=== PATIENT | female | born 1945 | race Caucasian/White ===

== ENCOUNTER → 2016-06-03 | Outpatient (CLI) | payer MEDICARE, BC ==
--- NOTE | 2016-06-06 11:01 | MM ---
Reason for exam: screening (asymptomatic). Last mammogram was performed 1 year ago. History: Patient is postmenopausal. Family history of breast cancer in paternal aunt at age 70 and breast cancer in maternal grandmother at age 56. Took hormonal contraceptives for 1 year beginning at age 29. Took estrogen for 1 year beginning at age 46. Took progesterone for 1 year beginning at age 46. Taking other hormone for 6 months beginning at age 62. Physical Findings: A clinical breast exam by your physician is recommended on an annual basis and results should be correlated with mammographic findings. MG 3D Screening Mammo W/Cad Bilateral CC and MLO view(s) were taken. Prior study comparison: May 28, 2015, bilateral MG screening mammo w CAD. May 26, 2014, bilateral MG screening mammo w CAD. There are scattered fibroglandular densities. Finding: There are typically benign vascular, dystrophic, round calcifications in both breasts. There is no discrete abnormality. ASSESSMENT: Benign, BI-RAD 2 RECOMMENDATION: Routine screening mammogram of both breasts in 1 year.
== END | disposition home or self-care (01) ==
LOC: RADMAMWWP 12:53
PROVIDERS: ATTEND Family Medicine
DX: Z12.31 Encounter for screening mammogram for malignant neoplasm of breast (principal)
CPT/HCPCS: 77063; G0202

== ENCOUNTER → 2017-07-14 | Outpatient (CLI) | payer MEDICARE, BC ==
--- NOTE | 2017-07-17 10:47 | MM ---
Reason for exam: screening (asymptomatic). Last mammogram was performed 1 year and 1 month ago. History: Patient is postmenopausal. Family history of breast cancer in paternal aunt at age 70 and breast cancer in maternal grandmother at age 56. Took hormonal contraceptives for 1 year beginning at age 29. Took estrogen for 1 year beginning at age 46. Took progesterone for 1 year beginning at age 46. Taking other hormone for 6 months beginning at age 62. Physical Findings: A clinical breast exam by your physician is recommended on an annual basis and results should be correlated with mammographic findings. MG 3D Screening Mammo W/Cad Bilateral CC and MLO view(s) were taken. Prior study comparison: June 03, 2016, bilateral MG 3d screening mammo w/cad. May 28, 2015, bilateral MG screening mammo w CAD. There are scattered fibroglandular densities. Benign calcifications bilaterally. No suspicious abnormality. No significant changes when compared with prior studies. ASSESSMENT: Benign, BI-RAD 2 RECOMMENDATION: Routine screening mammogram of both breasts in 1 year.
== END | disposition home or self-care (01) ==
LOC: RADMAMWWP 11:48
PROVIDERS: ATTEND Family Medicine
DX: Z12.31 Encounter for screening mammogram for malignant neoplasm of breast (principal); Z80.3 Family history of malignant neoplasm of breast
CPT/HCPCS: 77063; 77067

== ENCOUNTER → 2017-10-09 | Outpatient (CLI) | payer MEDICARE, BC ==
--- NOTE | 2017-10-10 14:51 | CT ---
EXAMINATION TYPE: CT soft tissue neck wo con DATE OF EXAM: 10/10/2017 COMPARISON: None HISTORY: Left side neck pain and swelling. BB placed on point of interest. CT DLP: 423.[address] of the neck was performed from the skull base through the lung apices. The lack of cont rast limits evaluation. AIRWAY: The supraglottic, glottic, and subglottic portions of the airway appear patent and free of mass. SALIVARY GLANDS: The submandibular and parotid glands are free of mass or inflammatory process. THYROID GLAND: No nodules or masses seen. LYMPH NODES: No adenopathy seen greater than 1cm. LUNG APICES: No nodule or mass is seen. OTHER: Vascular structures are patent. Moderate degenerative change of the cervical spine. No absce ss seen. IMPRESSION: No distinct abnormality at the site of clinical concern. If symptoms persist consider ultrasound coral elation.
== END | disposition home or self-care (01) ==
LOC: RADCTMAIN 16:05
PROVIDERS: ATTEND Family Medicine
DX: R22.1 Localized swelling, mass and lump, neck (principal); Z91.048 Other nonmedicinal substance allergy status
CPT/HCPCS: 70490

== ENCOUNTER 2017-10-18 17:52 | Inpatient (IN) | payer MEDICARE, BC ==
[2017-10-18] MEDS ORDERED: SODIUM CHLORIDE 0.9% 1,000 ML IV STA ×2 (17:55)
--- NOTE | 2017-10-18 18:14 | ED ---
General Adult HPI - General Chief complaint: Arrhythmia/Palpitations Stated complaint: tachycardia Time Seen by Provider: 10/18/17 17:54 Source: patient, RN notes reviewed, old records reviewed Mode of arrival: EMS Limitations: no limitations - History of Present Illness Initial comments: This is a 72-year-old female the ER for evaluation of weakness difficulty breathing shortness of breath and chest pain palpitations. Patient's strong cardiac history of heart disease. Lung disease. No recent change in medications. No recent fevers no cough or congestion taking all medications as prescribed. Patient denies any syncope, but just didn't feel significantly lightheaded and weak. Patient continues to feel lightheaded - Related Data Home Medications Medication Instructions Recorded Confirmed ALPRAZolam [Xanax] 0.125 mg PO DAILY 07/17/14 10/18/17 Atorvastatin [Lipitor] 40 mg PO HS 07/17/14 10/18/17 Biotin 5 mg PO BID 07/17/14 10/18/17 Citalopram Hydrobromide [CeleXA] 20 mg PO BID 07/17/14 10/18/17 Gabapentin [Neurontin] 600 mg PO TID 07/17/14 10/18/17 Hyoscyamine Sulfate [Levsin] 0.125 mg PO BID 07/17/14 10/18/17 Levothyroxine Sodium [Synthroid] 100 mcg PO DAILY 07/17/14 10/18/17 Lisinopril-Hctz 20-12.5 mg 1 tab PO DAILY 07/17/14 10/18/17 [Zestoretic 20-12.5] Loratadine [Claritin] 10 mg PO DAILY 07/17/14 10/18/17 Multivitamins, Thera [Theragran] 1 tab PO DAILY 07/17/14 10/18/17 glyBURIDE [Diabeta] 5 mg PO AC-BRKFST 07/17/14 10/18/17 hydrOXYzine HCL 10 mg PO HS PRN 07/17/14 10/18/17 metFORMIN HCL [Glucophage] 1,000 mg PO BID 07/17/14 10/18/17 Budesonide/Formoterol Fumarate 2 puff INHALATION RT-BID 10/18/17 10/18/17 [Symbicort 160-4.5 Mcg Inhaler] Calcium Citrate 500 mg PO DAILY 10/18/17 10/18/17 DULoxetine HCL [Cymbalta] 60 mg PO DAILY 10/18/17 10/18/17 Ferrous Sulfate [Feosol] 325 mg PO DAILY 10/18/17 10/18/17 Ipratropium-Albuterol Nebulize 3 ml INHALATION RT-QID PRN 10/18/17 10/18/17 [Duoneb 0.5 mg-3 mg/3 ml Soln] Mometasone Furoate [Nasonex Nasal 1 spray EA NOSTRIL BID 10/18/17 10/18/17 Holden] Naproxen 500 mg PO BID 10/18/17 10/18/17 Ranitidine HCl 150 mg PO BID 10/18/17 10/18/17 Vitamin B Complex 1 cap PO DAILY 10/18/17 10/18/17 Allergies Allergy/AdvReac Type Severity Reaction Status Date / Time banana [Banana] Allergy Severe Anaphylaxis Verified 10/18/17 18:02 iodine Allergy Severe DYSPNEA, Verified 10/18/17 18:02 SKIN INFLAMED kiwi Allergy Severe Anaphylaxis Verified 10/18/17 18:02 latex Allergy Dyspnea, Verified 10/18/17 18:02 Itching morphine Allergy Rapid Verified 10/18/17 18:02 Heart Rate cow products Allergy ALLERGY Uncoded 10/18/17 18:02 TEST POSITIVE ivp dye Allergy Dyspnea Uncoded 10/18/17 18:02 smoke Allergy Dyspnea Uncoded 10/18/17 18:02 Review of Systems ROS Statement: Those systems with pertinent positive or pertinent negative responses have been documented in the HPI. ROS Other: All systems not noted in ROS Statement are negative. Past Medical History Past Medical History: Asthma, Chest Pain / Angina, COPD, CVA/TIA, Diabetes Mellitus, GERD/Reflux, Hearing Disorder / Deafness, Hyperlipidemia, Hypertension , Musculoskeletal Disorder, Sleep Apnea/CPAP/BIPAP, Thyroid Disorder Additional Past Medical History / Comment(s): NEUROPATHY, HEART MURMUR, NOT USING C-PAP, HIATAL HERNIA, DIVERTICULOSIS, CYST LEFT KIDNEY, DDD WITH SCIATICA AND BACK PAIN. STATES HAVING LEFT ABD & RIGHT GROIN PAIN. NEURO DERMATITIS W/ RASH. History of Any Multi-Drug Resistant Organisms: None Reported Past Surgical History: Adenoidectomy, Cholecystectomy, Hysterectomy, Joint Replacement, Orthopedic Surgery, Tonsillectomy Additional Past Surgical History / Comment(s): D & C, ARTHROSCOPY MIGUEL KNEES, MIGUEL ROTATOR CUFF , MIGUEL KNEE REPLACEMENT. Past Anesthesia/Blood Transfusion Reactions: Postoperative Nausea & Vomiting ( PONV) Past Psychological History: Anxiety, Depression Smoking Status: Former smoker Past Alcohol Use History: None Reported Past Drug Use History: None Reported - Past Family History Mother Family Medical History: Cancer Additional Family Medical History / Comment(s): PANCREAS CA General Exam Limitations: no limitations General appearance: alert, in no apparent distress Head exam: Present: atraumatic, normocephalic, normal inspection Eye exam: Present: normal appearance, PERRL, EOMI. Absent: scleral icterus, conjunctival injection, periorbital swelling ENT exam: Present: normal exam, mucous membranes moist Neck exam: Present: normal inspection. Absent: tenderness, meningismus, lymphadenopathy Respiratory exam: Present: normal lung sounds bilaterally. Absent: respiratory distress, wheezes, rales, rhonchi, stridor Cardiovascular Exam: Present: regular rate, normal rhythm, normal heart sounds. Absent: systolic murmur, diastolic murmur, rubs, gallop, clicks GI/Abdominal exam: Present: soft, normal bowel sounds. Absent: distended, tenderness, guarding, rebound, rigid Extremities exam: Present: normal inspection, full ROM, normal capillary refill. Absent: tenderness, pedal edema, joint swelling, calf tenderness Back exam: Present: normal inspection Neurological exam: Present: alert, oriented X3, CN II-XII intact Psychiatric exam: Present: normal affect, normal mood Skin exam: Present: warm, dry, intact, normal color. Absent: rash Course Vital Signs 10/18/17 17:56 Temperature 98.1 F Pulse Rate 91 Respiratory 16 Rate Blood Pressure 118/63 O2 Sat by Pulse 95 Oximetry - Reevaluation(s) Reevaluation #1: 10/18/17 18:56 Per EMS patient was found to be in SVT positive rate over 200, was given adenosine and heart rate improved to normal sinus rhythm Medical Decision Making - Medical Decision Making 72 female the ER with SVT. Patient's SVT history appropriately, patient will be admitted for cardiology treatment and evaluation - Lab Data Result diagrams: 10/18/17 18:10 10/18/17 18:10 Lab Results 10/18/17 10/18/17 10/18/17 Range/Units 18:10 18:10 18:10 WBC 9.8 (3.8-10.6) k/uL RBC 4.11 (3.80-5.40) m/uL Hgb 11.7 (11.4-16.0) gm/dL Hct 37.1 (34.0-46.0) % MCV 90.2 (80.0-100.0) fL MCH 28.5 (25.0-35.0) pg MCHC 31.6 (31.0-37.0) g/dL RDW 13.3 (11.5-15.5) % Plt Count 329 (150-450) k/uL Neutrophils % 65 % Lymphocytes % 29 % Monocytes % 2 % Eosinophils % 1 % Basophils % 0 % Neutrophils # 6.4 (1.3-7.7) k/uL Lymphocytes # 2.8 (1.0-4.8) k/uL Monocytes # 0.2 (0-1.0) k/uL Eosinophils # 0.1 (0-0.7) k/uL Basophils # 0.0 (0-0.2) k/uL PT (9.0-12.0) sec INR (<1.2) APTT (22.0-30.0) sec Sodium 140 (137-145) mmol/L Potassium 4.5 (3.5-5.1) mmol/L Chloride 110 H (98-107) mmol/L Carbon Dioxide 23 (22-30) mmol/L Anion Gap 7 mmol/L BUN 27 H (7-17) mg/dL Creatinine 1.04 (0.52-1.04) mg/dL Est GFR (CKD-EPI)AfAm 62 (>60 ml/min/1.73 sqM) Est GFR (CKD-EPI)NonAf 54 (>60 ml/min/1.73 sqM) Glucose 286 H (74-99) mg/dL Plasma Lactic Acid Juan (0.7-2.0) mmol/L Calcium 9.3 (8.4-10.2) mg/dL Phosphorus 2.7 (2.5-4.5) mg/dL Magnesium 1.3 L (1.6-2.3) mg/dL Total Bilirubin 0.4 (0.2-1.3) mg/dL AST 207 H (14-36) U/L ALT 169 H (9-52) U/L Alkaline Phosphatase 103 (38-126) U/L Total Creatine Kinase 33 (30-135) U/L Total Protein 6.3 (6.3-8.2) g/dL Albumin 3.8 (3.5-5.0) g/dL 10/18/17 10/18/17 Range/Units 18:10 18:10 WBC (3.8-10.6) k/uL RBC (3.80-5.40) m/uL Hgb (11.4-16.0) gm/dL Hct (34.0-46.0) % MCV (80.0-100.0) fL MCH (25.0-35.0) pg MCHC (31.0-37.0) g/dL RDW (11.5-15.5) % Plt Count (150-450) k/uL Neutrophils % % Lymphocytes % % Monocytes % % Eosinophils % % Basophils % % Neutrophils # (1.3-7.7) k/uL Lymphocytes # (1.0-4.8) k/uL Monocytes # (0-1.0) k/uL Eosinophils # (0-0.7) k/uL Basophils # (0-0.2) k/uL PT 11.4 (9.0-12.0) sec INR 1.2 H (<1.2) APTT 19.9 L (22.0-30.0) sec Sodium (137-145) mmol/L Potassium (3.5-5.1) mmol/L Chloride (98-107) mmol/L Carbon Dioxide (22-30) mmol/L Anion Gap mmol/L BUN (7-17) mg/dL Creatinine (0.52-1.04) mg/dL Est GFR (CKD-EPI)AfAm (>60 ml/min/1.73 sqM) Est GFR (CKD-EPI)NonAf (>60 ml/min/1.73 sqM) Glucose (74-99) mg/dL Plasma Lactic Acid Juan 3.7 H* (0.7-2.0) mmol/L Calcium (8.4-10.2) mg/dL Phosphorus (2.5-4.5) mg/dL Magnesium (1.6-2.3) mg/dL Total Bilirubin (0.2-1.3) mg/dL AST (14-36) U/L ALT (9-52) U/L Alkaline Phosphatase (38-126) U/L Total Creatine Kinase (30-135) U/L Total Protein (6.3-8.2) g/dL Albumin (3.5-5.0) g/dL Disposition Clinical Impression: Supraventricular tachycardia Disposition: ADMITTED IP TO THIS HOSP Condition: Fair Is patient prescribed a controlled substance at d/c from ED?: No Referrals: Mallorie Hudson DO [Primary Care Provider] - 1-2 days
[2017-10-18 18:24] LABS: Basophils % (A) 0 %; Eosinophils # (A) 0.1 k/uL (0-0.7); Eosinophils % (A) 1 %; HCT 37.1 % (34.0-46.0); HGB 11.7 gm/dL (11.4-16.0); Lymphocytes # (A) 2.8 k/uL (1.0-4.8); Lymphocytes % (A) 29 %; MCH 28.5 pg (25.0-35.0); MCHC 31.6 g/dL (31.0-37.0); MCV 90.2 fL (80.0-100.0); Mean Platelet Volume 7.5; Monocytes # (A) 0.2 k/uL (0-1.0); Monocytes % (A) 2 %; Neutrophils # (A) 6.4 k/uL (1.3-7.7); Neutrophils % (A) 65 %; Platelet Count 329 k/uL (150-450); RBC 4.11 m/uL (3.80-5.40); RDW 13.3 % (11.5-15.5); WBC 9.8 k/uL (3.8-10.6)
[2017-10-18 18:32] LABS: Albumin 3.8 g/dL (3.5-5.0); Calcium 9.3 mg/dL (8.4-10.2); Magnesium 1.3 mg/dL (1.6-2.3); Phosphorus 2.7 mg/dL (2.5-4.5); Potassium 4.5 mmol/L (3.5-5.1); Total Bilirubin 0.4 mg/dL (0.2-1.3); Total Protein 6.3 g/dL (6.3-8.2)
[2017-10-18 18:44] LABS: INR 1.2 (<1.2); Prothrombin Time 11.4 sec (9.0-12.0)
[2017-10-18 18:54] LABS: Partial Thromboplastin Time 19.9 sec (22.0-30.0)
[2017-10-18] MEDS ORDERED: NITROGLYCERIN SL TABS 0.4 MG TAB SUBLINGUAL PRN (18:54)
[2017-10-18 18:57] LABS: Troponin I 0.012 ng/mL (0.000-0.034)
--- NOTE | 2017-10-18 19:02 | XR ---
EXAMINATION: XR chest 2V DATE AND TIME: 10/18/2017 6:22 PM ORDERING PROVIDER: David French DO CLINICAL INDICATION: Weakness TECHNIQUE: PA and lateral COMPARISON: None. DESCRIPTION: The overlying soft tissues are prominent. The lungs are clear. The pleural spaces are negative. The cardiac silhouette is mild enlarged. The mediastinal and pleural silhouettes are unremarkable. The skeletal structures are intact without focal findings. IMPRESSION: 1. NO ACUTE PROCESS. 2. MILDLY ENLARGED CARDIAC [place]TE.
[2017-10-18 21:58] LABS: Glucose,Whole Blood 187 mg/dL (75-99)
[2017-10-18] MEDS ORDERED: hydrOXYzine HCL 10 MG TAB PO PRN (22:10)
[2017-10-18] MEDS ORDERED: ATORVASTATIN 40 MG TAB PO SCH (22:15)
[2017-10-18] MEDS ORDERED: NON-FORMULARY DRUG (Biotin [Biotin] 5 MG) PO SCH (22:15)
[2017-10-18 22:44] VITALS: BMI 36.1
[2017-10-18] MEDS: METOPROLOL TARTRATE 50 MG TAB PO SCH (22:46)
[2017-10-18] MEDS: GABAPENTIN 300 MG CAP PO SCH (22:47)
[2017-10-18] MEDS: CITALOPRAM HYDROBROMIDE 20 MG TAB PO SCH (22:47)
[2017-10-18] MEDS: FAMOTIDINE 20 MG TAB PO SCH (22:47)
[2017-10-18] MEDS: HYOSCYAMINE SULFATE 0.125 MG TAB PO SCH ×2 (22:48→22:53)
[2017-10-18] MEDS: metFORMIN 500 MG TAB PO SCH (22:50)
[2017-10-18] MEDS: LORATADINE 10 MG TAB PO SCH (22:51)
[2017-10-18] MEDS: ALPRAZolam 0.25 MG TAB PO SCH (22:55)
[2017-10-18] MEDS: IPRATROPIUM-ALBUTEROL 3 ML NEB INHALATION PRN (23:56)
[2017-10-19 01:39] LABS: Creatine Kinase MB 1.2 ng/mL (0.0-2.4)
[2017-10-19 01:42] LABS: Troponin I 0.047 ng/mL (0.000-0.034)
[2017-10-19] MEDS ORDERED: ENOXAPARIN 80 MG/0.8 ML SYRINGE SQ STA (02:05)
[2017-10-19 05:31] LABS: Appearance,Urine Cloudy (Clear); Bilirubin,Urine Negative (Negative); Blood,Urine Negative (Negative); Color,Urine Yellow; Glucose,Urine (UA) 1+ (Negative); Hyaline Casts,Urine 15 /lpf (0-2); Ketones,Urine Trace (Negative); Leukocyte Esterase,Urine Large (Negative); Mucus,Urine Many /hpf; Nitrite,Urine Negative (Negative); PH, Urine 5.5 (5.0-8.0); Protein,Urine 1+ (Negative); RBC,Urine 4 /hpf (0-5); Specific Gravity,Urine 1.025 (1.001-1.035); Squamous Epithelial Cell,Urine 5 /hpf (0-4); WBC,Urine 81 /hpf (0-5)
[2017-10-19 06:06] LABS: Glucose,Whole Blood 188 mg/dL (75-99)
[2017-10-19 06:21] LABS: Basophils % (A) 0 %; Eosinophils # (A) 0.1 k/uL (0-0.7); Eosinophils % (A) 1 %; HCT 33.6 % (34.0-46.0); HGB 10.4 gm/dL (11.4-16.0); Lymphocytes # (A) 2.8 k/uL (1.0-4.8); Lymphocytes % (A) 30 %; MCH 27.8 pg (25.0-35.0); MCHC 30.8 g/dL (31.0-37.0); MCV 90.3 fL (80.0-100.0); Mean Platelet Volume 7.4; Monocytes # (A) 0.3 k/uL (0-1.0); Monocytes % (A) 3 %; Neutrophils # (A) 5.8 k/uL (1.3-7.7); Neutrophils % (A) 62 %; Platelet Count 292 k/uL (150-450); RBC 3.72 m/uL (3.80-5.40); RDW 13.2 % (11.5-15.5); WBC 9.3 k/uL (3.8-10.6)
[2017-10-19] MEDS: INSULIN ASPART 100 UNIT/ML 1 ML 10 ML VIAL SQ SCH ×4 (06:27→21:24)
[2017-10-19] MEDS: LEVOTHYROXINE 100 MCG TAB PO SCH (06:29)
[2017-10-19 06:30] LABS: Calcium 8.6 mg/dL (8.4-10.2); Potassium 4.1 mmol/L (3.5-5.1)
[2017-10-19 06:52] LABS: Creatine Kinase MB 1.5 ng/mL (0.0-2.4)
[2017-10-19 06:55] LABS: Troponin I 0.042 ng/mL (0.000-0.034)
[2017-10-19] MEDS: ALPRAZolam 0.25 MG TAB PO SCH (08:34)
[2017-10-19] MEDS: FLUTICASONE 50MCG/SPRAY NASAL 16GM EA NOSTRIL SCH (08:36)
[2017-10-19] MEDS: CALCIUM CARBONATE 500 MG CHEWABLE PO SCH (08:37)
[2017-10-19] MEDS: CITALOPRAM HYDROBROMIDE 20 MG TAB PO SCH ×2 (08:37→19:45)
[2017-10-19] MEDS: DULoxetine HCL 60 MG CAPSULE.DR PO SCH (08:37)
[2017-10-19] MEDS: metFORMIN 500 MG TAB PO SCH (08:38)
[2017-10-19] MEDS: HYOSCYAMINE SULFATE 0.125 MG TAB PO SCH ×2 (08:38→19:44)
[2017-10-19] MEDS: GABAPENTIN 300 MG CAP PO SCH ×3 (08:38→19:45)
[2017-10-19] MEDS: FAMOTIDINE 20 MG TAB PO SCH ×2 (08:38→19:44)
[2017-10-19] MEDS: LORATADINE 10 MG TAB PO SCH (08:38)
[2017-10-19] MEDS: FERROUS SULFATE 325 MG TAB PO SCH (08:38)
[2017-10-19] MEDS: METOPROLOL TARTRATE 50 MG TAB PO SCH ×2 (08:39→19:45)
[2017-10-19] MEDS: IPRATROPIUM-ALBUTEROL 3 ML NEB INHALATION PRN ×2 (08:42→12:17)
[2017-10-19] MEDS: SYMBICORT 160-4.5 MCG INHALER INHALATION SCH ×2 (08:42→21:10)
[2017-10-19] MEDS ORDERED: NON-FORMULARY DRUG (Vitamin B Complex [Vitamin B Complex] 1 CAP) PO SCH (09:00)
[2017-10-19] MEDS ORDERED: NAPROXEN 250 MG TAB PO SCH (09:00)
[2017-10-19] MEDS ORDERED: LISINOPRIL-HCTZ 20-12.5 MG 1 EACH TAB PO SCH (09:00)
[2017-10-19] MEDS ORDERED: ASPIRIN 325 MG TAB PO SCH (09:00)
[2017-10-19 09:19] LABS: Albumin 3.3 g/dL (3.5-5.0); Calcium 8.6 mg/dL (8.4-10.2); Total Bilirubin 0.3 mg/dL (0.2-1.3); Total Protein 5.7 g/dL (6.3-8.2)
--- NOTE | 2017-10-19 09:35 | P.CRDCN ---
History of Present Illness Consult date: 10/19/17 Requesting physician: Wenceslao Brock Reason for Consult (text): SVT Chief complaint: Palpitations History of present illness: This is a pleasant 72-year-old female with history of hypertension, diabetes, hyperlipidemia, very hard of hearing, nonsmoker, no EtOH, who drinks 3 -4 cups of coffee per day. Patient has also been told that she has 2 leaky valves, she has not seen a carton folder, follows with Dr. Hudson as her primary care doctor. She states that since Monday evening she has not been feeling well overall. She states that she has been under a lot of stress at home recently and attributed most of her symptoms to that. She has been feeling extremely fatigued and tired, and at times feels her heart racing extremely fast. Ultimately the patient couldn't handle it anymore and EMS was called. She also states that on occasion she gets a midsternal chest pressure and heaviness which comes and goes. On arrival an EKG was performed which revealed supraventricular tachycardia, she was given adenosine and converted to normal sinus rhythm. Chest x-ray on arrival here did not reveal any acute process. Laboratory data was reviewed, white blood cell count 9.3, hemoglobin 10.4, platelet count 292. Sodium 141, potassium 4.0, BUN 26, creatinine 1.0. Magnesium 1.3. AST 207 ALT 169 yesterday was 193 and 205 today. Troponins 0.012, 0.047, 0.042. Positive UTI. TSH 1.3. Blood sugars on arrival 286. I pressure 125/77, heart rate in the 70s, 97% on room air. At the time of my examination this morning, patient feels a little shaky in her words, otherwise she's feeling considerably better than prior to coming here. Denies any chest discomfort or palpitations this morning. Her breathing is stable. Past Medical History Past Medical History: Asthma, Chest Pain / Angina, COPD, CVA/TIA, Diabetes Mellitus, GERD/Reflux, Hearing Disorder / Deafness, Hyperlipidemia, Hypertension , Musculoskeletal Disorder, Sleep Apnea/CPAP/BIPAP, Thyroid Disorder Additional Past Medical History / Comment(s): NEUROPATHY, HEART MURMUR, NOT USING C-PAP, HIATAL HERNIA, DIVERTICULOSIS, CYST LEFT KIDNEY, DDD WITH SCIATICA AND BACK PAIN. STATES HAVING LEFT ABD & RIGHT GROIN PAIN. NEURO DERMATITIS W/ RASH. History of Any Multi-Drug Resistant Organisms: None Reported Past Surgical History: Adenoidectomy, Cholecystectomy, Hysterectomy, Joint Replacement, Orthopedic Surgery, Tonsillectomy Additional Past Surgical History / Comment(s): D & C, ARTHROSCOPY MIGUEL KNEES, MIGUEL ROTATOR CUFF , MIGUEL KNEE REPLACEMENT. Past Anesthesia/Blood Transfusion Reactions: Postoperative Nausea & Vomiting ( PONV) Past Psychological History: Anxiety, Depression Smoking Status: Former smoker Past Alcohol Use History: None Reported Past Drug Use History: None Reported - Past Family History Father Family Medical History: Pneumonia Mother Family Medical History: Cancer Additional Family Medical History / Comment(s): PANCREAS CA Medications and Allergies Home Medications Medication Instructions Recorded Confirmed Type ALPRAZolam [Xanax] 0.125 mg PO DAILY 07/17/14 10/18/17 History Atorvastatin [Lipitor] 40 mg PO HS 07/17/14 10/18/17 History Biotin 5 mg PO BID 07/17/14 10/18/17 History Citalopram Hydrobromide [CeleXA] 20 mg PO BID 07/17/14 10/18/17 History Gabapentin [Neurontin] 600 mg PO TID 07/17/14 10/18/17 History Hyoscyamine Sulfate [Levsin] 0.125 mg PO BID 07/17/14 10/18/17 History Levothyroxine Sodium [Synthroid] 100 mcg PO DAILY 07/17/14 10/18/17 History Lisinopril-Hctz 20-12.5 mg 1 tab PO DAILY 07/17/14 10/18/17 History [Zestoretic 20-12.5] Loratadine [Claritin] 10 mg PO DAILY 07/17/14 10/18/17 History Multivitamins, Thera [Theragran] 1 tab PO DAILY 07/17/14 10/18/17 History glyBURIDE [Diabeta] 5 mg PO AC-BRKFST 07/17/14 10/18/17 History hydrOXYzine HCL 10 mg PO HS PRN 07/17/14 10/18/17 History metFORMIN HCL [Glucophage] 1,000 mg PO BID 07/17/14 10/18/17 History Budesonide/Formoterol Fumarate 2 puff INHALATION RT-BID 10/18/17 10/18/17 History [Symbicort 160-4.5 Mcg Inhaler] Calcium Citrate 500 mg PO DAILY 10/18/17 10/18/17 History DULoxetine HCL [Cymbalta] 60 mg PO DAILY 10/18/17 10/18/17 History Ferrous Sulfate [Feosol] 325 mg PO DAILY 10/18/17 10/18/17 History Ipratropium-Albuterol Nebulize 3 ml INHALATION RT-QID PRN 10/18/17 10/18/17 History [Duoneb 0.5 mg-3 mg/3 ml Soln] Mometasone Furoate [Nasonex Nasal 1 spray EA NOSTRIL BID 10/18/17 10/18/17 History [place]] Naproxen 500 mg PO BID 10/18/17 10/18/17 History Ranitidine HCl 150 mg PO BID 10/18/17 10/18/17 History Vitamin B Complex 1 cap PO DAILY 10/18/17 10/18/17 History Allergies Allergy/AdvReac Type Severity Reaction Status Date / Time banana [Banana] Allergy Severe Anaphylaxis Verified 10/18/17 18:02 iodine Allergy Severe DYSPNEA, Verified 10/18/17 18:02 SKIN INFLAMED kiwi Allergy Severe Anaphylaxis Verified 10/18/17 18:02 latex Allergy Dyspnea, Verified 10/18/17 18:02 Itching morphine Allergy Rapid Verified 10/18/17 18:02 Heart Rate cow products Allergy ALLERGY Uncoded 10/18/17 18:02 TEST POSITIVE ivp dye Allergy Dyspnea Uncoded 10/18/17 18:02 smoke Allergy Dyspnea Uncoded 10/18/17 18:02 Physical Exam Vitals: Vital Signs Temp Pulse Pulse Resp BP BP Pulse Ox 10/19/17 08:56 74 10/19/17 08:44 78 96 10/19/17 08:00 98.8 F 78 16 125/77 97 10/19/17 04:00 98.5 F 76 17 141/62 92 L 10/19/17 00:07 76 17 10/19/17 00:06 68 10/19/17 00:04 98.3 F 76 17 107/55 92 L 10/18/17 23:57 76 10/18/17 21:09 98.5 F 84 17 129/58 98 10/18/17 19:12 84 16 145/68 98 10/18/17 17:56 98.1 F 91 16 118/63 95 Intake and Output 10/18/17 10/19/17 10/19/17 22:59 06:59 14:59 Intake Total 1000 240 Balance 1000 240 Intake: Intake, IV Titration 800 Amount Sodium Chloride 0.9% 1, 800 000 ml @ 100 mls/hr IV . Q10H STA Rx#:[id number] Oral 200 240 Other: Voiding Method Toilet # Voids 2 Weight 81.193 kg 81.2 kg PHYSICAL EXAMINATION: GENERAL: 72-year-old female in no acute distress at time of my examination HEENT: Head is atraumatic, normocephalic. Pupils equal, round. Sclera anicteric. Conjunctivae bilateral eye redness noted. Mucous membranes of the mouth are moist. Neck is supple. There is no elevated jugular venous pressure. No carotid bruit is heard. HEART EXAMINATION: S1 and S2 systolic murmur is heard. CHEST EXAMINATION: Lungs are clear to auscultation and precussion. No chest wall tenderness is noted on palpation or with deep breathing. ABDOMEN: Soft, nontender. Bowel sounds are heard. No organomegaly noted. EXTREMITIES: 2+ peripheral pulses with no evidence of peripheral edema and no calf tenderness noted. NEUROLOGIC patient is awake, alert and oriented X3. . Results 10/19/17 06:00 10/19/17 06:00 Cardiac Enzymes 10/18/17 10/18/17 10/19/17 Range/Units 18:10 18:10 00:36 AST 207 H (14-36) U/L CK-MB (CK-2) 1.0 1.2 (0.0-2.4) ng/mL Troponin I 0.012 0.047 H* (0.000-0.034) ng/mL 10/19/17 Range/Units 06:00 AST (14-36) U/L CK-MB (CK-2) 1.5 (0.0-2.4) ng/mL Troponin I 0.042 H* (0.000-0.034) ng/mL Coagulation 10/18/17 Range/Units 18:10 PT 11.4 (9.0-12.0) sec APTT 19.9 L (22.0-30.0) sec Lipids 10/19/17 Range/Units 06:00 Triglycerides 194 H (<150) mg/dL Cholesterol 120 (<200) mg/dL HDL Cholesterol 41 (40-60) mg/dL CBC 10/18/17 10/19/17 Range/Units 18:10 06:00 WBC 9.8 9.3 (3.8-10.6) k/uL RBC 4.11 3.72 L (3.80-5.40) m/uL Hgb 11.7 10.4 L (11.4-16.0) gm/dL Hct 37.1 33.6 L (34.0-46.0) % Plt Count 329 292 (150-450) k/uL Comprehensive Metabolic Panel 10/18/17 10/19/17 Range/Units 18:10 06:00 Sodium 140 141 (137-145) mmol/L Potassium 4.5 4.1 (3.5-5.1) mmol/L Chloride 110 H 112 H (98-107) mmol/L Carbon Dioxide 23 22 (22-30) mmol/L BUN 27 H 26 H (7-17) mg/dL Creatinine 1.04 1.10 H (0.52-1.04) mg/dL Glucose 286 H 171 H (74-99) mg/dL Calcium 9.3 8.6 (8.4-10.2) mg/dL AST 207 H (14-36) U/L ALT 169 H (9-52) U/L Alkaline Phosphatase 103 (38-126) U/L Total Protein 6.3 (6.3-8.2) g/dL Albumin 3.8 (3.5-5.0) g/dL Current Medications Generic Name Dose Route Start Last Admin Trade Name Freq PRN Reason Stop Dose Admin Albuterol/Ipratropium 3 ml 10/18/17 22:10 10/19/17 08:42 Duoneb 0.5 Mg-3 Mg/3 Ml Soln INHALATION 3 ml RT-QID PRN Administration Shortness Of Breath Alprazolam 0.125 mg 10/18/17 22:15 10/19/17 08:34 Xanax PO 0.125 mg DAILY SUHAS Administration Aspirin 325 mg 10/19/17 09:00 10/19/17 08:41 Aspirin PO 325 mg DAILY SUHAS Administration Budesonide/Formoterol Fumarate 2 puff 10/19/17 08:00 10/19/17 08:42 Symbicort 160-4.5 Mcg Inhaler INHALATION 2 puff RT-BID SUHAS Administration Calcium Carbonate/Glycine 500 mg 10/19/17 09:00 10/19/17 08:37 Tums PO 500 mg DAILY SUHAS Administration Citalopram Hydrobromide 20 mg 10/18/17 22:15 10/19/17 08:37 Celexa PO 20 mg BID SUHAS Administration Duloxetine HCl 60 mg 10/19/17 09:00 10/19/17 08:37 Cymbalta PO 60 mg DAILY SUHAS Administration Enoxaparin Sodium 40 mg 10/19/17 21:00 Lovenox SQ HS SUHAS Famotidine 20 mg 10/18/17 22:15 10/19/17 08:38 Pepcid PO 20 mg BID SUHAS Administration Ferrous Sulfate 325 mg 10/19/17 09:00 10/19/17 08:38 Feosol PO 325 mg DAILY SUHAS Administration Fluticasone Propionate 1 spray 10/19/17 09:00 10/19/17 08:36 Flonase Nasal [place] EA NOSTRIL 1 spray DAILY SUHAS Administration Gabapentin 600 mg 10/18/17 22:15 10/19/17 08:38 Neurontin PO 600 mg TID SUHAS Administration Lisinopril/HCTZ 1 each 10/19/17 09:00 10/19/17 08:38 Zestoretic 20-12.5 PO 1 each DAILY SUHAS Administration Hydroxyzine HCl 10 mg 10/18/17 22:10 Atarax PO HS PRN Itching Hyoscyamine 0.125 mg 10/18/17 22:15 10/19/17 08:38 Levsin PO 0.125 mg BID SUHAS Administration Magnesium Sulfate/Dextrose 1 100 mls @ 100 mls/hr 10/19/17 08:45 gm/ IV Solution IVPB 10/19/17 10:44 Q1H [facility] Insulin Aspart 0 unit 10/19/17 07:30 10/19/17 06:27 Novolog SQ 2 unit ACHS SUHAS Administration Protocol Levothyroxine Sodium 100 mcg 10/19/17 06:30 10/19/17 06:29 Synthroid PO 100 mcg DAILY@0630 SUHAS Administration Loratadine 10 mg 10/18/17 22:15 10/19/17 08:38 Claritin PO 10 mg DAILY SUHAS Administration Metformin HCl 1,000 mg 10/18/17 22:00 10/19/17 08:38 Glucophage PO 1,000 mg BID SUHAS Administration Metoprolol Tartrate 50 mg 10/18/17 21:00 10/19/17 08:39 Lopressor PO 50 mg BID SUHAS Administration Multivitamins 1 each 10/19/17 12:00 Theragran PO DAILY@1200 SUHAS Naproxen 500 mg 10/19/17 09:00 10/19/17 08:31 Naprosyn PO Not Given BID SUHAS Nitroglycerin 0.4 mg 10/18/17 18:54 Nitrostat SUBLINGUAL Q5M PRN Chest Pain Intake and Output 10/18/17 10/19/17 10/19/17 22:59 06:59 14:59 Intake Total 1000 240 Balance 1000 240 Intake: Intake, IV Titration 800 Amount Sodium Chloride 0.9% 1, 800 000 ml @ 100 mls/hr IV . Q10H STA Rx#:[id number] Oral 200 240 Other: Voiding Method Toilet # Voids 2 Weight 81.193 kg 81.2 kg 10/19/17 06:00 10/19/17 06:00 EKG Interpretations (text) Initial EKG by EMS showed supraventricular tachycardia with a heart rate in the 200 range. Subsequent EKG shows normal sinus rhythm ST-T wave changes are noted in the anterior lateral leads changes also noted in the inferior leads. Repeat EKG performed this morning shows normal sinus rhythm with resolution of changes. Assessment and Plan Plan: Assessment and plan #1 supraventricular tachycardia, converted to normal sinus rhythm with adenosine. #2 symptoms of intermittent chest pressure and heaviness with abnormality noted in troponin. Conversion EKG does show some ST-T wave changes in the anterior leads as well as inferior leads. Cannot rule out acute coronary syndrome. #3 hypertension #4 hyperlipidemia #5 diabetes #6 abnormal liver function Plan We will obtain an echocardiogram with Doppler study. Because of the abnormality in troponin and subsequent EKG changes patient has been advised to undergo cardiac catheterization, the risks and benefits were explained in detail and she is going to proceed. Abnormality in troponin could also be secondary to SVT. Further recommendations will be based on these findings and patient's clinical course. DNP note has been reviewed, I agree with a documented findings and plan of care. Patient was seen and examined.
[2017-10-19] MEDS ORDERED: SODIUM CHLORIDE 0.9% 1,000 ML in EMPTY BAG 1 BAG IV ONE (09:36)
[2017-10-19] MEDS ORDERED: ALPRAZolam 0.5 MG TAB PO PRN (09:36)
[2017-10-19] MEDS ORDERED: ASPIRIN 325 MG TAB PO STA (09:36)
[2017-10-19] MEDS ORDERED: NITROGLYCERIN SL TABS 0.4 MG TAB SUBLINGUAL PRN (09:36)
[2017-10-19] MEDS ORDERED: ALPRAZolam 0.25 MG TAB PO PRN (09:36)
[2017-10-19] MEDS ORDERED: ATORVASTATIN 80 MG TAB PO STA (09:39)
--- NOTE | 2017-10-19 09:44 | P.PN ---
Progress Note - Text This is an addendum to the dictated cardiology consultation. The patient presents with tachycardia, SVT and chest discomfort as well as dyspnea. She has a history of hypertension, hyperlipidemia and diabetes mellitus. She has no documented history of CAD. She has been complaining of palpitations on and off with episode of chest tightness. On presentation she was in SVT that reverted to sinus mechanism with adenosine. She has mild T-wave inversion anteriorly of unclear etiology. On her examination her lungs are clear and she has no evidence of congestion with trace edema. I have recommended to obtain an echocardiogram to evaluate her systolic function and because of her history and presentation I have recommended to proceed with cardiac catheterization to further evaluate her status and guide her treatment. The risks as well as as the complications were discussed with the patient who is in full understanding and agreement. Thank you for this consult we will follow with you.
[2017-10-19] MEDS: MAGNESIUM SULFATE-D5W PMX 1 GM in DEXTROSE/WATER 1 100ML.BAG IVPB SCH ×2 (10:07→11:15)
--- NOTE | 2017-10-19 11:04 | ECHOF ---
Referral Reason:abn trop MEASUREMENTS -------- HEIGHT: 127.0 cm WEIGHT: 81.2 kg BP: RVIDd: 2.7 cm (< 3.3) IVSd: 1.0 cm (0.6 - 1.1) LVIDd: 4.2 cm (3.9 - 5.3) LVPWd: 1.3 cm (0.6 - 1.1) IVSs: 1.4 cm LVIDs: 3.4 cm LVPWs: 1.3 cm LA Diam: 3.6 cm (2.7 - 3.8) Ao Diam: 2.7 cm (2.0 - 3.7) AV Cusp: 1.8 cm (1.5 - 2.6) LA Diam: 4.1 cm (2.7 - 3.8) MV EXCURSION: 13.189 mm (> 18.000) MV EF SLOPE: 82 mm/s (70 - 150) EPSS: 0.2 cm MV E Joseph: 1.05 m/s MV DecT: 154 ms MV A Joseph: 1.04 m/s MV E/A Ratio: 1.01 AR PHT: 386 ms RAP: 15.00 mmHg RVSP: 65.90 mmHg FINDINGS -------- Sinus rhythm. This was a technically adequate study. LV size, wall thickness and systolic function are normal, with an EF greater than 55%. The left fely tricular size is normal. The right ventricle is normal in size. The left atrium is mildly dilated. LA is severely dilated >40 ml/m2 The right atrial size is normal. There is mild aortic valve sclerosis. Trace to mild aortic regurgitation. Mild mitral annular calcification present. Mild mitral regurgitation is present. [id number] tricuspid regurgitation present. There is moderate to severe pulmonary hypertensio n. The right ventricular systolic pressure, as measured by Doppler, is 65.90mmHg. Trace/mild (physiologic) pulmonic regurgitation. The aortic root size is normal. Echo free space represents a pericardial fat pad. CONCLUSIONS -------- 1. LV size, wall thickness and systolic function are normal, with an EF greater than 55%. 2. The left ventricular size is normal. 3. The right ventricle is normal in size. 4. The left atrium is mildly dilated. 5. LA is severely dilated >40 ml/m2 6. The right atrial size is normal. 7. There is mild aortic valve sclerosis. 8. Trace to mild aortic regurgitation. 9. Mild mitral annular calcification present. 10. Mild mitral regurgitation is present. 11. [id number] tricuspid regurgitation present. 12. There is moderate to severe pulmonary hypertension. 13. The right ventricular systolic pressure, as measured by Doppler, is 65.90mmHg. 14. Trace/mild (physiologic) pulmonic regurgitation. 15. The aortic root size is normal. 16. Echo free space represents a pericardial fat pad. [employer] HOLE DRILLER: Delicia Watts RDCS
[2017-10-19] MEDS: MULTIVITAMINS, THERA 1 EACH TAB PO SCH (11:15)
[2017-10-19 11:19] LABS: Glucose,Whole Blood 145 mg/dL (75-99)
--- NOTE | 2017-10-19 11:43 | P.HPIM ---
<Esem Donovan - Last Filed: 10/19/17 11:25> History of Present Illness H&P Date: 10/19/17 Chief Complaint: Shortness of breath and chest tightness This is a 72-year-old female, patient of [facility]. She has a known past medical history of TIA, COPD, diabetes mellitus, hypertension, obstructive sleep apnea, hypothyroidism, stomach ulcer and hyperlipidemia. Patient reports over the last week she's had increasing shortness of breath, chest tightness, palpitations and overall weakness. She also has been feeling lightheaded. She had called EMS. Per EMS patient was found to be in SVT with a heart rate of 200. She was given adenosine and heart rate improved and she converted to normal sinus rhythm. Patient was admitted to the telemetry floor remains in sinus rhythm. Cardiology consulted. She did have mild elevation of troponins and EKG had shown normal sinus rhythm with T-wave abnormality. Cardiology ordered an echocardiogram and they are planning to proceed with a heart catheterization. Echo showed an EF of 55% with moderate to severe pulmonary hypertension and mild to moderate tricuspid regurgitation. Patient also has been complaining of some nausea and right upper quadrant abdominal discomfort. She did have elevated liver enzymes with AST of 207 and ALT of 109. Abdominal ultrasound and hepatitis panel ordered. Patient does report having a cholecystectomy around 1992. Patient also reports having irritable bowel syndrome and has been having diarrhea. She reports mostly in her stools or in the evening. She usually takes a medication over the counter to stop the loose stools. However, she has been out of this medication. Patient reports last EGD and colonoscopy was about 2 years ago and at that time was diagnosed with a stomach ulcer. Patient denies any blood or black stools. Denies any fever chills or sweats. Denies any burning with urination. Also note magnesium 1.3 this is being replaced. Patient is also complaining of itching and redness in both eyes. She has been having signs of conjunctivitis a lot of drainage from the eyes. Eye drops have been ordered Review of Systems Please refer to HPI otherwise unremarkable Past Medical History Past Medical History: Asthma, Chest Pain / Angina, COPD, CVA/TIA, Diabetes Mellitus, GERD/Reflux, Hearing Disorder / Deafness, Hyperlipidemia, Hypertension , Musculoskeletal Disorder, Sleep Apnea/CPAP/BIPAP, Thyroid Disorder Additional Past Medical History / Comment(s): NEUROPATHY, HEART MURMUR, NOT USING C-PAP, HIATAL HERNIA, DIVERTICULOSIS, CYST LEFT KIDNEY, DDD WITH SCIATICA AND BACK PAIN. STATES HAVING LEFT ABD & RIGHT GROIN PAIN. NEURO DERMATITIS W/ RASH. History of Any Multi-Drug Resistant Organisms: None Reported Past Surgical History: Adenoidectomy, Cholecystectomy, Hysterectomy, Joint Replacement, Orthopedic Surgery, Tonsillectomy Additional Past Surgical History / Comment(s): D & C, ARTHROSCOPY MIGUEL KNEES, MIGUEL ROTATOR CUFF , MIGUEL KNEE REPLACEMENT. Past Anesthesia/Blood Transfusion Reactions: Postoperative Nausea & Vomiting ( PONV) Past Psychological History: Anxiety, Depression Smoking Status: Former smoker Past Alcohol Use History: None Reported Past Drug Use History: None Reported - Past Family History Father Family Medical History: Pneumonia Mother Family Medical History: Cancer Additional Family Medical History / Comment(s): PANCREAS CA Medications and Allergies Home Medications Medication Instructions Recorded Confirmed Type ALPRAZolam [Xanax] 0.125 mg PO DAILY 07/17/14 10/18/17 History Atorvastatin [Lipitor] 40 mg PO HS 07/17/14 10/18/17 History Biotin 5 mg PO BID 07/17/14 10/18/17 History Citalopram Hydrobromide [CeleXA] 20 mg PO BID 07/17/14 10/18/17 History Gabapentin [Neurontin] 600 mg PO TID 07/17/14 10/18/17 History Hyoscyamine Sulfate [Levsin] 0.125 mg PO BID 07/17/14 10/18/17 History Levothyroxine Sodium [Synthroid] 100 mcg PO DAILY 07/17/14 10/18/17 History Lisinopril-Hctz 20-12.5 mg 1 tab PO DAILY 07/17/14 10/18/17 History [Zestoretic 20-12.5] Loratadine [Claritin] 10 mg PO DAILY 07/17/14 10/18/17 History Multivitamins, Thera [Theragran] 1 tab PO DAILY 07/17/14 10/18/17 History glyBURIDE [Diabeta] 5 mg PO AC-BRKFST 07/17/14 10/18/17 History hydrOXYzine HCL 10 mg PO HS PRN 07/17/14 10/18/17 History metFORMIN HCL [Glucophage] 1,000 mg PO BID 07/17/14 10/18/17 History Budesonide/Formoterol Fumarate 2 puff INHALATION RT-BID 10/18/17 10/18/17 History [Symbicort 160-4.5 Mcg Inhaler] Calcium Citrate 500 mg PO DAILY 10/18/17 10/18/17 History DULoxetine HCL [Cymbalta] 60 mg PO DAILY 10/18/17 10/18/17 History Ferrous Sulfate [Feosol] 325 mg PO DAILY 10/18/17 10/18/17 History Ipratropium-Albuterol Nebulize 3 ml INHALATION RT-QID PRN 10/18/17 10/18/17 History [Duoneb 0.5 mg-3 mg/3 ml Soln] Mometasone Furoate [Nasonex Nasal 1 spray EA NOSTRIL BID 10/18/17 10/18/17 History [place]] Naproxen 500 mg PO BID 10/18/17 10/18/17 History Ranitidine HCl 150 mg PO BID 10/18/17 10/18/17 History Vitamin B Complex 1 cap PO DAILY 10/18/17 10/18/17 History Allergies Allergy/AdvReac Type Severity Reaction Status Date / Time banana [Banana] Allergy Severe Anaphylaxis Verified 10/18/17 18:02 iodine Allergy Severe DYSPNEA, Verified 10/18/17 18:02 SKIN INFLAMED kiwi Allergy Severe Anaphylaxis Verified 10/18/17 18:02 latex Allergy Dyspnea, Verified 10/18/17 18:02 Itching morphine Allergy Rapid Verified 10/18/17 18:02 Heart Rate ivp dye Allergy Dyspnea Uncoded 10/18/17 18:02 smoke Allergy Dyspnea Uncoded 10/18/17 18:02 Physical Exam Vitals: Vital Signs Temp Pulse Pulse Resp BP BP Pulse Ox 10/19/17 11:24 69 18 10/19/17 11:12 98.1 F 69 18 104/55 97 10/19/17 08:56 74 10/19/17 08:44 78 96 10/19/17 08:00 98.8 F 78 16 125/77 97 10/19/17 04:00 98.5 F 76 17 141/62 92 L 10/19/17 00:07 76 17 10/19/17 00:06 68 10/19/17 00:04 98.3 F 76 17 107/55 92 L 10/18/17 23:57 76 10/18/17 21:09 98.5 F 84 17 129/58 98 10/18/17 19:12 84 16 145/68 98 10/18/17 17:56 98.1 F 91 16 118/63 95 Intake and Output 10/18/17 10/19/17 10/19/17 22:59 06:59 14:59 Intake Total 1000 240 Balance 1000 240 Intake: Intake, IV Titration 800 Amount Sodium Chloride 0.9% 1, 800 000 ml @ 100 mls/hr IV . Q10H STA Rx#:[id number] Oral 200 240 Other: Voiding Method Toilet # Voids 2 Weight 81.193 kg 81.2 kg HEENT sclera both eyes are red and irritated left side is worse. There is also some crusting and drainage around the eyes Head normocephalic Neck supple Lungs clear to auscultation bilaterally no wheezing or crackles Heart regular rate and rhythm S1-S2, no rub or gallop Abdomen is soft tender epigastric area and right upper quadrant nondistended positive bowel sounds no hepatosplenomegaly Extremities no edema Neuro alert and orientated to 3 Results CBC & Chem 7: 10/19/17 06:00 10/19/17 06:00 Labs: Abnormal Lab Results - Last 24 Hours (Table) 10/18/17 10/18/17 10/18/17 Range/Units 18:10 18:10 18:10 RBC (3.80-5.40) m/uL Hgb (11.4-16.0) gm/dL Hct (34.0-46.0) % MCHC (31.0-37.0) g/dL INR 1.2 H (<1.2) APTT 19.9 L (22.0-30.0) sec Chloride 110 H (98-107) mmol/L Carbon Dioxide (22-30) mmol/L BUN 27 H (7-17) mg/dL Creatinine (0.52-1.04) mg/dL Glucose 286 H (74-99) mg/dL POC Glucose (mg/dL) (75-99) mg/dL Plasma Lactic Acid Juan 3.7 H* (0.7-2.0) mmol/L Magnesium 1.3 L (1.6-2.3) mg/dL AST 207 H (14-36) U/L ALT 169 H (9-52) U/L Troponin I (0.000-0.034) ng/mL Total Protein (6.3-8.2) g/dL Albumin (3.5-5.0) g/dL Triglycerides (<150) mg/dL Urine Appearance (Clear) Urine Protein (Negative) Urine Glucose (UA) (Negative) Urine Ketones (Negative) Ur Leukocyte Esterase (Negative) Urine WBC (0-5) /hpf Ur Squamous Epith Cells (0-4) /hpf Hyaline Casts (0-2) /lpf Urine Mucus (None) /hpf 10/18/17 10/19/17 10/19/17 Range/Units 21:38 00:36 05:10 RBC (3.80-5.40) m/uL Hgb (11.4-16.0) gm/dL Hct (34.0-46.0) % MCHC (31.0-37.0) g/dL INR (<1.2) APTT (22.0-30.0) sec Chloride (98-107) mmol/L Carbon Dioxide (22-30) mmol/L BUN (7-17) mg/dL Creatinine (0.52-1.04) mg/dL Glucose (74-99) mg/dL POC Glucose (mg/dL) 187 H (75-99) mg/dL Plasma Lactic Acid Juan (0.7-2.0) mmol/L Magnesium (1.6-2.3) mg/dL AST (14-36) U/L ALT (9-52) U/L Troponin I 0.047 H* (0.000-0.034) ng/mL Total Protein (6.3-8.2) g/dL Albumin (3.5-5.0) g/dL Triglycerides (<150) mg/dL Urine Appearance Cloudy H (Clear) Urine Protein 1+ H (Negative) Urine Glucose (UA) 1+ H (Negative) Urine Ketones Trace H (Negative) Ur Leukocyte Esterase Large H (Negative) Urine WBC 81 H (0-5) /hpf Ur Squamous Epith Cells 5 H (0-4) /hpf Hyaline Casts 15 H (0-2) /lpf Urine Mucus Many H (None) /hpf 10/19/17 10/19/17 10/19/17 Range/Units 05:59 06:00 06:00 RBC (3.80-5.40) m/uL Hgb (11.4-16.0) gm/dL Hct (34.0-46.0) % MCHC (31.0-37.0) g/dL INR (<1.2) APTT (22.0-30.0) sec Chloride 112 H (98-107) mmol/L Carbon Dioxide (22-30) mmol/L BUN 26 H (7-17) mg/dL Creatinine 1.10 H (0.52-1.04) mg/dL Glucose 171 H (74-99) mg/dL POC Glucose (mg/dL) 188 H (75-99) mg/dL Plasma Lactic Acid Jaun (0.7-2.0) mmol/L Magnesium (1.6-2.3) mg/dL AST (14-36) U/L ALT (9-52) U/L Troponin I 0.042 H* (0.000-0.034) ng/mL Total Protein (6.3-8.2) g/dL Albumin (3.5-5.0) g/dL Triglycerides 194 H (<150) mg/dL Urine Appearance (Clear) Urine Protein (Negative) Urine Glucose (UA) (Negative) Urine Ketones (Negative) Ur Leukocyte Esterase (Negative) Urine WBC (0-5) /hpf Ur Squamous Epith Cells (0-4) /hpf Hyaline Casts (0-2) /lpf Urine Mucus (None) /hpf 10/19/17 10/19/17 10/19/17 Range/Units 06:00 06:00 06:00 RBC 3.72 L (3.80-5.40) m/uL Hgb 10.4 L (11.4-16.0) gm/dL Hct 33.6 L (34.0-46.0) % MCHC 30.8 L (31.0-37.0) g/dL INR (<1.2) APTT (22.0-30.0) sec Chloride 112 H (98-107) mmol/L Carbon Dioxide 21 L (22-30) mmol/L BUN 26 H (7-17) mg/dL Creatinine 1.09 H (0.52-1.04) mg/dL Glucose 173 H (74-99) mg/dL POC Glucose (mg/dL) (75-99) mg/dL Plasma Lactic Acid Juan (0.7-2.0) mmol/L Magnesium 1.3 L (1.6-2.3) mg/dL AST 193 H (14-36) U/L ALT 205 H (9-52) U/L Troponin I (0.000-0.034) ng/mL Total Protein 5.7 L (6.3-8.2) g/dL Albumin 3.3 L (3.5-5.0) g/dL Triglycerides (<150) mg/dL Urine Appearance (Clear) Urine Protein (Negative) Urine Glucose (UA) (Negative) Urine Ketones (Negative) Ur Leukocyte Esterase (Negative) Urine WBC (0-5) /hpf Ur Squamous Epith Cells (0-4) /hpf Hyaline Casts (0-2) /lpf Urine Mucus (None) /hpf 10/19/17 Range/Units 11:17 RBC (3.80-5.40) m/uL Hgb (11.4-16.0) gm/dL Hct (34.0-46.0) % MCHC (31.0-37.0) g/dL INR (<1.2) APTT (22.0-30.0) sec Chloride (98-107) mmol/L Carbon Dioxide (22-30) mmol/L BUN (7-17) mg/dL Creatinine (0.52-1.04) mg/dL Glucose (74-99) mg/dL POC Glucose (mg/dL) 145 H (75-99) mg/dL Plasma Lactic Acid Juan (0.7-2.0) mmol/L Magnesium (1.6-2.3) mg/dL AST (14-36) U/L ALT (9-52) U/L Troponin I (0.000-0.034) ng/mL Total Protein (6.3-8.2) g/dL Albumin (3.5-5.0) g/dL Triglycerides (<150) mg/dL Urine Appearance (Clear) Urine Protein (Negative) Urine Glucose (UA) (Negative) Urine Ketones (Negative) Ur Leukocyte Esterase (Negative) Urine WBC (0-5) /hpf Ur Squamous Epith Cells (0-4) /hpf Hyaline Casts (0-2) /lpf Urine Mucus (None) /hpf Microbiology - Last 24 Hours (Table) 10/19/17 05:10 Urine Culture - Preliminary Urine,Voided Thrombosis Risk Factor Assmnt - Choose All That Apply Each Factor Represents 1 point: Abnormal pulmonary function (COPD) Each Risk Factor Represents 2 Points: Age 61-74 years Other congenital or acquired thrombophilia - If yes, enter type in comment: No Thrombosis Risk Factor Assessment Total Risk Factor Score: 3 Thrombosis Risk Factor Assessment Level: Moderate Risk Assessment and Plan Assessment: 1. Supraventricular tachycardia: Given adenosine per EMS. Patient has converted to normal sinus rhythm. Followed closely by cardiology. Continue with telemetry monitoring 2. Chest pains with mildly abnormal troponins. Seen by cardiology the planning to proceed with heart catheterization. Abnormality in troponins could also be secondary to SVT 3. Elevated LFTs with epigastric right upper quadrant tenderness. We'll monitor LFTs. Check amylase and lipase. Check abdominal ultrasound and acute hepatitis panel. Patient has a history of a cholecystectomy. 4. Conjunctivitis bilaterally start Polytrim eyedrops 5. Anemia with known iron deficiency anemia: Continue iron sulfate. Check iron studies. Patient reports no black stools or blood in stools 6. Hypomagnesemia: Magnesium 1.3. Patient receiving supplement. 7. Diarrhea with a known history of IBS. Check stool for C. diff. If negative will start Lomotil 8. Acute kidney injury: Possibly related to patient's diarrhea and dehydration. Creatinine 1.10. We'll continue with normal saline IV fluids at 50 cc/hr 9. Diabetes mellitus type 2: Add sliding scale during this admission. Discontinue metformin during hospitalization 10. Essential hypertension 11. Obstructive sleep apnea does not use CPAP at home 12. Hypothyroidism: Continue Synthroid. TSH normal 13. History of TIA 14. History of COPD stable continue inhalers GI prophylaxis Pepcid and DVT prophylaxis Lovenox I performed an examination of the patient and discussed their management with the physician Motorcycle Tester. I have reviewed the Physician Motorcycle Tester's notes and agree with the documented findings and plan of care Time with Patient: Greater than 30 (Greater than 60% of the total time spent in counseling and coordination of care.I performed an examination of the patient and discussed their management with the physician Motorcycle Tester. I have reviewed the Physician Motorcycle Tester's notes and agree with the documented findings and plan of care) <Laura Caicedo - Last Filed: 10/19/17 15:07> Physical Exam Osteopathic Statement: *. No significant issues noted on an osteopathic structural exam other than those noted in the History and Physical/Consult. Vitals: Vital Signs Temp Pulse Pulse Resp BP BP Pulse Ox 10/19/17 14:30 65 16 86/54 99 10/19/17 14:15 69 16 97/45 90 L 10/19/17 12:29 72 10/19/17 12:19 68 10/19/17 11:24 69 18 10/19/17 11:12 98.1 F 69 18 104/55 97 10/19/17 08:56 74 10/19/17 08:44 78 96 10/19/17 08:00 98.8 F 78 16 125/77 97 10/19/17 04:00 98.5 F 76 17 141/62 92 L 10/19/17 00:07 76 17 10/19/17 00:06 68 10/19/17 00:04 98.3 F 76 17 107/55 92 L 10/18/17 23:57 76 10/18/17 21:09 98.5 F 84 17 129/58 98 10/18/17 19:12 84 16 145/68 98 10/18/17 17:56 98.1 F 91 16 118/63 95 Intake and Output 10/19/17 10/19/17 10/19/17 06:59 14:59 22:59 Intake Total 1000 340 Balance 1000 340 Intake: IV 100 Intake, IV Titration 800 Amount Sodium Chloride 0.9% 1, 800 000 ml @ 100 mls/hr IV . Q10H STA Rx#:[id number] Oral 200 240 Other: Voiding Method Toilet # Voids 2 Weight 81.2 kg Results CBC & Chem 7: 10/19/17 06:00 10/19/17 06:00 Labs: Abnormal Lab Results - Last 24 Hours (Table) 10/18/17 10/18/17 10/18/17 Range/Units 18:10 18:10 18:10 RBC (3.80-5.40) m/uL Hgb (11.4-16.0) gm/dL Hct (34.0-46.0) % MCHC (31.0-37.0) g/dL INR 1.2 H (<1.2) APTT 19.9 L (22.0-30.0) sec Chloride 110 H (98-107) mmol/L Carbon Dioxide (22-30) mmol/L BUN 27 H (7-17) mg/dL Creatinine (0.52-1.04) mg/dL Glucose 286 H (74-99) mg/dL POC Glucose (mg/dL) (75-99) mg/dL Plasma Lactic Acid Juan 3.7 H* (0.7-2.0) mmol/L Magnesium 1.3 L (1.6-2.3) mg/dL AST 207 H (14-36) U/L ALT 169 H (9-52) U/L Troponin I (0.000-0.034) ng/mL Total Protein (6.3-8.2) g/dL Albumin (3.5-5.0) g/dL Triglycerides (<150) mg/dL Amylase (30-110) U/L Urine Appearance (Clear) Urine Protein (Negative) Urine Glucose (UA) (Negative) Urine Ketones (Negative) Ur Leukocyte Esterase (Negative) Urine WBC (0-5) /hpf Ur Squamous Epith Cells (0-4) /hpf Hyaline Casts (0-2) /lpf Urine Mucus (None) /hpf 10/18/17 10/19/17 10/19/17 Range/Units 21:38 00:36 05:10 RBC (3.80-5.40) m/uL Hgb (11.4-16.0) gm/dL Hct (34.0-46.0) % MCHC (31.0-37.0) g/dL INR (<1.2) APTT (22.0-30.0) sec Chloride (98-107) mmol/L Carbon Dioxide (22-30) mmol/L BUN (7-17) mg/dL Creatinine (0.52-1.04) mg/dL Glucose (74-99) mg/dL POC Glucose (mg/dL) 187 H (75-99) mg/dL Plasma Lactic Acid Juan (0.7-2.0) mmol/L Magnesium (1.6-2.3) mg/dL AST (14-36) U/L ALT (9-52) U/L Troponin I 0.047 H* (0.000-0.034) ng/mL Total Protein (6.3-8.2) g/dL Albumin (3.5-5.0) g/dL Triglycerides (<150) mg/dL Amylase (30-110) U/L Urine Appearance Cloudy H (Clear) Urine Protein 1+ H (Negative) Urine Glucose (UA) 1+ H (Negative) Urine Ketones Trace H (Negative) Ur Leukocyte Esterase Large H (Negative) Urine WBC 81 H (0-5) /hpf Ur Squamous Epith Cells 5 H (0-4) /hpf Hyaline Casts 15 H (0-2) /lpf Urine Mucus Many H (None) /hpf 10/19/17 10/19/17 10/19/17 Range/Units 05:59 06:00 06:00 RBC (3.80-5.40) m/uL Hgb (11.4-16.0) gm/dL Hct (34.0-46.0) % MCHC (31.0-37.0) g/dL INR (<1.2) APTT (22.0-30.0) sec Chloride 112 H (98-107) mmol/L Carbon Dioxide (22-30) mmol/L BUN 26 H (7-17) mg/dL Creatinine 1.10 H (0.52-1.04) mg/dL Glucose 171 H (74-99) mg/dL POC Glucose (mg/dL) 188 H (75-99) mg/dL Plasma Lactic Acid Juan (0.7-2.0) mmol/L Magnesium (1.6-2.3) mg/dL AST (14-36) U/L ALT (9-52) U/L Troponin I 0.042 H* (0.000-0.034) ng/mL Total Protein (6.3-8.2) g/dL Albumin (3.5-5.0) g/dL Triglycerides 194 H (<150) mg/dL Amylase (30-110) U/L Urine Appearance (Clear) Urine Protein (Negative) Urine Glucose (UA) (Negative) Urine Ketones (Negative) Ur Leukocyte Esterase (Negative) Urine WBC (0-5) /hpf Ur Squamous Epith Cells (0-4) /hpf Hyaline Casts (0-2) /lpf Urine Mucus (None) /hpf 10/19/17 10/19/17 10/19/17 Range/Units 06:00 06:00 06:00 RBC 3.72 L (3.80-5.40) m/uL Hgb 10.4 L (11.4-16.0) gm/dL Hct 33.6 L (34.0-46.0) % MCHC 30.8 L (31.0-37.0) g/dL INR (<1.2) APTT (22.0-30.0) sec Chloride 112 H (98-107) mmol/L Carbon Dioxide 21 L (22-30) mmol/L BUN 26 H (7-17) mg/dL Creatinine 1.09 H (0.52-1.04) mg/dL Glucose 173 H (74-99) mg/dL POC Glucose (mg/dL) (75-99) mg/dL Plasma Lactic Acid Juan (0.7-2.0) mmol/L Magnesium 1.3 L (1.6-2.3) mg/dL AST 193 H (14-36) U/L ALT 205 H (9-52) U/L Troponin I (0.000-0.034) ng/mL Total Protein 5.7 L (6.3-8.2) g/dL Albumin 3.3 L (3.5-5.0) g/dL Triglycerides (<150) mg/dL Amylase (30-110) U/L Urine Appearance (Clear) Urine Protein (Negative) Urine Glucose (UA) (Negative) Urine Ketones (Negative) Ur Leukocyte Esterase (Negative) Urine WBC (0-5) /hpf Ur Squamous Epith Cells (0-4) /hpf Hyaline Casts (0-2) /lpf Urine Mucus (None) /hpf 10/19/17 10/19/17 Range/Units 11:17 11:39 RBC (3.80-5.40) m/uL Hgb (11.4-16.0) gm/dL Hct (34.0-46.0) % MCHC (31.0-37.0) g/dL INR (<1.2) APTT (22.0-30.0) sec Chloride (98-107) mmol/L Carbon Dioxide (22-30) mmol/L BUN (7-17) mg/dL Creatinine (0.52-1.04) mg/dL Glucose (74-99) mg/dL POC Glucose (mg/dL) 145 H (75-99) mg/dL Plasma Lactic Acid Juan (0.7-2.0) mmol/L Magnesium (1.6-2.3) mg/dL AST (14-36) U/L ALT (9-52) U/L Troponin I (0.000-0.034) ng/mL Total Protein (6.3-8.2) g/dL Albumin (3.5-5.0) g/dL Triglycerides (<150) mg/dL Amylase <30 L (30-110) U/L Urine Appearance (Clear) Urine Protein (Negative) Urine Glucose (UA) (Negative) Urine Ketones (Negative) Ur Leukocyte Esterase (Negative) Urine WBC (0-5) /hpf Ur Squamous Epith Cells (0-4) /hpf Hyaline Casts (0-2) /lpf Urine Mucus (None) /hpf Microbiology - Last 24 Hours (Table) 10/19/17 05:10 Urine Culture - Preliminary Urine,Voided Assessment and Plan Assessment: Patient seen and examined. Patient with SVT being followed by cardiology. Continue telemetry. Plan for left heart catheterization. Trend troponins. Monitor LFTs. Check abdominal ultrasound. Check an amylase and lipase. Hold statin. Check hepatitis panel. Check stool for C. diff. Iron studies pending. Monitor urine output and renal function. Continue IV fluid hydration. Polytrim eyedrops for conjunctivitis. Replace magnesium. Sliding scale insulin for diabetes. Hold metformin. ~Laura Caicedo DO
[2017-10-19] MEDS: SODIUM CHLORIDE 0.9% 1,000 ML IV SCH (12:13)
[2017-10-19 12:14] LABS: Hemoglobin A1C 7.4 % (4.0-6.0)
[2017-10-19] MEDS: POLYMYXIN B-TRIMETHOPRIM SULF (10,000-1) OPHTH DROPS 10 ML BTL BOTH EYES SCH ×3 (12:26→22:55)
[2017-10-19 12:35] LABS: Amylase <30 U/L (30-110); Lipase 77 U/L (23-300)
[2017-10-19] MEDS ORDERED: LIDOCAINE 1% INJ 10MG/ML (20 ML MDV) ONE (13:01)
[2017-10-19] MEDS ORDERED: VERAPAMIL 2.5 MG/ML 2 ML AMP ONE (13:11)
[2017-10-19] MEDS ORDERED: diphenhydrAMINE 50 MG/ML 1 ML VIAL ONE (13:15)
[2017-10-19] MEDS ORDERED: fentaNYL (PF) 50 MCG/ML 2 ML AMP ONE (13:15)
[2017-10-19] MEDS ORDERED: fentaNYL (PF) 50 MCG/ML 2 ML AMP IV ONE (13:26)
[2017-10-19] MEDS ORDERED: methylPREDNISolone SOD SUCCI 125 MG/2 ML VIAL IV ONE (13:26)
[2017-10-19] MEDS ORDERED: LIDOCAINE 1% INJ 10MG/ML (20 ML MDV) SQ ONE (13:27)
[2017-10-19] MEDS ORDERED: methylPREDNISolone SOD SUCCI 125 MG/2 ML VIAL ONE (13:27)
[2017-10-19] MEDS ORDERED: IV FLUID CONTINUATION 1,000 ML IV ONE (13:36)
[2017-10-19] MEDS ORDERED: VERAPAMIL SYRINGE (5 MG/10 ML) INTRAARTER ONE (13:37)
[2017-10-19] MEDS ORDERED: HEPARIN SODIUM 1,000 UN/ML (10ML VL) IV ONE (13:48)
[2017-10-19] MEDS ORDERED: IOPAMIDOL-370 125ML BTL INJ ONE (13:55)
[2017-10-19] MEDS ORDERED: RX INFO: IV CONTRAST WAS GIVEN 1 EACH MISC MISCELLANE PRN (13:58)
[2017-10-19] MEDS ORDERED: SODIUM CHLORIDE 0.9% 1,000 ML IV SCH (14:00)
--- NOTE | 2017-10-19 14:52 | CC ---
CARDIAC CATHETERIZATION REPORT Mrs. Hagen is a 72-year-old female with known history of diabetes, hypertension, hyperlipidemia, who presented with symptoms of palpitation, was noted to have an AV sid reentry tachycardia. She had mild T-wave inversion anteriorly after conversion of sinus mechanism with minimal troponin elevation. Because of her multiple risk factors and her presentation, recommendation was made regarding cardiac catheterization. The procedures, risks and complication were discussed with the patient who is in full understanding and agreement. PROCEDURE: Patient was brought to custodial laborer in a fasting semi-sedated state after receiving fentanyl and Benadryl and achieving moderate conscious sedated state. Using Xylocaine anesthesia and Seldinger technique, a 6-Georgian sheath was introduced in the left radial artery. Selective right and left angiography performed using 5-Georgian, 4 bend right and left Brayan catheter, multiple views of the coronary artery including hemiaxial views were obtained. Following that, a 5-Georgian tight pigtail catheter was introduced into the left ventricle and a 30 degree DUVAL view of the left ventricle was obtained. Following that, catheter and sheaths were removed, hemostasis was obtained with deployment of a TR band. There was no immediate complication. Patient is returned to her room in stable condition. Of note, the patient received 4500 units of intravenous heparin as well as intra-arterial verapamil. FINDINGS: LEFT MAIN: This is a large-sized vessel, bifurcating into left circumflex, left anterior descending artery, left main coronary artery is without any significant obstructive disease. LEFT ANTERIOR DESCENDING ARTERY: This is a large-sized vessel, tapers down distal third, giving rise to a moderately-sized diagonal branch. The left anterior descending artery as well as it branches have no evidence of obstructive coronary artery disease. LEFT CIRCUMFLEX: This is a nondominant vessel, giving rise to two obtuse marginal branches. The left circumflex and its branches have no evidence of obstructive coronary artery disease. RIGHT CAROTID ARTERY: This is a large dominant vessel, bifurcating into PDA and posterolateral single branches. The PDA reaches toward the inferoapical wall. The right coronary artery and its branches have no evidence of obstructive coronary artery disease. LEFT VENTRICULOGRAM: Left ventriculogram is performed in 30-degree DUVAL view and revealed a normal left ventricular size and systolic function. There was no significant mitral regurgitation. HEMODYNAMICS: There was no gradient across the aortic valve. The left ventricular end- diastolic pressure was 18-22 mmHg. CONCLUSION: 1. Normal coronary arteries. 2. Normal left ventricular size and systolic function. RECOMMENDATION: In view of finding anatomy, I have recommended to continue medical therapy with aggressive risk modifications being initiated. If she has recurrent episode of SVT, then ablation will be considered. Those findings and recommendation were discussed with the patient and she is in full understanding and agreement. MMODL / IJN: [id number] /
[2017-10-19 16:29] LABS: Glucose,Whole Blood 165 mg/dL (75-99)
--- NOTE | 2017-10-19 16:47 | US ---
EXAMINATION TYPE: US abdomen complete DATE OF EXAM: 10/19/2017 COMPARISON: CT CLINICAL HISTORY: elevated LFTs. Elevated LFT's EXAM MEASUREMENTS: Liver Length: 16.0 cm CBD: 0.4 cm Spleen: 10.0 cm Right Kidney: 8.7 x 5.0 x 5.0 cm Left Kidney: 8.5 x 4.9 x 4.0 cm Pancreas: wnl, tail obscured by overlying bowel gas Liver: Enlarged, heterogeneous Gallbladder: Surgically absent Evidence for sonographic Miner's sign: No CBD: wnl Spleen: wnl Right Kidney: Small in size Left Kidney: Small in size, lobulated cystic lesion upper pole= 4.5 x 2.5 x 3.5 cm Upper IVC: wnl Abd Aorta: wnl, distal portion obscured by overlying bowel gas Incidental finding right pleural effusion The liver is homogenous. The intrahepatic portion of the IVC and proximal abdominal aorta are within normal limits. There is no evidence of cholelithiasis. Common bile duct is unremarkable. The visu alized portions of the pancreas are homogenous. The spleen is unremarkable. Kidneys are symmetric a nd free of hydronephrosis. No renal lesions are seen. IMPRESSION: Cholecystectomy. No dilated ducts. Right pleural effusion noted. Mild renal cortical atro phy.
[2017-10-19 19:23] LABS: Iron Saturation 15.36 (12.00-45.00)
[2017-10-19 20:57] LABS: Hepatitis A Antibody IgM Non-Reactive (Non-Reactive); Hepatitis B Core IgM Non-Reactive (Non-Reactive)
[2017-10-19 20:59] LABS: Glucose,Whole Blood 229 mg/dL (75-99)
[2017-10-19] MEDS ORDERED: ENOXAPARIN 40 MG/0.4 ML SYRINGE SQ SCH (21:00)
[2017-10-19] MEDS ORDERED: guaiFENesin SYRUP 100MG/5ML 200 MG/10 ML CUP PO PRN (21:22)
[2017-10-20 06:23] LABS: Basophils % (A) 0 %; Eosinophils % (A) 0 %; HCT 33.1 % (34.0-46.0); HGB 10.3 gm/dL (11.4-16.0); Hypochromasia Slight; Lymphocytes # (A) 2.3 k/uL (1.0-4.8); Lymphocytes % (A) 24 %; MCH 28.8 pg (25.0-35.0); Mean Platelet Volume 7.5; Monocytes # (A) 0.3 k/uL (0-1.0); Monocytes % (A) 3 %; Neutrophils # (A) 6.6 k/uL (1.3-7.7); Neutrophils % (A) 70 %; Platelet Count 261 k/uL (150-450); RBC 3.56 m/uL (3.80-5.40); RDW 13.3 % (11.5-15.5); WBC 9.5 k/uL (3.8-10.6)
[2017-10-20 06:36] LABS: Glucose,Whole Blood 178 mg/dL (75-99)
[2017-10-20 06:36] LABS: Albumin 3.4 g/dL (3.5-5.0); Calcium 8.7 mg/dL (8.4-10.2); Magnesium 1.9 mg/dL (1.6-2.3); Potassium 4.8 mmol/L (3.5-5.1); Total Bilirubin 0.2 mg/dL (0.2-1.3); Total Protein 5.9 g/dL (6.3-8.2)
[2017-10-20] MEDS: POLYMYXIN B-TRIMETHOPRIM SULF (10,000-1) OPHTH DROPS 10 ML BTL BOTH EYES SCH ×3 (06:42→15:31)
[2017-10-20] MEDS: LEVOTHYROXINE 100 MCG TAB PO SCH (06:42)
[2017-10-20] MEDS: INSULIN ASPART 100 UNIT/ML 1 ML 10 ML VIAL SQ SCH ×2 (06:42→11:58)
[2017-10-20] MEDS: SYMBICORT 160-4.5 MCG INHALER INHALATION SCH (08:42)
[2017-10-20 08:52] VITALS: TEMP 97.2
[2017-10-20] MEDS: SODIUM CHLORIDE 0.9% 1,000 ML IV SCH (08:54)
[2017-10-20] MEDS: FLUTICASONE 50MCG/SPRAY NASAL 16GM EA NOSTRIL SCH (08:55)
[2017-10-20] MEDS: GABAPENTIN 300 MG CAP PO SCH ×2 (08:57→15:31)
[2017-10-20] MEDS: CALCIUM CARBONATE 500 MG CHEWABLE PO SCH (08:57)
[2017-10-20] MEDS: DULoxetine HCL 60 MG CAPSULE.DR PO SCH (08:57)
[2017-10-20] MEDS: FAMOTIDINE 20 MG TAB PO SCH (08:57)
[2017-10-20] MEDS: FERROUS SULFATE 325 MG TAB PO SCH (08:57)
[2017-10-20] MEDS: CITALOPRAM HYDROBROMIDE 20 MG TAB PO SCH (08:57)
[2017-10-20] MEDS: HYOSCYAMINE SULFATE 0.125 MG TAB PO SCH (08:57)
[2017-10-20] MEDS: LORATADINE 10 MG TAB PO SCH (08:58)
[2017-10-20] MEDS: METOPROLOL TARTRATE 50 MG TAB PO SCH (08:58)
[2017-10-20] MEDS ORDERED: ATORVASTATIN 40 MG TAB PO SCH (09:00)
[2017-10-20] MEDS ORDERED: LISINOPRIL 20 MG TAB PO SCH (09:00)
[2017-10-20] MEDS ORDERED: ASPIRIN 81 MG PO SCH (09:00)
[2017-10-20] MEDS: ALPRAZolam 0.25 MG TAB PO SCH (09:11)
[2017-10-20 11:36] VITALS: BP 121/98; PULSE 62; RESP 16
[2017-10-20] MEDS: MULTIVITAMINS, THERA 1 EACH TAB PO SCH (11:37)
[2017-10-20 11:50] LABS: Glucose,Whole Blood 111 mg/dL (75-99)
--- NOTE | 2017-10-20 14:44 | P.DS ---
Providers Date of admission: 10/18/17 18:54 Expected date of discharge: 10/20/17 Attending physician: Wenceslao Brock Consults: 10/18/17 18:54 Consult Physician Urgent Consulting Provider: Ivet Borrero Consult Reason/Comments: svt Do you want consulting provider notified?: Yes Primary care physician: Mallorie Hudson [facility] Course: Discharge diagnosis 1. Supraventricular tachycardia: Given adenosine per EMS. Patient has converted to normal sinus rhythm. Seen evaluated by cardiology. Metoprolol 50 mg twice a day added in the ER 2. Chest pains with mildly abnormal troponins. Abnormality in troponins could also be secondary to SVT. Patient underwent heart catheterization which showed normal coronary arteries. 3. Elevated LFTs with epigastric right upper quadrant tenderness. Symptoms have improved. Patient has a history of a cholecystectomy. Statin will be discontinued for now. LFTs are trending down AST 67 and ALT 163. Patient had hepatitis panel which was negative amylase and lipase normal ultrasound of the abdomen shows status post cholecystectomy and no dilation of the ducts. 4. Conjunctivitis bilaterally start Polytrim eyedrops 5. Anemia with known iron deficiency anemia: Patient reports no black stools or blood in stools. Iron level low is at 43. Increase ferrous sulfate to 325 mg twice a day 6. Hypomagnesemia: Magnesium improved after supplement 7. Diarrhea with a known history of IBS. Diarrhea improved. Stool was not collected for C. diff 8. Acute kidney injury: Possibly related to patient's diarrhea and dehydration. Creatinine 1.10 at discharge. Hydrochlorothiazide and naproxen have been discontinued. 9. Diabetes mellitus type 2: Continue home medications 10. Essential hypertension 11. Obstructive sleep apnea does not use CPAP at home 12. Hypothyroidism: Continue Synthroid. TSH normal 13. History of TIA 14. History of COPD stable continue inhalers 15. UTI ruled out: Urine culture shows contamination. Urinalysis had large amount of squamous epithelial cells. Patient is asymptomatic for UTI Hospital course This is a 72-year-old female, patient of [facility]. She has a known past medical history of TIA, COPD, diabetes mellitus, hypertension, obstructive sleep apnea, hypothyroidism, stomach ulcer and hyperlipidemia. Patient reports over the last week she's had increasing shortness of breath, chest tightness, palpitations and overall weakness. She also has been feeling lightheaded. She had called EMS. Per EMS patient was found to be in SVT with a heart rate of 200. She was given adenosine and heart rate improved and she converted to normal sinus rhythm. Patient was admitted to the telemetry floor remains in sinus rhythm. Cardiology consulted. She did have mild elevation of troponins and EKG had shown normal sinus rhythm with T-wave abnormality. Cardiology ordered an echocardiogram and they are planning to proceed with a heart catheterization. Echo showed an EF of 55% with moderate to severe pulmonary hypertension and mild to moderate tricuspid regurgitation. Patient also has been complaining of some nausea and right upper quadrant abdominal discomfort. She did have elevated liver enzymes with AST of 207 and ALT of 109. Abdominal ultrasound and hepatitis panel ordered. Patient does report having a cholecystectomy around 1992. Patient also reports having irritable bowel syndrome and has been having diarrhea. She reports mostly in her stools or in the evening. She usually takes a medication over the counter to stop the loose stools. However, she has been out of this medication. Patient reports last EGD and colonoscopy was about 2 years ago and at that time was diagnosed with a stomach ulcer. Patient denies any blood or black stools. Denies any fever chills or sweats. Denies any burning with urination. Also note magnesium 1.3 this is being replaced. Patient is also complaining of itching and redness in both eyes. She has been having signs of conjunctivitis a lot of drainage from the eyes. Eye drops have been ordered Patient has had no further episodes of SVT. Cardiology has cleared her for discharge. As stated above patient underwent Heart catheterization revealing normal coronary arteries. Patient also had elevated LFTs. Abdominal discomfort resolved. No significant findings on ultrasound. Likely elevated LFTs related to the statin which will be discontinued. We'll have her follow- up with her PCP for blood work and recheck LFTs in 1 week. At that time recommend discussion about possibly restarting the statin. Also note patient did have some mild acute kidney injury with a creatinine of 1.10. Medications adjusted to protect kidneys. Hydrochlorothiazide and naproxen discontinued. Monitor kidney function closely creatinine is only 1.1 able to continue metformin at this point. We'll follow up with her PCP. If creatinine continues to worsen metformin will need to be discontinued. Patient is medically stable for discharge. Please refer to chart for any further details. I performed an examination of the patient and discussed their management with the physician Early Learning Teacher. I have reviewed the Physician Early Learning Teacher's notes and agree with the documented findings and plan of care Patient Condition at Discharge: Stable Plan - Discharge Summary New Discharge Prescriptions: New Aspirin 81 mg PO DAILY #30 tab Ferrous Sulfate [Iron (65 MG Elemental)] 325 mg PO BID #60 tab Lisinopril [Zestril] 20 mg PO DAILY #30 tab Metoprolol Tartrate [Lopressor] 50 mg PO BID #60 tab Polymyxin B-Trimeth Sulf Ophth [Polytrim Opthalmic] 1 drops BOTH EYES Q6HR 7 Days #1 bottle Continue Multivitamins, Thera [Multivitamin (formulary)] 1 tab PO DAILY hydrOXYzine HCL 10 mg PO HS PRN PRN Reason: Itching Gabapentin [Neurontin] 600 mg PO TID metFORMIN HCL [Glucophage] 1,000 mg PO BID Citalopram Hydrobromide [CeleXA] 20 mg PO BID ALPRAZolam [Xanax] 0.125 mg PO DAILY Loratadine [Claritin] 10 mg PO DAILY glyBURIDE [Diabeta] 5 mg PO AC-BRKFST Levothyroxine Sodium [Synthroid] 100 mcg PO DAILY Hyoscyamine Sulfate [Levsin] 0.125 mg PO BID Biotin 5 mg PO BID Mometasone Furoate [Nasonex Nasal [place]] 1 spray EA NOSTRIL BID Budesonide/Formoterol Fumarate [Symbicort 160-4.5 Mcg Inhaler] 2 puff INHALATION RT-BID Ranitidine HCl 150 mg PO BID Vitamin B Complex 1 cap PO DAILY DULoxetine HCL [Cymbalta] 60 mg PO DAILY Calcium Citrate 500 mg PO DAILY Ipratropium-Albuterol Nebulize [Duoneb 0.5 mg-3 mg/3 ml Soln] 3 ml INHALATION RT-QID PRN PRN Reason: Shortness Of Breath Discontinued Atorvastatin [Lipitor] 40 mg PO HS Lisinopril-Hctz 20-12.5 mg [Zestoretic 20-12.5] 1 tab PO DAILY Naproxen 500 mg PO BID Ferrous Sulfate [Feosol] 325 mg PO DAILY Discharge Medication List ALPRAZolam [Xanax] 0.125 mg PO DAILY 07/17/14 [History] Biotin 5 mg PO BID 07/17/14 [History] Citalopram Hydrobromide [CeleXA] 20 mg PO BID 07/17/14 [History] Gabapentin [Neurontin] 600 mg PO TID 07/17/14 [History] Hyoscyamine Sulfate [Levsin] 0.125 mg PO BID 07/17/14 [History] Levothyroxine Sodium [Synthroid] 100 mcg PO DAILY 07/17/14 [History] Loratadine [Claritin] 10 mg PO DAILY 07/17/14 [History] Multivitamins, Thera [Multivitamin (formulary)] 1 tab PO DAILY 07/17/14 [History ] glyBURIDE [Diabeta] 5 mg PO AC-BRKFST 07/17/14 [History] hydrOXYzine HCL 10 mg PO HS PRN 07/17/14 [History] metFORMIN HCL [Glucophage] 1,000 mg PO BID 07/17/14 [History] Budesonide/Formoterol Fumarate [Symbicort 160-4.5 Mcg Inhaler] 2 puff INHALATION RT-BID 10/18/17 [History] Calcium Citrate 500 mg PO DAILY 10/18/17 [History] DULoxetine HCL [Cymbalta] 60 mg PO DAILY 10/18/17 [History] Ipratropium-Albuterol Nebulize [Duoneb 0.5 mg-3 mg/3 ml Soln] 3 ml INHALATION RT -QID PRN 10/18/17 [History] Mometasone Furoate [Nasonex Nasal [place]] 1 spray EA NOSTRIL BID 10/18/17 [ History] Ranitidine HCl 150 mg PO BID 10/18/17 [History] Vitamin B Complex 1 cap PO DAILY 10/18/17 [History] Aspirin 81 mg PO DAILY #30 tab 10/20/17 [Rx] Ferrous Sulfate [Iron (65 MG Elemental)] 325 mg PO BID #60 tab 10/20/17 [Rx] Lisinopril [Zestril] 20 mg PO DAILY #30 tab 10/20/17 [Rx] Metoprolol Tartrate [Lopressor] 50 mg PO BID #60 tab 10/20/17 [Rx] Polymyxin B-Trimeth Sulf Ophth [Polytrim Opthalmic] 1 drops BOTH EYES Q6HR 7 Days #1 bottle 10/20/17 [Rx] Follow up Appointment(s)/Referral(s): Ivet Borrero MD [STAFF PHYSICIAN] - 10/27/17 11:30 am (Monday) Mallorie Hudson DO [Primary Care Provider] - 10/24/17 1:00 pm (Monday at [place] office) Ambulatory/Diagnostic Orders: Complete Blood Count w/diff [LAB.AMB] Time Frame: 1 Week, Location: None Selected Comprehensive Metabolic Panel [LAB.AMB] Time Frame: 1 Week, Location: None Selected Magnesium [LAB.AMB] Time Frame: 1 Week, Location: None Selected Patient Instructions/Handouts: *Surgery [facility] - After Heart Catheterization - Materials Handling Coordinator Instructions, Left Heart Catheterization (DC) Activity/Diet/Wound Care/Special Instructions: Diet: cardiac, diabetic Activity: as tolerated Discharge Disposition: HOME SELF-CARE
--- NOTE | 2017-10-20 14:56 | P.PN ---
Subjective Progress Note Date: 10/20/17 History of present illness: This is a pleasant 72-year-old female with history of hypertension, diabetes, hyperlipidemia, very hard of hearing, nonsmoker, no EtOH, who drinks 3 -4 cups of coffee per day. Patient has also been told that she has 2 leaky valves, she has not seen a form setter helper, follows with Dr. Hudson as her primary care doctor. She states that since Monday evening she has not been feeling well overall. She states that she has been under a lot of stress at home recently and attributed most of her symptoms to that. She has been feeling extremely fatigued and tired, and at times feels her heart racing extremely fast. Ultimately the patient couldn't handle it anymore and EMS was called. She also states that on occasion she gets a midsternal chest pressure and heaviness which comes and goes. On arrival an EKG was performed which revealed supraventricular tachycardia, she was given adenosine and converted to normal sinus rhythm. Chest x-ray on arrival here did not reveal any acute process. Laboratory data was reviewed, white blood cell count 9.3, hemoglobin 10.4, platelet count 292. Sodium 141, potassium 4.0, BUN 26, creatinine 1.0. Magnesium 1.3. AST 207 ALT 169 yesterday was 193 and 205 today. Troponins 0.012, 0.047, 0.042. Positive UTI. TSH 1.3. Blood sugars on arrival 286. I pressure 125/77, heart rate in the 70s, 97% on room air. At the time of my examination this morning, patient feels a little shaky in her words, otherwise she's feeling considerably better than prior to coming here. Denies any chest discomfort or palpitations this morning. Her breathing is stable. 10/20/2017 Patient underwent a cardiac catheterization yesterday which revealed normal coronary arteries. She was seen and examined this morning, denies any chest pain or difficulty in breathing. Hemodynamically stable. No further episodes of supraventricular tachycardia have been noted. Objective - Vital Signs Vital signs: Vital Signs Temp 97.2 F L 10/20/17 08:00 Pulse 62 10/20/17 11:51 Resp 16 10/20/17 11:51 BP 121/98 10/20/17 11:34 Pulse Ox 97 10/20/17 11:34 Intake & Output 10/19/17 10/20/17 10/20/17 18:59 06:59 18:59 Intake Total 820 1650 Balance 820 1650 Weight 84.1 kg Intake: IV 100 Intake, IV Titration 1200 Amount Sodium Chloride 0.9% 1, 1200 000 ml @ 100 mls/hr IV . Q10H SUHAS Rx#:[id number] Oral 720 450 Other: Voiding Method Toilet # Voids 1 2 # Bowel Movements 0 - Exam PHYSICAL EXAMINATION: GENERAL: 72-year-old female in no acute distress at time of my examination HEENT: Head is atraumatic, normocephalic. Pupils equal, round. Sclera anicteric. Conjunctivae bilateral eye redness noted. Mucous membranes of the mouth are moist. Neck is supple. There is no elevated jugular venous pressure. No carotid bruit is heard. HEART EXAMINATION: S1 and S2 systolic murmur is heard. CHEST EXAMINATION: Lungs are clear to auscultation and precussion. No chest wall tenderness is noted on palpation or with deep breathing. ABDOMEN: Soft, nontender. Bowel sounds are heard. No organomegaly noted. EXTREMITIES: 2+ peripheral pulses with no evidence of peripheral edema and no calf tenderness noted. Left wrist, good radial pulse, mild ecchymosis, no hematoma. NEUROLOGIC patient is awake, alert and oriented X3. . - Labs CBC & Chem 7: 10/20/17 05:48 10/20/17 05:48 Labs: Abnormal Lab Results - Last 24 Hours (Table) 10/18/17 10/19/17 10/19/17 Range/Units 18:10 11:39 16:28 RBC (3.80-5.40) m/uL Hgb (11.4-16.0) gm/dL Hct (34.0-46.0) % Sodium (137-145) mmol/L Chloride (98-107) mmol/L Carbon Dioxide (22-30) mmol/L BUN (7-17) mg/dL Creatinine (0.52-1.04) mg/dL Glucose (74-99) mg/dL POC Glucose (mg/dL) 165 H (75-99) mg/dL Hemoglobin A1c 7.4 H (4.0-6.0) % Iron 43 L (50-170) ug/dL AST (14-36) U/L ALT (9-52) U/L Total Protein (6.3-8.2) g/dL Albumin (3.5-5.0) g/dL 10/19/17 10/20/17 10/20/17 Range/Units 20:57 05:48 05:48 RBC 3.56 L (3.80-5.40) m/uL Hgb 10.3 L (11.4-16.0) gm/dL Hct 33.1 L (34.0-46.0) % Sodium 136 L (137-145) mmol/L Chloride 108 H (98-107) mmol/L Carbon Dioxide 21 L (22-30) mmol/L BUN 28 H (7-17) mg/dL Creatinine 1.10 H (0.52-1.04) mg/dL Glucose 153 H (74-99) mg/dL POC Glucose (mg/dL) 229 H (75-99) mg/dL Hemoglobin A1c (4.0-6.0) % Iron (50-170) ug/dL AST 67 H (14-36) U/L ALT 163 H (9-52) U/L Total Protein 5.9 L (6.3-8.2) g/dL Albumin 3.4 L (3.5-5.0) g/dL 10/20/17 10/20/17 Range/Units 06:34 11:44 RBC (3.80-5.40) m/uL Hgb (11.4-16.0) gm/dL Hct (34.0-46.0) % Sodium (137-145) mmol/L Chloride (98-107) mmol/L Carbon Dioxide (22-30) mmol/L BUN (7-17) mg/dL Creatinine (0.52-1.04) mg/dL Glucose (74-99) mg/dL POC Glucose (mg/dL) 178 H 111 H (75-99) mg/dL Hemoglobin A1c (4.0-6.0) % Iron (50-170) ug/dL AST (14-36) U/L ALT (9-52) U/L Total Protein (6.3-8.2) g/dL Albumin (3.5-5.0) g/dL Microbiology - Last 24 Hours (Table) 10/19/17 05:10 Urine Culture - Final Urine,Voided Assessment and Plan Plan: Assessment and plan #1 supraventricular tachycardia, converted to normal sinus rhythm with adenosine. #2 symptoms of intermittent chest pressure and heaviness with abnormality noted in troponin. Conversion EKG does show some ST-T wave changes in the anterior leads as well as inferior leads. Cannot rule out acute coronary syndrome. #3 hypertension #4 hyperlipidemia #5 diabetes #6 abnormal liver function Plan Patient did undergo cardiac catheterization which revealed normal coronary arteries. From cardiology's perspective, she may be able to be discharged home. A follow-up appointment will be made with Dr. Borrero in the office 2 weeks post discharge. DNP note has been reviewed, I agree with a documented findings and plan of care. Patient was seen and examined.
[2017-10-20] MEDS ORDERED: FERROUS SULFATE 325 MG TAB PO SCH (21:00)
[2017-10-21] MEDS ORDERED: FAMOTIDINE 20 MG TAB PO SCH (09:00)
== END 2017-10-20 15:39 | disposition home or self-care (01) | DRG 287 ==
LOC: EC 17:52 → 6SEL 18:54
PROVIDERS: ADMIT Internal Medicine; ATTEND Internal Medicine
PROC: B2111ZZ Fluoroscopy of Multiple Coronary Arteries using Low Osmolar Contrast (ICD-10-PCS; principal; 2017-10-19 10:50)
PROC: B2151ZZ Fluoroscopy of Left Heart using Low Osmolar Contrast (ICD-10-PCS; principal; 2017-10-19 10:50)
PROC: 4A023N7 Measurement of Cardiac Sampling and Pressure, Left Heart, Percutaneous Approach (ICD-10-PCS; principal; 2017-10-19 10:50)
DX: I47.1 Supraventricular tachycardia (principal); N17.9 Acute kidney failure, unspecified; D50.9 Iron deficiency anemia, unspecified; E03.9 Hypothyroidism, unspecified; E78.5 Hyperlipidemia, unspecified; E83.42 Hypomagnesemia; E86.0 Dehydration; F32.9 Major depressive disorder, single episode, unspecified; F41.9 Anxiety disorder, unspecified; Z79.890 Hormone replacement therapy; Z79.899 Other long term (current) drug therapy; G47.33 Obstructive sleep apnea (adult) (pediatric); H10.9 Unspecified conjunctivitis; H91.90 Unspecified hearing loss, unspecified ear; I07.1 Rheumatic tricuspid insufficiency; I10 Essential (primary) hypertension; I27.20 Pulmonary hypertension, unspecified; J44.9 Chronic obstructive pulmonary disease, unspecified; K21.9 Gastro-esophageal reflux disease without esophagitis; R79.89 Other specified abnormal findings of blood chemistry; E11.40 Type 2 diabetes mellitus with diabetic neuropathy, unspecified; K25.9 Gastric ulcer, unspecified as acute or chronic, without hemorrhage or perforation; Z96.653 Presence of artificial knee joint, bilateral; K58.0 Irritable bowel syndrome with diarrhea; Z79.51 Long term (current) use of inhaled steroids; Z80.0 Family history of malignant neoplasm of digestive organs; Z86.73 Personal history of transient ischemic attack (TIA), and cerebral infarction without residual deficits; Z87.891 Personal history of nicotine dependence; Z90.49 Acquired absence of other specified parts of digestive tract; Z90.710 Acquired absence of both cervix and uterus; Z79.84 Long term (current) use of oral hypoglycemic drugs; Z91.041 Radiographic dye allergy status; Z91.040 Latex allergy status; Z91.018 Allergy to other foods; Z91.048 Other nonmedicinal substance allergy status
CPT/HCPCS: 36415; 71046; 76700; 80048; 80053; 80061; 80074; 81001; 82150; 82550; 82553; 82728; 83036; 83540; 83550; 83605; 83690; 83735; 84100; 84443; 84484; 85025; 85610; 85730; 87086; 93005; 93306; 93458; 94640; 94760; 96360; 96361; 99285

== ENCOUNTER → 2017-10-27 | Outpatient (CLI) | payer MEDICARE, BC ==
[2017-10-27 10:31] LABS: Basophils # (A) 0.1 k/uL (0-0.2); Basophils % (A) 1 %; Eosinophils # (A) 0.4 k/uL (0-0.7); Eosinophils % (A) 4 %; HCT 41.6 % (34.0-46.0); HGB 12.8 gm/dL (11.4-16.0); Hypochromasia Slight; Lymphocytes # (A) 3.6 k/uL (1.0-4.8); Lymphocytes % (A) 37 %; MCH 28.5 pg (25.0-35.0); MCHC 30.9 g/dL (31.0-37.0); MCV 92.2 fL (80.0-100.0); Mean Platelet Volume 6.9; Monocytes # (A) 0.5 k/uL (0-1.0); Monocytes % (A) 5 %; Neutrophils # (A) 4.9 k/uL (1.3-7.7); Neutrophils % (A) 51 %; Platelet Count 329 k/uL (150-450); RDW 13.8 % (11.5-15.5); WBC 9.7 k/uL (3.8-10.6)
[2017-10-27 11:35] LABS: Albumin 3.8 g/dL (3.5-5.0); Magnesium 1.4 mg/dL (1.6-2.3); Potassium 4.6 mmol/L (3.5-5.1); Total Bilirubin 0.5 mg/dL (0.2-1.3); Total Protein 6.4 g/dL (6.3-8.2)
== END | disposition home or self-care (01) ==
LOC: LABWHC1 09:50
PROVIDERS: ATTEND Physician Assistant
DX: N17.9 Acute kidney failure, unspecified (principal); R79.89 Other specified abnormal findings of blood chemistry
CPT/HCPCS: 36415; 80053; 83735; 85025

== ENCOUNTER 2017-11-04 18:34 | Inpatient (IN) | payer MEDICARE, BC ==
[2017-11-04] MEDS ORDERED: SODIUM CHLORIDE 0.9% 1,000 ML IV ONE (18:51)
[2017-11-04] MEDS ORDERED: LORazepam 2 MG/ML INJ IV STA ×2 (19:26→21:52)
[2017-11-04] MEDS ORDERED: ETOMIDATE 2 MG/ML 10 ML VIAL IVP STA (19:44)
[2017-11-04 19:45] LABS: VBG PH 7.42 (7.31-7.41)
[2017-11-04] MEDS ORDERED: ROCURONIUM BROMIDE 10 MG/ML 10 ML VIAL IV STA (19:45)
[2017-11-04 19:46] LABS: Amphetamine Screen,Urine Not Detected (NotDetected); Barbiturate Screen,Urine Not Detected (NotDetected); Benzodiazepines Screen,Urine Detected (NotDetected); Cocaine Screen,Urine Not Detected (NotDetected); Methadone Screen, Urine Not Detected (NotDetected); Opiate Screen,Urine Not Detected (NotDetected); Oxycodone Screen, Urine Not Detected (NotDetected); Phencyclidine Screen,Urine Not Detected (NotDetected); Tricyclic Antidepressant,Urine Not Detected (NotDetected); Urn Cannabinoid Scrn Not Detected (NotDetected)
[2017-11-04 19:47] LABS: Amorphous Sediment,Urine Rare /hpf; Appearance,Urine Clear (Clear); Bilirubin,Urine Negative (Negative); Blood,Urine Negative (Negative); Color,Urine Yellow; Glucose,Urine (UA) Negative (Negative); Hyaline Casts,Urine 1 /lpf (0-2); Ketones,Urine 3+ (Negative); Leukocyte Esterase,Urine Negative (Negative); Mucus,Urine Rare /hpf; Nitrite,Urine Negative (Negative); Protein,Urine 1+ (Negative); RBC,Urine 2 /hpf (0-5); Specific Gravity,Urine 1.019 (1.001-1.035); Squamous Epithelial Cell,Urine 1 /hpf (0-4); Urobilinogen,Urine <2.0 mg/dL (<2.0); WBC,Urine 1 /hpf (0-5)
[2017-11-04] MEDS ORDERED: methylPREDNISolone SOD SUCCI 125 MG/2 ML VIAL IV STA (20:02)
--- NOTE | 2017-11-04 20:21 | XR ---
EXAMINATION TYPE: XR chest 1V portable DATE OF EXAM: 11/04/2017 COMPARISON: Chest x-ray October 18, 2017 HISTORY: Altered mental status. TECHNIQUE: Single frontal view of the chest is obtained. FINDINGS: Nasogastric tube projects below diaphragm. Endotracheal tube is at poornima and should be ret racted roughly 5 cm. There is no focal air space opacity, pleural effusion, or pneumothorax seen. Th e cardiac silhouette size remains enlarged. The osseous structures are intact. IMPRESSION: 1. Endotracheal tube is at poornima and should be retracted 5 cm. 2. Cardiomegaly without acute pulmonary process.
[2017-11-04 20:22] LABS: Basophils # (A) 0.1 k/uL (0-0.2); Basophils % (A) 0 %; Eosinophils % (A) 0 %; Hypochromasia Moderate; Lymphocytes # (A) 3.8 k/uL (1.0-4.8); Lymphocytes % (A) 29 %; MCH 28.8 pg (25.0-35.0); MCHC 30.3 g/dL (31.0-37.0); MCV 95.2 fL (80.0-100.0); Monocytes # (A) 0.4 k/uL (0-1.0); Monocytes % (A) 3 %; Neutrophils # (A) 8.4 k/uL (1.3-7.7); Neutrophils % (A) 64 %; Platelet Count 314 k/uL (150-450); RBC 4.84 m/uL (3.80-5.40); RDW 13.4 % (11.5-15.5); WBC 13.2 k/uL (3.8-10.6)
[2017-11-04 20:30] LABS: Albumin 4.4 g/dL (3.5-5.0); Calcium 9.1 mg/dL (8.4-10.2); Potassium 3.6 mmol/L (3.5-5.1); Total Bilirubin 0.7 mg/dL (0.2-1.3); Total Protein 7.5 g/dL (6.3-8.2)
[2017-11-04 20:32] LABS: INR 1.1 (<1.2); Partial Thromboplastin Time 22.7 sec (22.0-30.0); Prothrombin Time 10.8 sec (9.0-12.0)
[2017-11-04 20:46] LABS: Creatine Kinase 26 U/L (30-135)
[2017-11-04 20:59] LABS: Creatine Kinase MB 0.8 ng/mL (0.0-2.4); Troponin I <0.012 ng/mL (0.000-0.034)
[2017-11-04 21:00] LABS: Glucose,Whole Blood 271 mg/dL (75-99)
[2017-11-04 21:03] LABS: ABG Base Excess -4.2 mmol/L; ABG HCO3 22 mmol/L (21-25); ABG PCO2 41 mmHg (35-45); ABG PH 7.33 (7.35-7.45); ABG PO2 247 mmHg (83-108); ABG TCO2 23 mmol/L (19-24)
[2017-11-04] MEDS: MAGNESIUM SULFATE-D5W PMX 1 GM in DEXTROSE/WATER 1 100ML.BAG IVPB SCH ×2 (21:12→22:44)
--- NOTE | 2017-11-04 21:30 | CT ---
EXAMINATION TYPE: CT brain wo con DATE OF EXAM: 11/04/2017 HISTORY: Altered mental status. CT DLP: 788.8 mGycm. Automated Exposure Control for Dose Reduction was Utilized. TECHNIQUE: CT scan of the head is performed without contrast. COMPARISON: Prior CT brain November 27, 2009 FINDINGS: There is no acute intracranial hemorrhage or midline shift identified. There is diffuse v entricular and sulcal prominence consistent with diffuse age-related cerebral atrophy. There is low- attenuation in the periventricular white matter consistent with chronic small vessel ischemic change. The globes are intact and the visualized sinuses are clear. Suspect small frontal ossified mening ioma or osteoma axial image 30. IMPRESSION: No acute intracranial hemorrhage or midline shift. There is mild diffuse age-related ce rebral atrophy and chronic small vessel ischemic change noted currently.
--- NOTE | 2017-11-04 21:36 | CT ---
EXAMINATION TYPE: CT ChestAbdPelvis w con DATE OF EXAM: 11/04/2017 COMPARISON: CT abdomen and pelvis October 13, 2014 HISTORY: Unresponsive. Pain per order. CT DLP: 1150.8 mGycm. Automated Exposure Control for Dose Reduction was Utilized. CONTRAST: CT scan of the thorax, abdomen and pelvis is performed without oral but with IV Contrast, patient inj ected with 100 mL of Isovue 300. FINDINGS: LUNGS: Endotracheal tube extends into right mainstem bronchus above poornima, advise pulling back. Ther e is artifact from respiratory motion artifact degradation making evaluation suboptimal. There is lef t lower lobe consolidation and/or atelectasis. There is less prominent right basilar consolidation an d/or atelectasis medially. No pleural effusion or pneumothorax is evident bilaterally MEDIASTINUM: There are no greater than 1 cm hilar or mediastinal lymph nodes. No pericardial effusi on is seen. Heart size is upper limits of normal. OTHER: Some dystrophic calcifications left breast are present. LIVER/GB: Cholecystectomy clips are noted. PANCREAS: No significant abnormality is seen. SPLEEN: No significant abnormality is seen. ADRENALS: No significant abnormality is seen. KIDNEYS:. There is lobulated partially exophytic 3.5 cm cyst upper pole level left kidney redemonstra mady BOWEL: Nasogastric tube extends into posterior fundus. Diverticula are seen in the left and sigmoid c olon. There is no CT evidence for acute diverticulitis. Less prominent scattered diverticula are note d in the right and transverse colon. GENITAL ORGANS: Uterus is surgically absent or markedly atrophic. LYMPH NODES: No greater than 1cm abdominal or pelvic lymph nodes are appreciated. OSSEOUS STRUCTURES: Moderate multilevel spurring in the thoracolumbar spine is present. There is vacu um disc phenomenon at several levels in the thoracic and upper lumbar spine. Some facet arthropathy i s seen in lower lumbar levels. OTHER: No significant additional abnormality is seen. IMPRESSION: 1. As noted on chest x-ray advised pulling back endotracheal tube 5 to 6 cm. 2. Suspicious left greater than right lower lobe consolidation and/or atelectasis. Aspiration pneumon ia is in differential. 3. No bowel obstruction. No significant acute findings in the visualized abdomen or pelvis.
[2017-11-04] MEDS ORDERED: PROPOFOL 1,000 MG in EMPTY BAG 1 BAG IV STA (21:54)
[2017-11-04] MEDS ORDERED: levETIRAcetam IV 1,000 MG in SALINE 1 100ML.BAG IVPB STA (21:59)
--- NOTE | 2017-11-04 22:05 | ED ---
General Adult HPI - General Chief complaint: Altered Mental Status Stated complaint: Altered Mental Status Source: EMS Mode of arrival: EMS Limitations: altered mental status - History of Present Illness Initial comments: Dictation was produced using elmenus dictation software. please excuse any grammatical, word or spelling errors. Chief Complaint: 72-year-old female with past medical history of SVT, anemia, hypomagnesemia, hypertension presents with altered mental status. History of Present Illness: Patient was found down by . Patient has been acting more confused more than usual however this morning she went to go watch TV. She was found approximate 4 hours later on the ground. EMS was called. Patient unable to provide HPI at this time. According to family patient has been acting more confused over the last for 5 days. She has recently been admitted for SVT. Unable to obtain ROS at this time secondary to mental status - Related Data Home Medications Medication Instructions Recorded Confirmed ALPRAZolam [Xanax] 0.125 mg PO DAILY 07/17/14 10/18/17 Biotin 5 mg PO BID 07/17/14 10/18/17 Citalopram Hydrobromide [CeleXA] 20 mg PO BID 07/17/14 10/18/17 Gabapentin [Neurontin] 600 mg PO TID 07/17/14 10/18/17 Hyoscyamine Sulfate [Levsin] 0.125 mg PO BID 07/17/14 10/18/17 Levothyroxine Sodium [Synthroid] 100 mcg PO DAILY 07/17/14 10/18/17 Loratadine [Claritin] 10 mg PO DAILY 07/17/14 10/18/17 Multivitamins, Thera [Multivitamin 1 tab PO DAILY 07/17/14 10/18/17 (formulary)] glyBURIDE [Diabeta] 5 mg PO AC-BRKFST 07/17/14 10/18/17 hydrOXYzine HCL 10 mg PO HS PRN 07/17/14 10/18/17 metFORMIN HCL [Glucophage] 1,000 mg PO BID 07/17/14 10/18/17 Budesonide/Formoterol Fumarate 2 puff INHALATION RT-BID 10/18/17 10/18/17 [Symbicort 160-4.5 Mcg Inhaler] Calcium Citrate 500 mg PO DAILY 10/18/17 10/18/17 DULoxetine HCL [Cymbalta] 60 mg PO DAILY 10/18/17 10/18/17 Ipratropium-Albuterol Nebulize 3 ml INHALATION RT-QID PRN 10/18/17 10/18/17 [Duoneb 0.5 mg-3 mg/3 ml Soln] Mometasone Furoate [Nasonex Nasal 1 spray EA NOSTRIL BID 10/18/17 10/18/17 Tulia] Ranitidine HCl 150 mg PO BID 10/18/17 10/18/17 Vitamin B Complex 1 cap PO DAILY 10/18/17 10/18/17 Previous Rx's Medication Instructions Recorded Aspirin 81 mg PO DAILY #30 tab 10/20/17 Ferrous Sulfate [Iron (65 MG 325 mg PO BID #60 tab 10/20/17 Elemental)] Lisinopril [Zestril] 20 mg PO DAILY #30 tab 10/20/17 Metoprolol Tartrate [Lopressor] 50 mg PO BID #60 tab 10/20/17 Polymyxin B-Trimeth Sulf Ophth 1 drops BOTH EYES Q6HR 7 Days #1 10/20/17 [Polytrim Opthalmic] bottle Allergies Allergy/AdvReac Type Severity Reaction Status Date / Time banana [Banana] Allergy Severe Anaphylaxis Verified 10/18/17 18:02 iodine Allergy Severe DYSPNEA, Verified 10/18/17 18:02 SKIN INFLAMED kiwi Allergy Severe Anaphylaxis Verified 10/18/17 18:02 latex Allergy Dyspnea, Verified 10/18/17 18:02 Itching morphine Allergy Rapid Verified 10/18/17 18:02 Heart Rate ivp dye Allergy Dyspnea Uncoded 10/18/17 18:02 smoke Allergy Dyspnea Uncoded 10/18/17 18:02 Review of Systems ROS Statement: Those systems with pertinent positive or pertinent negative responses have been documented in the HPI. ROS Other: All systems not noted in ROS Statement are negative. Past Medical History Past Medical History: Asthma, Chest Pain / Angina, COPD, CVA/TIA, Diabetes Mellitus, GERD/Reflux, Hearing Disorder / Deafness, Hyperlipidemia, Hypertension , Musculoskeletal Disorder, Sleep Apnea/CPAP/BIPAP, Thyroid Disorder Additional Past Medical History / Comment(s): NEUROPATHY, HEART MURMUR, NOT USING C-PAP, HIATAL HERNIA, DIVERTICULOSIS, CYST LEFT KIDNEY, DDD WITH SCIATICA AND BACK PAIN. STATES HAVING LEFT ABD & RIGHT GROIN PAIN. NEURO DERMATITIS W/ RASH. History of Any Multi-Drug Resistant Organisms: None Reported Past Surgical History: Adenoidectomy, Cholecystectomy, Hysterectomy, Joint Replacement, Orthopedic Surgery, Tonsillectomy Additional Past Surgical History / Comment(s): D & C, ARTHROSCOPY MIGUEL KNEES, MIGUEL ROTATOR CUFF , MIGUEL KNEE REPLACEMENT. Past Anesthesia/Blood Transfusion Reactions: Postoperative Nausea & Vomiting ( PONV) Past Psychological History: Anxiety, Depression Smoking Status: Former smoker Past Alcohol Use History: None Reported Past Drug Use History: None Reported - Past Family History Father Family Medical History: Pneumonia Mother Family Medical History: Cancer Additional Family Medical History / Comment(s): PANCREAS CA General Exam - General Exam Comments Initial Comments: PHYSICAL EXAM: General Impression: Obtunded, groaning HEENT: Normocephalic atraumatic Cardiovascular: Tachycardic Chest: Lungs clear to auscultation bilaterally, no rhonchi, no wheeze, no rales Abdomen: Bowel sounds present, abdomen soft, non-tender, non-distended, no organomegaly Musculoskeletal: Pulses present and equal in all extremities, no peripheral edema Motor: Moves all x-ray was grossly Neurological: Moves all extremity is grossly Skin: Intact with no visualized rashes Limitations: altered mental status Course Vital Signs 11/04/17 11/04/17 11/04/17 19:00 20:02 20:59 Temperature 98.7 F Pulse Rate 88 106 H 147 H Respiratory 22 16 20 Rate Blood Pressure 150/93 218/91 209/91 O2 Sat by Pulse 100 100 99 Oximetry 11/04/17 11/04/17 11/04/17 21:00 21:06 21:27 Temperature Pulse Rate 103 H 102 H 119 H Respiratory 16 20 16 Rate Blood Pressure 199/84 199/94 O2 Sat by Pulse 99 9 L 99 Oximetry 11/04/17 11/04/17 22:00 22:31 Temperature Pulse Rate 104 H 90 Respiratory 16 20 Rate Blood Pressure 214/113 173/74 O2 Sat by Pulse 97 97 Oximetry Procedures - Intubation Time Out Performed: Yes Sedative: Etomidate Mg Given: 40 Paralytic: Rocuronium Mg Given: 70 Laryngoscope: Chana Size: 4 Assist Device Used: Bougie ET Tube Size: 7 ET Tube Uncuffed: Yes Tube Secured Depth (cm): 21 Tube Placement Confirmation: visualized tube passing through cords Intubation Complications: none Medical Decision Making - Medical Decision Making ED course: 72-year-old female presents with altered mental status. Vital signs upon arrival shows heart rate of 103, blood pressure 199/84. Patient was found to be severely confused and making noises. She appeared to be in distress. Patient not making any verbal sounds. Patient then proceeded to have a witnessed seizure which was described as focal twitching to the face. No extensor spasticity. No hyperreflexia. Patient was intubated at bedside using etomidate and rocuronium. Laboratory evaluation obtained. CBC shows leukocytosis of 13.2. Hemoglobin stable. Coag panel unremarkable. Blood gases obtained showing no CO2 narcosis. Metabolic panel obtained showing carbon dioxide of 16, no anion gap. Glucose of 271. Rest metabolic panel is unremarkable. Patient had prolonged QT on her EKG. She has history of hypomagnesemia. Patient given magnesium supplementation. EKG did not show widened QRS. Patient continued to seize. She was given 1 g of Keppra. Discussed patient case with neurologist who was comfortable having patient here in this facility. He recommends patient be given 750 mg of Keppra every 12 hours. Discussed patient case with accepting internal medicine physician who is okay with accepting patient care. Pending discussion with auto parts professional. Patient reevaluated with stable medical condition. She has not had any recurrent seizures here today. Magnesium level is 1.1. There is clinical suspicion that patient had episode of arrhythmia causing her to have a hypoxic brain injury. Patient continued on propofol drip for sedation. Patient admitted to intensive care unit. EKG Interpretation: A 12 lead EKG was obtained. It was interpreted by myself and attending physician. There is a P wave before every QRS complex. Rate is 98. Rhythm is normal sinus rhythm, NM interval 180, QRS 76, QTC 510. - Lab Data Result diagrams: 11/04/17 20:05 11/04/17 20:05 Lab Results 11/04/17 11/04/17 11/04/17 Range/Units 19:00 19:00 20:05 WBC (3.8-10.6) k/uL RBC (3.80-5.40) m/uL Hgb (11.4-16.0) gm/dL Hct (34.0-46.0) % MCV (80.0-100.0) fL MCH (25.0-35.0) pg MCHC (31.0-37.0) g/dL RDW (11.5-15.5) % Plt Count (150-450) k/uL Neutrophils % % Lymphocytes % % Monocytes % % Eosinophils % % Basophils % % Neutrophils # (1.3-7.7) k/uL Lymphocytes # (1.0-4.8) k/uL Monocytes # (0-1.0) k/uL Eosinophils # (0-0.7) k/uL Basophils # (0-0.2) k/uL Hypochromasia PT (9.0-12.0) sec INR (<1.2) APTT (22.0-30.0) sec Sample Site ABG pH (7.35-7.45) ABG pCO2 (35-45) mmHg ABG pO2 (83-108) mmHg ABG HCO3 (21-25) mmol/L ABG Total CO2 (19-24) mmol/L ABG O2 Saturation (94-97) % ABG Base Excess mmol/L Jarrett Test VBG pH 7.42 H (7.31-7.41) VBG pCO2 35 L (37-51) mmHg VBG HCO3 22 L (24-28) mmol/L FiO2 % Sodium (137-145) mmol/L Potassium (3.5-5.1) mmol/L Chloride (98-107) mmol/L Carbon Dioxide (22-30) mmol/L Anion Gap mmol/L BUN (7-17) mg/dL Creatinine (0.52-1.04) mg/dL Est GFR (CKD-EPI)AfAm (>60 ml/min/1.73 sqM) Est GFR (CKD-EPI)NonAf (>60 ml/min/1.73 sqM) Glucose (74-99) mg/dL POC Glucose (mg/dL) (75-99) mg/dL POC Glu [employer] Professional ID Calcium (8.4-10.2) mg/dL Magnesium (1.6-2.3) mg/dL Total Bilirubin (0.2-1.3) mg/dL AST (14-36) U/L ALT (9-52) U/L Alkaline Phosphatase (38-126) U/L Ammonia 62 H (<30) umol/L Total Creatine Kinase (30-135) U/L CK-MB (CK-2) (0.0-2.4) ng/mL CK-MB (CK-2) Rel Index Troponin I (0.000-0.034) ng/mL Total Protein (6.3-8.2) g/dL Albumin (3.5-5.0) g/dL Urine Color Yellow Urine Appearance Clear (Clear) Urine pH 7.0 (5.0-8.0) Ur Specific Hydro 1.019 (1.001-1.035) Urine Protein 1+ H (Negative) Urine Glucose (UA) Negative (Negative) Urine Ketones 3+ H (Negative) Urine Blood Negative (Negative) Urine Nitrite Negative (Negative) Urine Bilirubin Negative (Negative) Urine Urobilinogen <2.0 (<2.0) mg/dL Ur Leukocyte Esterase Negative (Negative) Urine RBC 2 (0-5) /hpf Urine WBC 1 (0-5) /hpf Ur Squamous Epith Cells 1 (0-4) /hpf Amorphous Sediment Rare H (None) /hpf Hyaline Casts 1 (0-2) /lpf Urine Mucus Rare H (None) /hpf Urine Opiates Screen Not Detected (NotDetected) Ur Oxycodone Screen Not Detected (NotDetected) Urine Methadone Screen Not Detected (NotDetected) Ur Propoxyphene Screen Not Detected (NotDetected) Ur Barbiturates Screen Not Detected (NotDetected) U Tricyclic Antidepress Not Detected (NotDetected) Ur Phencyclidine Scrn Not Detected (NotDetected) Ur Amphetamines Screen Not Detected (NotDetected) U Methamphetamines Scrn Not Detected (NotDetected) U Benzodiazepines Scrn Detected H (NotDetected) Urine Cocaine Screen Not Detected (NotDetected) U Marijuana (THC) Screen Not Detected (NotDetected) 11/04/17 11/04/17 11/04/17 Range/Units 20:05 20:05 20:05 WBC (3.8-10.6) k/uL RBC (3.80-5.40) m/uL Hgb (11.4-16.0) gm/dL Hct (34.0-46.0) % MCV (80.0-100.0) fL MCH (25.0-35.0) pg MCHC (31.0-37.0) g/dL RDW (11.5-15.5) % Plt Count (150-450) k/uL Neutrophils % % Lymphocytes % % Monocytes % % Eosinophils % % Basophils % % Neutrophils # (1.3-7.7) k/uL Lymphocytes # (1.0-4.8) k/uL Monocytes # (0-1.0) k/uL Eosinophils # (0-0.7) k/uL Basophils # (0-0.2) k/uL Hypochromasia PT 10.8 (9.0-12.0) sec INR 1.1 (<1.2) APTT 22.7 (22.0-30.0) sec Sample Site ABG pH (7.35-7.45) ABG pCO2 (35-45) mmHg ABG pO2 (83-108) mmHg ABG HCO3 (21-25) mmol/L ABG Total CO2 (19-24) mmol/L ABG O2 Saturation (94-97) % ABG Base Excess mmol/L Jarrett Test VBG pH (7.31-7.41) VBG pCO2 (37-51) mmHg VBG HCO3 (24-28) mmol/L FiO2 % Sodium 142 (137-145) mmol/L Potassium 3.6 (3.5-5.1) mmol/L Chloride 104 (98-107) mmol/L Carbon Dioxide 16 L (22-30) mmol/L Anion Gap 22 mmol/L BUN 15 (7-17) mg/dL Creatinine 0.83 (0.52-1.04) mg/dL Est GFR (CKD-EPI)AfAm 81 (>60 ml/min/1.73 sqM) Est GFR (CKD-EPI)NonAf 71 (>60 ml/min/1.73 sqM) Glucose 271 H (74-99) mg/dL POC Glucose (mg/dL) (75-99) mg/dL POC Glu [employer] Professional ID Calcium 9.1 (8.4-10.2) mg/dL Magnesium (1.6-2.3) mg/dL Total Bilirubin 0.7 (0.2-1.3) mg/dL AST 28 (14-36) U/L ALT 20 (9-52) U/L Alkaline Phosphatase 80 (38-126) U/L Ammonia (<30) umol/L Total Creatine Kinase 26 L (30-135) U/L CK-MB (CK-2) 0.8 (0.0-2.4) ng/mL CK-MB (CK-2) Rel Index 3.1 Troponin I <0.012 (0.000-0.034) ng/mL Total Protein 7.5 (6.3-8.2) g/dL Albumin 4.4 (3.5-5.0) g/dL Urine Color Urine Appearance (Clear) Urine pH (5.0-8.0) Ur Specific Hydro (1.001-1.035) Urine Protein (Negative) Urine Glucose (UA) (Negative) Urine Ketones (Negative) Urine Blood (Negative) Urine Nitrite (Negative) Urine Bilirubin (Negative) Urine Urobilinogen (<2.0) mg/dL Ur Leukocyte Esterase (Negative) Urine RBC (0-5) /hpf Urine WBC (0-5) /hpf Ur Squamous Epith Cells (0-4) /hpf Amorphous Sediment (None) /hpf Hyaline Casts (0-2) /lpf Urine Mucus (None) /hpf Urine Opiates Screen (NotDetected) Ur Oxycodone Screen (NotDetected) Urine Methadone Screen (NotDetected) Ur Propoxyphene Screen (NotDetected) Ur Barbiturates Screen (NotDetected) U Tricyclic Antidepress (NotDetected) Ur Phencyclidine Scrn (NotDetected) Ur Amphetamines Screen (NotDetected) U Methamphetamines Scrn (NotDetected) U Benzodiazepines Scrn (NotDetected) Urine Cocaine Screen (NotDetected) U Marijuana (THC) Screen (NotDetected) 11/04/17 11/04/17 11/04/17 Range/Units 20:05 20:05 20:54 WBC 13.2 H (3.8-10.6) k/uL RBC 4.84 (3.80-5.40) m/uL Hgb 14.0 (11.4-16.0) gm/dL Hct 46.0 (34.0-46.0) % MCV 95.2 (80.0-100.0) fL MCH 28.8 (25.0-35.0) pg MCHC 30.3 L (31.0-37.0) g/dL RDW 13.4 (11.5-15.5) % Plt Count 314 (150-450) k/uL Neutrophils % 64 % Lymphocytes % 29 % Monocytes % 3 % Eosinophils % 0 % Basophils % 0 % Neutrophils # 8.4 H (1.3-7.7) k/uL Lymphocytes # 3.8 (1.0-4.8) k/uL Monocytes # 0.4 (0-1.0) k/uL Eosinophils # 0.0 (0-0.7) k/uL Basophils # 0.1 (0-0.2) k/uL Hypochromasia Moderate PT (9.0-12.0) sec INR (<1.2) APTT (22.0-30.0) sec Sample Site Right Radial ABG pH 7.33 L (7.35-7.45) ABG pCO2 41 (35-45) mmHg ABG pO2 247 H (83-108) mmHg ABG HCO3 22 (21-25) mmol/L ABG Total CO2 23 (19-24) mmol/L ABG O2 Saturation 100.0 H (94-97) % ABG Base Excess -4.2 mmol/L Jarrett Test Yes VBG pH (7.31-7.41) VBG pCO2 (37-51) mmHg VBG HCO3 (24-28) mmol/L FiO2 100 % Sodium (137-145) mmol/L Potassium (3.5-5.1) mmol/L Chloride (98-107) mmol/L Carbon Dioxide (22-30) mmol/L Anion Gap mmol/L BUN (7-17) mg/dL Creatinine (0.52-1.04) mg/dL Est GFR (CKD-EPI)AfAm (>60 ml/min/1.73 sqM) Est GFR (CKD-EPI)NonAf (>60 ml/min/1.73 sqM) Glucose (74-99) mg/dL POC Glucose (mg/dL) (75-99) mg/dL POC Glu [employer] Professional ID Calcium (8.4-10.2) mg/dL Magnesium 1.1 L (1.6-2.3) mg/dL Total Bilirubin (0.2-1.3) mg/dL AST (14-36) U/L ALT (9-52) U/L Alkaline Phosphatase (38-126) U/L Ammonia (<30) umol/L Total Creatine Kinase (30-135) U/L CK-MB (CK-2) (0.0-2.4) ng/mL CK-MB (CK-2) Rel Index Troponin I (0.000-0.034) ng/mL Total Protein (6.3-8.2) g/dL Albumin (3.5-5.0) g/dL Urine Color Urine Appearance (Clear) Urine pH (5.0-8.0) Ur Specific Hydro (1.001-1.035) Urine Protein (Negative) Urine Glucose (UA) (Negative) Urine Ketones (Negative) Urine Blood (Negative) Urine Nitrite (Negative) Urine Bilirubin (Negative) Urine Urobilinogen (<2.0) mg/dL Ur Leukocyte Esterase (Negative) Urine RBC (0-5) /hpf Urine WBC (0-5) /hpf Ur Squamous Epith Cells (0-4) /hpf Amorphous Sediment (None) /hpf Hyaline Casts (0-2) /lpf Urine Mucus (None) /hpf Urine Opiates Screen (NotDetected) Ur Oxycodone Screen (NotDetected) Urine Methadone Screen (NotDetected) Ur Propoxyphene Screen (NotDetected) Ur Barbiturates Screen (NotDetected) U Tricyclic Antidepress (NotDetected) Ur Phencyclidine Scrn (NotDetected) Ur Amphetamines Screen (NotDetected) U Methamphetamines Scrn (NotDetected) U Benzodiazepines Scrn (NotDetected) Urine Cocaine Screen (NotDetected) U Marijuana (THC) Screen (NotDetected) 11/04/17 Range/Units 20:57 WBC (3.8-10.6) k/uL RBC (3.80-5.40) m/uL Hgb (11.4-16.0) gm/dL Hct (34.0-46.0) % MCV (80.0-100.0) fL MCH (25.0-35.0) pg MCHC (31.0-37.0) g/dL RDW (11.5-15.5) % Plt Count (150-450) k/uL Neutrophils % % Lymphocytes % % Monocytes % % Eosinophils % % Basophils % % Neutrophils # (1.3-7.7) k/uL Lymphocytes # (1.0-4.8) k/uL Monocytes # (0-1.0) k/uL Eosinophils # (0-0.7) k/uL Basophils # (0-0.2) k/uL Hypochromasia PT (9.0-12.0) sec INR (<1.2) APTT (22.0-30.0) sec Sample Site ABG pH (7.35-7.45) ABG pCO2 (35-45) mmHg ABG pO2 (83-108) mmHg ABG HCO3 (21-25) mmol/L ABG Total CO2 (19-24) mmol/L ABG O2 Saturation (94-97) % ABG Base Excess mmol/L Jarrett Test VBG pH (7.31-7.41) VBG pCO2 (37-51) mmHg VBG HCO3 (24-28) mmol/L FiO2 % Sodium (137-145) mmol/L Potassium (3.5-5.1) mmol/L Chloride (98-107) mmol/L Carbon Dioxide (22-30) mmol/L Anion Gap mmol/L BUN (7-17) mg/dL Creatinine (0.52-1.04) mg/dL Est GFR (CKD-EPI)AfAm (>60 ml/min/1.73 sqM) Est GFR (CKD-EPI)NonAf (>60 ml/min/1.73 sqM) Glucose (74-99) mg/dL POC Glucose (mg/dL) 271 H (75-99) mg/dL POC Glu [employer] Professional ID Krystian Durbin Calcium (8.4-10.2) mg/dL Magnesium (1.6-2.3) mg/dL Total Bilirubin (0.2-1.3) mg/dL AST (14-36) U/L ALT (9-52) U/L Alkaline Phosphatase (38-126) U/L Ammonia (<30) umol/L Total Creatine Kinase (30-135) U/L CK-MB (CK-2) (0.0-2.4) ng/mL CK-MB (CK-2) Rel Index Troponin I (0.000-0.034) ng/mL Total Protein (6.3-8.2) g/dL Albumin (3.5-5.0) g/dL Urine Color Urine Appearance (Clear) Urine pH (5.0-8.0) Ur Specific Hydro (1.001-1.035) Urine Protein (Negative) Urine Glucose (UA) (Negative) Urine Ketones (Negative) Urine Blood (Negative) Urine Nitrite (Negative) Urine Bilirubin (Negative) Urine Urobilinogen (<2.0) mg/dL Ur Leukocyte Esterase (Negative) Urine RBC (0-5) /hpf Urine WBC (0-5) /hpf Ur Squamous Epith Cells (0-4) /hpf Amorphous Sediment (None) /hpf Hyaline Casts (0-2) /lpf Urine Mucus (None) /hpf Urine Opiates Screen (NotDetected) Ur Oxycodone Screen (NotDetected) Urine Methadone Screen (NotDetected) Ur Propoxyphene Screen (NotDetected) Ur Barbiturates Screen (NotDetected) U Tricyclic Antidepress (NotDetected) Ur Phencyclidine Scrn (NotDetected) Ur Amphetamines Screen (NotDetected) U Methamphetamines Scrn (NotDetected) U Benzodiazepines Scrn (NotDetected) Urine Cocaine Screen (NotDetected) U Marijuana (THC) Screen (NotDetected) Disposition Clinical Impression: Altered mental status, Hypomagnesemia, Status epilepticus Disposition: ADMITTED IP TO THIS [facility] Condition: Critical Referrals: Mallorie Hudson DO [Primary Care Provider] - 1-2 days Time of Disposition: 22:41
[2017-11-04] MEDS ORDERED: NALOXONE 0.4 MG/ML 1 ML VIAL IV PRN (22:41)
[2017-11-04] MEDS ORDERED: ACETAMINOPHEN TAB 325 MG TAB PO PRN (22:41)
[2017-11-04] MEDS ORDERED: SODIUM CHLORIDE 0.9% 1,000 ML IV SCH (22:45)
[2017-11-04 23:59] LABS: Glucose,Whole Blood 302 mg/dL (75-99)
[2017-11-05] MEDS ORDERED: INSULIN ASPART 100 UNIT/ML 1 ML 10 ML VIAL SQ SCH
[2017-11-05] MEDS: MAGNESIUM SULFATE-D5W PMX 1 GM in DEXTROSE/WATER 1 100ML.BAG IVPB SCH ×2 (01:29→01:49)
[2017-11-05] MEDS: HEPARIN SODIUM,PORCINE 5,000 UNIT/ML 1 ML VIAL SQ SCH ×3 (01:30→16:42)
[2017-11-05 01:59] LABS: Appearance,Urine Clear (Clear); Bilirubin,Urine Negative (Negative); Blood,Urine Moderate (Negative); Color,Urine Light Yellow; Glucose,Urine (UA) 4+ (Negative); Leukocyte Esterase,Urine Negative (Negative); Mucus,Urine Rare /hpf; Nitrite,Urine Negative (Negative); PH, Urine 5.5 (5.0-8.0); Protein,Urine Trace (Negative); RBC,Urine 46 /hpf (0-5); Specific Gravity,Urine 1.037 (1.001-1.035); Squamous Epithelial Cell,Urine 1 /hpf (0-4); Urobilinogen,Urine <2.0 mg/dL (<2.0); WBC,Urine 1 /hpf (0-5)
[2017-11-05 02:00] LABS: Ketones,Urine 2+ (Negative)
[2017-11-05] MEDS ORDERED: Magnesium Replacement Protocol 1 EACH MISC MISCELLANE PRN (02:19)
[2017-11-05] MEDS ORDERED: Potassium Replacement Protocol 1 EACH MISC MISCELLANE PRN (02:19)
[2017-11-05] MEDS ORDERED: INSULIN REGULAR BOLUS (FROM DRIP BAG) IV ONE (02:19)
[2017-11-05] MEDS ORDERED: INSULIN REGULAR 100 UNIT in SODIUM CHLORIDE 0.9% 100 ML IV SCH (02:30)
[2017-11-05] MEDS ORDERED: SODIUM CHLORIDE 0.9% 1,000 ML IV SCH (02:30)
[2017-11-05] MEDS ORDERED: POTASSIUM BICARBONATE/CIT AC 20 MEQ TABLET.EFF NG-TUBE SCH (03:00)
[2017-11-05 03:17] LABS: Glucose,Whole Blood 241 mg/dL (75-99)
[2017-11-05 04:04] LABS: Glucose,Whole Blood 186 mg/dL (75-99)
[2017-11-05] MEDS: D5-0.45% NACL WITH KCL 20MEQ/L 1,000 ML IV SCH ×4 (04:06→20:58)
[2017-11-05 04:33] LABS: ABG Base Excess 1.9 mmol/L; ABG HCO3 27 mmol/L (21-25); ABG PCO2 46 mmHg (35-45); ABG PH 7.38 (7.35-7.45); ABG PO2 100 mmHg (83-108); ABG TCO2 28 mmol/L (19-24)
[2017-11-05 04:59] LABS: Basophils % (A) 0 %; Eosinophils % (A) 0 %; HCT 41.1 % (34.0-46.0); HGB 13.2 gm/dL (11.4-16.0); Lymphocytes # (A) 1.6 k/uL (1.0-4.8); Lymphocytes % (A) 11 %; MCH 29.1 pg (25.0-35.0); MCHC 32.2 g/dL (31.0-37.0); MCV 90.4 fL (80.0-100.0); Mean Platelet Volume 7.1; Monocytes # (A) 0.5 k/uL (0-1.0); Monocytes % (A) 3 %; Neutrophils # (A) 12.5 k/uL (1.3-7.7); Neutrophils % (A) 85 %; Platelet Count 300 k/uL (150-450); RBC 4.55 m/uL (3.80-5.40); RDW 13.6 % (11.5-15.5); WBC 14.8 k/uL (3.8-10.6)
[2017-11-05 05:05] LABS: Glucose,Whole Blood 175 mg/dL (75-99)
[2017-11-05 05:09] LABS: ALT 21 U/L (9-52); AST 20 U/L (14-36); Albumin 3.4 g/dL (3.5-5.0); Alkaline Phosphatase 69 U/L (38-126); Anion Gap 6 mmol/L; Blood Urea Nitrogen 17 mg/dL (7-17); Calcium 8.7 mg/dL (8.4-10.2); Carbon Dioxide 27 mmol/L (22-30); Chloride 105 mmol/L (98-107); Glucose 190 mg/dL (74-99); Magnesium 2.2 mg/dL (1.6-2.3); Potassium 4.2 mmol/L (3.5-5.1); Sodium 138 mmol/L (137-145); Total Bilirubin 0.4 mg/dL (0.2-1.3); Total Protein 6.2 g/dL (6.3-8.2)
[2017-11-05] MEDS: PROPOFOL 1,000 MG in EMPTY BAG 1 BAG IV SCH (05:18)
[2017-11-05 06:12] LABS: Glucose,Whole Blood 167 mg/dL (75-99)
[2017-11-05 06:58] LABS: Glucose,Whole Blood 165 mg/dL (75-99)
--- NOTE | 2017-11-05 07:02 | XR ---
EXAMINATION TYPE: XR chest 1V DATE OF EXAM: 11/05/2017 HISTORY: intubated. REFERENCE: Previous study dated 11/04/2017. FINDINGS: The patient is ET tube has been withdrawn slightly and is now in good position overlying th e T3-4 disc space. NG tube is present and it is coiled in the stomach. There is mild left basilar airspace disease. There are small bilateral effusions. The heart is not en larged. IMPRESSION: 1. SATISFACTORY ET TUBE PLACEMENT. 2. WORSENING LEFT BASILAR AIRSPACE DISEASE. 3. SMALL, BILATERAL EFFUSIONS.
[2017-11-05 08:00] LABS: Phosphorus 2.9 mg/dL (2.5-4.5); Potassium 4.1 mmol/L (3.5-5.1)
[2017-11-05] MEDS: FAMOTIDINE 20 MG/2 ML VIAL IV SCH ×2 (08:01→20:41)
[2017-11-05] MEDS: CHLORHEXIDINE GLUCONATE 15 ML CUP MUCOUS MEM SCH ×2 (08:01→20:41)
[2017-11-05] MEDS: levETIRAcetam IV 750 MG in SODIUM CHLORIDE 0.9% 100 ML IVPB SCH ×2 (08:03→20:43)
[2017-11-05 08:06] LABS: Glucose,Whole Blood 167 mg/dL (75-99)
[2017-11-05] MEDS: INSULIN ASPART 100 UNIT/ML 1 ML 10 ML VIAL SQ SCH ×8 (08:17→20:41)
[2017-11-05] MEDS ORDERED: INSULIN NPH 300 UNIT/3 ML VIAL SQ ONE (08:30)
--- NOTE | 2017-11-05 08:54 | P.CNPUL ---
History of Present Illness Consult date: 11/05/17 Reason for consult: other Chief complaint: Ventilator management for status epilepticus History of present illness: Pulmonary consultation dated 11/05/2017 This is a 72-year-old female who apparently was admitted to the emergency department on November 04 for new onset seizure. She also apparently was having mental status changes. A computed tomography scan of the brain was negative. She apparently has a history of supraventricular tachycardia, recent normal cardiac catheterization, diabetes, hypertension, hyperlipidemia, COPD, sleep apnea syndrome and GERD. She's apparently noncompliant with her device for her sleep apnea syndrome. Anyway, the patient was thought not to be able to protect her airway in the emergency department and was intubated and transferred up to the ICU. I did speak to the ER doctor. Currently, she is on the volume assist control mode, rate of 16, tidal volume 400, FiO2 50% and PEEP of 5. Blood gases show a PaO2 of 100 PaCO2 46. 7.38. Blood gases are consistent with a mixed acid-base disturbance including a mild respiratory acidosis and metabolic alkalosis. She currently is on propofol at 20 mics per kilogram per minute dextrose and half-normal saline with 20 of potassium at 150 mL per hour and a insulin drip at 8.2 units per hour. We are going to do a daily eruption of sedation and see if we can get the patient extubated. She'll need a full set a weaning parameters including a minute volume, negative expiratory force, rapid shallow breathing index, tidal volume, vital capacity, respiratory rate and a cuff leak test. Hopefully, we will be able to extubate this patient. Review of Systems ROS unobtainable: due to endotracheal tube Past Medical History Past Medical History: Asthma, Chest Pain / Angina, COPD, CVA/TIA, Diabetes Mellitus, GERD/Reflux, Hearing Disorder / Deafness, Hyperlipidemia, Hypertension , Musculoskeletal Disorder, Sleep Apnea/CPAP/BIPAP, Thyroid Disorder Additional Past Medical History / Comment(s): NEUROPATHY, HEART MURMUR, NOT USING C-PAP, HIATAL HERNIA, DIVERTICULOSIS, CYST LEFT KIDNEY, DDD WITH SCIATICA AND BACK PAIN. STATES HAVING LEFT ABD & RIGHT GROIN PAIN. NEURO DERMATITIS W/ RASH. History of Any Multi-Drug Resistant Organisms: None Reported Past Surgical History: Adenoidectomy, Cholecystectomy, Hysterectomy, Joint Replacement, Orthopedic Surgery, Tonsillectomy Additional Past Surgical History / Comment(s): D & C, ARTHROSCOPY MIGUEL KNEES, MIGUEL ROTATOR CUFF , MIGUEL KNEE REPLACEMENT. Past Anesthesia/Blood Transfusion Reactions: Postoperative Nausea & Vomiting ( PONV) Past Psychological History: Anxiety, Depression Smoking Status: Former smoker Past Alcohol Use History: None Reported Past Drug Use History: None Reported - Past Family History Father Family Medical History: Pneumonia Mother Family Medical History: Cancer Additional Family Medical History / Comment(s): PANCREAS CA Medications and Allergies Home Medications Medication Instructions Recorded Confirmed Type ALPRAZolam [Xanax] 0.125 mg PO DAILY 07/17/14 10/18/17 History Biotin 5 mg PO BID 07/17/14 10/18/17 History Citalopram Hydrobromide [CeleXA] 20 mg PO BID 07/17/14 10/18/17 History Gabapentin [Neurontin] 600 mg PO TID 07/17/14 10/18/17 History Hyoscyamine Sulfate [Levsin] 0.125 mg PO BID 07/17/14 10/18/17 History Levothyroxine Sodium [Synthroid] 100 mcg PO DAILY 07/17/14 10/18/17 History Loratadine [Claritin] 10 mg PO DAILY 07/17/14 10/18/17 History Multivitamins, Thera [Multivitamin 1 tab PO DAILY 07/17/14 10/18/17 History (formulary)] glyBURIDE [Diabeta] 5 mg PO AC-BRKFST 07/17/14 10/18/17 History hydrOXYzine HCL 10 mg PO HS PRN 07/17/14 10/18/17 History metFORMIN HCL [Glucophage] 1,000 mg PO BID 07/17/14 10/18/17 History Budesonide/Formoterol Fumarate 2 puff INHALATION RT-BID 10/18/17 10/18/17 History [Symbicort 160-4.5 Mcg Inhaler] Calcium Citrate 500 mg PO DAILY 10/18/17 10/18/17 History DULoxetine HCL [Cymbalta] 60 mg PO DAILY 10/18/17 10/18/17 History Ipratropium-Albuterol Nebulize 3 ml INHALATION RT-QID PRN 10/18/17 10/18/17 History [Duoneb 0.5 mg-3 mg/3 ml Soln] Mometasone Furoate [Nasonex Nasal 1 spray EA NOSTRIL BID 10/18/17 10/18/17 History [place]] Ranitidine HCl 150 mg PO BID 10/18/17 10/18/17 History Vitamin B Complex 1 cap PO DAILY 10/18/17 10/18/17 History Aspirin 81 mg PO DAILY #30 tab 10/20/17 Rx Ferrous Sulfate [Iron (65 MG 325 mg PO BID #60 tab 10/20/17 Rx Elemental)] Lisinopril [Zestril] 20 mg PO DAILY #30 tab 10/20/17 Rx Metoprolol Tartrate [Lopressor] 50 mg PO BID #60 tab 10/20/17 Rx Polymyxin B-Trimeth Sulf Ophth 1 drops BOTH EYES Q6HR 7 Days #1 10/20/17 Rx [Polytrim Opthalmic] bottle Allergies Allergy/AdvReac Type Severity Reaction Status Date / Time banana [Banana] Allergy Severe Anaphylaxis Verified 10/18/17 18:02 iodine Allergy Severe DYSPNEA, Verified 10/18/17 18:02 SKIN INFLAMED kiwi Allergy Severe Anaphylaxis Verified 10/18/17 18:02 latex Allergy Dyspnea, Verified 10/18/17 18:02 Itching morphine Allergy Rapid Verified 10/18/17 18:02 Heart Rate ivp dye Allergy Dyspnea Uncoded 10/18/17 18:02 smoke Allergy Dyspnea Uncoded 10/18/17 18:02 Physical Exam Osteopathic Statement: *. No significant issues noted on an osteopathic structural exam other than those noted in the History and Physical/Consult. Vitals: Vital Signs Temp Pulse Resp BP Pulse Ox 11/05/17 07:00 91 16 96/52 99 11/05/17 06:30 98.8 F 93 87 H 95/51 98 11/05/17 06:00 93 62 H 95/55 98 11/05/17 05:30 94 49 H 102/55 98 11/05/17 05:00 99 16 98/58 98 11/05/17 04:30 98 16 104/60 97 11/05/17 04:00 100.8 F H 101 H 16 103/60 97 11/05/17 03:30 99 16 106/58 97 11/05/17 03:00 109 H 16 123/62 97 11/05/17 02:30 98 16 135/72 97 11/05/17 02:00 96 16 143/64 97 11/05/17 01:30 94 16 147/71 97 11/05/17 01:00 90 16 147/71 98 11/05/17 00:30 101 H 16 97 11/05/17 00:10 99.4 F 86 22 144/70 96 11/05/17 00:00 87 28 H 11/04/17 23:50 90 34 H 11/04/17 23:47 89 11/04/17 22:52 98.4 F 98 16 149/59 99 11/04/17 22:31 90 20 173/74 97 11/04/17 22:00 104 H 16 214/113 97 11/04/17 21:27 119 H 16 199/94 99 11/04/17 21:06 102 H 20 199/84 9 L 11/04/17 21:00 103 H 16 99 11/04/17 20:59 147 H 20 209/91 99 11/04/17 20:02 106 H 16 218/91 100 11/04/17 19:00 98.7 F 88 22 150/93 100 Intake and Output 11/04/17 11/05/17 11/05/17 22:59 06:59 14:59 Intake Total 0.487 701.574 158.385 Output Total 540 10 Balance 0.487 161.574 148.385 Intake: IV 690 150 D5-0.45% NaCl with KCl 450 150 20Meq/l 1,000 ml @ 150 mls/hr IV .Q6H40M [facility] Rx# :[id number] Sodium Chloride 0.9% 1, 40 000 ml @ 20 mls/hr IV . Q24H [facility] Rx#:[id number] Sodium Chloride 0.9% 1, 200 000 ml @ 200 mls/hr IV . Q5H [facility] Rx#:[id number] Intake, IV Titration 0.487 11.574 8.385 Amount Propofol 1,000 mg In 11.574 8.385 Empty Bag 1 bag @ Titrate IV .Q0M [facility] Rx#: [id number] Propofol 1,000 mg In 0.487 Empty Bag 1 bag @ Titrate IV .Q0M [facility] Rx#: [id number] Output: Urine 540 10 Other: Voiding Method Indwelling Catheter Weight 81.284 kg No acute distress, sedated, with an orally placed endotracheal tube and NG tube. HEENT examination is grossly unremarkable. Mucous membranes are moist. Neck supple. Full range of motion. No adenopathy thyromegaly or neck vein distention. Cardiovascular examination reveals regular rhythm rate. S1-S2 normal. No S3 or S4. No discernible murmur noted. Lungs reveal mild coarse bilateral rhonchi. Breath sounds equal bilaterally. No wheezes or crackles.. Abdomen soft bowel sounds are heard. No masses or tenderness. Extremities are intact. No cyanosis clubbing or edema. Skin is without rash or lesion. Neurologic examination could not be adequately assessed. Results - Laboratory Findings CBC and BMP: 11/05/17 04:29 11/05/17 07:34 ABG ABG pH 7.38 (7.35-7.45) 11/05/17 04:32 ABG pCO2 46 mmHg (35-45) H 11/05/17 04:32 ABG pO2 100 mmHg (83-108) 11/05/17 04:32 ABG O2 Saturation 98.0 % (94-97) H 11/05/17 04:32 PT/INR, D-dimer PT 10.8 sec (9.0-12.0) 11/04/17 20:05 INR 1.1 (<1.2) 11/04/17 20:05 Abnormal lab findings: Abnormal Labs 11/04/17 11/04/17 11/04/17 19:00 19:00 20:05 WBC MCHC Neutrophils # ABG pH ABG pCO2 ABG pO2 ABG HCO3 ABG Total CO2 ABG O2 Saturation VBG pH 7.42 H VBG pCO2 35 L VBG HCO3 22 L Carbon Dioxide Glucose POC Glucose (mg/dL) Magnesium Ammonia 62 H Total Creatine Kinase Total Protein Albumin Ur Specific Jack Urine Protein 1+ H Urine Glucose (UA) Urine Ketones 3+ H Urine Blood Urine RBC Amorphous Sediment Rare H Urine Mucus Rare H U Benzodiazepines Scrn Detected H 11/04/17 11/04/17 11/04/17 20:05 20:05 20:05 WBC 13.2 H MCHC 30.3 L Neutrophils # 8.4 H ABG pH ABG pCO2 ABG pO2 ABG HCO3 ABG Total CO2 ABG O2 Saturation VBG pH VBG pCO2 VBG HCO3 Carbon Dioxide 16 L Glucose 271 H POC Glucose (mg/dL) Magnesium Ammonia Total Creatine Kinase 26 L Total Protein Albumin Ur Specific Jack Urine Protein Urine Glucose (UA) Urine Ketones Urine Blood Urine RBC Amorphous Sediment Urine Mucus U Benzodiazepines Scrn 11/04/17 11/04/17 11/04/17 20:05 20:54 20:57 WBC MCHC Neutrophils # ABG pH 7.33 L ABG pCO2 ABG pO2 247 H ABG HCO3 ABG Total CO2 ABG O2 Saturation 100.0 H VBG pH VBG pCO2 VBG HCO3 Carbon Dioxide Glucose POC Glucose (mg/dL) 271 H Magnesium 1.1 L Ammonia Total Creatine Kinase Total Protein Albumin Ur Specific Jack Urine Protein Urine Glucose (UA) Urine Ketones Urine Blood Urine RBC Amorphous Sediment Urine Mucus U Benzodiazepines Scrn 11/04/17 11/05/17 11/05/17 23:58 01:50 03:15 WBC MCHC Neutrophils # ABG pH ABG pCO2 ABG pO2 ABG HCO3 ABG Total CO2 ABG O2 Saturation VBG pH VBG pCO2 VBG HCO3 Carbon Dioxide Glucose POC Glucose (mg/dL) 302 H 241 H Magnesium Ammonia Total Creatine Kinase Total Protein Albumin Ur Specific Jack 1.037 H Urine Protein Trace H Urine Glucose (UA) 4+ H Urine Ketones 2+ H Urine Blood Moderate H Urine RBC 46 H Amorphous Sediment Urine Mucus Rare H U Benzodiazepines Scrn 11/05/17 11/05/17 11/05/17 04:02 04:29 04:29 WBC 14.8 H MCHC Neutrophils # 12.5 H ABG pH ABG pCO2 ABG pO2 ABG HCO3 ABG Total CO2 ABG O2 Saturation VBG pH VBG pCO2 VBG HCO3 Carbon Dioxide Glucose 190 H POC Glucose (mg/dL) 186 H Magnesium Ammonia Total Creatine Kinase Total Protein 6.2 L Albumin 3.4 L Ur Specific Jack Urine Protein Urine Glucose (UA) Urine Ketones Urine Blood Urine RBC Amorphous Sediment Urine Mucus U Benzodiazepines Scrn 11/05/17 11/05/17 11/05/17 04:32 05:03 06:11 WBC MCHC Neutrophils # ABG pH ABG pCO2 46 H ABG pO2 ABG HCO3 27 H ABG Total CO2 28 H ABG O2 Saturation 98.0 H VBG pH VBG pCO2 VBG HCO3 Carbon Dioxide Glucose POC Glucose (mg/dL) 175 H 167 H Magnesium Ammonia Total Creatine Kinase Total Protein Albumin Ur Specific Jack Urine Protein Urine Glucose (UA) Urine Ketones Urine Blood Urine RBC Amorphous Sediment Urine Mucus U Benzodiazepines Scrn 11/05/17 11/05/17 11/05/17 06:56 07:34 08:04 WBC MCHC Neutrophils # ABG pH ABG pCO2 ABG pO2 ABG HCO3 ABG Total CO2 ABG O2 Saturation VBG pH VBG pCO2 VBG HCO3 Carbon Dioxide Glucose 158 H POC Glucose (mg/dL) 165 H 167 H Magnesium Ammonia Total Creatine Kinase Total Protein Albumin Ur Specific Jack Urine Protein Urine Glucose (UA) Urine Ketones Urine Blood Urine RBC Amorphous Sediment Urine Mucus U Benzodiazepines Scrn - Diagnostic Findings Chest x-ray: report reviewed (Meds, labs and x-rays are all reviewed.), image reviewed Assessment and Plan Assessment: Assessment New onset seizures with status epilepticus, requiring intubation and mechanical ventilation for airway protection. History of supraventricular tachycardia Recent catheterization which apparently was normal History of diabetes mellitus History of hypertension History of hyperlipidemia History of COPD/asthma History of productive sleep apnea syndrome, noncompliant with CPAP History of gastroesophageal reflux disease Plan: Plan dated 11/05/2017 White count is 14.8 and hemoglobin and hematocrit and platelet count are all normal. Arterial blood gases show a PaO2 of 100, PaCO2 46 and a pH of 7.38. Comprehensive metabolic profile is nearly normal. The patient remains on propofol IV fluids and insulin. We will do a daily interruption of sedation. The patient will get weaning parameters and a cuff leak. If appropriate, with good mental status, the patient will be extubated. Chest x-ray shows some atelectasis or infiltrate at the left lung base. CT of the brain was negative for anything acute. Medications labs and x-rays are all reviewed. The patient is on Keppra for her seizures. Critical care time 33 minutes Time with Patient: Greater than 30
[2017-11-05 09:04] LABS: Glucose,Whole Blood 122 mg/dL (75-99)
[2017-11-05 09:22] LABS: Glucose,Whole Blood 118 mg/dL (75-99)
[2017-11-05 12:01] LABS: Glucose,Whole Blood 239 mg/dL (75-99)
[2017-11-05 12:44] LABS: Glucose,Whole Blood 190 mg/dL (75-99)
--- NOTE | 2017-11-05 12:57 | P.CRDCN ---
History of Present Illness Consult date: 11/05/17 History of present illness: This is a 69-year-old female who was brought to the emergency room with altered mental status for about 3 days. While in the emergency room, it appears that patient developed respiratory difficulties requiring intubation. Following that appeared that patient might have had seizure-like activity. It. Apparently at the time, the monitor strips showed evidence of possible polymorphic V. tach versus artifact. Her magnesium level was low and the QT was slightly prolonged. Because of the questionable polymorphic V. tach versus artifact, A cardiology consult is initiated. I don't have the strips from the emergency room to see if that his radial V. tach versus artifact. I asked the ICU nurse, to get the strips of the telemetry showing the arrhythmia from the emergency room. At this point patient is maintaining sinus rhythm. No further cardiac arrhythmias detected. Patient is still intubated and sedated. Patient recently had a cardiac catheterization and was not found to have any evidence of obstructive disease.Her laboratory workup showed mildly elevated white countP at her liver and kidney function are within normal limits. Review of Systems Not obtained Past Medical History Past Medical History: Asthma, Chest Pain / Angina, COPD, CVA/TIA, Diabetes Mellitus, GERD/Reflux, Hearing Disorder / Deafness, Hyperlipidemia, Hypertension , Musculoskeletal Disorder, Sleep Apnea/CPAP/BIPAP, Thyroid Disorder Additional Past Medical History / Comment(s): NEUROPATHY, HEART MURMUR, NOT USING C-PAP, HIATAL HERNIA, DIVERTICULOSIS, CYST LEFT KIDNEY, DDD WITH SCIATICA AND BACK PAIN. STATES HAVING LEFT ABD & RIGHT GROIN PAIN. NEURO DERMATITIS W/ RASH. History of Any Multi-Drug Resistant Organisms: None Reported Past Surgical History: Adenoidectomy, Cholecystectomy, Hysterectomy, Joint Replacement, Orthopedic Surgery, Tonsillectomy Additional Past Surgical History / Comment(s): D & C, ARTHROSCOPY MIGUEL KNEES, MIGUEL ROTATOR CUFF , MIGUEL KNEE REPLACEMENT. Past Anesthesia/Blood Transfusion Reactions: Postoperative Nausea & Vomiting ( PONV) Past Psychological History: Anxiety, Depression Smoking Status: Former smoker Past Alcohol Use History: None Reported Past Drug Use History: None Reported - Past Family History Father Family Medical History: Pneumonia Mother Family Medical History: Cancer Additional Family Medical History / Comment(s): PANCREAS CA Medications and Allergies Home Medications Medication Instructions Recorded Confirmed Type ALPRAZolam [Xanax] 0.125 mg PO DAILY 07/17/14 10/18/17 History Biotin 5 mg PO BID 07/17/14 10/18/17 History Citalopram Hydrobromide [CeleXA] 20 mg PO BID 07/17/14 10/18/17 History Gabapentin [Neurontin] 600 mg PO TID 07/17/14 10/18/17 History Hyoscyamine Sulfate [Levsin] 0.125 mg PO BID 07/17/14 10/18/17 History Levothyroxine Sodium [Synthroid] 100 mcg PO DAILY 07/17/14 10/18/17 History Loratadine [Claritin] 10 mg PO DAILY 07/17/14 10/18/17 History Multivitamins, Thera [Multivitamin 1 tab PO DAILY 07/17/14 10/18/17 History (formulary)] glyBURIDE [Diabeta] 5 mg PO AC-BRKFST 07/17/14 10/18/17 History hydrOXYzine HCL 10 mg PO HS PRN 07/17/14 10/18/17 History metFORMIN HCL [Glucophage] 1,000 mg PO BID 07/17/14 10/18/17 History Budesonide/Formoterol Fumarate 2 puff INHALATION RT-BID 10/18/17 10/18/17 History [Symbicort 160-4.5 Mcg Inhaler] Calcium Citrate 500 mg PO DAILY 10/18/17 10/18/17 History DULoxetine HCL [Cymbalta] 60 mg PO DAILY 10/18/17 10/18/17 History Ipratropium-Albuterol Nebulize 3 ml INHALATION RT-QID PRN 10/18/17 10/18/17 History [Duoneb 0.5 mg-3 mg/3 ml Soln] Mometasone Furoate [Nasonex Nasal 1 spray EA NOSTRIL BID 10/18/17 10/18/17 History [place]] Ranitidine HCl 150 mg PO BID 10/18/17 10/18/17 History Vitamin B Complex 1 cap PO DAILY 10/18/17 10/18/17 History Aspirin 81 mg PO DAILY #30 tab 10/20/17 Rx Ferrous Sulfate [Iron (65 MG 325 mg PO BID #60 tab 10/20/17 Rx Elemental)] Lisinopril [Zestril] 20 mg PO DAILY #30 tab 10/20/17 Rx Metoprolol Tartrate [Lopressor] 50 mg PO BID #60 tab 10/20/17 Rx Polymyxin B-Trimeth Sulf Ophth 1 drops BOTH EYES Q6HR 7 Days #1 10/20/17 Rx [Polytrim Opthalmic] bottle Allergies Allergy/AdvReac Type Severity Reaction Status Date / Time banana [Banana] Allergy Severe Anaphylaxis Verified 10/18/17 18:02 iodine Allergy Severe DYSPNEA, Verified 10/18/17 18:02 SKIN INFLAMED kiwi Allergy Severe Anaphylaxis Verified 10/18/17 18:02 latex Allergy Dyspnea, Verified 10/18/17 18:02 Itching morphine Allergy Rapid Verified 10/18/17 18:02 Heart Rate ivp dye Allergy Dyspnea Uncoded 10/18/17 18:02 smoke Allergy Dyspnea Uncoded 10/18/17 18:02 Physical Exam Vitals: Vital Signs Temp Pulse Resp BP Pulse Ox 11/05/17 09:00 90 76 H 99/54 98 11/05/17 08:30 89 56 H 104/56 99 11/05/17 08:00 99.5 F 93 51 H 80/49 99 11/05/17 07:30 93 74 H 92/48 99 11/05/17 07:00 91 16 96/52 99 11/05/17 06:30 98.8 F 93 87 H 95/51 98 11/05/17 06:00 93 62 H 95/55 98 11/05/17 05:30 94 49 H 102/55 98 11/05/17 05:00 99 16 98/58 98 11/05/17 04:30 98 16 104/60 97 11/05/17 04:00 100.8 F H 101 H 16 103/60 97 11/05/17 03:30 99 16 106/58 97 11/05/17 03:00 109 H 16 123/62 97 11/05/17 02:30 98 16 135/72 97 11/05/17 02:00 96 16 143/64 97 11/05/17 01:30 94 16 147/71 97 11/05/17 01:00 90 16 147/71 98 11/05/17 00:30 101 H 16 97 11/05/17 00:10 99.4 F 86 22 144/70 96 11/05/17 00:00 87 28 H 11/04/17 23:50 90 34 H 11/04/17 23:47 89 11/04/17 22:52 98.4 F 98 16 149/59 99 11/04/17 22:31 90 20 173/74 97 11/04/17 22:00 104 H 16 214/113 97 11/04/17 21:27 119 H 16 199/94 99 11/04/17 21:06 102 H 20 199/84 9 L 11/04/17 21:00 103 H 16 99 11/04/17 20:59 147 H 20 209/91 99 11/04/17 20:02 106 H 16 218/91 100 11/04/17 19:00 98.7 F 88 22 150/93 100 Intake and Output 11/04/17 11/05/17 11/05/17 22:59 06:59 14:59 Intake Total 0.487 701.574 210.455 Output Total 540 40 Balance 0.487 161.574 170.455 Intake: IV 690 150 D5-0.45% NaCl with KCl 450 150 20Meq/l 1,000 ml @ 150 mls/hr IV .Q6H40M [facility] Rx# :[id number] Sodium Chloride 0.9% 1, 40 000 ml @ 20 mls/hr IV . Q24H [facility] Rx#:[id number] Sodium Chloride 0.9% 1, 200 000 ml @ 200 mls/hr IV . Q5H [facility] Rx#:[id number] Intake, IV Titration 0.487 11.574 60.455 Amount Insulin Regular 100 unit 52.07 In Sodium Chloride 0.9% 100 ml @ 0.1 UNITS/KG/HR 8.2 mls/hr IV .[id number] [facility] Rx#:[id number] Propofol 1,000 mg In 11.574 8.385 Empty Bag 1 bag @ Titrate IV .Q0M [facility] Rx#: [id number] Propofol 1,000 mg In 0.487 Empty Bag 1 bag @ Titrate IV .Q0M [facility] Rx#: [id number] Output: Urine 540 40 Other: Voiding Method Indwelling Catheter Weight 81.284 kg GENERAL EXAM: Patient is intubated and sedated HEENT: Normocephalic. CHEST: No chest wall deformity. LUNGS: Diminished breath sounds HEART: Distant heart sounds..] ABDOMEN: No hepatosplenomegaly, normal bowel sounds, no guarding or rigidity. SKIN: No rashes CENTRAL NERVOUS SYSTEM: Deferred EXTREMITIES: [No cyanosis, clubbing or edema.] Results 11/05/17 04:29 11/05/17 07:34 Cardiac Enzymes 11/04/17 11/04/17 11/05/17 Range/Units 20:05 20:05 04:29 AST 28 20 (14-36) U/L CK-MB (CK-2) 0.8 (0.0-2.4) ng/mL Troponin I <0.012 (0.000-0.034) ng/mL Coagulation 11/04/17 Range/Units 20:05 PT 10.8 (9.0-12.0) sec APTT 22.7 (22.0-30.0) sec CBC 11/04/17 11/05/17 Range/Units 20:05 04:29 WBC 13.2 H 14.8 H (3.8-10.6) k/uL RBC 4.84 4.55 (3.80-5.40) m/uL Hgb 14.0 13.2 (11.4-16.0) gm/dL Hct 46.0 41.1 (34.0-46.0) % Plt Count 314 300 (150-450) k/uL Comprehensive Metabolic Panel 11/04/17 11/05/17 11/05/17 Range/Units 20:05 04:29 07:34 Sodium 142 138 137 (137-145) mmol/L Potassium 3.6 4.2 4.1 (3.5-5.1) mmol/L Chloride 104 105 107 (98-107) mmol/L Carbon Dioxide 16 L 27 24 (22-30) mmol/L BUN 15 17 17 (7-17) mg/dL Creatinine 0.83 0.90 0.95 (0.52-1.04) mg/dL Glucose 271 H 190 H 158 H (74-99) mg/dL Calcium 9.1 8.7 (8.4-10.2) mg/dL AST 28 20 (14-36) U/L ALT 20 21 (9-52) U/L Alkaline Phosphatase 80 69 (38-126) U/L Total Protein 7.5 6.2 L (6.3-8.2) g/dL Albumin 4.4 3.4 L (3.5-5.0) g/dL Current Medications Generic Name Dose Route Start Last Admin Trade Name Freq PRN Reason Stop Dose Admin Acetaminophen 650 mg 11/04/17 22:41 11/05/17 04:13 Tylenol Tab PO 650 mg Q4HR PRN Administration Fever and/or Mild Pain Chlorhexidine Gluconate 15 ml 11/05/17 09:00 11/05/17 08:01 Peridex MUCOUS MEM 15 ml BID [facility] Administration Famotidine 20 mg 11/05/17 09:00 11/05/17 08:01 Pepcid IV 20 mg Q12HR [facility] Administration Heparin Sodium (Porcine) 5,000 unit 11/05/17 00:00 11/05/17 08:02 Heparin SQ 5,000 unit Q8HR [facility] Administration Levetiracetam 750 mg/ Sodium 107.5 mls @ 400 mls/hr 11/05/17 09:00 11/05/17 08:03 Chloride IVPB 400 mls/hr Q12HR [facility] Administration Propofol 1,000 mg/ IV Solution 100 mls @ 0 mls/hr 11/05/17 01:15 11/05/17 08: 19 IV 0 mcg/kg/min .Q0M [facility] 0 mls/hr Titration Protocol Titrate Potassium Chloride/Dextrose/Sod Cl 1,000 mls @ 150 mls/hr 11/05/17 03:00 04:06 D5%-1/2ns-Kcl 20 Meq/L Iv Solution IV 150 mls/hr .Q6H40M [facility] Administration Insulin Aspart 8 unit 11/05/17 08:00 11/05/17 12:49 Novolog 0.1 unit/kg (8 unit) 8 unit SQ Administration Q4H [facility] Insulin Aspart 0 unit 11/05/17 08:00 11/05/17 12:50 Novolog SQ 2 unit Q4H [facility] Administration Protocol Insulin Detemir 24 unit 11/05/17 21:00 Levemir 0.3 unit/kg (24 unit) SQ HS [facility] Miscellaneous Information 1 each 11/05/17 02:19 Magnesium Per Protocol MISCELLANE DAILY PRN Per Protocol Protocol Miscellaneous Information 1 each 11/05/17 02:19 Potassium Per Protocol MISCELLANE DAILY PRN Per Protocol Naloxone HCl 0.2 mg 11/04/17 22:41 Narcan IV Q2M PRN Opioid Reversal Intake and Output 11/04/17 11/05/17 11/05/17 22:59 06:59 14:59 Intake Total 0.487 701.574 210.455 Output Total 540 40 Balance 0.487 161.574 170.455 Intake: IV 690 150 D5-0.45% NaCl with KCl 450 150 20Meq/l 1,000 ml @ 150 mls/hr IV .Q6H40M [facility] Rx# :[id number] Sodium Chloride 0.9% 1, 40 000 ml @ 20 mls/hr IV . Q24H [facility] Rx#:[id number] Sodium Chloride 0.9% 1, 200 000 ml @ 200 mls/hr IV . Q5H [facility] Rx#:[id number] Intake, IV Titration 0.487 11.574 60.455 Amount Insulin Regular 100 unit 52.07 In Sodium Chloride 0.9% 100 ml @ 0.1 UNITS/KG/HR 8.2 mls/hr IV .[id number] [facility] Rx#:[id number] Propofol 1,000 mg In 11.574 8.385 Empty Bag 1 bag @ Titrate IV .Q0M [facility] Rx#: [id number] Propofol 1,000 mg In 0.487 Empty Bag 1 bag @ Titrate IV .Q0M [facility] Rx#: [id number] Output: Urine 540 40 Other: Voiding Method Indwelling Catheter Weight 81.284 kg 11/05/17 04:29 11/05/17 07:34 EKG Interpretations (text) Sinus rhythm and sinus tachycardia with slightly prolonged QT interval Assessment and Plan (1) Altered mental status Current Visit: Yes Status: Acute Code(s): R41.82 - ALTERED MENTAL STATUS, UNSPECIFIED SNOMED Code(s): 834593973 (2) Hypomagnesemia Current Visit: Yes Status: Acute Code(s): E83.42 - HYPOMAGNESEMIA SNOMED Code(s): 826038503 (3) Supraventricular tachycardia Current Visit: No Status: Acute Code(s): I47.1 - SUPRAVENTRICULAR TACHYCARDIA SNOMED Code(s): 7346150 Plan: Continue to monitor for any arrhythmias. Continue with ventilatory support. Patient recently had a cardiac catheterization. We'll try to get the monitor strips from the emergency room.
--- NOTE | 2017-11-05 13:17 | P.HPIM ---
History of Present Illness H&P Date: 11/05/17 Chief Complaint: Status epilepticus Sabine Hagen is a 72-year-old female who presented to [facility] emergency room via EMS after being noticed at home by her to be an responsive and having shaking in her extremities she was evaluated in the emergency room and was thought to have seizure activity she was given IV Ativan , and was started on IV Keppra, she was intubated and sedated for airway protection and was admitted to intensive care unit, computed tomography scan of the brain without contrast done in the emergency room did not reveal any evidence of intracranial hemorrhage or midline shift there was age-related cerebral atrophy and chronic small vessel ischemic changes, labs in the emergency room revealed evidence of leukocytosis with white blood count of 13.2 and elevated ammonia level of 62. Otherwise kidney function and liver function were within normal limits. Chest x-ray revealed left basilar infiltrate computed tomography scan of the chest abdomen and pelvis was done in the emergency room, and revealed by basilar infiltrate left greater than right otherwise no abnormality seen. Currently patient is admitted to intensive care unit, she is intubated sedated maintained on mechanical ventilation, and son are at the bedside, and history and review of system was done with them. stated that patient has been feeling tired recently, he left her at home laying down he was away for about 2 hours when he came back she was unresponsive and having shaking in her upper extremities, he called EMS and patient was brought into emergency room , patient has a known history of hypertension, diabetes mellitus, and hyperlipidemia no previous history of stroke or seizure in the past no history of coronary artery disease and no history of liver disease. Past Medical History Past Medical History: Asthma, Chest Pain / Angina, COPD, CVA/TIA, Diabetes Mellitus, GERD/Reflux, Hearing Disorder / Deafness, Hyperlipidemia, Hypertension , Musculoskeletal Disorder, Sleep Apnea/CPAP/BIPAP, Thyroid Disorder Additional Past Medical History / Comment(s): NEUROPATHY, HEART MURMUR, NOT USING C-PAP, HIATAL HERNIA, DIVERTICULOSIS, CYST LEFT KIDNEY, DDD WITH SCIATICA AND BACK PAIN. STATES HAVING LEFT ABD & RIGHT GROIN PAIN. NEURO DERMATITIS W/ RASH. History of Any Multi-Drug Resistant Organisms: None Reported Past Surgical History: Adenoidectomy, Cholecystectomy, Hysterectomy, Joint Replacement, Orthopedic Surgery, Tonsillectomy Additional Past Surgical History / Comment(s): D & C, ARTHROSCOPY MIGUEL KNEES, MIGUEL ROTATOR CUFF , MIGUEL KNEE REPLACEMENT. Past Anesthesia/Blood Transfusion Reactions: Postoperative Nausea & Vomiting ( PONV) Past Psychological History: Anxiety, Depression Smoking Status: Former smoker Past Alcohol Use History: None Reported Past Drug Use History: None Reported - Past Family History Father Family Medical History: Pneumonia Mother Family Medical History: Cancer Additional Family Medical History / Comment(s): PANCREAS CA Medications and Allergies Home Medications Medication Instructions Recorded Confirmed Type ALPRAZolam [Xanax] 0.125 mg PO DAILY 07/17/14 10/18/17 History Biotin 5 mg PO BID 07/17/14 10/18/17 History Citalopram Hydrobromide [CeleXA] 20 mg PO BID 07/17/14 10/18/17 History Gabapentin [Neurontin] 600 mg PO TID 07/17/14 10/18/17 History Hyoscyamine Sulfate [Levsin] 0.125 mg PO BID 07/17/14 10/18/17 History Levothyroxine Sodium [Synthroid] 100 mcg PO DAILY 07/17/14 10/18/17 History Loratadine [Claritin] 10 mg PO DAILY 07/17/14 10/18/17 History Multivitamins, Thera [Multivitamin 1 tab PO DAILY 07/17/14 10/18/17 History (formulary)] glyBURIDE [Diabeta] 5 mg PO AC-BRKFST 07/17/14 10/18/17 History hydrOXYzine HCL 10 mg PO HS PRN 07/17/14 10/18/17 History metFORMIN HCL [Glucophage] 1,000 mg PO BID 07/17/14 10/18/17 History Budesonide/Formoterol Fumarate 2 puff INHALATION RT-BID 10/18/17 10/18/17 History [Symbicort 160-4.5 Mcg Inhaler] Calcium Citrate 500 mg PO DAILY 10/18/17 10/18/17 History DULoxetine HCL [Cymbalta] 60 mg PO DAILY 10/18/17 10/18/17 History Ipratropium-Albuterol Nebulize 3 ml INHALATION RT-QID PRN 10/18/17 10/18/17 History [Duoneb 0.5 mg-3 mg/3 ml Soln] Mometasone Furoate [Nasonex Nasal 1 spray EA NOSTRIL BID 10/18/17 10/18/17 History Everson] Ranitidine HCl 150 mg PO BID 10/18/17 10/18/17 History Vitamin B Complex 1 cap PO DAILY 10/18/17 10/18/17 History Aspirin 81 mg PO DAILY #30 tab 10/20/17 Rx Ferrous Sulfate [Iron (65 MG 325 mg PO BID #60 tab 10/20/17 Rx Elemental)] Lisinopril [Zestril] 20 mg PO DAILY #30 tab 10/20/17 Rx Metoprolol Tartrate [Lopressor] 50 mg PO BID #60 tab 10/20/17 Rx Polymyxin B-Trimeth Sulf Ophth 1 drops BOTH EYES Q6HR 7 Days #1 10/20/17 Rx [Polytrim Opthalmic] bottle Allergies Allergy/AdvReac Type Severity Reaction Status Date / Time banana [Banana] Allergy Severe Anaphylaxis Verified 10/18/17 18:02 iodine Allergy Severe DYSPNEA, Verified 10/18/17 18:02 SKIN INFLAMED kiwi Allergy Severe Anaphylaxis Verified 10/18/17 18:02 latex Allergy Dyspnea, Verified 10/18/17 18:02 Itching morphine Allergy Rapid Verified 10/18/17 18:02 Heart Rate ivp dye Allergy Dyspnea Uncoded 10/18/17 18:02 smoke Allergy Dyspnea Uncoded 10/18/17 18:02 Physical Exam Vitals: Vital Signs Temp Pulse Resp BP Pulse Ox 11/05/17 09:00 90 76 H 99/54 98 11/05/17 08:30 89 56 H 104/56 99 11/05/17 08:00 99.5 F 93 51 H 80/49 99 11/05/17 07:30 93 74 H 92/48 99 11/05/17 07:00 91 16 96/52 99 11/05/17 06:30 98.8 F 93 87 H 95/51 98 11/05/17 06:00 93 62 H 95/55 98 11/05/17 05:30 94 49 H 102/55 98 11/05/17 05:00 99 16 98/58 98 11/05/17 04:30 98 16 104/60 97 11/05/17 04:00 100.8 F H 101 H 16 103/60 97 11/05/17 03:30 99 16 106/58 97 11/05/17 03:00 109 H 16 123/62 97 11/05/17 02:30 98 16 135/72 97 11/05/17 02:00 96 16 143/64 97 11/05/17 01:30 94 16 147/71 97 11/05/17 01:00 90 16 147/71 98 11/05/17 00:30 101 H 16 97 11/05/17 00:10 99.4 F 86 22 144/70 96 11/05/17 00:00 87 28 H 11/04/17 23:50 90 34 H 11/04/17 23:47 89 11/04/17 22:52 98.4 F 98 16 149/59 99 11/04/17 22:31 90 20 173/74 97 11/04/17 22:00 104 H 16 214/113 97 11/04/17 21:27 119 H 16 199/94 99 11/04/17 21:06 102 H 20 199/84 9 L 11/04/17 21:00 103 H 16 99 11/04/17 20:59 147 H 20 209/91 99 11/04/17 20:02 106 H 16 218/91 100 11/04/17 19:00 98.7 F 88 22 150/93 100 Intake and Output 11/04/17 11/05/17 11/05/17 22:59 06:59 14:59 Intake Total 0.487 701.574 210.455 Output Total 540 40 Balance 0.487 161.574 170.455 Intake: IV 690 150 D5-0.45% NaCl with KCl 450 150 20Meq/l 1,000 ml @ 150 mls/hr IV .Q6H40M [facility] Rx# :[id number] Sodium Chloride 0.9% 1, 40 000 ml @ 20 mls/hr IV . Q24H [facility] Rx#:[id number] Sodium Chloride 0.9% 1, 200 000 ml @ 200 mls/hr IV . Q5H [facility] Rx#:[id number] Intake, IV Titration 0.487 11.574 60.455 Amount Insulin Regular 100 unit 52.07 In Sodium Chloride 0.9% 100 ml @ 0.1 UNITS/KG/HR 8.2 mls/hr IV .[id number] [facility] Rx#:[id number] Propofol 1,000 mg In 11.574 8.385 Empty Bag 1 bag @ Titrate IV .Q0M [facility] Rx#: [id number] Propofol 1,000 mg In 0.487 Empty Bag 1 bag @ Titrate IV .Q0M [facility] Rx#: [id number] Output: Urine 540 40 Other: Voiding Method Indwelling Catheter Weight 81.284 kg Patient is intubated sedated maintained on mechanical ventilation HEENT head normocephalic and atraumatic Neck is supple no JVD no goiter no lymphadenopathy Chest exam reveals a few scattered crackles no wheezing Cardiac exam reveals regular heart sounds no gallops no murmurs Abdomen is soft nontender no organomegaly Extremity exam reveals no edema no cyanosis or clubbing Results CBC & Chem 7: 11/05/17 04:29 11/05/17 07:34 Labs: Abnormal Lab Results - Last 24 Hours (Table) 11/04/17 11/04/17 11/04/17 Range/Units 19:00 19:00 20:05 WBC (3.8-10.6) k/uL MCHC (31.0-37.0) g/dL Neutrophils # (1.3-7.7) k/uL ABG pH (7.35-7.45) ABG pCO2 (35-45) mmHg ABG pO2 (83-108) mmHg ABG HCO3 (21-25) mmol/L ABG Total CO2 (19-24) mmol/L ABG O2 Saturation (94-97) % VBG pH 7.42 H (7.31-7.41) VBG pCO2 35 L (37-51) mmHg VBG HCO3 22 L (24-28) mmol/L Carbon Dioxide (22-30) mmol/L Glucose (74-99) mg/dL POC Glucose (mg/dL) (75-99) mg/dL Magnesium (1.6-2.3) mg/dL Ammonia 62 H (<30) umol/L Total Creatine Kinase (30-135) U/L Total Protein (6.3-8.2) g/dL Albumin (3.5-5.0) g/dL Ur Specific Reasnor (1.001-1.035) Urine Protein 1+ H (Negative) Urine Glucose (UA) (Negative) Urine Ketones 3+ H (Negative) Urine Blood (Negative) Urine RBC (0-5) /hpf Amorphous Sediment Rare H (None) /hpf Urine Mucus Rare H (None) /hpf U Benzodiazepines Scrn Detected H (NotDetected) 11/04/17 11/04/17 11/04/17 Range/Units 20:05 20:05 20:05 WBC 13.2 H (3.8-10.6) k/uL MCHC 30.3 L (31.0-37.0) g/dL Neutrophils # 8.4 H (1.3-7.7) k/uL ABG pH (7.35-7.45) ABG pCO2 (35-45) mmHg ABG pO2 (83-108) mmHg ABG HCO3 (21-25) mmol/L ABG Total CO2 (19-24) mmol/L ABG O2 Saturation (94-97) % VBG pH (7.31-7.41) VBG pCO2 (37-51) mmHg VBG HCO3 (24-28) mmol/L Carbon Dioxide 16 L (22-30) mmol/L Glucose 271 H (74-99) mg/dL POC Glucose (mg/dL) (75-99) mg/dL Magnesium (1.6-2.3) mg/dL Ammonia (<30) umol/L Total Creatine Kinase 26 L (30-135) U/L Total Protein (6.3-8.2) g/dL Albumin (3.5-5.0) g/dL Ur Specific Reasnor (1.001-1.035) Urine Protein (Negative) Urine Glucose (UA) (Negative) Urine Ketones (Negative) Urine Blood (Negative) Urine RBC (0-5) /hpf Amorphous Sediment (None) /hpf Urine Mucus (None) /hpf U Benzodiazepines Scrn (NotDetected) 11/04/17 11/04/17 11/04/17 Range/Units 20:05 20:54 20:57 WBC (3.8-10.6) k/uL MCHC (31.0-37.0) g/dL Neutrophils # (1.3-7.7) k/uL ABG pH 7.33 L (7.35-7.45) ABG pCO2 (35-45) mmHg ABG pO2 247 H (83-108) mmHg ABG HCO3 (21-25) mmol/L ABG Total CO2 (19-24) mmol/L ABG O2 Saturation 100.0 H (94-97) % VBG pH (7.31-7.41) VBG pCO2 (37-51) mmHg VBG HCO3 (24-28) mmol/L Carbon Dioxide (22-30) mmol/L Glucose (74-99) mg/dL POC Glucose (mg/dL) 271 H (75-99) mg/dL Magnesium 1.1 L (1.6-2.3) mg/dL Ammonia (<30) umol/L Total Creatine Kinase (30-135) U/L Total Protein (6.3-8.2) g/dL Albumin (3.5-5.0) g/dL Ur Specific Reasnor (1.001-1.035) Urine Protein (Negative) Urine Glucose (UA) (Negative) Urine Ketones (Negative) Urine Blood (Negative) Urine RBC (0-5) /hpf Amorphous Sediment (None) /hpf Urine Mucus (None) /hpf U Benzodiazepines Scrn (NotDetected) 11/04/17 11/05/17 11/05/17 Range/Units 23:58 01:50 03:15 WBC (3.8-10.6) k/uL MCHC (31.0-37.0) g/dL Neutrophils # (1.3-7.7) k/uL ABG pH (7.35-7.45) ABG pCO2 (35-45) mmHg ABG pO2 (83-108) mmHg ABG HCO3 (21-25) mmol/L ABG Total CO2 (19-24) mmol/L ABG O2 Saturation (94-97) % VBG pH (7.31-7.41) VBG pCO2 (37-51) mmHg VBG HCO3 (24-28) mmol/L Carbon Dioxide (22-30) mmol/L Glucose (74-99) mg/dL POC Glucose (mg/dL) 302 H 241 H (75-99) mg/dL Magnesium (1.6-2.3) mg/dL Ammonia (<30) umol/L Total Creatine Kinase (30-135) U/L Total Protein (6.3-8.2) g/dL Albumin (3.5-5.0) g/dL Ur Specific Reasnor 1.037 H (1.001-1.035) Urine Protein Trace H (Negative) Urine Glucose (UA) 4+ H (Negative) Urine Ketones 2+ H (Negative) Urine Blood Moderate H (Negative) Urine RBC 46 H (0-5) /hpf Amorphous Sediment (None) /hpf Urine Mucus Rare H (None) /hpf U Benzodiazepines Scrn (NotDetected) 11/05/17 11/05/17 11/05/17 Range/Units 04:02 04:29 04:29 WBC 14.8 H (3.8-10.6) k/uL MCHC (31.0-37.0) g/dL Neutrophils # 12.5 H (1.3-7.7) k/uL ABG pH (7.35-7.45) ABG pCO2 (35-45) mmHg ABG pO2 (83-108) mmHg ABG HCO3 (21-25) mmol/L ABG Total CO2 (19-24) mmol/L ABG O2 Saturation (94-97) % VBG pH (7.31-7.41) VBG pCO2 (37-51) mmHg VBG HCO3 (24-28) mmol/L Carbon Dioxide (22-30) mmol/L Glucose 190 H (74-99) mg/dL POC Glucose (mg/dL) 186 H (75-99) mg/dL Magnesium (1.6-2.3) mg/dL Ammonia (<30) umol/L Total Creatine Kinase (30-135) U/L Total Protein 6.2 L (6.3-8.2) g/dL Albumin 3.4 L (3.5-5.0) g/dL Ur Specific Reasnor (1.001-1.035) Urine Protein (Negative) Urine Glucose (UA) (Negative) Urine Ketones (Negative) Urine Blood (Negative) Urine RBC (0-5) /hpf Amorphous Sediment (None) /hpf Urine Mucus (None) /hpf U Benzodiazepines Scrn (NotDetected) 11/05/17 11/05/17 11/05/17 Range/Units 04:32 05:03 06:11 WBC (3.8-10.6) k/uL MCHC (31.0-37.0) g/dL Neutrophils # (1.3-7.7) k/uL ABG pH (7.35-7.45) ABG pCO2 46 H (35-45) mmHg ABG pO2 (83-108) mmHg ABG HCO3 27 H (21-25) mmol/L ABG Total CO2 28 H (19-24) mmol/L ABG O2 Saturation 98.0 H (94-97) % VBG pH (7.31-7.41) VBG pCO2 (37-51) mmHg VBG HCO3 (24-28) mmol/L Carbon Dioxide (22-30) mmol/L Glucose (74-99) mg/dL POC Glucose (mg/dL) 175 H 167 H (75-99) mg/dL Magnesium (1.6-2.3) mg/dL Ammonia (<30) umol/L Total Creatine Kinase (30-135) U/L Total Protein (6.3-8.2) g/dL Albumin (3.5-5.0) g/dL Ur Specific Reasnor (1.001-1.035) Urine Protein (Negative) Urine Glucose (UA) (Negative) Urine Ketones (Negative) Urine Blood (Negative) Urine RBC (0-5) /hpf Amorphous Sediment (None) /hpf Urine Mucus (None) /hpf U Benzodiazepines Scrn (NotDetected) 11/05/17 11/05/17 11/05/17 Range/Units 06:56 07:34 08:04 WBC (3.8-10.6) k/uL MCHC (31.0-37.0) g/dL Neutrophils # (1.3-7.7) k/uL ABG pH (7.35-7.45) ABG pCO2 (35-45) mmHg ABG pO2 (83-108) mmHg ABG HCO3 (21-25) mmol/L ABG Total CO2 (19-24) mmol/L ABG O2 Saturation (94-97) % VBG pH (7.31-7.41) VBG pCO2 (37-51) mmHg VBG HCO3 (24-28) mmol/L Carbon Dioxide (22-30) mmol/L Glucose 158 H (74-99) mg/dL POC Glucose (mg/dL) 165 H 167 H (75-99) mg/dL Magnesium (1.6-2.3) mg/dL Ammonia (<30) umol/L Total Creatine Kinase (30-135) U/L Total Protein (6.3-8.2) g/dL Albumin (3.5-5.0) g/dL Ur Specific Reasnor (1.001-1.035) Urine Protein (Negative) Urine Glucose (UA) (Negative) Urine Ketones (Negative) Urine Blood (Negative) Urine RBC (0-5) /hpf Amorphous Sediment (None) /hpf Urine Mucus (None) /hpf U Benzodiazepines Scrn (NotDetected) 11/05/17 11/05/17 11/05/17 Range/Units 09:02 09:21 11:59 WBC (3.8-10.6) k/uL MCHC (31.0-37.0) g/dL Neutrophils # (1.3-7.7) k/uL ABG pH (7.35-7.45) ABG pCO2 (35-45) mmHg ABG pO2 (83-108) mmHg ABG HCO3 (21-25) mmol/L ABG Total CO2 (19-24) mmol/L ABG O2 Saturation (94-97) % VBG pH (7.31-7.41) VBG pCO2 (37-51) mmHg VBG HCO3 (24-28) mmol/L Carbon Dioxide (22-30) mmol/L Glucose (74-99) mg/dL POC Glucose (mg/dL) 122 H 118 H 239 H (75-99) mg/dL Magnesium (1.6-2.3) mg/dL Ammonia (<30) umol/L Total Creatine Kinase (30-135) U/L Total Protein (6.3-8.2) g/dL Albumin (3.5-5.0) g/dL Ur Specific Reasnor (1.001-1.035) Urine Protein (Negative) Urine Glucose (UA) (Negative) Urine Ketones (Negative) Urine Blood (Negative) Urine RBC (0-5) /hpf Amorphous Sediment (None) /hpf Urine Mucus (None) /hpf U Benzodiazepines Scrn (NotDetected) 11/05/17 Range/Units 12:42 WBC (3.8-10.6) k/uL MCHC (31.0-37.0) g/dL Neutrophils # (1.3-7.7) k/uL ABG pH (7.35-7.45) ABG pCO2 (35-45) mmHg ABG pO2 (83-108) mmHg ABG HCO3 (21-25) mmol/L ABG Total CO2 (19-24) mmol/L ABG O2 Saturation (94-97) % VBG pH (7.31-7.41) VBG pCO2 (37-51) mmHg VBG HCO3 (24-28) mmol/L Carbon Dioxide (22-30) mmol/L Glucose (74-99) mg/dL POC Glucose (mg/dL) 190 H (75-99) mg/dL Magnesium (1.6-2.3) mg/dL Ammonia (<30) umol/L Total Creatine Kinase (30-135) U/L Total Protein (6.3-8.2) g/dL Albumin (3.5-5.0) g/dL Ur Specific Reasnor (1.001-1.035) Urine Protein (Negative) Urine Glucose (UA) (Negative) Urine Ketones (Negative) Urine Blood (Negative) Urine RBC (0-5) /hpf Amorphous Sediment (None) /hpf Urine Mucus (None) /hpf U Benzodiazepines Scrn (NotDetected) Microbiology - Last 24 Hours (Table) 11/04/17 20:05 Gram Stain - Preliminary Sputum Sputum Culture - Preliminary Assessment and Plan Plan: #1 new-onset seizure with status epilepticus, no evidence of seizure at this time, patient received IV Ativan and is maintained on IV Keppra #2 acute respiratory failure requiring intubation and mechanical ventilation #3 underlying history of hypertension #4 underlying history of diabetes mellitus #5 underlying history of COPD #6 underlying history of obstructive sleep apnea #7 evidence of lung infiltrates bibasilar left more than right maintained on IV antibiotic possible aspiration pneumonia #8 previous history of supraventricular tachycardia #9 recent cardiac catheterization which were within normal limits At this time continue current management was mechanical ventilation IV antibiotic and IV Keppra Recheck labs in a.m. Cause of seizure activity is not entirely clear, patient will need MRI of the brain when her condition improve For GI prophylaxis patient is on IV Pepcid, for DVT prophylaxis patient is on subcu heparin Will follow closely
[2017-11-05] MEDS: IPRATROPIUM-ALBUTEROL 3 ML NEB INHALATION SCH ×3 (15:43→23:56)
[2017-11-05 16:15] LABS: Glucose,Whole Blood 159 mg/dL (75-99)
[2017-11-05 20:38] LABS: Glucose,Whole Blood 164 mg/dL (75-99)
[2017-11-05] MEDS: INSULIN DETEMIR 100 UNIT/ML 10 ML VIAL SQ SCH (20:53)
--- NOTE | 2017-11-05 22:01 | P.CNNES ---
History of Present Illness Consult date: 11/05/17 Reason for Consult: This patient intubated and admitted with recurrent seizures. History of Present Illness: This patient is a 72-year-old right-handed white female who was found at home to be having seizure-like activity. Apparently her found her shaking in the upper extremities. She was brought into the emergency room at [facility] for further evaluation. She was seen in the ER by Dr. Berry and was sent for a computed tomography scan of the brain. CAT scan of the brain revealed no acute intracranial hemorrhage or midline shift. There was mild diffuse age-related cerebral atrophy and chronic small vessel ischemic changes noted. The patient was intubated as she was having respiratory difficulty in the ER. She was then transferred to the intensive care unit. She was loaded in the ER with IV Keppra. Keppra blood level is to be drawn tomorrow morning and we will need to adjust as necessary. Patient is now examined in the intensive care unit. She remains on a Diprivan drip at this time. She has not been opening her eyes to nursing staff in the ICU at this time. She has been having occasional muscle movements in the extremities. No further seizure activity has been noted by the ICU nursing staff since she came up. She is being closely monitored for any recurrent seizures. She did receive some Ativan in the ER as well. The patient has no previous history of head injury or seizures in the past. She does suffer from hypertension, diabetes mellitus, and hyperlipidemia. Exact cause of her seizures still is unknown at this time. She will undergo a routine EEG tomorrow for further evaluation. The patient is being treated for acute respiratory failure at this time and pulmonary medicine is monitoring her. She did show lung infiltrates on chest x-ray and is currently on IV antibiotics as well. We will continue close neurological follow-up with this patient in the intensive care unit. Her overall prognosis at this time remains very guarded. Review of Systems ROS unobtainable: due to endotracheal tube Constitutional: Denies chills, Denies fever Eyes: denies blurred vision, denies pain Ears, nose, mouth and throat: Denies headache, Denies sore throat Cardiovascular: Denies chest pain, Denies shortness of breath Respiratory: Denies cough Gastrointestinal: Denies abdominal pain, Denies diarrhea, Denies nausea, Denies vomiting Genitourinary: Denies dysuria, Denies hematuria Musculoskeletal: Denies myalgias Integumentary: Denies pruritus, Denies rash Neurological: Reports change in mentation, Reports confusion, Reports convulsions, Reports loss of vision, Reports seizures, Reports syncope, Denies numbness, Denies weakness Psychiatric: Denies anxiety, Denies depression Endocrine: Denies fatigue, Denies weight change Past Medical History Past Medical History: Asthma, Chest Pain / Angina, COPD, CVA/TIA, Diabetes Mellitus, GERD/Reflux, Hearing Disorder / Deafness, Hyperlipidemia, Hypertension , Musculoskeletal Disorder, Sleep Apnea/CPAP/BIPAP, Thyroid Disorder Additional Past Medical History / Comment(s): NEUROPATHY, HEART MURMUR, NOT USING C-PAP, HIATAL HERNIA, DIVERTICULOSIS, CYST LEFT KIDNEY, DDD WITH SCIATICA AND BACK PAIN. STATES HAVING LEFT ABD & RIGHT GROIN PAIN. NEURO DERMATITIS W/ RASH. History of Any Multi-Drug Resistant Organisms: None Reported Past Surgical History: Adenoidectomy, Cholecystectomy, Hysterectomy, Joint Replacement, Orthopedic Surgery, Tonsillectomy Additional Past Surgical History / Comment(s): D & C, ARTHROSCOPY MIGUEL KNEES, MIGUEL ROTATOR CUFF , MIGUEL KNEE REPLACEMENT. Past Anesthesia/Blood Transfusion Reactions: Postoperative Nausea & Vomiting ( PONV) Past Psychological History: Anxiety, Depression Smoking Status: Former smoker Past Alcohol Use History: None Reported Past Drug Use History: None Reported - Past Family History Father Family Medical History: Pneumonia Mother Family Medical History: Cancer Additional Family Medical History / Comment(s): PANCREAS CA Medications and Allergies Home Medications Medication Instructions Recorded Confirmed Type ALPRAZolam [Xanax] 0.125 mg PO DAILY 07/17/14 10/18/17 History Biotin 5 mg PO BID 07/17/14 10/18/17 History Citalopram Hydrobromide [CeleXA] 20 mg PO BID 07/17/14 10/18/17 History Gabapentin [Neurontin] 600 mg PO TID 07/17/14 10/18/17 History Hyoscyamine Sulfate [Levsin] 0.125 mg PO BID 07/17/14 10/18/17 History Levothyroxine Sodium [Synthroid] 100 mcg PO DAILY 07/17/14 10/18/17 History Loratadine [Claritin] 10 mg PO DAILY 07/17/14 10/18/17 History Multivitamins, Thera [Multivitamin 1 tab PO DAILY 07/17/14 10/18/17 History (formulary)] glyBURIDE [Diabeta] 5 mg PO AC-BRKFST 07/17/14 10/18/17 History hydrOXYzine HCL 10 mg PO HS PRN 07/17/14 10/18/17 History metFORMIN HCL [Glucophage] 1,000 mg PO BID 07/17/14 10/18/17 History Budesonide/Formoterol Fumarate 2 puff INHALATION RT-BID 10/18/17 10/18/17 History [Symbicort 160-4.5 Mcg Inhaler] Calcium Citrate 500 mg PO DAILY 10/18/17 10/18/17 History DULoxetine HCL [Cymbalta] 60 mg PO DAILY 10/18/17 10/18/17 History Ipratropium-Albuterol Nebulize 3 ml INHALATION RT-QID PRN 10/18/17 10/18/17 History [Duoneb 0.5 mg-3 mg/3 ml Soln] Mometasone Furoate [Nasonex Nasal 1 spray EA NOSTRIL BID 10/18/17 10/18/17 History [place]] Ranitidine HCl 150 mg PO BID 10/18/17 10/18/17 History Vitamin B Complex 1 cap PO DAILY 10/18/17 10/18/17 History Aspirin 81 mg PO DAILY #30 tab 10/20/17 Rx Ferrous Sulfate [Iron (65 MG 325 mg PO BID #60 tab 10/20/17 Rx Elemental)] Lisinopril [Zestril] 20 mg PO DAILY #30 tab 10/20/17 Rx Metoprolol Tartrate [Lopressor] 50 mg PO BID #60 tab 10/20/17 Rx Polymyxin B-Trimeth Sulf Ophth 1 drops BOTH EYES Q6HR 7 Days #1 10/20/17 Rx [Polytrim Opthalmic] bottle Allergies Allergy/AdvReac Type Severity Reaction Status Date / Time banana [Banana] Allergy Severe Anaphylaxis Verified 10/18/17 18:02 iodine Allergy Severe DYSPNEA, Verified 10/18/17 18:02 SKIN INFLAMED kiwi Allergy Severe Anaphylaxis Verified 10/18/17 18:02 latex Allergy Dyspnea, Verified 10/18/17 18:02 Itching morphine Allergy Rapid Verified 10/18/17 18:02 Heart Rate ivp dye Allergy Dyspnea Uncoded 10/18/17 18:02 smoke Allergy Dyspnea Uncoded 10/18/17 18:02 Physical Examination - Vital Signs Vital Signs: Vital Signs Temp Pulse Resp BP Pulse Ox 11/05/17 07:00 91 16 96/52 99 11/05/17 06:30 98.8 F 93 87 H 95/51 98 11/05/17 06:00 93 62 H 95/55 98 11/05/17 05:30 94 49 H 102/55 98 11/05/17 05:00 99 16 98/58 98 11/05/17 04:30 98 16 104/60 97 11/05/17 04:00 100.8 F H 101 H 16 103/60 97 11/05/17 03:30 99 16 106/58 97 11/05/17 03:00 109 H 16 123/62 97 11/05/17 02:30 98 16 135/72 97 11/05/17 02:00 96 16 143/64 97 11/05/17 01:30 94 16 147/71 97 11/05/17 01:00 90 16 147/71 98 11/05/17 00:30 101 H 16 97 11/05/17 00:10 99.4 F 86 22 144/70 96 11/05/17 00:00 87 28 H 11/04/17 23:50 90 34 H 11/04/17 23:47 89 11/04/17 22:52 98.4 F 98 16 149/59 99 11/04/17 22:31 90 20 173/74 97 11/04/17 22:00 104 H 16 214/113 97 11/04/17 21:27 119 H 16 199/94 99 11/04/17 21:06 102 H 20 199/84 9 L 11/04/17 21:00 103 H 16 99 11/04/17 20:59 147 H 20 209/91 99 11/04/17 20:02 106 H 16 218/91 100 11/04/17 19:00 98.7 F 88 22 150/93 100 Intake and Output 11/04/17 11/05/17 11/05/17 22:59 06:59 14:59 Intake Total 0.487 701.574 150 Output Total 540 10 Balance 0.487 161.574 140 Intake: IV 690 150 D5-0.45% NaCl with KCl 450 150 20Meq/l 1,000 ml @ 150 mls/hr IV .Q6H40M [facility] Rx# :[id number] Sodium Chloride 0.9% 1, 40 000 ml @ 20 mls/hr IV . Q24H [facility] Rx#:[id number] Sodium Chloride 0.9% 1, 200 000 ml @ 200 mls/hr IV . Q5H [facility] Rx#:[id number] Intake, IV Titration 0.487 11.574 Amount Propofol 1,000 mg In 11.574 Empty Bag 1 bag @ Titrate IV .Q0M [facility] Rx#: [id number] Propofol 1,000 mg In 0.487 Empty Bag 1 bag @ Titrate IV .Q0M STA Rx#: [id number] Output: Urine 540 10 Other: Voiding Method Indwelling Catheter Weight 81.284 kg - Constitutional General appearance: average body habitus, cooperative - EENT EENT: PERRL, mucous membranes moist - Respiratory Respiratory: lungs clear, normal breath sounds - Cardiovascular Cardiovascular: regular rate, normal S1, normal S2 Extremities: no peripheral edema bilaterally - Gastrointestinal Gastrointestinal: normoactive bowel sounds - Integumentary Integumentary: normal - Neurologic Cranial nerve examination: PERRL, EOMI, V1/V2/V3 grossly intact, face symmetric , tongue midline, intact gag reflex, intact corneal reflex, normal palatal elevation Speech examination: intact Sensorimotor examination: intact Motor examination - right side: 3/5: biceps, triceps, wrist flexion, wrist extension, bleach boiler packer, hip flexors, knee extensors, dorsiflexion, toe extension (EHL) , plantarflexion Motor examination - left side: 3/5: biceps, triceps, wrist flexion, wrist extension, bleach boiler packer, hip flexors, knee extensors, dorsiflexion, toe extension (EHL) , plantarflexion Detailed sensory examination: intact Reflex and gait examination: intact Reflexes: 1+: ankle, bicep, knee, tricep - Musculoskeletal Musculoskeletal: no pain - Psychiatric Psychiatric: mood/affect appropriate, cooperative Results - Laboratory Findings CBC and BMP: 11/05/17 04:29 11/05/17 07:34 Abnormal Lab Findings: Abnormal Labs 11/04/17 11/04/17 11/04/17 19:00 19:00 20:05 WBC MCHC Neutrophils # ABG pH ABG pCO2 ABG pO2 ABG HCO3 ABG Total CO2 ABG O2 Saturation VBG pH 7.42 H VBG pCO2 35 L VBG HCO3 22 L Carbon Dioxide Glucose POC Glucose (mg/dL) Magnesium Ammonia 62 H Total Creatine Kinase Total Protein Albumin Ur Specific [place] Urine Protein 1+ H Urine Glucose (UA) Urine Ketones 3+ H Urine Blood Urine RBC Amorphous Sediment Rare H Urine Mucus Rare H U Benzodiazepines Scrn Detected H 11/04/17 11/04/17 11/04/17 20:05 20:05 20:05 WBC 13.2 H MCHC 30.3 L Neutrophils # 8.4 H ABG pH ABG pCO2 ABG pO2 ABG HCO3 ABG Total CO2 ABG O2 Saturation VBG pH VBG pCO2 VBG HCO3 Carbon Dioxide 16 L Glucose 271 H POC Glucose (mg/dL) Magnesium Ammonia Total Creatine Kinase 26 L Total Protein Albumin Ur Specific [place] Urine Protein Urine Glucose (UA) Urine Ketones Urine Blood Urine RBC Amorphous Sediment Urine Mucus U Benzodiazepines Scrn 11/04/17 11/04/17 11/04/17 20:05 20:54 20:57 WBC MCHC Neutrophils # ABG pH 7.33 L ABG pCO2 ABG pO2 247 H ABG HCO3 ABG Total CO2 ABG O2 Saturation 100.0 H VBG pH VBG pCO2 VBG HCO3 Carbon Dioxide Glucose POC Glucose (mg/dL) 271 H Magnesium 1.1 L Ammonia Total Creatine Kinase Total Protein Albumin Ur Specific [place] Urine Protein Urine Glucose (UA) Urine Ketones Urine Blood Urine RBC Amorphous Sediment Urine Mucus U Benzodiazepines Scrn 11/04/17 11/05/17 11/05/17 23:58 01:50 03:15 WBC MCHC Neutrophils # ABG pH ABG pCO2 ABG pO2 ABG HCO3 ABG Total CO2 ABG O2 Saturation VBG pH VBG pCO2 VBG HCO3 Carbon Dioxide Glucose POC Glucose (mg/dL) 302 H 241 H Magnesium Ammonia Total Creatine Kinase Total Protein Albumin Ur Specific [place] 1.037 H Urine Protein Trace H Urine Glucose (UA) 4+ H Urine Ketones 2+ H Urine Blood Moderate H Urine RBC 46 H Amorphous Sediment Urine Mucus Rare H U Benzodiazepines Scrn 11/05/17 11/05/17 11/05/17 04:02 04:29 04:29 WBC 14.8 H MCHC Neutrophils # 12.5 H ABG pH ABG pCO2 ABG pO2 ABG HCO3 ABG Total CO2 ABG O2 Saturation VBG pH VBG pCO2 VBG HCO3 Carbon Dioxide Glucose 190 H POC Glucose (mg/dL) 186 H Magnesium Ammonia Total Creatine Kinase Total Protein 6.2 L Albumin 3.4 L Ur Specific [place] Urine Protein Urine Glucose (UA) Urine Ketones Urine Blood Urine RBC Amorphous Sediment Urine Mucus U Benzodiazepines Scrn 11/05/17 11/05/17 11/05/17 04:32 05:03 06:11 WBC MCHC Neutrophils # ABG pH ABG pCO2 46 H ABG pO2 ABG HCO3 27 H ABG Total CO2 28 H ABG O2 Saturation 98.0 H VBG pH VBG pCO2 VBG HCO3 Carbon Dioxide Glucose POC Glucose (mg/dL) 175 H 167 H Magnesium Ammonia Total Creatine Kinase Total Protein Albumin Ur Specific [place] Urine Protein Urine Glucose (UA) Urine Ketones Urine Blood Urine RBC Amorphous Sediment Urine Mucus U Benzodiazepines Scrn 11/05/17 06:56 WBC MCHC Neutrophils # ABG pH ABG pCO2 ABG pO2 ABG HCO3 ABG Total CO2 ABG O2 Saturation VBG pH VBG pCO2 VBG HCO3 Carbon Dioxide Glucose POC Glucose (mg/dL) 165 H Magnesium Ammonia Total Creatine Kinase Total Protein Albumin Ur Specific [place] Urine Protein Urine Glucose (UA) Urine Ketones Urine Blood Urine RBC Amorphous Sediment Urine Mucus U Benzodiazepines Scrn Assessment and Plan (1) New onset seizure Current Visit: Yes Status: Acute Code(s): R56.9 - UNSPECIFIED CONVULSIONS SNOMED Code(s): 04017847 (2) Supraventricular tachycardia Current Visit: No Status: Acute Code(s): I47.1 - SUPRAVENTRICULAR TACHYCARDIA SNOMED Code(s): 7225054 (3) Diabetes mellitus Current Visit: Yes Status: Acute Code(s): E11.9 - TYPE 2 DIABETES MELLITUS WITHOUT COMPLICATIONS SNOMED Code(s): 92987749 (4) Hypomagnesemia Current Visit: Yes Status: Acute Code(s): E83.42 - HYPOMAGNESEMIA SNOMED Code(s): 376938793 Plan: This patient is a 72-year-old female who was admitted to the intensive care unit after having a possible seizure at home. The patient apparently was shaking in her upper extremities as was noted by her . She became unresponsive and EMS was called to the home. She was transported to the emergency room at [facility] for further evaluation. She was seen in the ER by Dr. Berry. She was sent for a computed tomography scan of the brain the results of which are noted above. She was intubated and is now being evaluated in the intensive care unit. Patient is showing decreased muscle tone in both upper extremities. Her initial CAT scan of the brain failed to reveal any acute changes. We have recommended a repeat computed tomography scan of the brain to be done tomorrow as well as a routine EEG. She has less motion and movement on her right side on examination today. We will continue close neurological follow-up with the patient. She is to continue on Keppra at her current dose and we will await her Keppra blood level and make adjustments as needed. Her overall prognosis at this time remains very guarded. We will continue close neurological follow-up for this patient in the intensive care unit. Time with Patient: Greater than 30
[2017-11-06 00:05] LABS: Glucose,Whole Blood 119 mg/dL (75-99)
[2017-11-06] MEDS: INSULIN ASPART 100 UNIT/ML 1 ML 10 ML VIAL SQ SCH ×14 (00:05→23:53)
[2017-11-06] MEDS: HEPARIN SODIUM,PORCINE 5,000 UNIT/ML 1 ML VIAL SQ SCH ×3 (00:06→15:44)
[2017-11-06] MEDS: PROPOFOL 1,000 MG in EMPTY BAG 1 BAG IV SCH ×3 (01:26→15:42)
[2017-11-06] MEDS: IPRATROPIUM-ALBUTEROL 3 ML NEB INHALATION SCH ×6 (04:19→23:36)
[2017-11-06 04:25] LABS: Glucose,Whole Blood 180 mg/dL (75-99)
[2017-11-06 05:09] LABS: ABG Base Excess -0.4 mmol/L; ABG HCO3 25 mmol/L (21-25); ABG PCO2 41 mmHg (35-45); ABG PH 7.38 (7.35-7.45); ABG PO2 181 mmHg (83-108); ABG TCO2 26 mmol/L (19-24)
[2017-11-06 05:23] LABS: Basophils % (A) 0 %; Eosinophils % (A) 0 %; HCT 37.9 % (34.0-46.0); HGB 11.7 gm/dL (11.4-16.0); Hypochromasia Slight; Lymphocytes % (A) 15 %; MCH 28.6 pg (25.0-35.0); MCHC 30.8 g/dL (31.0-37.0); MCV 92.7 fL (80.0-100.0); Mean Platelet Volume 7.6; Monocytes # (A) 0.8 k/uL (0-1.0); Monocytes % (A) 6 %; Neutrophils # (A) 10.3 k/uL (1.3-7.7); Neutrophils % (A) 76 %; Platelet Count 238 k/uL (150-450); RBC 4.08 m/uL (3.80-5.40); RDW 13.9 % (11.5-15.5); WBC 13.5 k/uL (3.8-10.6)
[2017-11-06 05:37] LABS: Anion Gap 6 mmol/L; Blood Urea Nitrogen 18 mg/dL (7-17); Calcium 8.3 mg/dL (8.4-10.2); Carbon Dioxide 22 mmol/L (22-30); Chloride 107 mmol/L (98-107); Glucose 165 mg/dL (74-99); Magnesium 1.9 mg/dL (1.6-2.3); Phosphorus 2.7 mg/dL (2.5-4.5); Potassium 4.5 mmol/L (3.5-5.1); Sodium 135 mmol/L (137-145)
[2017-11-06] MEDS: MAGNESIUM SULFATE-D5W PMX 1 GM in DEXTROSE/WATER 1 100ML.BAG IVPB SCH ×2 (05:58→06:51)
--- NOTE | 2017-11-06 07:56 | XR ---
EXAMINATION TYPE: XR chest 1V DATE OF EXAM: 11/06/2017 CLINICAL HISTORY: Difficulty breathing progress study. TECHNIQUE: Single AP portable semiupright view of the chest is obtained. COMPARISON: Chest x-ray from one day earlier and older studies. CT chest abdomen and pelvis 2 days ea rlier. FINDINGS: An endotracheal and orogastric tube are stable in appearance. Low lung volumes are redemon strated. There is worsening right medial basilar opacity on current study consistent and stable more patchy left medial basilar opacity. No significant pleural effusions or sizable pneumothorax is seen bilaterally. There is persistent cardiomegaly. Osseous structures are intact. IMPRESSION: There is cardiomegaly with worsening right medial basilar atelectasis and/or infiltrate a nd stable patchy left medial basilar atelectasis and/or infiltrate noted.
[2017-11-06] MEDS: CHLORHEXIDINE GLUCONATE 15 ML CUP MUCOUS MEM SCH ×2 (08:12→20:31)
[2017-11-06] MEDS: FAMOTIDINE 20 MG/2 ML VIAL IV SCH ×2 (08:12→20:32)
[2017-11-06 08:14] LABS: Glucose,Whole Blood 201 mg/dL (75-99)
[2017-11-06] MEDS: levETIRAcetam IV 750 MG in SODIUM CHLORIDE 0.9% 100 ML IVPB SCH ×2 (09:50→21:00)
[2017-11-06 10:08] LABS: Appearance,Urine Cloudy (Clear); Bilirubin,Urine Negative (Negative); Blood,Urine Large (Negative); Color,Urine Yellow; Glucose,Urine (UA) Negative (Negative); Ketones,Urine Negative (Negative); Leukocyte Esterase,Urine Moderate (Negative); Mucus,Urine Rare /hpf; Nitrite,Urine Negative (Negative); PH, Urine 5.5 (5.0-8.0); Protein,Urine 1+ (Negative); RBC,Urine >182 /hpf (0-5); Specific Gravity,Urine 1.009 (1.001-1.035); Squamous Epithelial Cell,Urine 1 /hpf (0-4); Urobilinogen,Urine <2.0 mg/dL (<2.0)
--- NOTE | 2017-11-06 10:28 | CT ---
EXAMINATION TYPE: CT brain wo con DATE OF EXAM: 11/06/2017 COMPARISON: 11/04/2017 INDICATION: New Onset Seizures DLP: 1090.40 mGycm, Automated exposure control for dose reduction was used. CONTRAST: None CT of the brain is performed utilizing 3 mm thick sections through the posterior fossa and 3 mm thick sections through the remaining calvarium. Study is not performed within 24 hours of arrival to the hospital. No abnormal hyperdensity is present to suggest an acute intracranial hemorrhage. No mass lesion is evident. No acute infarcts are evident. Ventricles and sulci are mildly prominent for the patient age. Paranasal sinuses and mastoid air cells within the [id number] are clear. Frontal sinuses are aplas tic IMPRESSIONS: 1. Age-related atrophy.
--- NOTE | 2017-11-06 10:31 | P.PN ---
Subjective Progress Note Date: 11/06/17 Sabine Hagen is a 72-year-old female who presented to [facility] emergency room via EMS after being noticed at home by her to be an responsive and having shaking in her extremities she was evaluated in the emergency room and was thought to have seizure activity she was given IV Ativan , and was started on IV Keppra, she was intubated and sedated for airway protection and was admitted to intensive care unit, computed tomography scan of the brain without contrast done in the emergency room did not reveal any evidence of intracranial hemorrhage or midline shift there was age-related cerebral atrophy and chronic small vessel ischemic changes, labs in the emergency room revealed evidence of leukocytosis with white blood count of 13.2 and elevated ammonia level of 62. Otherwise kidney function and liver function were within normal limits. Chest x-ray revealed left basilar infiltrate computed tomography scan of the chest abdomen and pelvis was done in the emergency room, and revealed by basilar infiltrate left greater than right otherwise no abnormality seen. Currently patient is admitted to intensive care unit, she is intubated sedated maintained on mechanical ventilation, and son are at the bedside, and history and review of system was done with them. stated that patient has been feeling tired recently, he left her at home laying down he was away for about 2 hours when he came back she was unresponsive and having shaking in her upper extremities, he called EMS and patient was brought into emergency room , patient has a known history of hypertension, diabetes mellitus, and hyperlipidemia no previous history of stroke or seizure in the past no history of coronary artery disease and no history of liver disease. On 11/06/2017 patient remains on mechanical ventilation in the intensive care unit. Per nursing staff patient has scheduled EEG and repeat CT of head today per neurology. Patient currently remains on 20mcg of diprivan. Patient followed by critical care , neurology and cardiology. Blood, urine and sputum cultures have been ordered patient started on Unasyn for critical care. Chest x -ray completed. At this point patient not making any purposeful movement or following commands. Objective - Vital Signs Vital signs: Vital Signs Temp 98.4 F 11/06/17 08:00 Pulse 91 11/06/17 09:30 Resp 27 H 11/06/17 09:30 BP 139/68 11/06/17 09:30 Pulse Ox 100 11/06/17 09:30 Intake & Output 11/05/17 11/06/17 11/06/17 18:59 06:59 18:59 Intake Total 689.086 834.294 179.087 Output Total 275 545 220 Balance 414.086 289.294 -40.913 Weight 82 kg Intake: IV 600 750 150 D5-0.45% NaCl with KCl 600 750 150 20Meq/l 1,000 ml @ 150 mls/hr IV .Q6H40M [facility] Rx# :[id number] Intake, IV Titration 89.086 84.294 29.087 Amount Insulin Regular 100 unit 52.07 In Sodium Chloride 0.9% 100 ml @ 0.1 UNITS/KG/HR 8.2 mls/hr IV .[id number] [facility] Rx#:[id number] Propofol 1,000 mg In 37.016 84.294 29.087 Empty Bag 1 bag @ Titrate IV .Q0M [facility] Rx#: [id number] Output: Gastric Drainage 200 Urine 275 345 220 Other: Voiding Method Indwelling Catheter Indwelling Catheter - Exam Head normocephalic Neck supple Lungs she remains on mechanical ventilation. Diminished breath sounds throughout Heart regular rate and rhythm S1-S2, no rub or gallop Abdomen is soft nontender nondistended positive bowel sounds no hepatosplenomegaly Extremities no edema Neuro patient remains on sedation. no purposeful movements at this time - Labs CBC & Chem 7: 11/06/17 04:23 11/06/17 04:23 Labs: Abnormal Lab Results - Last 24 Hours (Table) 11/05/17 11/05/17 11/05/17 Range/Units 11:59 12:42 16:14 WBC (3.8-10.6) k/uL MCHC (31.0-37.0) g/dL Neutrophils # (1.3-7.7) k/uL ABG pO2 (83-108) mmHg ABG Total CO2 (19-24) mmol/L ABG O2 Saturation (94-97) % Sodium (137-145) mmol/L BUN (7-17) mg/dL Glucose (74-99) mg/dL POC Glucose (mg/dL) 239 H 190 H 159 H (75-99) mg/dL Calcium (8.4-10.2) mg/dL 11/05/17 11/06/17 11/06/17 Range/Units 20:35 00:03 04:23 WBC 13.5 H (3.8-10.6) k/uL MCHC 30.8 L (31.0-37.0) g/dL Neutrophils # 10.3 H (1.3-7.7) k/uL ABG pO2 (83-108) mmHg ABG Total CO2 (19-24) mmol/L ABG O2 Saturation (94-97) % Sodium (137-145) mmol/L BUN (7-17) mg/dL Glucose (74-99) mg/dL POC Glucose (mg/dL) 164 H 119 H (75-99) mg/dL Calcium (8.4-10.2) mg/dL 11/06/17 11/06/17 11/06/17 Range/Units 04:23 04:23 05:07 WBC (3.8-10.6) k/uL MCHC (31.0-37.0) g/dL Neutrophils # (1.3-7.7) k/uL ABG pO2 181 H (83-108) mmHg ABG Total CO2 26 H (19-24) mmol/L ABG O2 Saturation 100.0 H (94-97) % Sodium 135 L (137-145) mmol/L BUN 18 H (7-17) mg/dL Glucose 165 H (74-99) mg/dL POC Glucose (mg/dL) 180 H (75-99) mg/dL Calcium 8.3 L (8.4-10.2) mg/dL 11/06/17 Range/Units 08:13 WBC (3.8-10.6) k/uL MCHC (31.0-37.0) g/dL Neutrophils # (1.3-7.7) k/uL ABG pO2 (83-108) mmHg ABG Total CO2 (19-24) mmol/L ABG O2 Saturation (94-97) % Sodium (137-145) mmol/L BUN (7-17) mg/dL Glucose (74-99) mg/dL POC Glucose (mg/dL) 201 H (75-99) mg/dL Calcium (8.4-10.2) mg/dL Microbiology - Last 24 Hours (Table) 11/04/17 20:05 Gram Stain - Preliminary Sputum Sputum Culture - Preliminary Assessment and Plan Assessment: #1 new-onset seizure with status epilepticus, no evidence of seizure at this time, patient received IV Ativan and is maintained on IV Keppra. Neurology services are following. Repeat CT of the head and EEG have been ordered. Patient remains intubated and on Diprivan for sedation. Carotid Doppler has been ordered per critical care. #2 acute respiratory failure requiring intubation and mechanical ventilation. Chest x-ray completed same showing cardiomegaly with worsening right medial basilar atelectasis and/or infiltrate and stable patchy left medial basal atelectasis and/or infiltrate noted. Dr. Ambriz per pulmonary and critical care service is following. Patient started on Unasyn IV antibiotic. #3 underlying history of hypertension #4 underlying history of diabetes mellitus #5 underlying history of COPD #6 underlying history of obstructive sleep apnea #7 evidence of lung infiltrates bibasilar left more than right maintained on IV antibiotic possible aspiration pneumonia #8 previous history of supraventricular tachycardia. Questionable arrhythmia down in emergency room on admission. Cardiology services following. #9 recent cardiac catheterization which were within normal limits #10 leukocytosis. WBC 13.5. temp 99.5. Sputum, urine and blood cultures have been ordered patient on Unasyn IV antibiotic. UA completed showing moderate amount of leukocyte Estrace. #11 hypomagnesium. Magnesium 1.1 on admission. Resolved DVT prophylaxis heparin. GI prophylaxis Pepcid I performed an examination of the patient and discussed their management with the Nurse Practitioner. I have reviewed the Nurse Practitioner's notes and agree with the documented findings and plan of care
--- NOTE | 2017-11-06 10:58 | P.PN ---
Subjective Progress Note Date: 11/06/17 This is a 72-year-old female is admitted to the hospital with altered mental status and documented seizure activity. There was questionable: V. tach or an artifact created with seizure activity. Her magnesium level was low. Her QT interval is of poor is slightly prolonged at currently. Patient has a continued mental status changes and lethargy. She is being further investigated for possible CVA. No documented episodes of polymorphic V. tach. Patient had normal cardiac cath recently. At this point there doesn't seem to be in acute cardiac issues. We'll continue to follow her as needed Objective - Vital Signs Vital signs: Vital Signs Temp 98.4 F 11/06/17 08:00 Pulse 91 11/06/17 09:30 Resp 27 H 11/06/17 09:30 BP 139/68 11/06/17 09:30 Pulse Ox 100 11/06/17 09:30 Intake & Output 11/05/17 11/06/17 11/06/17 18:59 06:59 18:59 Intake Total 689.086 834.294 129.087 Output Total 275 545 345 Balance 414.086 289.294 -215.913 Weight 82 kg Intake: IV 600 750 100 D5-0.45% NaCl with KCl 600 750 100 20Meq/l 1,000 ml @ 150 mls/hr IV .Q6H40M [facility] Rx# :[id number] Intake, IV Titration 89.086 84.294 29.087 Amount Insulin Regular 100 unit 52.07 In Sodium Chloride 0.9% 100 ml @ 0.1 UNITS/KG/HR 8.2 mls/hr IV .[id number] [facility] Rx#:[id number] Propofol 1,000 mg In 37.016 84.294 29.087 Empty Bag 1 bag @ Titrate IV .Q0M [facility] Rx#: [id number] Output: Gastric Drainage 200 Urine 275 345 345 Other: Voiding Method Indwelling Catheter Indwelling Catheter - Exam GENERAL EXAM: Patient is intubated and sedated HEENT: Normocephalic. Normal reaction of pupils, equal size, normal range of extraocular motion. No erythema or exudates in the throat. NECK: No masses, no nuchal rigidity. CHEST: No chest wall deformity. LUNGS: Diminished breath sounds HEART: S1 and S2 normal with no audible mumurs or gallops. Regular rhythm, femorals equal on both sides.. ABDOMEN: No hepatosplenomegaly, normal bowel sounds, no guarding or rigidity. SKIN: No rashes CENTRAL NERVOUS SYSTEM: Deferred EXTREMITIES: No cyanosis, clubbing or edema. - Labs CBC & Chem 7: 11/06/17 04:23 11/06/17 04:23 Labs: Abnormal Lab Results - Last 24 Hours (Table) 11/05/17 11/05/17 11/05/17 Range/Units 11:59 12:42 16:14 WBC (3.8-10.6) k/uL MCHC (31.0-37.0) g/dL Neutrophils # (1.3-7.7) k/uL ABG pO2 (83-108) mmHg ABG Total CO2 (19-24) mmol/L ABG O2 Saturation (94-97) % Sodium (137-145) mmol/L BUN (7-17) mg/dL Glucose (74-99) mg/dL POC Glucose (mg/dL) 239 H 190 H 159 H (75-99) mg/dL Calcium (8.4-10.2) mg/dL Urine Appearance (Clear) Urine Protein (Negative) Urine Blood (Negative) Ur Leukocyte Esterase (Negative) Urine RBC (0-5) /hpf Urine WBC (0-5) /hpf Urine Mucus (None) /hpf 11/05/17 11/06/17 11/06/17 Range/Units 20:35 00:03 04:23 WBC 13.5 H (3.8-10.6) k/uL MCHC 30.8 L (31.0-37.0) g/dL Neutrophils # 10.3 H (1.3-7.7) k/uL ABG pO2 (83-108) mmHg ABG Total CO2 (19-24) mmol/L ABG O2 Saturation (94-97) % Sodium (137-145) mmol/L BUN (7-17) mg/dL Glucose (74-99) mg/dL POC Glucose (mg/dL) 164 H 119 H (75-99) mg/dL Calcium (8.4-10.2) mg/dL Urine Appearance (Clear) Urine Protein (Negative) Urine Blood (Negative) Ur Leukocyte Esterase (Negative) Urine RBC (0-5) /hpf Urine WBC (0-5) /hpf Urine Mucus (None) /hpf 11/06/17 11/06/17 11/06/17 Range/Units 04:23 04:23 05:07 WBC (3.8-10.6) k/uL MCHC (31.0-37.0) g/dL Neutrophils # (1.3-7.7) k/uL ABG pO2 181 H (83-108) mmHg ABG Total CO2 26 H (19-24) mmol/L ABG O2 Saturation 100.0 H (94-97) % Sodium 135 L (137-145) mmol/L BUN 18 H (7-17) mg/dL Glucose 165 H (74-99) mg/dL POC Glucose (mg/dL) 180 H (75-99) mg/dL Calcium 8.3 L (8.4-10.2) mg/dL Urine Appearance (Clear) Urine Protein (Negative) Urine Blood (Negative) Ur Leukocyte Esterase (Negative) Urine RBC (0-5) /hpf Urine WBC (0-5) /hpf Urine Mucus (None) /hpf 11/06/17 11/06/17 Range/Units 08:13 09:41 WBC (3.8-10.6) k/uL MCHC (31.0-37.0) g/dL Neutrophils # (1.3-7.7) k/uL ABG pO2 (83-108) mmHg ABG Total CO2 (19-24) mmol/L ABG O2 Saturation (94-97) % Sodium (137-145) mmol/L BUN (7-17) mg/dL Glucose (74-99) mg/dL POC Glucose (mg/dL) 201 H (75-99) mg/dL Calcium (8.4-10.2) mg/dL Urine Appearance Cloudy H (Clear) Urine Protein 1+ H (Negative) Urine Blood Large H (Negative) Ur Leukocyte Esterase Moderate H (Negative) Urine RBC >182 H (0-5) /hpf Urine WBC 38 H (0-5) /hpf Urine Mucus Rare H (None) /hpf Microbiology - Last 24 Hours (Table) 11/04/17 20:05 Gram Stain - Preliminary Sputum Sputum Culture - Preliminary Assessment and Plan (1) Altered mental status Current Visit: Yes Status: Acute Code(s): R41.82 - ALTERED MENTAL STATUS, UNSPECIFIED SNOMED Code(s): 789617947 (2) Hypomagnesemia Current Visit: Yes Status: Acute Code(s): E83.42 - HYPOMAGNESEMIA SNOMED Code(s): 796847957 (3) Supraventricular tachycardia Current Visit: No Status: Acute Code(s): I47.1 - SUPRAVENTRICULAR TACHYCARDIA SNOMED Code(s): 0719554 Plan: Continue to monitor for any arrhythmias. Continue with ventilatory support. Patient recently had a cardiac catheterization. We'll try to get the monitor strips from the emergency room. 11/06/2017: This patient is free of any cardiac arrhythmias. She is being investigated for possible CVA and mental status changes. We'll be following her as needed
[2017-11-06] MEDS: D5-0.45% NACL WITH KCL 20MEQ/L 1,000 ML IV SCH (11:06)
[2017-11-06] MEDS: SODIUM CHLORIDE 0.9% 1,000 ML IV SCH (11:18)
[2017-11-06 11:49] LABS: Glucose,Whole Blood 89 mg/dL (75-99)
[2017-11-06 12:18] LABS: Glucose,Whole Blood 83 mg/dL (75-99)
[2017-11-06 12:27] LABS: Hemoglobin A1C 6.8 % (4.0-6.0)
--- NOTE | 2017-11-06 13:42 | US ---
EXAMINATION TYPE: US carotid duplex BILAT DATE OF EXAM: 11/06/2017 COMPARISON: Carotid ultrasound November 27, 2009 CT neck October 09, 2017 CLINICAL HISTORY: seizures. Patient on vent, exam done portable in ICU. EXAM MEASUREMENTS: RIGHT: Peak Systolic Velocity (PSV) cm/sec ----- Right CCA: 87.3 ----- Right ICA: 152.8 ----- Right ECA: 108.9 ICA/CCA ratio: 1.8 RIGHT: End Diastole cm/sec ----- Right CCA: 23.3 ----- Right ICA: 41.6 ----- Right ECA: 13.5 LEFT: Peak Systolic Velocity (PSV) cm/sec ----- Left CCA: 78.5 ----- Left ICA: 99.6 ----- Left ECA: 92.0 ICA/CCA ratio: 1.3 LEFT: End Diastole cm/sec ----- Left CCA: 23.4 ----- Left ICA: 37.5 ----- Left ECA: 7.1 VERTEBRALS (direction of flow): Right Vertebral: Antegrade Left Vertebral: Antegrade Rhythm: Normal Exam noted suboptimal due to patient's underlying medical condition being ventilated. Grayscale image s show no obvious plaque the carotid bulb level bilaterally. There is increased peak systolic velocit y and end-diastolic velocity in the right internal carotid artery. IMPRESSION: Suboptimal study cannot exclude significant stenosis in visualized portion of proximal right internal carotid artery. There is asymmetric focal calcified plaque right carotid bulb on nonc ontrast CT October 09, 2017. Advise further investigation with CTA of the neck to exclude significant st enosis (50-69%) at this level. Criteria for Assigning % of Stenosis / Diameter reduction (Estimation based on the indirect measurements of the internal carotid artery velocities (ICA PSV). 1. Normal (no stenosis)=ICA PSV < 125 cm/s: ratio < 2.0: ICA EDV<40 cm/s. 2. Less than 50% stenosis=ICA PSV < 125 cm/s: ratio < 2.0: ICA EDV<40 cm/s. 3. 50 to 69% stenosis=ICA PSV of 125 to 230 cm/s: ration 2.0 ? 4.0: ICA EDV 40-100 cm/s. 4. Greater than 70% stenosis to near occlusion= ICA PSV > 230 cm/s: ratio > 4.0: ICA EDV > 100 cm/s. 5. Near occlusion= ICA PSV velocities may be low or undetectable: variable ratio and ICA EDV. 6. Total occlusion=unable to detect flow.
--- NOTE | 2017-11-06 14:41 | P.PN ---
Subjective Progress Note Date: 11/06/17 This 72-year-old female patient came into the emergency department because of altered mentation a few days duration ultimately she was found to have seizure activity as the patient had 2 bouts of seizure lasting 5 minutes each. She was in the hospital earlier for SVT and she had a cardiac workup that came back negative for coronary artery disease. She is known to have diabetes, hypertension, hyperlipidemia and COPD and obstructive sleep apnea. No history of substance abuse The patient is currently intubated on a mechanical ventilator. She is on sedation. Earlier this morning she was given a sedation holiday following which she was able to open up her eyes and she was not following any specific commands. A repeat CAT scan of the brain was done and it showed age-related atrophy without any acute abnormalities. No evidence of any infarcts or masses. Carotid Doppler was also done and it was suboptimal study and lesions cannot be completely ruled out. There was an asymmetric focal calcified plaque in the right carotid bulb. EEG of the brain is to follow and the patient is currently on Keppra. No further seizure activity has been noted. Patient remains on mechanical ventilator. This morning she is an assist-control mode of ventilation at the rate of 16, tidal volume of 400 and FiO2 of 50% and a PEEP of 5. The blood gases showed a pH of 7.38 with a pCO2 of 41 and pO2 of 181 and based on that the FiO2 is up to 40%. Chest x-ray showing some minimal right basilar atelectatic change in the urine analysis was quite abnormal with abnormalities to suggest UTI. Based on that the patient was started on IV Unasyn as an empiric antibiotic coverage covering for aspiration pneumonia and urine checked infections. She is afebrile for now. No neck stiffness. No significant leukocytosis at this point in time. Hemodynamically stable on no pressors. Objective - Vital Signs Vital signs: Vital Signs Temp 98.4 F 11/06/17 08:00 Pulse 87 11/06/17 13:30 Resp 80 H 11/06/17 13:30 BP 140/61 11/06/17 13:30 Pulse Ox 100 11/06/17 13:00 Intake & Output 11/05/17 11/06/17 11/06/17 18:59 06:59 18:59 Intake Total 689.086 834.294 401.430 Output Total 275 545 695 Balance 414.086 289.294 -293.570 Weight 82 kg 82 kg Intake: IV 600 750 300 D5-0.45% NaCl with KCl 600 750 100 20Meq/l 1,000 ml @ 150 mls/hr IV .Q6H40M [facility] Rx# :[id number] Sodium Chloride 0.9% 1, 200 000 ml @ 50 mls/hr IV . Q20H [facility] Rx#:[id number] Intake, IV Titration 89.086 84.294 101.430 Amount Insulin Regular 100 unit 52.07 In Sodium Chloride 0.9% 100 ml @ 0.1 UNITS/KG/HR 8.2 mls/hr IV .[id number] [facility] Rx#:[id number] Propofol 1,000 mg In 37.016 84.294 101.430 Empty Bag 1 bag @ Titrate IV .Q0M [facility] Rx#: [id number] Output: Gastric Drainage 200 Urine 275 345 695 Other: Voiding Method Indwelling Catheter Indwelling Catheter Indwelling Catheter - Exam Gen. appearance, comfortable intubated on a mechanical ventilator and orogastric and orotracheal tube are both in place. Head exam was generally normal. There was no scleral icterus or corneal arcus. Mucous membranes were moist. Neck was supple and without jugular venous distension, thyromegaly, or carotid bruits. Carotids were easily palpable bilaterally. There was no adenopathy. Lungs were clear to auscultation and percussion, and with normal diaphragmatic excursion. No wheezes or rales were noted. Cardiac exam revealed the PMI to be normally situated and sized. The rhythm was regular and no extrasystoles were noted during several minutes of auscultation. The first and second heart sounds were normal and physiologic splitting of the second heart sound was noted. There were no murmurs, rubs, clicks, or gallops. Abdominal exam revealed normal bowel sounds. The abdomen was soft, non-tender, and without masses, organomegaly, or appreciable enlargement of the abdominal aorta. Examination of the extremities revealed easily palpable radial, femoral and pedal pulses. There was no cyanosis, clubbing or edema. Examination of the skin revealed no evidence of significant rashes, suspicious appearing nevi or other concerning lesions. Neurologic to the patient opens up her eyes and withdraws to painful stimuli in all 4 extremities. This was noted at a time of a sedation holiday. Pupils are equal and reactive to light. No focal neurological deficit this point. Unable to follow commands. - Labs CBC & Chem 7: 11/06/17 04:23 11/06/17 04:23 Labs: Abnormal Lab Results - Last 24 Hours (Table) 11/05/17 11/05/17 11/06/17 Range/Units 16:14 20:35 00:03 WBC (3.8-10.6) k/uL MCHC (31.0-37.0) g/dL Neutrophils # (1.3-7.7) k/uL ABG pO2 (83-108) mmHg ABG Total CO2 (19-24) mmol/L ABG O2 Saturation (94-97) % Sodium (137-145) mmol/L BUN (7-17) mg/dL Glucose (74-99) mg/dL POC Glucose (mg/dL) 159 H 164 H 119 H (75-99) mg/dL Calcium (8.4-10.2) mg/dL Urine Appearance (Clear) Urine Protein (Negative) Urine Blood (Negative) Ur Leukocyte Esterase (Negative) Urine RBC (0-5) /hpf Urine WBC (0-5) /hpf Urine Mucus (None) /hpf 11/06/17 11/06/17 11/06/17 Range/Units 04:23 04:23 04:23 WBC 13.5 H (3.8-10.6) k/uL MCHC 30.8 L (31.0-37.0) g/dL Neutrophils # 10.3 H (1.3-7.7) k/uL ABG pO2 (83-108) mmHg ABG Total CO2 (19-24) mmol/L ABG O2 Saturation (94-97) % Sodium 135 L (137-145) mmol/L BUN 18 H (7-17) mg/dL Glucose 165 H (74-99) mg/dL POC Glucose (mg/dL) 180 H (75-99) mg/dL Calcium 8.3 L (8.4-10.2) mg/dL Urine Appearance (Clear) Urine Protein (Negative) Urine Blood (Negative) Ur Leukocyte Esterase (Negative) Urine RBC (0-5) /hpf Urine WBC (0-5) /hpf Urine Mucus (None) /hpf 11/06/17 11/06/17 11/06/17 Range/Units 05:07 08:13 09:41 WBC (3.8-10.6) k/uL MCHC (31.0-37.0) g/dL Neutrophils # (1.3-7.7) k/uL ABG pO2 181 H (83-108) mmHg ABG Total CO2 26 H (19-24) mmol/L ABG O2 Saturation 100.0 H (94-97) % Sodium (137-145) mmol/L BUN (7-17) mg/dL Glucose (74-99) mg/dL POC Glucose (mg/dL) 201 H (75-99) mg/dL Calcium (8.4-10.2) mg/dL Urine Appearance Cloudy H (Clear) Urine Protein 1+ H (Negative) Urine Blood Large H (Negative) Ur Leukocyte Esterase Moderate H (Negative) Urine RBC >182 H (0-5) /hpf Urine WBC 38 H (0-5) /hpf Urine Mucus Rare H (None) /hpf Assessment and Plan Plan: Assessment 1 altered mentation probably related to seizure activity. The patient had 2 bouts of seizure in the emergency department. Subsequently she goes into a postictal state. She presented initially to the hospital with altered mentation and it's possible that the patient had altered mentation related to outpatient seizures that she's been having. No clear history of seizure was documented and this was only with this in the emergency department. CAT scan of the brain 2 has been negative. EEG is to follow. 2 altered mentation secondary to above 3 acute respiratory failure, nonhypoxic, and the patient was intubated to protect the airways. Currently there is a suspicion for underlying right lower lobe aspiration pneumonia 4 recent hospitalization for SVT discharged home on beta blockers and the patient has a normal cardiac catheterization and normal echocardiogram 5 diabetes mellitus 6 hypertension 7 hyperlipidemia 8 obstructive sleep apnea noncompliant to CPAP therapy 9 acid reflux 10 suspected UTI Plan Continue vent support and drop the FiO2 down to 40%. No plans for extubation today. Wean off sedation at a later stage and assess mental status. EEG. Repeat CAT scan of the brain was noted. Neurology follow-up. Continue the Keppra. Add IV Unasyn. Sputum Gram stain and culture. Blood culture. Initiate tube feeds. Watch for any further seizure episodes here in the ICU. Restart sound outpatient medications including the Synthroid. Stop the Celexa and stop the Cymbalta for now. We'll make further recommendations based on her progress. This evaluation was done and 35 minutes and this is a critically care evaluation. The patient remains intubated on a mechanical ventilator. Neurology is on the case. DVT and GI prophylaxis. Time with Patient: Greater than 30
[2017-11-06 15:22] LABS: Glucose,Whole Blood 73 mg/dL (75-99)
[2017-11-06 20:07] LABS: Glucose,Whole Blood 140 mg/dL (75-99)
[2017-11-06] MEDS: METOPROLOL TARTRATE 25 MG TAB PO SCH (20:32)
[2017-11-06] MEDS: INSULIN DETEMIR 100 UNIT/ML 10 ML VIAL SQ SCH (20:32)
--- NOTE | 2017-11-06 20:58 | EEG ---
ELECTROENCEPHALOGRAM REPORT DATE OF EE11/06/2017. REFERRING PHYSICIAN: Dr. Brock. CONSULTING/INTERPRETING PHYSICIAN: Dr. Rica Martinez MD ELECTROENCEPHALOGRAPHIC EXAMINATION REPORT: INDICATION FOR EXAMINATION: This patient is a 72-year-old female, admitted to hospital with new onset seizure. The patient intubated and transferred to the intensive care unit where she remains on the ventilator and is unresponsive. Patient has no previous history of seizure disorder. A[age]: [age]. EEG FINDINGS: A routine 21 channel awake digital EEG recording was accomplished utilizing the 10-20 international system with bipolar and referential montages. The background activity in the most alert resting state consists of a low to medium amplitude, poorly developed and poorly sustained 5 Hz activity over the posterior head regions. This posterior rhythm attenuates minimally to eye opening. There is a small amount of low amplitude 18-20 Hz beta activity seen maximally over the anterior head regions. Muscle and movement artifact was observed on a few occasions during the tracing. Hyperventilation was not performed. Photic stimulation at flash frequencies of 2-30 Hz produced a minimal occipital driving response. No epileptiform discharges were seen. Towards the mid and lateral portion of the tracing, the EEG tracing reveals mild burst suppression pattern. IMPRESSION: This EEG gives evidence of a severe widespread diffuse disturbance in cerebral function. The EEG failed to reveal any focal, lateralized, or epileptiform abnormalities. There is some degree of burst suppression pattern seen towards the mid and lateral portion of the tracing. If clinically indicated, a followup EEG is recommended. Clinical correlation is recommended. MMCHIVOL / STUARTN: [id number] /
[2017-11-06] MEDS: AMPICILLIN-SULBACTAM 3 GM in SODIUM CHLORIDE 0.9% 100 ML IVPB SCH (21:01)
--- NOTE | 2017-11-06 22:16 | P.PN ---
Subjective Progress Note Date: 11/06/17 This patient is examined in the Intensive Care unit for evaluation of seizure disorder. The patient remains intubated on the ventilator. She is on 50 mics of Diprivan today. She required higher doses of Diprivan as she was very agitated earlier today. The patient does not open eyes to any verbal commands. She is currently on Keppra monotherapy for seizure prophylaxis. Her Keppra level was completed and is therapeutic at 14.7. She underwent a routine EEG today which was reviewed and is moderately slow with early signs of burst suppression pattern. We will need to continue close monitoring of this patient over the next 72 hours. We will see if she shows signs of improvement in her overall mental status. Her EEG failed to reveal any epileptiform discharges. As noted she is to continue on her current dose of Keppra 750 mg IV piggyback every 12 hours. Her Keppra level done today was therapeutic at 14.7. We will follow along with pulmonary medicine is a continue weaning parameters for her over the next 24 hours. We will need to wean off of Diprivan is well gradually with time. Patient did undergo a repeat computed tomography scan of the brain today which revealed age related atrophy. There was no evidence of any acute stroke or hemorrhage. We will continue close neurological follow-up with this patient in the intensive care unit. Her overall prognosis at this time remains guarded. Objective - Vital Signs Vital signs: Vital Signs Temp 98.7 F 11/06/17 04:00 Pulse 90 11/06/17 07:00 Resp 17 11/06/17 07:00 BP 124/57 11/06/17 07:00 Pulse Ox 100 11/06/17 07:00 Intake & Output 11/05/17 11/06/17 11/06/17 18:59 06:59 18:59 Intake Total 689.086 834.294 Output Total 275 545 Balance 414.086 289.294 Weight 82 kg Intake: IV 600 750 D5-0.45% NaCl with KCl 600 750 20Meq/l 1,000 ml @ 150 mls/hr IV .Q6H40M [facility] Rx# :[id number] Intake, IV Titration 89.086 84.294 Amount Insulin Regular 100 unit 52.07 In Sodium Chloride 0.9% 100 ml @ 0.1 UNITS/KG/HR 8.2 mls/hr IV .[id number] [facility] Rx#:[id number] Propofol 1,000 mg In 37.016 84.294 Empty Bag 1 bag @ Titrate IV .Q0M [facility] Rx#: [id number] Output: Gastric Drainage 200 Urine 275 345 Other: Voiding Method Indwelling Catheter Indwelling Catheter - Exam Physical Examination: PHYSICAL EXAMINATION: Patient is resting comfortably in bed. VITAL SIGNS: Blood pressure is [142/65]. Heart rate is [88]. Respiration is [16] . Temperature is [98.7]. HEENT: Head is atraumatic, neck is supple, there were no carotid bruits. CHEST: Lungs are clear to auscultation and percussion. CARDIAC: S1, S2 normal rate and rhythm. There is no murmur. ABDOMEN: Soft and nontender. Bowel sounds are present. EXTREMITIES: There is no pedal edema. Peripheral pulses are present. Neurological examination: Patient remains intubated on the ventilator and is heavily sedated. She is currently on Diprivan. She withdraws to pain overall 4 extremities slightly less in the left upper extremity. Deep tendon reflexes are hypoactive. Plantar responses flexor bilaterally. - Labs CBC & Chem 7: 11/06/17 04:23 11/06/17 04:23 Labs: Abnormal Lab Results - Last 24 Hours (Table) 11/05/17 11/05/17 11/05/17 Range/Units 07:34 08:04 09:02 WBC (3.8-10.6) k/uL MCHC (31.0-37.0) g/dL Neutrophils # (1.3-7.7) k/uL ABG pO2 (83-108) mmHg ABG Total CO2 (19-24) mmol/L ABG O2 Saturation (94-97) % Sodium (137-145) mmol/L BUN (7-17) mg/dL Glucose 158 H (74-99) mg/dL POC Glucose (mg/dL) 167 H 122 H (75-99) mg/dL Calcium (8.4-10.2) mg/dL 11/05/17 11/05/17 11/05/17 Range/Units 09:21 11:59 12:42 WBC (3.8-10.6) k/uL MCHC (31.0-37.0) g/dL Neutrophils # (1.3-7.7) k/uL ABG pO2 (83-108) mmHg ABG Total CO2 (19-24) mmol/L ABG O2 Saturation (94-97) % Sodium (137-145) mmol/L BUN (7-17) mg/dL Glucose (74-99) mg/dL POC Glucose (mg/dL) 118 H 239 H 190 H (75-99) mg/dL Calcium (8.4-10.2) mg/dL 11/05/17 11/05/17 11/06/17 Range/Units 16:14 20:35 00:03 WBC (3.8-10.6) k/uL MCHC (31.0-37.0) g/dL Neutrophils # (1.3-7.7) k/uL ABG pO2 (83-108) mmHg ABG Total CO2 (19-24) mmol/L ABG O2 Saturation (94-97) % Sodium (137-145) mmol/L BUN (7-17) mg/dL Glucose (74-99) mg/dL POC Glucose (mg/dL) 159 H 164 H 119 H (75-99) mg/dL Calcium (8.4-10.2) mg/dL 11/06/17 11/06/17 11/06/17 Range/Units 04:23 04:23 04:23 WBC 13.5 H (3.8-10.6) k/uL MCHC 30.8 L (31.0-37.0) g/dL Neutrophils # 10.3 H (1.3-7.7) k/uL ABG pO2 (83-108) mmHg ABG Total CO2 (19-24) mmol/L ABG O2 Saturation (94-97) % Sodium 135 L (137-145) mmol/L BUN 18 H (7-17) mg/dL Glucose 165 H (74-99) mg/dL POC Glucose (mg/dL) 180 H (75-99) mg/dL Calcium 8.3 L (8.4-10.2) mg/dL 11/06/17 Range/Units 05:07 WBC (3.8-10.6) k/uL MCHC (31.0-37.0) g/dL Neutrophils # (1.3-7.7) k/uL ABG pO2 181 H (83-108) mmHg ABG Total CO2 26 H (19-24) mmol/L ABG O2 Saturation 100.0 H (94-97) % Sodium (137-145) mmol/L BUN (7-17) mg/dL Glucose (74-99) mg/dL POC Glucose (mg/dL) (75-99) mg/dL Calcium (8.4-10.2) mg/dL Microbiology - Last 24 Hours (Table) 11/04/17 20:05 Gram Stain - Preliminary Sputum Sputum Culture - Preliminary Assessment and Plan (1) New onset seizure Current Visit: Yes Status: Acute Code(s): R56.9 - UNSPECIFIED CONVULSIONS SNOMED Code(s): 95209235 (2) Supraventricular tachycardia Current Visit: No Status: Acute Code(s): I47.1 - SUPRAVENTRICULAR TACHYCARDIA SNOMED Code(s): 6404964 (3) Diabetes mellitus Current Visit: Yes Status: Acute Code(s): E11.9 - TYPE 2 DIABETES MELLITUS WITHOUT COMPLICATIONS SNOMED Code(s): 37852384 (4) Hypomagnesemia Current Visit: Yes Status: Acute Code(s): E83.42 - HYPOMAGNESEMIA SNOMED Code(s): 737600783 Plan: This patient is a 72-year-old female who was admitted to the intensive care unit after having a possible seizure at home. The patient apparently was shaking in her upper extremities as was noted by her . She became unresponsive and EMS was called to the home. She was transported to the emergency room at [facility] for further evaluation. She was seen in the ER by Dr. Berry. She was sent for a computed tomography scan of the brain the results of which are noted above. She was intubated and is now being evaluated in the intensive care unit. Patient is showing decreased muscle tone in both upper extremities. Her initial CAT scan of the brain failed to reveal any acute changes. We have recommended a repeat computed tomography scan of the brain to be done today as well as a routine EEG. She has less motion and movement on her right side on examination today. We will continue close neurological follow-up with the patient. She is to continue on Keppra at her current dose and we will await her Keppra blood level and make adjustments as needed. Her Keppra level came back today therapeutic at 14.7. She also underwent routine EEG today which was reviewed. EEG reveals severe slowing with no epileptiform discharges. Her overall prognosis at this time remains very guarded. We will await further weaning parameters as per the instructions of pulmonary medicine. Her overall prognosis at this time remains very guarded. We will continue close neurological follow-up for this patient in the intensive care unit.
[2017-11-06 23:53] LABS: Glucose,Whole Blood 109 mg/dL (75-99)
[2017-11-07] MEDS: PROPOFOL 1,000 MG in EMPTY BAG 1 BAG IV SCH ×2 (01:18→08:05)
[2017-11-07] MEDS: HEPARIN SODIUM,PORCINE 5,000 UNIT/ML 1 ML VIAL SQ SCH ×3 (01:18→17:24)
[2017-11-07] MEDS: IPRATROPIUM-ALBUTEROL 3 ML NEB INHALATION SCH ×5 (03:36→20:19)
[2017-11-07 04:30] LABS: Glucose,Whole Blood 130 mg/dL (75-99)
[2017-11-07] MEDS: INSULIN ASPART 100 UNIT/ML 1 ML 10 ML VIAL SQ SCH ×10 (04:40→20:24)
[2017-11-07 04:59] LABS: Basophils % (A) 0 %; Eosinophils % (A) 1 %; HCT 37.4 % (34.0-46.0); HGB 11.4 gm/dL (11.4-16.0); Hypochromasia Marked; Lymphocytes # (A) 1.7 k/uL (1.0-4.8); Lymphocytes % (A) 20 %; MCH 28.9 pg (25.0-35.0); MCHC 30.4 g/dL (31.0-37.0); MCV 94.9 fL (80.0-100.0); Mean Platelet Volume 8.5; Monocytes # (A) 0.6 k/uL (0-1.0); Monocytes % (A) 7 %; Neutrophils # (A) 5.7 k/uL (1.3-7.7); Neutrophils % (A) 69 %; Platelet Count 170 k/uL (150-450); RBC 3.95 m/uL (3.80-5.40); RDW 13.6 % (11.5-15.5); WBC 8.2 k/uL (3.8-10.6)
[2017-11-07 05:11] LABS: ABG Base Excess 1.8 mmol/L; ABG HCO3 27 mmol/L (21-25); ABG Oxygen Saturation 99.5 % (94-97); ABG PCO2 42 mmHg (35-45); ABG PH 7.41 (7.35-7.45); ABG PO2 140 mmHg (83-108); ABG TCO2 28 mmol/L (19-24)
[2017-11-07 05:13] LABS: Anion Gap 7 mmol/L; Blood Urea Nitrogen 14 mg/dL (7-17); Calcium 8.3 mg/dL (8.4-10.2); Carbon Dioxide 22 mmol/L (22-30); Chloride 111 mmol/L (98-107); Glucose 123 mg/dL (74-99); Magnesium 2.4 mg/dL (1.6-2.3); Phosphorus 2.5 mg/dL (2.5-4.5); Potassium 4.3 mmol/L (3.5-5.1); Sodium 140 mmol/L (137-145)
[2017-11-07] MEDS: LEVOTHYROXINE 100 MCG TAB PO SCH (05:41)
[2017-11-07] MEDS: SODIUM CHLORIDE 0.9% 1,000 ML IV SCH (05:41)
--- NOTE | 2017-11-07 07:18 | XR ---
EXAMINATION TYPE: XR chest 1V DATE OF EXAM: 11/07/2017 COMPARISON: Prior chest x-ray 11/06/2017 HISTORY: Intubated TECHNIQUE: Single frontal view of the chest is obtained. FINDINGS: Endotracheal tube and NG tube are overlying appropriate positions. Patient is rotated. No evident pneumothorax or sizable effusion. Patchy basilar density is present, lung volumes are low. Ca rdiac mediastinal silhouette, pulmonary vascularity and rogelio are stable. IMPRESSION: Basilar atelectasis. Expiratory rotated exam. Suspect cardiomegaly. Follow-up recommende d.
--- NOTE | 2017-11-07 08:31 | P.PN ---
Subjective Progress Note Date: 11/07/17 This 72-year-old female patient came into the emergency department because of altered mentation a few days duration ultimately she was found to have seizure activity as the patient had 2 bouts of seizure lasting 5 minutes each. She was in the hospital earlier for SVT and she had a cardiac workup that came back negative for coronary artery disease. She is known to have diabetes, hypertension, hyperlipidemia and COPD and obstructive sleep apnea. No history of substance abuse The patient is currently intubated on a mechanical ventilator. She is on sedation. Earlier this morning she was given a sedation holiday following which she was able to open up her eyes and she was not following any specific commands. A repeat CAT scan of the brain was done and it showed age-related atrophy without any acute abnormalities. No evidence of any infarcts or masses. Carotid Doppler was also done and it was suboptimal study and lesions cannot be completely ruled out. There was an asymmetric focal calcified plaque in the right carotid bulb. EEG of the brain is to follow and the patient is currently on Keppra. No further seizure activity has been noted. Patient remains on mechanical ventilator. This morning she is an assist-control mode of ventilation at the rate of 16, tidal volume of 400 and FiO2 of 50% and a PEEP of 5. The blood gases showed a pH of 7.38 with a pCO2 of 41 and pO2 of 181 and based on that the FiO2 is up to 40%. Chest x-ray showing some minimal right basilar atelectatic change in the urine analysis was quite abnormal with abnormalities to suggest UTI. Based on that the patient was started on IV Unasyn as an empiric antibiotic coverage covering for aspiration pneumonia and urine checked infections. She is afebrile for now. No neck stiffness. No significant leukocytosis at this point in time. Hemodynamically stable on no pressors. On 11/07/2017, patient is being seen in follow-up. This morning the patient sedated with Diprivan at 30 mics and she is hemodynamically stable. She is well sedated in the process of doing his sedation holiday. The patient did not witnessed to have any further seizures here in the ICU. EEG was done and showed diffuse slowing without any epileptic foci and the patient is currently on Keppra. A repeat CAT scan of the brain was done that showed no acute abnormalities. Doppler of the carotids was suboptimal. The patient is not having any fever. No neck stiffness. No seizure activity has been noted. She is resting comfortably in bed as the patient is was sedated with Diprivan. She is on a mechanical ventilator on assist control mode at the rate of 16 with a tidal volume of 400 and FiO2 of 40% and PEEP of 5. Morning blood gases showed a pH of 7.41 with a pCO2 of 42 and pO2 140. The sputum culture is pending. Blood cultures still pending and the patient is still covered with empiric antibiotic coverage with IV Unasyn. The patient is producing adequate amount of urine output. The neck fluid balance over the past 24 hours is +750 mL. No significant leukocytosis. Rest of the blood work and electrolytes all within normal limits. Chest x-ray showing some limited right basilar pulmonary infiltrates probably rates aspiration pneumonia. She is afebrile. She is tolerating her tube feeds. Blood sugars are under good control for now and there are no other significant events overnight. Objective - Vital Signs Vital signs: Vital Signs Temp 98.5 F 11/07/17 04:00 Pulse 79 11/07/17 08:02 Resp 16 11/07/17 07:00 BP 93/48 11/07/17 07:00 Pulse Ox 100 11/07/17 07:00 Intake & Output 11/06/17 11/07/17 11/07/17 18:59 06:59 18:59 Intake Total 390.240 5340.000 Output Total 997 475 Balance -337.202 965.000 Weight 82 kg Intake: IV 500 850 Ampicillin-Sulbactam 3 gm 100 In Sodium Chloride 0.9% 100 ml @ 100 mls/hr IVPB Q12HR [facility] Rx#:[id number] D5-0.45% NaCl with KCl 100 20Meq/l 1,000 ml @ 150 mls/hr IV .Q6H40M [facility] Rx# :[id number] Sodium Chloride 0.9% 1, 400 650 000 ml @ 50 mls/hr IV . Q20H [facility] Rx#:[id number] levETIRAcetam IV 750 mg 100 In Sodium Chloride 0.9% 100 ml @ 400 mls/hr IVPB Q12HR [facility] Rx#:[id number] Intake, IV Titration 119.798 100.000 Amount Propofol 1,000 mg In 119.798 100.000 Empty Bag 1 bag @ Titrate IV .Q0M [facility] Rx#: [id number] Tube Feeding 40 370 Other 120 Output: Urine 997 475 Other: Voiding Method Indwelling Catheter Indwelling Catheter - Exam Gen. appearance, comfortable intubated on a mechanical ventilator and orogastric and orotracheal tube are both in place. Head exam was generally normal. There was no scleral icterus or corneal arcus. Mucous membranes were moist. Neck was supple and without jugular venous distension, thyromegaly, or carotid bruits. Carotids were easily palpable bilaterally. There was no adenopathy. Lungs were clear to auscultation and percussion, and with normal diaphragmatic excursion. No wheezes or rales were noted. Cardiac exam revealed the PMI to be normally situated and sized. The rhythm was regular and no extrasystoles were noted during several minutes of auscultation. The first and second heart sounds were normal and physiologic splitting of the second heart sound was noted. There were no murmurs, rubs, clicks, or gallops. Abdominal exam revealed normal bowel sounds. The abdomen was soft, non-tender, and without masses, organomegaly, or appreciable enlargement of the abdominal aorta. Examination of the extremities revealed easily palpable radial, femoral and pedal pulses. There was no cyanosis, clubbing or edema. Examination of the skin revealed no evidence of significant rashes, suspicious appearing nevi or other concerning lesions. Neurologic exam shows that the patient is sedated with Diprivan. Withdraws only to deep painful stimulation. While going to proceed with a sedation holiday and reevaluate her mental status this morning. - Labs CBC & Chem 7: 11/07/17 03:53 11/07/17 03:53 Labs: Abnormal Lab Results - Last 24 Hours (Table) 11/05/17 11/06/17 11/06/17 Range/Units 04:29 09:41 15:20 MCHC (31.0-37.0) g/dL ABG pO2 (83-108) mmHg ABG HCO3 (21-25) mmol/L ABG Total CO2 (19-24) mmol/L ABG O2 Saturation (94-97) % Chloride (98-107) mmol/L Glucose (74-99) mg/dL POC Glucose (mg/dL) 73 L (75-99) mg/dL Hemoglobin A1c 6.8 H (4.0-6.0) % Calcium (8.4-10.2) mg/dL Magnesium (1.6-2.3) mg/dL Urine Appearance Cloudy H (Clear) Urine Protein 1+ H (Negative) Urine Blood Large H (Negative) Ur Leukocyte Esterase Moderate H (Negative) Urine RBC >182 H (0-5) /hpf Urine WBC 38 H (0-5) /hpf Urine Mucus Rare H (None) /hpf 11/06/17 11/06/17 11/07/17 Range/Units 20:05 23:51 03:53 MCHC 30.4 L (31.0-37.0) g/dL ABG pO2 (83-108) mmHg ABG HCO3 (21-25) mmol/L ABG Total CO2 (19-24) mmol/L ABG O2 Saturation (94-97) % Chloride (98-107) mmol/L Glucose (74-99) mg/dL POC Glucose (mg/dL) 140 H 109 H (75-99) mg/dL Hemoglobin A1c (4.0-6.0) % Calcium (8.4-10.2) mg/dL Magnesium (1.6-2.3) mg/dL Urine Appearance (Clear) Urine Protein (Negative) Urine Blood (Negative) Ur Leukocyte Esterase (Negative) Urine RBC (0-5) /hpf Urine WBC (0-5) /hpf Urine Mucus (None) /hpf 11/07/17 11/07/17 11/07/17 Range/Units 03:53 04:29 05:10 MCHC (31.0-37.0) g/dL ABG pO2 140 H (83-108) mmHg ABG HCO3 27 H (21-25) mmol/L ABG Total CO2 28 H (19-24) mmol/L ABG O2 Saturation 99.5 H (94-97) % Chloride 111 H (98-107) mmol/L Glucose 123 H (74-99) mg/dL POC Glucose (mg/dL) 130 H (75-99) mg/dL Hemoglobin A1c (4.0-6.0) % Calcium 8.3 L (8.4-10.2) mg/dL Magnesium 2.4 H (1.6-2.3) mg/dL Urine Appearance (Clear) Urine Protein (Negative) Urine Blood (Negative) Ur Leukocyte Esterase (Negative) Urine RBC (0-5) /hpf Urine WBC (0-5) /hpf Urine Mucus (None) /hpf Microbiology - Last 24 Hours (Table) 11/06/17 09:41 Urine Culture - Preliminary Urine,Catheterized Assessment and Plan Plan: Assessment 1 altered mentation probably related to seizure activity. The patient had 2 bouts of seizure in the emergency department. Repeat CAT scan over 24-hour period is negative. No further seizure activity has been noted. The patient is on IV Keppra. EEG was noted and there is no ongoing epileptic discharge. The patient is well sedated with Diprivan and, comfortable still on a mechanical ventilator at this point in time. 2 altered mentation secondary to above, being followed very closely and the patient will be given a sedation holiday 3 acute respiratory failure, nonhypoxic, and the patient was intubated to protect the airways. Currently there is a suspicion for underlying right lower lobe aspiration pneumonia, currently on IV Unasyn 4 recent hospitalization for SVT discharged home on beta blockers and the patient has a normal cardiac catheterization and normal echocardiogram 5 diabetes mellitus 6 hypertension 7 hyperlipidemia 8 obstructive sleep apnea noncompliant to CPAP therapy 9 acid reflux 10 suspected UTI, awaiting cultures Plan Continue vent support. Proceed with a sedation holiday. Assessment underlying mental status. Continue IV Unasyn. Continue IV Keppra. Possible extubation today the patient is ready to wean and she demonstrates adequate mentation and neurologic function without any seizure activity or any agitation. If neurologically appropriate, the patient could potentially extubated today. This will be decided at a later stage based on the sedation holiday and based on her readiness to wean. Continue IV Unasyn. IV Keppra. Continue rest of the treatment will continue to follow. Further recommendations are to follow. Critically care evaluation more than 30 minutes.
[2017-11-07] MEDS: FAMOTIDINE 20 MG/2 ML VIAL IV SCH ×2 (09:42→20:40)
[2017-11-07] MEDS: levETIRAcetam IV 750 MG in SODIUM CHLORIDE 0.9% 100 ML IVPB SCH ×2 (09:42→20:25)
[2017-11-07] MEDS: CHLORHEXIDINE GLUCONATE 15 ML CUP MUCOUS MEM SCH (09:43)
[2017-11-07] MEDS: AMPICILLIN-SULBACTAM 3 GM in SODIUM CHLORIDE 0.9% 100 ML IVPB SCH ×2 (09:54→20:24)
--- NOTE | 2017-11-07 10:36 | P.PN ---
Subjective Progress Note Date: 11/07/17 Sabine Hagen is a 72-year-old female who presented to [facility] emergency room via EMS after being noticed at home by her to be an responsive and having shaking in her extremities she was evaluated in the emergency room and was thought to have seizure activity she was given IV Ativan , and was started on IV Keppra, she was intubated and sedated for airway protection and was admitted to intensive care unit, computed tomography scan of the brain without contrast done in the emergency room did not reveal any evidence of intracranial hemorrhage or midline shift there was age-related cerebral atrophy and chronic small vessel ischemic changes, labs in the emergency room revealed evidence of leukocytosis with white blood count of 13.2 and elevated ammonia level of 62. Otherwise kidney function and liver function were within normal limits. Chest x-ray revealed left basilar infiltrate computed tomography scan of the chest abdomen and pelvis was done in the emergency room, and revealed by basilar infiltrate left greater than right otherwise no abnormality seen. Currently patient is admitted to intensive care unit, she is intubated sedated maintained on mechanical ventilation, and son are at the bedside, and history and review of system was done with them. stated that patient has been feeling tired recently, he left her at home laying down he was away for about 2 hours when he came back she was unresponsive and having shaking in her upper extremities, he called EMS and patient was brought into emergency room , patient has a known history of hypertension, diabetes mellitus, and hyperlipidemia no previous history of stroke or seizure in the past no history of coronary artery disease and no history of liver disease. On 11/06/2017 patient remains on mechanical ventilation in the intensive care unit. Per nursing staff patient has scheduled EEG and repeat CT of head today per neurology. Patient currently remains on 20mcg of diprivan. Patient followed by critical care , neurology and cardiology. Blood, urine and sputum cultures have been ordered patient started on Unasyn for critical care. Chest x -ray completed. At this point patient not making any purposeful movement or following commands. On 11/07/2017 patient has been extubated. Patient remains in the intensive care unit. Patient is awake and does follow some commands. No further seizure activity has been noted. Chest x-ray completed showing basilar atelectasis. Expiratory rotated exam. Suspect cardiomegaly. Patient currently on nasal cannula 3 L. Patient does deny any chest pain or shortness of breath. Critical team following closely. Objective - Vital Signs Vital signs: Vital Signs Temp 98.5 F 11/07/17 04:00 Pulse 79 11/07/17 08:02 Resp 16 11/07/17 07:00 BP 93/48 11/07/17 07:00 Pulse Ox 100 11/07/17 07:00 Intake & Output 11/06/17 11/07/17 11/07/17 18:59 06:59 18:59 Intake Total 855.196 8366.000 103.075 Output Total 997 475 Balance -337.202 965.000 103.075 Weight 82 kg Intake: IV 500 850 Ampicillin-Sulbactam 3 gm 100 In Sodium Chloride 0.9% 100 ml @ 100 mls/hr IVPB Q12HR [facility] Rx#:[id number] D5-0.45% NaCl with KCl 100 20Meq/l 1,000 ml @ 150 mls/hr IV .Q6H40M [facility] Rx# :[id number] Sodium Chloride 0.9% 1, 400 650 000 ml @ 50 mls/hr IV . Q20H [facility] Rx#:[id number] levETIRAcetam IV 750 mg 100 In Sodium Chloride 0.9% 100 ml @ 400 mls/hr IVPB Q12HR [facility] Rx#:[id number] Intake, IV Titration 119.798 100.000 103.075 Amount Propofol 1,000 mg In 119.798 100.000 103.075 Empty Bag 1 bag @ Titrate IV .Q0M [facility] Rx#: [id number] Tube Feeding 40 370 Other 120 Output: Urine 997 475 Other: Voiding Method Indwelling Catheter Indwelling Catheter - Exam Head normocephalic Neck supple Lungs expiratory wheezes Heart regular rate and rhythm S1-S2, no rub or gallop Abdomen is soft nontender nondistended positive bowel sounds no hepatosplenomegaly Extremities no edema Neuro patient remains on sedation. no purposeful movements at this time - Labs CBC & Chem 7: 11/07/17 03:53 11/07/17 03:53 Labs: Abnormal Lab Results - Last 24 Hours (Table) 11/05/17 11/06/17 11/06/17 Range/Units 04:29 15:20 20:05 MCHC (31.0-37.0) g/dL ABG pO2 (83-108) mmHg ABG HCO3 (21-25) mmol/L ABG Total CO2 (19-24) mmol/L ABG O2 Saturation (94-97) % Chloride (98-107) mmol/L Glucose (74-99) mg/dL POC Glucose (mg/dL) 73 L 140 H (75-99) mg/dL Hemoglobin A1c 6.8 H (4.0-6.0) % Calcium (8.4-10.2) mg/dL Magnesium (1.6-2.3) mg/dL 11/06/17 11/07/17 11/07/17 Range/Units 23:51 03:53 03:53 MCHC 30.4 L (31.0-37.0) g/dL ABG pO2 (83-108) mmHg ABG HCO3 (21-25) mmol/L ABG Total CO2 (19-24) mmol/L ABG O2 Saturation (94-97) % Chloride 111 H (98-107) mmol/L Glucose 123 H (74-99) mg/dL POC Glucose (mg/dL) 109 H (75-99) mg/dL Hemoglobin A1c (4.0-6.0) % Calcium 8.3 L (8.4-10.2) mg/dL Magnesium 2.4 H (1.6-2.3) mg/dL 11/07/17 11/07/17 Range/Units 04:29 05:10 MCHC (31.0-37.0) g/dL ABG pO2 140 H (83-108) mmHg ABG HCO3 27 H (21-25) mmol/L ABG Total CO2 28 H (19-24) mmol/L ABG O2 Saturation 99.5 H (94-97) % Chloride (98-107) mmol/L Glucose (74-99) mg/dL POC Glucose (mg/dL) 130 H (75-99) mg/dL Hemoglobin A1c (4.0-6.0) % Calcium (8.4-10.2) mg/dL Magnesium (1.6-2.3) mg/dL Microbiology - Last 24 Hours (Table) 11/04/17 20:05 Gram Stain - Final Sputum Sputum Culture - Final Haemophilus influenzae 11/06/17 09:41 Urine Culture - Preliminary Urine,Catheterized Assessment and Plan Assessment: #1 new-onset seizure with status epilepticus, no evidence of seizure at this time, patient received IV Ativan and is maintained on IV Keppra. Neurology services are following. Repeat CT of the head and EEG have been ordered. Patient remains intubated and on Diprivan for sedation. Carotid Doppler has been ordered per critical care. Repeat CT of head completed showing age- related atrophy. Neurology services are following. Patient remains on Keppra. Carotid Doppler study completed. Cannot exclude significant stenosis visualized portion of proximal right internal carotid artery. There is asymmetric focal classified plaque right carotid bulb on noncontrast CT 2017. Advise further investigation with CT of the neck to exclude significant stenosis at this level. #2 acute respiratory failure requiring intubation and mechanical ventilation. Chest x-ray completed same showing cardiomegaly with worsening right medial basilar atelectasis and/or infiltrate and stable patchy left medial basal atelectasis and/or infiltrate noted. Dr. Ambriz per pulmonary and critical care service is following. Patient started on Unasyn IV antibiotic. Chest x- ray completed showing basilar atelectasis. Expiratory rotated exam. Suspect cardiomegaly 11/07 patient has been extubated to 3 L nasal cannula. #3 underlying history of hypertension #4 underlying history of diabetes mellitus #5 underlying history of COPD #6 underlying history of obstructive sleep apnea #7 evidence of lung infiltrates bibasilar left more than right maintained on IV antibiotic possible aspiration pneumonia #8 previous history of supraventricular tachycardia. Questionable arrhythmia down in emergency room on admission. Cardiology services following. #9 recent cardiac catheterization which were within normal limits #10 leukocytosis. WBC 13.5. temp 99.5. Sputum, urine and blood cultures have been ordered patient on Unasyn IV antibiotic. UA completed showing moderate amount of leukocyte Estrace. #11 hypomagnesium. Magnesium 1.1 on admission. Resolved DVT prophylaxis heparin. GI prophylaxis Pepcid I performed an examination of the patient and discussed their management with the Nurse Practitioner. I have reviewed the Nurse Practitioner's notes and agree with the documented findings and plan of care
[2017-11-07 12:17] LABS: Glucose,Whole Blood 165 mg/dL (75-99)
[2017-11-07 12:25] LABS: Glucose,Whole Blood 101 mg/dL (75-99)
[2017-11-07] MEDS: METOPROLOL TARTRATE 25 MG TAB PO SCH ×2 (14:26→20:25)
[2017-11-07 17:22] LABS: Glucose,Whole Blood 129 mg/dL (75-99)
[2017-11-07 20:12] LABS: Glucose,Whole Blood 114 mg/dL (75-99)
[2017-11-07] MEDS ORDERED: IPRATROPIUM-ALBUTEROL 3 ML NEB INHALATION PRN (20:30)
[2017-11-07 23:47] LABS: Glucose,Whole Blood 109 mg/dL (75-99)
--- NOTE | 2017-11-07 23:48 | P.PN ---
Subjective Progress Note Date: 11/07/17 This patient is examined in the Intensive Care unit for evaluation of seizure disorder. The patient was extubated today successfully and is now resting comfortably in the ICU. She is very hard of hearing but does answer questions appropriately today. She is currently on Keppra monotherapy for seizure prophylaxis. Her Keppra level was completed and is therapeutic at 14.7. She underwent a routine EEG today which was reviewed and is moderately slow with early signs of burst suppression pattern. We will need to continue close monitoring of this patient over the next 72 hours. We will see if she shows signs of improvement in her overall mental status. Her EEG failed to reveal any epileptiform discharges. The patient does show significant improvement in her mental status today following extubation. As noted she is to continue on her current dose of Keppra 750 mg IV piggyback every 12 hours. Her Keppra level done today was therapeutic at 14.7. The patient is noted to have some pulmonary secretions but apparently is been doing fine with nasal oxygen. Patient did undergo a repeat computed tomography scan of the brain yesterday which revealed age related atrophy. The patient has no previous history of seizures or head injury. She is being treated I cardiology for episode of SVT. She is much more awake and alert today in the ICU and we will await [facility]. Hopefully she'll be able to be discharged out of the ICU to selective care tomorrow. There was no evidence of any acute stroke or hemorrhage. We will continue close neurological follow-up with this patient in the intensive care unit. We have discussed all of her current exam results and test results with the patient in detail. She was fully updated and we will continue close neurological follow- up for this patient. Her overall prognosis at this time remains guarded. Objective - Vital Signs Vital signs: Vital Signs Temp 98.0 F 11/07/17 16:00 Pulse 100 11/07/17 19:00 Resp 26 H 11/07/17 19:00 BP 140/55 11/07/17 19:00 Pulse Ox 94 L 11/07/17 19:00 Intake & Output 11/07/17 11/07/17 11/08/17 06:59 18:59 06:59 Intake Total 1440.000 843.075 50 Output Total 475 720 50 Balance 965.000 123.075 0 Weight 82 kg Intake: IV 850 700 50 Ampicillin-Sulbactam 3 gm 100 100 In Sodium Chloride 0.9% 100 ml @ 100 mls/hr IVPB Q12HR [facility] Rx#:[id number] Sodium Chloride 0.9% 1, 650 500 50 000 ml @ 50 mls/hr IV . Q20H [facility] Rx#:[id number] levETIRAcetam IV 750 mg 100 100 In Sodium Chloride 0.9% 100 ml @ 400 mls/hr IVPB Q12HR [facility] Rx#:[id number] Intake, IV Titration 100.000 103.075 Amount Propofol 1,000 mg In 100.000 103.075 Empty Bag 1 bag @ Titrate IV .Q0M [facility] Rx#: [id number] Tube Feeding 370 40 Other 120 Output: Urine 475 720 50 Other: Voiding Method Indwelling Catheter Indwelling Catheter - Labs CBC & Chem 7: 11/07/17 03:53 11/07/17 03:53 Labs: Abnormal Lab Results - Last 24 Hours (Table) 11/06/17 11/06/17 11/07/17 Range/Units 20:05 23:51 03:53 MCHC 30.4 L (31.0-37.0) g/dL ABG pO2 (83-108) mmHg ABG HCO3 (21-25) mmol/L ABG Total CO2 (19-24) mmol/L ABG O2 Saturation (94-97) % Chloride (98-107) mmol/L Glucose (74-99) mg/dL POC Glucose (mg/dL) 140 H 109 H (75-99) mg/dL Calcium (8.4-10.2) mg/dL Magnesium (1.6-2.3) mg/dL 11/07/17 11/07/17 11/07/17 Range/Units 03:53 04:29 05:10 MCHC (31.0-37.0) g/dL ABG pO2 140 H (83-108) mmHg ABG HCO3 27 H (21-25) mmol/L ABG Total CO2 28 H (19-24) mmol/L ABG O2 Saturation 99.5 H (94-97) % Chloride 111 H (98-107) mmol/L Glucose 123 H (74-99) mg/dL POC Glucose (mg/dL) 130 H (75-99) mg/dL Calcium 8.3 L (8.4-10.2) mg/dL Magnesium 2.4 H (1.6-2.3) mg/dL 11/07/17 11/07/17 11/07/17 Range/Units 09:33 12:11 17:21 MCHC (31.0-37.0) g/dL ABG pO2 (83-108) mmHg ABG HCO3 (21-25) mmol/L ABG Total CO2 (19-24) mmol/L ABG O2 Saturation (94-97) % Chloride (98-107) mmol/L Glucose (74-99) mg/dL POC Glucose (mg/dL) 165 H 101 H 129 H (75-99) mg/dL Calcium (8.4-10.2) mg/dL Magnesium (1.6-2.3) mg/dL Microbiology - Last 24 Hours (Table) 11/06/17 10:46 Blood Culture - Preliminary Blood No Growth after 24 hours 11/06/17 09:40 Blood Culture - Preliminary Blood No Growth after 24 hours 11/06/17 09:41 Urine Culture - Final Urine,Catheterized 11/04/17 20:05 Gram Stain - Final Sputum Sputum Culture - Final Haemophilus influenzae Assessment and Plan (1) New onset seizure Current Visit: Yes Status: Acute Code(s): R56.9 - UNSPECIFIED CONVULSIONS SNOMED Code(s): 01763739 (2) Supraventricular tachycardia Current Visit: No Status: Acute Code(s): I47.1 - SUPRAVENTRICULAR TACHYCARDIA SNOMED Code(s): 2081969 (3) Diabetes mellitus Current Visit: Yes Status: Acute Code(s): E11.9 - TYPE 2 DIABETES MELLITUS WITHOUT COMPLICATIONS SNOMED Code(s): 84060342 (4) Hypomagnesemia Current Visit: Yes Status: Acute Code(s): E83.42 - HYPOMAGNESEMIA SNOMED Code(s): 453309336 Plan: This patient is a 72-year-old female who was admitted to the intensive care unit after having a possible seizure at home. The patient apparently was shaking in her upper extremities as was noted by her . She became unresponsive and EMS was called to the home. She was transported to the emergency room at [facility] for further evaluation. She was seen in the ER by Dr. Berry. She was sent for a computed tomography scan of the brain the results of which are noted above. She was intubated and is now being evaluated in the intensive care unit. Patient is showing decreased muscle tone in both upper extremities. Her initial CAT scan of the brain failed to reveal any acute changes. We have recommended a repeat computed tomography scan of the brain to be done today as well as a routine EEG. Patient did have repeat computed tomography scan of the brain which fails to reveal any evidence of acute stroke. She has less motion and movement on her right side on examination today. We will continue close neurological follow-up with the patient. She is to continue on Keppra at her current dose and we will await her Keppra blood level and make adjustments as needed. Her Keppra level came back today therapeutic at 14.7. She also underwent routine EEG today which was reviewed. EEG reveals severe slowing with no epileptiform discharges. Her overall prognosis at this time remains very guarded. Patient is to be maintained on current dose of Keppra for secondary seizure prophylaxis. We did review the results of her recent EEG with the patient as she is much more verbal today. She seems to tolerate the extubation well today. We will continue close neurological follow-up with this patient in the ICU setting. Her overall prognosis at this time remains very guarded. We will continue close neurological follow-up for this patient in the intensive care unit.
[2017-11-08] MEDS: INSULIN ASPART 100 UNIT/ML 1 ML 10 ML VIAL SQ SCH ×10 (00:21→21:59)
[2017-11-08] MEDS: INSULIN DETEMIR 100 UNIT/ML 10 ML VIAL SQ SCH (00:21)
[2017-11-08] MEDS: HEPARIN SODIUM,PORCINE 5,000 UNIT/ML 1 ML VIAL SQ SCH ×4 (00:22→22:00)
[2017-11-08] MEDS: SODIUM CHLORIDE 0.9% 1,000 ML IV SCH ×2 (02:00→20:53)
[2017-11-08 04:47] LABS: Glucose,Whole Blood 116 mg/dL (75-99)
[2017-11-08 05:16] LABS: Basophils % (A) 0 %; Eosinophils # (A) 0.1 k/uL (0-0.7); Eosinophils % (A) 1 %; HCT 35.8 % (34.0-46.0); HGB 10.8 gm/dL (11.4-16.0); Hypochromasia Marked; Lymphocytes # (A) 1.5 k/uL (1.0-4.8); Lymphocytes % (A) 20 %; MCH 28.5 pg (25.0-35.0); MCHC 30.1 g/dL (31.0-37.0); MCV 94.6 fL (80.0-100.0); Mean Platelet Volume 7.3; Monocytes # (A) 0.5 k/uL (0-1.0); Monocytes % (A) 6 %; Neutrophils # (A) 5.6 k/uL (1.3-7.7); Neutrophils % (A) 71 %; Platelet Count 246 k/uL (150-450); RBC 3.78 m/uL (3.80-5.40); RDW 13.4 % (11.5-15.5); WBC 7.9 k/uL (3.8-10.6)
[2017-11-08 05:41] LABS: Anion Gap 5 mmol/L; Blood Urea Nitrogen 12 mg/dL (7-17); Calcium 8.8 mg/dL (8.4-10.2); Carbon Dioxide 26 mmol/L (22-30); Chloride 110 mmol/L (98-107); Glucose 120 mg/dL (74-99); Magnesium 1.9 mg/dL (1.6-2.3); Phosphorus 2.9 mg/dL (2.5-4.5); Potassium 4.3 mmol/L (3.5-5.1); Sodium 141 mmol/L (137-145)
[2017-11-08] MEDS: LEVOTHYROXINE 100 MCG TAB PO SCH (06:34)
[2017-11-08 08:14] LABS: Glucose,Whole Blood 134 mg/dL (75-99)
[2017-11-08] MEDS: IPRATROPIUM-ALBUTEROL 3 ML NEB INHALATION SCH ×4 (08:38→19:30)
[2017-11-08] MEDS: FAMOTIDINE 20 MG/2 ML VIAL IV SCH ×2 (09:02→20:52)
[2017-11-08] MEDS: AMPICILLIN-SULBACTAM 3 GM in SODIUM CHLORIDE 0.9% 100 ML IVPB SCH ×2 (09:02→21:59)
[2017-11-08] MEDS: levETIRAcetam IV 750 MG in SODIUM CHLORIDE 0.9% 100 ML IVPB SCH ×2 (09:02→20:52)
[2017-11-08] MEDS: MAGNESIUM SULFATE-D5W PMX 1 GM in DEXTROSE/WATER 1 100ML.BAG IVPB SCH ×2 (09:06→12:59)
[2017-11-08] MEDS: METOPROLOL TARTRATE 25 MG TAB PO SCH ×2 (09:07→20:52)
--- NOTE | 2017-11-08 11:27 | P.PN ---
Subjective Progress Note Date: 11/08/17 Sabine Hagen is a 72-year-old female who presented to [facility] emergency room via EMS after being noticed at home by her to be an responsive and having shaking in her extremities she was evaluated in the emergency room and was thought to have seizure activity she was given IV Ativan , and was started on IV Keppra, she was intubated and sedated for airway protection and was admitted to intensive care unit, computed tomography scan of the brain without contrast done in the emergency room did not reveal any evidence of intracranial hemorrhage or midline shift there was age-related cerebral atrophy and chronic small vessel ischemic changes, labs in the emergency room revealed evidence of leukocytosis with white blood count of 13.2 and elevated ammonia level of 62. Otherwise kidney function and liver function were within normal limits. Chest x-ray revealed left basilar infiltrate computed tomography scan of the chest abdomen and pelvis was done in the emergency room, and revealed by basilar infiltrate left greater than right otherwise no abnormality seen. Currently patient is admitted to intensive care unit, she is intubated sedated maintained on mechanical ventilation, and son are at the bedside, and history and review of system was done with them. stated that patient has been feeling tired recently, he left her at home laying down he was away for about 2 hours when he came back she was unresponsive and having shaking in her upper extremities, he called EMS and patient was brought into emergency room , patient has a known history of hypertension, diabetes mellitus, and hyperlipidemia no previous history of stroke or seizure in the past no history of coronary artery disease and no history of liver disease. On 11/06/2017 patient remains on mechanical ventilation in the intensive care unit. Per nursing staff patient has scheduled EEG and repeat CT of head today per neurology. Patient currently remains on 20mcg of diprivan. Patient followed by critical care , neurology and cardiology. Blood, urine and sputum cultures have been ordered patient started on Unasyn for critical care. Chest x -ray completed. At this point patient not making any purposeful movement or following commands. On 11/07/2017 patient has been extubated. Patient remains in the intensive care unit. Patient is awake and does follow some commands. No further seizure activity has been noted. Chest x-ray completed showing basilar atelectasis. Expiratory rotated exam. Suspect cardiomegaly. Patient currently on nasal cannula 3 L. Patient does deny any chest pain or shortness of breath. Critical team following closely. On 11/08/2017 patient is currently resting comfortably in bed on 3 L nasal cannula. Patient remains in the intensive care unit. Patient is awake and alert following commands. Patient is extremely hard of hearing making full neuro exam difficult. Patient denies chest pain or shortness of breath. Denies any nausea vomiting or diarrhea. Objective - Vital Signs Vital signs: Vital Signs Temp 98.6 F 11/08/17 04:00 Pulse 99 11/08/17 08:49 Resp 17 11/08/17 07:00 BP 133/54 11/08/17 07:00 Pulse Ox 97 11/08/17 07:00 Intake & Output 11/07/17 11/08/17 11/08/17 18:59 06:59 18:59 Intake Total 843.075 800 Output Total 720 580 30 Balance 123.075 220 -30 Weight 82 kg 85.4 kg Intake: IV 700 800 Ampicillin-Sulbactam 3 gm 100 100 In Sodium Chloride 0.9% 100 ml @ 100 mls/hr IVPB Q12HR [facility] Rx#:[id number] Sodium Chloride 0.9% 1, 500 600 000 ml @ 50 mls/hr IV . Q20H [facility] Rx#:[id number] levETIRAcetam IV 750 mg 100 100 In Sodium Chloride 0.9% 100 ml @ 400 mls/hr IVPB Q12HR [facility] Rx#:[id number] Intake, IV Titration 103.075 Amount Propofol 1,000 mg In 103.075 Empty Bag 1 bag @ Titrate IV .Q0M [facility] Rx#: [id number] Tube Feeding 40 Output: Urine 720 580 30 Other: Voiding Method Indwelling Catheter Indwelling Catheter - Exam Head normocephalic Neck supple Lungs expiratory wheezes Heart regular rate and rhythm S1-S2, no rub or gallop Abdomen is soft nontender nondistended positive bowel sounds no hepatosplenomegaly Extremities no edema Neuro patient remains on sedation. no purposeful movements at this time - Labs CBC & Chem 7: 11/08/17 04:21 11/08/17 04:21 Labs: Abnormal Lab Results - Last 24 Hours (Table) 11/07/17 11/07/17 11/07/17 Range/Units 09:33 12:11 17:21 RBC (3.80-5.40) m/uL Hgb (11.4-16.0) gm/dL MCHC (31.0-37.0) g/dL Chloride (98-107) mmol/L Glucose (74-99) mg/dL POC Glucose (mg/dL) 165 H 101 H 129 H (75-99) mg/dL 11/07/17 11/07/17 11/08/17 Range/Units 20:11 23:46 04:21 RBC 3.78 L (3.80-5.40) m/uL Hgb 10.8 L (11.4-16.0) gm/dL MCHC 30.1 L (31.0-37.0) g/dL Chloride (98-107) mmol/L Glucose (74-99) mg/dL POC Glucose (mg/dL) 114 H 109 H (75-99) mg/dL 11/08/17 11/08/17 11/08/17 Range/Units 04:21 04:45 08:07 RBC (3.80-5.40) m/uL Hgb (11.4-16.0) gm/dL MCHC (31.0-37.0) g/dL Chloride 110 H (98-107) mmol/L Glucose 120 H (74-99) mg/dL POC Glucose (mg/dL) 116 H 134 H (75-99) mg/dL Microbiology - Last 24 Hours (Table) 11/06/17 10:46 Blood Culture - Preliminary Blood No Growth after 24 hours 11/06/17 09:40 Blood Culture - Preliminary Blood No Growth after 24 hours 11/06/17 09:41 Urine Culture - Final Urine,Catheterized 11/04/17 20:05 Gram Stain - Final Sputum Sputum Culture - Final Haemophilus influenzae Assessment and Plan Assessment: #1 new-onset seizure with status epilepticus, no evidence of seizure at this time, patient received IV Ativan and is maintained on IV Keppra. Neurology services are following. Repeat CT of the head and EEG have been ordered. Patient remains intubated and on Diprivan for sedation. Carotid Doppler has been ordered per critical care. Repeat CT of head completed showing age- related atrophy. Neurology services are following. Patient remains on Keppra. Carotid Doppler study completed. Cannot exclude significant stenosis visualized portion of proximal right internal carotid artery. There is asymmetric focal classified plaque right carotid bulb on noncontrast CT 2017. Advise further investigation with CT of the neck to exclude significant stenosis at this level. Patient remains on Keppra. No seizure activity recently noted. EKG performed reveals severe slowing with no epileptiform discharges. Neurology continues to follow patient #2 acute respiratory failure requiring intubation and mechanical ventilation. Chest x-ray completed same showing cardiomegaly with worsening right medial basilar atelectasis and/or infiltrate and stable patchy left medial basal atelectasis and/or infiltrate noted. Dr. Ambriz per pulmonary and critical care service is following. Patient started on Unasyn IV antibiotic. Chest x- ray completed showing basilar atelectasis. Expiratory rotated exam. Suspect cardiomegaly 11/07 patient has been extubated to 3 L nasal cannula. #3 underlying history of hypertension #4 underlying history of diabetes mellitus #5 underlying history of COPD #6 underlying history of obstructive sleep apnea #7 evidence of lung infiltrates bibasilar left more than right maintained on IV antibiotic possible aspiration pneumonia #8 previous history of supraventricular tachycardia. Questionable arrhythmia down in emergency room on admission. Cardiology services following. #9 recent cardiac catheterization which were within normal limits #10 leukocytosis. WBC 13.5. temp 99.5. Sputum, urine and blood cultures have been ordered patient on Unasyn IV antibiotic. UA completed showing moderate amount of leukocyte Estrace. Sputum positive for Haemophilus influenae. Urine and blood cultures negative. Patient remains on Unasyn #11 hypomagnesium. Magnesium 1.1 on admission. Resolved DVT prophylaxis heparin. GI prophylaxis Pepcid Per porter sample case patient would like to be discharged to [facility] in [place] when medically stable I performed an examination of the patient and discussed their management with the Nurse Practitioner. I have reviewed the Nurse Practitioner's notes and agree with the documented findings and plan of care
--- NOTE | 2017-11-08 14:28 | P.PN ---
Subjective Progress Note Date: 11/08/17 This 72-year-old female patient came into the emergency department because of altered mentation a few days duration ultimately she was found to have seizure activity as the patient had 2 bouts of seizure lasting 5 minutes each. She was in the hospital earlier for SVT and she had a cardiac workup that came back negative for coronary artery disease. She is known to have diabetes, hypertension, hyperlipidemia and COPD and obstructive sleep apnea. No history of substance abuse The patient is currently intubated on a mechanical ventilator. She is on sedation. Earlier this morning she was given a sedation holiday following which she was able to open up her eyes and she was not following any specific commands. A repeat CAT scan of the brain was done and it showed age-related atrophy without any acute abnormalities. No evidence of any infarcts or masses. Carotid Doppler was also done and it was suboptimal study and lesions cannot be completely ruled out. There was an asymmetric focal calcified plaque in the right carotid bulb. EEG of the brain is to follow and the patient is currently on Keppra. No further seizure activity has been noted. Patient remains on mechanical ventilator. This morning she is an assist-control mode of ventilation at the rate of 16, tidal volume of 400 and FiO2 of 50% and a PEEP of 5. The blood gases showed a pH of 7.38 with a pCO2 of 41 and pO2 of 181 and based on that the FiO2 is up to 40%. Chest x-ray showing some minimal right basilar atelectatic change in the urine analysis was quite abnormal with abnormalities to suggest UTI. Based on that the patient was started on IV Unasyn as an empiric antibiotic coverage covering for aspiration pneumonia and urine checked infections. She is afebrile for now. No neck stiffness. No significant leukocytosis at this point in time. Hemodynamically stable on no pressors. On 11/07/2017, patient is being seen in follow-up. This morning the patient sedated with Diprivan at 30 mics and she is hemodynamically stable. She is well sedated in the process of doing his sedation holiday. The patient did not witnessed to have any further seizures here in the ICU. EEG was done and showed diffuse slowing without any epileptic foci and the patient is currently on Keppra. A repeat CAT scan of the brain was done that showed no acute abnormalities. Doppler of the carotids was suboptimal. The patient is not having any fever. No neck stiffness. No seizure activity has been noted. She is resting comfortably in bed as the patient is was sedated with Diprivan. She is on a mechanical ventilator on assist control mode at the rate of 16 with a tidal volume of 400 and FiO2 of 40% and PEEP of 5. Morning blood gases showed a pH of 7.41 with a pCO2 of 42 and pO2 140. The sputum culture is pending. Blood cultures still pending and the patient is still covered with empiric antibiotic coverage with IV Unasyn. The patient is producing adequate amount of urine output. The neck fluid balance over the past 24 hours is +750 mL. No significant leukocytosis. Rest of the blood work and electrolytes all within normal limits. Chest x-ray showing some limited right basilar pulmonary infiltrates probably rates aspiration pneumonia. She is afebrile. She is tolerating her tube feeds. Blood sugars are under good control for now and there are no other significant events overnight. On 11/08/2017, the patient is doing well and she is awake and alert and following commands and answering questions appropriately. She is very hard of hearing it's important to get her hearing aids for better communication with this patient. I asked her to follow commands and she was able to do so. No seizure activity has been noted on this patient and the patient is on Keppra and the levels are being adjusted by neurology. She has been extubated yesterday. She is afebrile. She has a congested cough. No fever. No chills. The sputum showed Haemophilus influenza and the patient is currently on IV Unasyn. She is hemodynamically stable. She is up-to-date liters about 2 by nasal cannula and her pulse ox is 98%. No other significant events overnight. No agitation. No restlessness. No respiratory distress. Objective - Vital Signs Vital signs: Vital Signs Temp 98 F 11/08/17 10:00 Pulse 84 11/08/17 13:28 Resp 20 11/08/17 12:00 BP 139/66 11/08/17 12:00 Pulse Ox 98 11/08/17 12:00 Intake & Output 11/07/17 11/08/17 11/08/17 18:59 06:59 18:59 Intake Total 843.075 800 500 Output Total 720 580 190 Balance 123.075 220 310 Weight 82 kg 85.4 kg 85.4 kg Intake: IV 700 800 300 Ampicillin-Sulbactam 3 gm 100 100 100 In Sodium Chloride 0.9% 100 ml @ 100 mls/hr IVPB Q12HR [facility] Rx#:[id number] Sodium Chloride 0.9% 1, 500 600 100 000 ml @ 50 mls/hr IV . Q20H [facility] Rx#:[id number] levETIRAcetam IV 750 mg 100 100 100 In Sodium Chloride 0.9% 100 ml @ 400 mls/hr IVPB Q12HR [facility] Rx#:[id number] Intake, IV Titration 103.075 200 Amount Magnesium Sulfate-D5w Pmx 200 1 gm In Dextrose/Water 1 100ml.bag @ 100 mls/hr IVPB Q1H [facility] Rx#: [id number] Propofol 1,000 mg In 103.075 Empty Bag 1 bag @ Titrate IV .Q0M [facility] Rx#: [id number] Tube Feeding 40 Output: Urine 720 580 190 Other: Voiding Method Indwelling Catheter Indwelling Catheter Indwelling Catheter - Exam Gen. appearance, comfortable and the patient is not in acute respiratory distress. Head exam was generally normal. There was no scleral icterus or corneal arcus. Mucous membranes were moist. Neck was supple and without jugular venous distension, thyromegaly, or carotid bruits. Carotids were easily palpable bilaterally. There was no adenopathy. Lungs were clear to auscultation and percussion, and with normal diaphragmatic excursion. No wheezes or rales were noted. Cardiac exam revealed the PMI to be normally situated and sized. The rhythm was regular and no extrasystoles were noted during several minutes of auscultation. The first and second heart sounds were normal and physiologic splitting of the second heart sound was noted. There were no murmurs, rubs, clicks, or gallops. Abdominal exam revealed normal bowel sounds. The abdomen was soft, non-tender, and without masses, organomegaly, or appreciable enlargement of the abdominal aorta. Examination of the extremities revealed easily palpable radial, femoral and pedal pulses. There was no cyanosis, clubbing or edema. Examination of the skin revealed no evidence of significant rashes, suspicious appearing nevi or other concerning lesions. Neurologic exam is nonfocal and the patient is moving all 4 extremities also she sews motor weakness. - Labs CBC & Chem 7: 11/08/17 04:21 11/08/17 04:21 Labs: Abnormal Lab Results - Last 24 Hours (Table) 11/07/17 11/07/17 11/07/17 Range/Units 17:21 20:11 23:46 RBC (3.80-5.40) m/uL Hgb (11.4-16.0) gm/dL MCHC (31.0-37.0) g/dL Chloride (98-107) mmol/L Glucose (74-99) mg/dL POC Glucose (mg/dL) 129 H 114 H 109 H (75-99) mg/dL 11/08/17 11/08/17 11/08/17 Range/Units 04:21 04:21 04:45 RBC 3.78 L (3.80-5.40) m/uL Hgb 10.8 L (11.4-16.0) gm/dL MCHC 30.1 L (31.0-37.0) g/dL Chloride 110 H (98-107) mmol/L Glucose 120 H (74-99) mg/dL POC Glucose (mg/dL) 116 H (75-99) mg/dL 11/08/17 Range/Units 08:07 RBC (3.80-5.40) m/uL Hgb (11.4-16.0) gm/dL MCHC (31.0-37.0) g/dL Chloride (98-107) mmol/L Glucose (74-99) mg/dL POC Glucose (mg/dL) 134 H (75-99) mg/dL Microbiology - Last 24 Hours (Table) 11/06/17 10:46 Blood Culture - Preliminary Blood No Growth after 48 hours 11/06/17 09:40 Blood Culture - Preliminary Blood No Growth after 48 hours 11/06/17 09:41 Urine Culture - Final Urine,Catheterized Assessment and Plan Plan: Assessment 1 altered mentation probably related to seizure activity. The patient was intubated and placed on a mechanical ventilator due to a postictal state and subsequently the patient was weaned off the mechanical ventilated and the patient was extubated. She was taken off sedation. Today here mentation seems to have improved considerably and the patient is following commands and answering questions appropriately. The patient is currently on Keppra. Neurologist on the case. 2 altered mentation secondary to above, recovering 3 acute respiratory failure, nonhypoxic, and the patient was intubated to protect the airways. The patient is extubated. There is suspicion for a right lower lobe pneumonia of an aspiration type and the patient is currently on IV Unasyn. Sputum is shown Haemophilus influenza. 4 recent hospitalization for SVT discharged home on beta blockers and the patient has a normal cardiac catheterization and normal echocardiogram 5 diabetes mellitus 6 hypertension 7 hyperlipidemia 8 obstructive sleep apnea noncompliant to CPAP therapy 9 acid reflux 10 suspected UTI, awaiting cultures Plan The patient is extubated. We are and the process of monitoring the neuro status. We'll continue the Keppra. Adjust antiepileptics. Neurologist on the case. Advance diet. Continue Unasyn for another 24 hours and switch this patient oral antibiotics in the next 24 hours suspecting an underlying aspiration right lung pneumonia. Wean off FiO2 as tolerated. The patient can be moved to medical surgical floor with telemetry.
[2017-11-08 16:44] LABS: Glucose,Whole Blood 148 mg/dL (75-99)
[2017-11-08 16:52] LABS: Glucose,Whole Blood 146 mg/dL (75-99)
[2017-11-08 20:58] LABS: Glucose,Whole Blood 166 mg/dL (75-99)
[2017-11-09] MEDS ORDERED: FUROSEMIDE 10 MG/ML 4 ML VIAL IV STA ×2 (01:44→12:03)
[2017-11-09] MEDS ORDERED: HALOPERIDOL 1 MG TAB PO STA (01:45)
[2017-11-09 06:12] LABS: Glucose,Whole Blood 155 mg/dL (75-99)
[2017-11-09 06:26] LABS: Basophils % (A) 0 %; Eosinophils # (A) 0.1 k/uL (0-0.7); Eosinophils % (A) 2 %; HCT 36.2 % (34.0-46.0); HGB 10.9 gm/dL (11.4-16.0); Hypochromasia Slight; Lymphocytes # (A) 1.8 k/uL (1.0-4.8); Lymphocytes % (A) 20 %; MCH 28.2 pg (25.0-35.0); MCHC 30.2 g/dL (31.0-37.0); MCV 93.3 fL (80.0-100.0); Mean Platelet Volume 7.5; Monocytes # (A) 0.5 k/uL (0-1.0); Monocytes % (A) 6 %; Neutrophils # (A) 6.3 k/uL (1.3-7.7); Neutrophils % (A) 71 %; Platelet Count 299 k/uL (150-450); RBC 3.88 m/uL (3.80-5.40); RDW 13.4 % (11.5-15.5); WBC 8.9 k/uL (3.8-10.6)
[2017-11-09 06:33] LABS: Anion Gap 8 mmol/L; Blood Urea Nitrogen 12 mg/dL (7-17); Calcium 9.2 mg/dL (8.4-10.2); Carbon Dioxide 29 mmol/L (22-30); Chloride 101 mmol/L (98-107); Glucose 160 mg/dL (74-99); Magnesium 1.8 mg/dL (1.6-2.3); Phosphorus 2.9 mg/dL (2.5-4.5); Potassium 3.6 mmol/L (3.5-5.1); Sodium 138 mmol/L (137-145)
[2017-11-09] MEDS: INSULIN ASPART 100 UNIT/ML 1 ML 10 ML VIAL SQ SCH ×4 (06:33→21:38)
[2017-11-09] MEDS: LEVOTHYROXINE 100 MCG TAB PO SCH (06:33)
[2017-11-09] MEDS: IPRATROPIUM-ALBUTEROL 3 ML NEB INHALATION SCH ×4 (07:16→19:09)
[2017-11-09] MEDS: levETIRAcetam IV 750 MG in SODIUM CHLORIDE 0.9% 100 ML IVPB SCH (08:21)
[2017-11-09] MEDS: FAMOTIDINE 20 MG/2 ML VIAL IV SCH ×2 (08:22→20:15)
[2017-11-09] MEDS: HEPARIN SODIUM,PORCINE 5,000 UNIT/ML 1 ML VIAL SQ SCH ×3 (08:22→22:56)
[2017-11-09] MEDS ORDERED: Magnesium Replacement Protocol 1 EACH MISC MISCELLANE PRN (08:23)
[2017-11-09] MEDS: METOPROLOL TARTRATE 25 MG TAB PO SCH ×2 (08:23→20:15)
[2017-11-09] MEDS: AMPICILLIN-SULBACTAM 3 GM in SODIUM CHLORIDE 0.9% 100 ML IVPB SCH (09:42)
--- NOTE | 2017-11-09 09:44 | XR ---
EXAMINATION TYPE: XR chest 2V DATE OF EXAM: 11/09/2017 COMPARISON: 820 04/14/2017 INDICATION: Increasing shortness of breath through 90 TECHNIQUE: Frontal and lateral views of the chest are obtained. FINDINGS: The heart size is normal. The pulmonary vasculature is normal. There is a small posterior pleural effusion. Endotracheal tube and nasogastric tube is been removed. EKG leads overlie the chest. IMPRESSION: 1. Small posterior pleural effusion
[2017-11-09 10:05] VITALS: BMI 35.6
--- NOTE | 2017-11-09 11:29 | P.PN ---
Subjective Progress Note Date: 11/09/17 Sabine Hagen is a 72-year-old female who presented to [facility] emergency room via EMS after being noticed at home by her to be an responsive and having shaking in her extremities she was evaluated in the emergency room and was thought to have seizure activity she was given IV Ativan , and was started on IV Keppra, she was intubated and sedated for airway protection and was admitted to intensive care unit, computed tomography scan of the brain without contrast done in the emergency room did not reveal any evidence of intracranial hemorrhage or midline shift there was age-related cerebral atrophy and chronic small vessel ischemic changes, labs in the emergency room revealed evidence of leukocytosis with white blood count of 13.2 and elevated ammonia level of 62. Otherwise kidney function and liver function were within normal limits. Chest x-ray revealed left basilar infiltrate computed tomography scan of the chest abdomen and pelvis was done in the emergency room, and revealed by basilar infiltrate left greater than right otherwise no abnormality seen. Currently patient is admitted to intensive care unit, she is intubated sedated maintained on mechanical ventilation, and son are at the bedside, and history and review of system was done with them. stated that patient has been feeling tired recently, he left her at home laying down he was away for about 2 hours when he came back she was unresponsive and having shaking in her upper extremities, he called EMS and patient was brought into emergency room , patient has a known history of hypertension, diabetes mellitus, and hyperlipidemia no previous history of stroke or seizure in the past no history of coronary artery disease and no history of liver disease. On 11/06/2017 patient remains on mechanical ventilation in the intensive care unit. Per nursing staff patient has scheduled EEG and repeat CT of head today per neurology. Patient currently remains on 20mcg of diprivan. Patient followed by critical care , neurology and cardiology. Blood, urine and sputum cultures have been ordered patient started on Unasyn for critical care. Chest x -ray completed. At this point patient not making any purposeful movement or following commands. On 11/07/2017 patient has been extubated. Patient remains in the intensive care unit. Patient is awake and does follow some commands. No further seizure activity has been noted. Chest x-ray completed showing basilar atelectasis. Expiratory rotated exam. Suspect cardiomegaly. Patient currently on nasal cannula 3 L. Patient does deny any chest pain or shortness of breath. Critical team following closely. On 11/08/2017 patient is currently resting comfortably in bed on 3 L nasal cannula. Patient remains in the intensive care unit. Patient is awake and alert following commands. Patient is extremely hard of hearing making full neuro exam difficult. Patient denies chest pain or shortness of breath. Denies any nausea vomiting or diarrhea. On 11/09/2017 patient is currently resting in bed. Per nursing staff patient was on the [facility] floor but had an episode of low oxygen saturation and increased lethargy. Patient received 40 mg 1 time dose of Lasix throughout night. Patient is currently alert and oriented. She is on 6 L high flow nasal cannula which is increased from 3 L she was on yesterday. Will order 2 view Chest x-ray. Patient denies chest pain or shortness breath. Denies any nausea vomiting or diarrhea. Denies any burning with urination or frequency. Objective - Vital Signs Vital signs: Vital Signs Temp 98.4 F 11/09/17 03:06 Pulse 92 11/09/17 11:19 Resp 20 11/09/17 03:06 BP 157/71 11/09/17 03:06 Pulse Ox 97 11/09/17 07:16 Intake & Output 11/08/17 11/09/17 11/09/17 18:59 06:59 18:59 Intake Total 500 Output Total 190 2600 Balance 310 -2600 Weight 85.4 kg 80.1 kg 80.1 kg Intake: IV 300 Ampicillin-Sulbactam 3 gm 100 In Sodium Chloride 0.9% 100 ml @ 100 mls/hr IVPB Q12HR [facility] Rx#:[id number] Sodium Chloride 0.9% 1, 100 000 ml @ 50 mls/hr IV . Q20H [facility] Rx#:[id number] levETIRAcetam IV 750 mg 100 In Sodium Chloride 0.9% 100 ml @ 400 mls/hr IVPB Q12HR [facility] Rx#:[id number] Intake, IV Titration 200 Amount Magnesium Sulfate-D5w Pmx 200 1 gm In Dextrose/Water 1 100ml.bag @ 100 mls/hr IVPB Q1H [facility] Rx#: [id number] Output: Urine 190 2600 Other: Voiding Method Indwelling Catheter Toilet # Voids 1 # Bowel Movements 1 - Exam Head normocephalic Neck supple Lungs diminished sounds bilaterally Heart regular rate and rhythm S1-S2, no rub or gallop Abdomen is soft nontender nondistended positive bowel sounds no hepatosplenomegaly Extremities no edema Neuro patient remains on sedation. no purposeful movements at this time - Labs CBC & Chem 7: 11/09/17 06:08 11/09/17 06:08 Labs: Abnormal Lab Results - Last 24 Hours (Table) 11/08/17 11/08/17 11/08/17 Range/Units 11:54 16:49 20:56 Hgb (11.4-16.0) gm/dL MCHC (31.0-37.0) g/dL Glucose (74-99) mg/dL POC Glucose (mg/dL) 148 H 146 H 166 H (75-99) mg/dL 11/09/17 11/09/17 11/09/17 Range/Units 06:08 06:08 06:09 Hgb 10.9 L (11.4-16.0) gm/dL MCHC 30.2 L (31.0-37.0) g/dL Glucose 160 H (74-99) mg/dL POC Glucose (mg/dL) 155 H (75-99) mg/dL Microbiology - Last 24 Hours (Table) 11/06/17 10:46 Blood Culture - Preliminary Blood No Growth after 48 hours 11/06/17 09:40 Blood Culture - Preliminary Blood No Growth after 48 hours Assessment and Plan Assessment: #1 new-onset seizure with status epilepticus, no evidence of seizure at this time, patient received IV Ativan and is maintained on IV Keppra. Neurology services are following. Repeat CT of the head and EEG have been ordered. Patient remains intubated and on Diprivan for sedation. Carotid Doppler has been ordered per critical care. Repeat CT of head completed showing age- related atrophy. Neurology services are following. Patient remains on Keppra. Carotid Doppler study completed. Cannot exclude significant stenosis visualized portion of proximal right internal carotid artery. There is asymmetric focal classified plaque right carotid bulb on noncontrast CT 2017. Advise further investigation with CT of the neck to exclude significant stenosis at this level. Patient remains on Keppra. No seizure activity recently noted. EKG performed reveals severe slowing with no epileptiform discharges. Neurology continues to follow patient #2 acute respiratory failure requiring intubation and mechanical ventilation. Chest x-ray completed same showing cardiomegaly with worsening right medial basilar atelectasis and/or infiltrate and stable patchy left medial basal atelectasis and/or infiltrate noted. Dr. Ambriz per pulmonary and critical care service is following. Patient started on Unasyn IV antibiotic. Chest x- ray completed showing basilar atelectasis. Expiratory rotated exam. Suspect cardiomegaly 11/07 patient has been extubated to 3 L nasal cannula. Patient had episode throughout night with low oxygen saturation. Patient received 1 dose of 40 mg Lasix. Patient currently on insulin cannula. Two-view chest x-ray has been ordered. pulmonary is following #3 underlying history of hypertension #4 underlying history of diabetes mellitus #5 underlying history of COPD #6 underlying history of obstructive sleep apnea #7 evidence of lung infiltrates bibasilar left more than right maintained on IV antibiotic possible aspiration pneumonia. currently on Unasyn. Sputum positive for Haemophilus influenae #8 previous history of supraventricular tachycardia. Questionable arrhythmia down in emergency room on admission. Cardiology services following. #9 recent cardiac catheterization which were within normal limits #10 leukocytosis. WBC 13.5. temp 99.5. Sputum, urine and blood cultures have been ordered patient on Unasyn IV antibiotic. UA completed showing moderate amount of leukocyte Estrace. Sputum positive for Haemophilus influenae. Urine and blood cultures negative. Patient remains on Unasyn. Patient had episode of temperature 100.1 last night #11 hypomagnesium. Magnesium 1.1 on admission. Resolved DVT prophylaxis heparin. GI prophylaxis Pepcid Per cyanide case hardener patient would like to be discharged to [facility] in [place] when medically stable I performed an examination of the patient and discussed their management with the Nurse Practitioner. I have reviewed the Nurse Practitioner's notes and agree with the documented findings and plan of care
[2017-11-09 11:50] LABS: Glucose,Whole Blood 169 mg/dL (75-99)
[2017-11-09] MEDS: MAGNESIUM SULFATE-D5W PMX 1 GM in DEXTROSE/WATER 1 100ML.BAG IVPB SCH ×2 (12:45→14:40)
--- NOTE | 2017-11-09 14:43 | P.PN ---
Subjective Progress Note Date: 11/09/17 Principal diagnosis: Altered mental status/Seizure activity This 72-year-old female patient came into the emergency department because of altered mentation a few days duration ultimately she was found to have seizure activity as the patient had 2 bouts of seizure lasting 5 minutes each. She was in the hospital earlier for SVT and she had a cardiac workup that came back negative for coronary artery disease. She is known to have diabetes, hypertension, hyperlipidemia and COPD and obstructive sleep apnea. No history of substance abuse The patient is currently intubated on a mechanical ventilator. She is on sedation. Earlier this morning she was given a sedation holiday following which she was able to open up her eyes and she was not following any specific commands. A repeat CAT scan of the brain was done and it showed age-related atrophy without any acute abnormalities. No evidence of any infarcts or masses. Carotid Doppler was also done and it was suboptimal study and lesions cannot be completely ruled out. There was an asymmetric focal calcified plaque in the right carotid bulb. EEG of the brain is to follow and the patient is currently on Keppra. No further seizure activity has been noted. Patient remains on mechanical ventilator. This morning she is an assist-control mode of ventilation at the rate of 16, tidal volume of 400 and FiO2 of 50% and a PEEP of 5. The blood gases showed a pH of 7.38 with a pCO2 of 41 and pO2 of 181 and based on that the FiO2 is up to 40%. Chest x-ray showing some minimal right basilar atelectatic change in the urine analysis was quite abnormal with abnormalities to suggest UTI. Based on that the patient was started on IV Unasyn as an empiric antibiotic coverage covering for aspiration pneumonia and urine checked infections. She is afebrile for now. No neck stiffness. No significant leukocytosis at this point in time. Hemodynamically stable on no pressors. On 11/07/2017, patient is being seen in follow-up. This morning the patient sedated with Diprivan at 30 mics and she is hemodynamically stable. She is well sedated in the process of doing his sedation holiday. The patient did not witnessed to have any further seizures here in the ICU. EEG was done and showed diffuse slowing without any epileptic foci and the patient is currently on Keppra. A repeat CAT scan of the brain was done that showed no acute abnormalities. Doppler of the carotids was suboptimal. The patient is not having any fever. No neck stiffness. No seizure activity has been noted. She is resting comfortably in bed as the patient is was sedated with Diprivan. She is on a mechanical ventilator on assist control mode at the rate of 16 with a tidal volume of 400 and FiO2 of 40% and PEEP of 5. Morning blood gases showed a pH of 7.41 with a pCO2 of 42 and pO2 140. The sputum culture is pending. Blood cultures still pending and the patient is still covered with empiric antibiotic coverage with IV Unasyn. The patient is producing adequate amount of urine output. The neck fluid balance over the past 24 hours is +750 mL. No significant leukocytosis. Rest of the blood work and electrolytes all within normal limits. Chest x-ray showing some limited right basilar pulmonary infiltrates probably rates aspiration pneumonia. She is afebrile. She is tolerating her tube feeds. Blood sugars are under good control for now and there are no other significant events overnight. On 11/08/2017, the patient is doing well and she is awake and alert and following commands and answering questions appropriately. She is very hard of hearing it's important to get her hearing aids for better communication with this patient. I asked her to follow commands and she was able to do so. No seizure activity has been noted on this patient and the patient is on Keppra and the levels are being adjusted by neurology. She has been extubated yesterday. She is afebrile. She has a congested cough. No fever. No chills. The sputum showed Haemophilus influenza and the patient is currently on IV Unasyn. She is hemodynamically stable. She is up-to-date liters about 2 by nasal cannula and her pulse ox is 98%. No other significant events overnight. No agitation. No restlessness. No respiratory distress. Patient is seen again today 11/09/2017 in follow-up on the selective care unit. She is currently sitting up in a chair at the bedside. She is awake and alert in no acute distress. No further seizure activity. Denies any shortness of breath, cough or congestion. Still requiring 6 L high flow nasal cannula to maintain O2 saturations in the 90s. She's been afebrile. Hemodynamically stable. Sputum positive for Haemophilus influenza. Blood culture and urine culture reveals no growth. White count 8.9. Hemoglobin 10.9. Creatinine 0.70. She is continued on bronchodilators and antibiotics. Objective - Vital Signs Vital signs: Vital Signs Temp 98.0 F 11/09/17 08:00 Pulse 92 11/09/17 11:19 Resp 16 11/09/17 08:00 BP 148/69 11/09/17 08:00 Pulse Ox 98 11/09/17 08:00 Intake & Output 11/08/17 11/09/17 11/09/17 18:59 06:59 18:59 Intake Total 500 Output Total 190 2600 Balance 310 -2600 Weight 85.4 kg 80.1 kg 80.1 kg Intake: IV 300 Ampicillin-Sulbactam 3 gm 100 In Sodium Chloride 0.9% 100 ml @ 100 mls/hr IVPB Q12HR [facility] Rx#:[id number] Sodium Chloride 0.9% 1, 100 000 ml @ 50 mls/hr IV . Q20H [facility] Rx#:[id number] levETIRAcetam IV 750 mg 100 In Sodium Chloride 0.9% 100 ml @ 400 mls/hr IVPB Q12HR [facility] Rx#:[id number] Intake, IV Titration 200 Amount Magnesium Sulfate-D5w Pmx 200 1 gm In Dextrose/Water 1 100ml.bag @ 100 mls/hr IVPB Q1H [facility] Rx#: [id number] Output: Urine 190 2600 Other: Voiding Method Indwelling Catheter Toilet Toilet # Voids 1 # Bowel Movements 1 - Exam Gen. appearance, comfortable and the patient is not in acute respiratory distress. Head exam was generally normal. There was no scleral icterus or corneal arcus. Mucous membranes were moist. Neck was supple and without jugular venous distension, thyromegaly, or carotid bruits. Carotids were easily palpable bilaterally. There was no adenopathy. Lungs were clear to auscultation and percussion, and with normal diaphragmatic excursion. No wheezes or rales were noted. Cardiac exam revealed the PMI to be normally situated and sized. The rhythm was regular and no extrasystoles were noted during several minutes of auscultation. The first and second heart sounds were normal and physiologic splitting of the second heart sound was noted. There were no murmurs, rubs, clicks, or gallops. Abdominal exam revealed normal bowel sounds. The abdomen was soft, non-tender, and without masses, organomegaly, or appreciable enlargement of the abdominal aorta. Examination of the extremities revealed easily palpable radial, femoral and pedal pulses. There was no cyanosis, clubbing or edema. Examination of the skin revealed no evidence of significant rashes, suspicious appearing nevi or other concerning lesions. Neurologic exam is nonfocal and the patient is moving all 4 extremities also she sews motor weakness. - Labs CBC & Chem 7: 11/09/17 06:08 11/09/17 06:08 Labs: Abnormal Lab Results - Last 24 Hours (Table) 11/08/17 11/08/17 11/08/17 Range/Units 11:54 16:49 20:56 Hgb (11.4-16.0) gm/dL MCHC (31.0-37.0) g/dL Glucose (74-99) mg/dL POC Glucose (mg/dL) 148 H 146 H 166 H (75-99) mg/dL 11/09/17 11/09/17 11/09/17 Range/Units 06:08 06:08 06:09 Hgb 10.9 L (11.4-16.0) gm/dL MCHC 30.2 L (31.0-37.0) g/dL Glucose 160 H (74-99) mg/dL POC Glucose (mg/dL) 155 H (75-99) mg/dL 11/09/17 Range/Units 11:48 Hgb (11.4-16.0) gm/dL MCHC (31.0-37.0) g/dL Glucose (74-99) mg/dL POC Glucose (mg/dL) 169 H (75-99) mg/dL Microbiology - Last 24 Hours (Table) 11/06/17 10:46 Blood Culture - Preliminary Blood No Growth after 72 hours 11/06/17 09:40 Blood Culture - Preliminary Blood No Growth after 72 hours Assessment and Plan Assessment: Assessment 1 altered mentation probably related to seizure activity. The patient was intubated and placed on a mechanical ventilator due to a postictal state and subsequently the patient was weaned off the mechanical ventilated and the patient was extubated. She was taken off sedation. Today here mentation seems to have improved considerably and the patient is following commands and answering questions appropriately. The patient is currently on Keppra. Neurologist on the case. 2 altered mentation secondary to above, recovering 3 acute respiratory failure, nonhypoxic, and the patient was intubated to protect the airways. The patient is extubated. There is suspicion for a right lower lobe pneumonia of an aspiration type and the patient is currently on IV Unasyn. Sputum is shown Haemophilus influenza. 4 recent hospitalization for SVT discharged home on beta blockers and the patient has a normal cardiac catheterization and normal echocardiogram 5 diabetes mellitus 6 hypertension 7 hyperlipidemia 8 obstructive sleep apnea noncompliant to CPAP therapy 9 acid reflux 10 suspected UTI, awaiting cultures Plan The patient was seen and evaluated by Dr. Segura. She remains stable from the pulmonary and critical care standpoint. We'll switch to oral Augmentin. We 'll continue to titrate down the FiO2 will maintaining O2 saturations greater than 90%. Increase her activity as tolerated. We'll continue to follow.
[2017-11-09] MEDS ORDERED: ALPRAZolam 0.25 MG TAB PO PRN (15:43)
[2017-11-09 16:36] LABS: Glucose,Whole Blood 203 mg/dL (75-99)
--- NOTE | 2017-11-09 19:44 | P.PN ---
Subjective Progress Note Date: 11/08/17 This patient is examined in the Intensive Care unit for evaluation of seizure disorder. The patient was extubated today successfully and is now resting comfortably in the ICU. She is very hard of hearing but does answer questions appropriately today. She is currently on Keppra monotherapy for seizure prophylaxis. Her Keppra level was completed and is therapeutic at 14.7. She underwent a routine EEG today which was reviewed and is moderately slow with early signs of burst suppression pattern. We will need to continue close monitoring of this patient over the next 72 hours. We will see if she shows signs of improvement in her overall mental status. Her EEG failed to reveal any epileptiform discharges. The patient does show significant improvement in her mental status today following extubation. As noted she is to continue on her current dose of Keppra 750 mg IV piggyback every 12 hours. Her Keppra level done today was therapeutic at 21.3 The patient is noted to have some pulmonary secretions but apparently is been doing fine with nasal oxygen. Patient did undergo a repeat computed tomography scan of the brain yesterday which revealed age related atrophy. The patient has no previous history of seizures or head injury. She is being treated I cardiology for episode of SVT. She is much more awake and alert today in the ICU and we will await further treatment from multiple specialists that are seeing her. Her most recent computed tomography scan of the brain revealed no evidence of any acute stroke or hemorrhage. The patient was transferred to the medical floor today and seems to be showing slight improvement in her overall mental status. As noted her Keppra blood level is therapeutic which was done on 11/06/2017. The patient is very hard of hearing. She is on multiple medications which may need revision are re-evaluation by the primary care physician. We will discuss this with the nurse practitioner tomorrow. We will continue close neurological follow-up with this patient. We have discussed all of her current exam results and test results with the patient in detail. She was fully updated and we will continue close neurological follow-up for this patient. Her overall prognosis at this time remains guarded. Objective - Vital Signs Vital signs: Vital Signs Temp 98 F 11/08/17 10:00 Pulse 77 11/08/17 12:00 Resp 20 11/08/17 12:00 BP 139/66 11/08/17 12:00 Pulse Ox 98 11/08/17 12:00 Intake & Output 11/07/17 11/08/17 11/08/17 18:59 06:59 18:59 Intake Total 843.075 800 500 Output Total 720 580 190 Balance 123.075 220 310 Weight 82 kg 85.4 kg 85.4 kg Intake: IV 700 800 300 Ampicillin-Sulbactam 3 gm 100 100 100 In Sodium Chloride 0.9% 100 ml @ 100 mls/hr IVPB Q12HR [facility] Rx#:[id number] Sodium Chloride 0.9% 1, 500 600 100 000 ml @ 50 mls/hr IV . Q20H [facility] Rx#:[id number] levETIRAcetam IV 750 mg 100 100 100 In Sodium Chloride 0.9% 100 ml @ 400 mls/hr IVPB Q12HR [facility] Rx#:[id number] Intake, IV Titration 103.075 200 Amount Magnesium Sulfate-D5w Pmx 200 1 gm In Dextrose/Water 1 100ml.bag @ 100 mls/hr IVPB Q1H [facility] Rx#: [id number] Propofol 1,000 mg In 103.075 Empty Bag 1 bag @ Titrate IV .Q0M [facility] Rx#: [id number] Tube Feeding 40 Output: Urine 720 580 190 Other: Voiding Method Indwelling Catheter Indwelling Catheter Indwelling Catheter - Exam Physical Examination: PHYSICAL EXAMINATION: Patient is resting comfortably in bed. VITAL SIGNS: Blood pressure is [143/75]. Heart rate is [88]. Respiration is [22] . Temperature is [98.0]. HEENT: Head is atraumatic, neck is supple, there were no carotid bruits. CHEST: Lungs are clear to auscultation and percussion. CARDIAC: S1, S2 normal rate and rhythm. There is no murmur. ABDOMEN: Soft and nontender. Bowel sounds are present. EXTREMITIES: There is no pedal edema. Peripheral pulses are present. Neurological examination: Patient remains intubated on the ventilator and is heavily sedated. She is currently on Diprivan. She withdraws to pain overall 4 extremities slightly less in the left upper extremity. Deep tendon reflexes are hypoactive. Plantar responses flexor bilaterally. - Labs CBC & Chem 7: 11/09/17 06:08 11/09/17 06:08 Labs: Abnormal Lab Results - Last 24 Hours (Table) 11/07/17 11/07/17 11/07/17 Range/Units 17:21 20:11 23:46 RBC (3.80-5.40) m/uL Hgb (11.4-16.0) gm/dL MCHC (31.0-37.0) g/dL Chloride (98-107) mmol/L Glucose (74-99) mg/dL POC Glucose (mg/dL) 129 H 114 H 109 H (75-99) mg/dL 11/08/17 11/08/17 11/08/17 Range/Units 04:21 04:21 04:45 RBC 3.78 L (3.80-5.40) m/uL Hgb 10.8 L (11.4-16.0) gm/dL MCHC 30.1 L (31.0-37.0) g/dL Chloride 110 H (98-107) mmol/L Glucose 120 H (74-99) mg/dL POC Glucose (mg/dL) 116 H (75-99) mg/dL 11/08/17 Range/Units 08:07 RBC (3.80-5.40) m/uL Hgb (11.4-16.0) gm/dL MCHC (31.0-37.0) g/dL Chloride (98-107) mmol/L Glucose (74-99) mg/dL POC Glucose (mg/dL) 134 H (75-99) mg/dL Microbiology - Last 24 Hours (Table) 11/06/17 09:40 Blood Culture - Preliminary Blood No Growth after 48 hours 11/06/17 10:46 Blood Culture - Preliminary Blood No Growth after 24 hours 11/06/17 09:41 Urine Culture - Final Urine,Catheterized 11/04/17 20:05 Gram Stain - Final Sputum Sputum Culture - Final Haemophilus influenzae Assessment and Plan (1) New onset seizure Current Visit: Yes Status: Acute Code(s): R56.9 - UNSPECIFIED CONVULSIONS SNOMED Code(s): 54025797 (2) Supraventricular tachycardia Current Visit: No Status: Acute Code(s): I47.1 - SUPRAVENTRICULAR TACHYCARDIA SNOMED Code(s): 6100119 (3) Diabetes mellitus Current Visit: Yes Status: Acute Code(s): E11.9 - TYPE 2 DIABETES MELLITUS WITHOUT COMPLICATIONS SNOMED Code(s): 61905083 (4) Hypomagnesemia Current Visit: Yes Status: Acute Code(s): E83.42 - HYPOMAGNESEMIA SNOMED Code(s): 763375364 Plan: This patient is a 72-year-old female initially admitted to hospital with episode of new onset seizure and confusion. She was evaluated in the emergency room and had evidence of acute respiratory distress and required intubation. She was in the ICU for several days and was transferred out of the ICU to the medical floor today. She is on Keppra monotherapy for seizure prophylaxis. Her most recent Keppra blood level was done on 11/06/2017 and it is therapeutic at 21.3. She is much more awake and alert but still is very hard of hearing. She has had no further seizure activity reported by the nursing staff. Her CAT scan of the brain failed to reveal any evidence of acute stroke or hemorrhage. Neurologically she remains intact but still showing some generalized weakness. She is on multiple medications which will need reevaluation by the primary admitting physician. We will discuss this with the nurse practitioner tomorrow. Her overall prognosis at this time remains guarded. Case was discussed at length with the patient and her who was at bedside. All of their questions were answered. The is aware for guarded condition.
[2017-11-09] MEDS: AMOXIC-POT CLAV 875-125MG 1 EACH TAB PO SCH (20:15)
[2017-11-09 21:07] LABS: Glucose,Whole Blood 162 mg/dL (75-99)
--- NOTE | 2017-11-09 21:09 | P.PN ---
Subjective Progress Note Date: 11/09/17 This patient is examined in the Intensive Care unit for evaluation of seizure disorder. The patient was extubated today successfully and is now resting comfortably in the ICU. She is very hard of hearing but does answer questions appropriately today. She is currently on Keppra monotherapy for seizure prophylaxis. Her Keppra level was completed and is therapeutic at 14.7. She underwent a routine EEG today which was reviewed and is moderately slow with early signs of burst suppression pattern. We will need to continue close monitoring of this patient over the next 72 hours. We will see if she shows signs of improvement in her overall mental status. Her EEG failed to reveal any epileptiform discharges. The patient does show significant improvement in her mental status today following extubation. As noted she is to continue on her current dose of Keppra 750 mg IV piggyback every 12 hours. Her Keppra level done today was therapeutic at 21.3 The patient is noted to have some pulmonary secretions but apparently is been doing fine with nasal oxygen. Patient did undergo a repeat computed tomography scan of the brain yesterday which revealed age related atrophy. The patient has no previous history of seizures or head injury. She is being treated I cardiology for episode of SVT. She is much more awake and alert today in the ICU and we will await further treatment from multiple specialists that are seeing her. Her most recent computed tomography scan of the brain revealed no evidence of any acute stroke or hemorrhage. The patient was transferred to the medical floor today and seems to be showing slight improvement in her overall mental status. As noted her Keppra blood level is therapeutic which was done on 11/06/2017. The patient is very hard of hearing. She is on multiple medications which may need revision are re-evaluation by the primary care physician. We will discuss this with the nurse practitioner today. We were able to contact the nurse practitioner for Dr. Brock who is Jewell Michelle Rizvi today over the phone regarding this patient's medication list. We are recommending to only restart the patient on Xanax to prevent any withdrawal syndrome. We suggest that the nurse practitioner contact Dr. Hudson's office in regards to the other medications. The patient otherwise seems to be doing fairly well today. She denies any new complaints. We will continue close neurological follow-up with this patient. We have discussed all of her current exam results and test results with the patient in detail. She was fully updated and we will continue close neurological follow-up for this patient. Patient is to continue on her current dose of Keppra. We recommend she may be started on oral dosing of Keppra 750 mg by mouth twice a day. Her overall prognosis at this time remains guarded. Objective - Vital Signs Vital signs: Vital Signs Temp 97.0 F L 11/09/17 16:00 Pulse 92 11/09/17 19:20 Resp 16 11/09/17 19:20 BP 132/78 11/09/17 16:00 Pulse Ox 98 11/09/17 16:00 Intake & Output 11/09/17 11/09/17 11/10/17 06:59 18:59 06:59 Intake Total 236 Output Total 2600 Balance -2600 236 Weight 80.1 kg 80.1 kg Intake: Oral 236 Output: Urine 2600 Other: Voiding Method Toilet Toilet # Voids 1 1 # Bowel Movements 1 1 - Exam Physical Examination: PHYSICAL EXAMINATION: Patient is resting comfortably in bed. VITAL SIGNS: Blood pressure is [175/76]. Heart rate is [89]. Respiration is [16] . Temperature is [98.5]. HEENT: Head is atraumatic, neck is supple, there were no carotid bruits. CHEST: Lungs are clear to auscultation and percussion. CARDIAC: S1, S2 normal rate and rhythm. There is no murmur. ABDOMEN: Soft and nontender. Bowel sounds are present. EXTREMITIES: There is no pedal edema. Peripheral pulses are present. Neurological examination: Patient remains intubated on the ventilator and is heavily sedated. She is currently on Diprivan. She withdraws to pain overall 4 extremities slightly less in the left upper extremity. Deep tendon reflexes are hypoactive. Plantar responses flexor bilaterally. Patient is very hard of hearing and we need to speak directly to her up close for her to comprehend. - Labs CBC & Chem 7: 11/09/17 06:08 11/09/17 06:08 Labs: Abnormal Lab Results - Last 24 Hours (Table) 11/08/17 11/09/17 11/09/17 Range/Units 20:56 06:08 06:08 Hgb 10.9 L (11.4-16.0) gm/dL MCHC 30.2 L (31.0-37.0) g/dL Glucose 160 H (74-99) mg/dL POC Glucose (mg/dL) 166 H (75-99) mg/dL 11/09/17 11/09/17 11/09/17 Range/Units 06:09 11:48 16:34 Hgb (11.4-16.0) gm/dL MCHC (31.0-37.0) g/dL Glucose (74-99) mg/dL POC Glucose (mg/dL) 155 H 169 H 203 H (75-99) mg/dL Microbiology - Last 24 Hours (Table) 11/06/17 10:46 Blood Culture - Preliminary Blood No Growth after 72 hours 11/06/17 09:40 Blood Culture - Preliminary Blood No Growth after 72 hours Assessment and Plan (1) New onset seizure Current Visit: Yes Status: Acute Code(s): R56.9 - UNSPECIFIED CONVULSIONS SNOMED Code(s): 30994972 (2) Supraventricular tachycardia Current Visit: No Status: Acute Code(s): I47.1 - SUPRAVENTRICULAR TACHYCARDIA SNOMED Code(s): 9108965 (3) Diabetes mellitus Current Visit: Yes Status: Acute Code(s): E11.9 - TYPE 2 DIABETES MELLITUS WITHOUT COMPLICATIONS SNOMED Code(s): 54631326 (4) Hypomagnesemia Current Visit: Yes Status: Acute Code(s): E83.42 - HYPOMAGNESEMIA SNOMED Code(s): 824289654 Plan: This patient is a 72-year-old female initially admitted to hospital with episode of new onset seizure and confusion. She was evaluated in the emergency room and had evidence of acute respiratory distress and required intubation. She was in the ICU for several days and was transferred out of the ICU to the medical floor today. She is on Keppra monotherapy for seizure prophylaxis. Her most recent Keppra blood level was done on 11/06/2017 and it is therapeutic at 21.3. She is much more awake and alert but still is very hard of hearing. She has had no further seizure activity reported by the nursing staff. Her CAT scan of the brain failed to reveal any evidence of acute stroke or hemorrhage. Neurologically she remains intact but still showing some generalized weakness. She is on multiple medications which will need reevaluation by the primary admitting physician. We will discuss this with the nurse practitioner today. We reviewed all the medications today with Dr. Brock nurse practitioner. We are recommending the patient only to be restarted on Xanax to prevent any withdrawal syndrome. We recommend the nurse practitioner to contact Dr. Hudson's office in regards to use of the Celexa, Cymbalta, and BuSpar. We will continue close neurological follow-up for the patient. Her overall prognosis at this time remains guarded. We did discuss yesterday with the patient and her at bedside her overall neurological status in detail. Today only the patient was updated on her overall condition today she is making slow progress but once again very hard of hearing. She does seem to comprehend quite well. We will restart her on her Xanax to prevent any withdrawal syndrome. We will follow along with Dr. Brock nurse practitioner in terms of further management. Patient is neurologically stable. We will switch patient to oral dosing on her Keppra which is 750 mg by mouth twice a day. Her last Keppra level was therapeutic. We will continue close neurological follow-up with this patient during this admission. Her overall prognosis at this time remains guarded.
[2017-11-10 06:19] LABS: Glucose,Whole Blood 139 mg/dL (75-99)
[2017-11-10] MEDS: INSULIN ASPART 100 UNIT/ML 1 ML 10 ML VIAL SQ SCH ×2 (06:23→12:07)
[2017-11-10] MEDS: LEVOTHYROXINE 100 MCG TAB PO SCH (06:23)
[2017-11-10 06:26] LABS: Basophils % (A) 1 %; Eosinophils # (A) 0.2 k/uL (0-0.7); Eosinophils % (A) 3 %; HGB 11.4 gm/dL (11.4-16.0); Hypochromasia Slight; Lymphocytes # (A) 2.1 k/uL (1.0-4.8); Lymphocytes % (A) 27 %; MCH 28.4 pg (25.0-35.0); MCHC 30.8 g/dL (31.0-37.0); MCV 92.3 fL (80.0-100.0); Mean Platelet Volume 7.1; Monocytes # (A) 0.5 k/uL (0-1.0); Monocytes % (A) 6 %; Neutrophils # (A) 4.8 k/uL (1.3-7.7); Neutrophils % (A) 62 %; Platelet Count 307 k/uL (150-450); RBC 4.01 m/uL (3.80-5.40); RDW 13.5 % (11.5-15.5); WBC 7.8 k/uL (3.8-10.6)
[2017-11-10 06:47] LABS: Anion Gap 5 mmol/L; Blood Urea Nitrogen 15 mg/dL (7-17); Calcium 9.1 mg/dL (8.4-10.2); Carbon Dioxide 33 mmol/L (22-30); Chloride 100 mmol/L (98-107); Glucose 144 mg/dL (74-99); Magnesium 1.8 mg/dL (1.6-2.3); Phosphorus 4.6 mg/dL (2.5-4.5); Potassium 3.2 mmol/L (3.5-5.1); Sodium 138 mmol/L (137-145)
[2017-11-10] MEDS ORDERED: POTASSIUM CHLORIDE ER 20 MEQ TAB.ER PO STA (08:44)
[2017-11-10] MEDS: METOPROLOL TARTRATE 25 MG TAB PO SCH (08:54)
[2017-11-10] MEDS: HEPARIN SODIUM,PORCINE 5,000 UNIT/ML 1 ML VIAL SQ SCH (08:54)
[2017-11-10] MEDS: FAMOTIDINE 20 MG/2 ML VIAL IV SCH (08:55)
[2017-11-10] MEDS: AMOXIC-POT CLAV 875-125MG 1 EACH TAB PO SCH (08:55)
[2017-11-10] MEDS: IPRATROPIUM-ALBUTEROL 3 ML NEB INHALATION SCH ×3 (09:08→15:27)
--- NOTE | 2017-11-10 10:39 | ECHOF ---
Referral Reason:chf MEASUREMENTS -------- HEIGHT: 129.5 cm WEIGHT: 79.8 kg BP: IVSd: 1.3 cm (0.6 - 1.1) LVIDd: 3.9 cm (3.9 - 5.3) LVPWd: 1.2 cm (0.6 - 1.1) IVSs: 1.7 cm LVIDs: 2.4 cm LVPWs: 1.9 cm LAESV Index (A-L): 25.54 ml/m Ao Diam: 2.5 cm (2.0 - 3.7) AV Cusp: 1.7 cm (1.5 - 2.6) LA Diam: 4.0 cm (2.7 - 3.8) MV EXCURSION: 15.271 mm (> 18.000) MV EF SLOPE: 84 mm/s (70 - 150) EPSS: 0.5 cm MV E Joseph: 1.23 m/s MV DecT: 173 ms MV A Joseph: 1.27 m/s MV E/A Ratio: 0.97 AV maxP.99 mmHg AV meanP.71 mmHg AR PHT: 411 ms RAP: 5.00 mmHg RVSP: 50.02 mmHg FINDINGS -------- Sinus rhythm. This was a technically difficult study with suboptimal views. The left ventricular size is normal. There is mild concentric left ventricular hypertrophy. Overa ll left ventricular systolic function is normal with, an EF between 55 - 60 %. The right ventricle is normal in size and function. The left atrial size is normal. The right atrium is normal in size. Lumason used There is mild aortic valve sclerosis. Trace amount of aortic regurgitation. There is mild aortic stenosis present. Peak/mean gradient across the Aortic Valve is 18.99mmHg / 9.71mmHg. Mild mitral annular calcification present. Mild mitral regurgitation is present. Mild tricuspid regurgitation present. There is moderate pulmonary hypertension. The right ventric ular systolic pressure, as measured by Doppler, is 50.02mmHg. There is no pulmonic regurgitation present. The aortic root size is normal. Normal inferior vena cava with normal inspiratory collapse consistent with estimated right atrial pre ssure of 5 mmHg. There is no pericardial effusion. CONCLUSIONS -------- 1. Sinus rhythm. 2. This was a technically difficult study with suboptimal views. 3. The left ventricular size is normal. 4. There is mild concentric left ventricular hypertrophy. 5. Overall left ventricular systolic function is normal with, an EF between 55 - 60 %. 6. The left atrial size is normal. 7. Lumason used 8. There is mild aortic valve sclerosis. 9. Trace amount of aortic regurgitation. 10. There is mild aortic stenosis present. 11. Peak/mean gradient across the Aortic Valve is 18.99mmHg / 9.71mmHg. 12. Mild mitral annular calcification present. 13. Mild mitral regurgitation is present. 14. Mild tricuspid regurgitation present. 15. There is moderate pulmonary hypertension. 16. There is no pulmonic regurgitation present. 17. The aortic root size is normal. 18. Normal inferior vena cava with normal inspiratory collapse consistent with estimated right atrial pressure of 5 mmHg. 19. There is no pericardial effusion. FRONT END WEB DEVELOPER: Telma Alexis RDCS
[2017-11-10 11:49] LABS: Glucose,Whole Blood 156 mg/dL (75-99)
[2017-11-10 12:17] VITALS: RESP 16
[2017-11-10 12:59] VITALS: BP 152/88; TEMP 98.1
--- NOTE | 2017-11-10 13:37 | P.PN ---
Subjective Progress Note Date: 11/10/17 Principal diagnosis: Altered mental status/Seizure activity This 72-year-old female patient came into the emergency department because of altered mentation a few days duration ultimately she was found to have seizure activity as the patient had 2 bouts of seizure lasting 5 minutes each. She was in the hospital earlier for SVT and she had a cardiac workup that came back negative for coronary artery disease. She is known to have diabetes, hypertension, hyperlipidemia and COPD and obstructive sleep apnea. No history of substance abuse The patient is currently intubated on a mechanical ventilator. She is on sedation. Earlier this morning she was given a sedation holiday following which she was able to open up her eyes and she was not following any specific commands. A repeat CAT scan of the brain was done and it showed age-related atrophy without any acute abnormalities. No evidence of any infarcts or masses. Carotid Doppler was also done and it was suboptimal study and lesions cannot be completely ruled out. There was an asymmetric focal calcified plaque in the right carotid bulb. EEG of the brain is to follow and the patient is currently on Keppra. No further seizure activity has been noted. Patient remains on mechanical ventilator. This morning she is an assist-control mode of ventilation at the rate of 16, tidal volume of 400 and FiO2 of 50% and a PEEP of 5. The blood gases showed a pH of 7.38 with a pCO2 of 41 and pO2 of 181 and based on that the FiO2 is up to 40%. Chest x-ray showing some minimal right basilar atelectatic change in the urine analysis was quite abnormal with abnormalities to suggest UTI. Based on that the patient was started on IV Unasyn as an empiric antibiotic coverage covering for aspiration pneumonia and urine checked infections. She is afebrile for now. No neck stiffness. No significant leukocytosis at this point in time. Hemodynamically stable on no pressors. On 11/07/2017, patient is being seen in follow-up. This morning the patient sedated with Diprivan at 30 mics and she is hemodynamically stable. She is well sedated in the process of doing his sedation holiday. The patient did not witnessed to have any further seizures here in the ICU. EEG was done and showed diffuse slowing without any epileptic foci and the patient is currently on Keppra. A repeat CAT scan of the brain was done that showed no acute abnormalities. Doppler of the carotids was suboptimal. The patient is not having any fever. No neck stiffness. No seizure activity has been noted. She is resting comfortably in bed as the patient is was sedated with Diprivan. She is on a mechanical ventilator on assist control mode at the rate of 16 with a tidal volume of 400 and FiO2 of 40% and PEEP of 5. Morning blood gases showed a pH of 7.41 with a pCO2 of 42 and pO2 140. The sputum culture is pending. Blood cultures still pending and the patient is still covered with empiric antibiotic coverage with IV Unasyn. The patient is producing adequate amount of urine output. The neck fluid balance over the past 24 hours is +750 mL. No significant leukocytosis. Rest of the blood work and electrolytes all within normal limits. Chest x-ray showing some limited right basilar pulmonary infiltrates probably rates aspiration pneumonia. She is afebrile. She is tolerating her tube feeds. Blood sugars are under good control for now and there are no other significant events overnight. On 11/08/2017, the patient is doing well and she is awake and alert and following commands and answering questions appropriately. She is very hard of hearing it's important to get her hearing aids for better communication with this patient. I asked her to follow commands and she was able to do so. No seizure activity has been noted on this patient and the patient is on Keppra and the levels are being adjusted by neurology. She has been extubated yesterday. She is afebrile. She has a congested cough. No fever. No chills. The sputum showed Haemophilus influenza and the patient is currently on IV Unasyn. She is hemodynamically stable. She is up-to-date liters about 2 by nasal cannula and her pulse ox is 98%. No other significant events overnight. No agitation. No restlessness. No respiratory distress. Patient is seen again today 11/09/2017 in follow-up on the selective care unit. She is currently sitting up in a chair at the bedside. She is awake and alert in no acute distress. No further seizure activity. Denies any shortness of breath, cough or congestion. Still requiring 6 L high flow nasal cannula to maintain O2 saturations in the 90s. She's been afebrile. Hemodynamically stable. Sputum positive for Haemophilus influenza. Blood culture and urine culture reveals no growth. White count 8.9. Hemoglobin 10.9. Creatinine 0.70. She is continued on bronchodilators and antibiotics. The patient is seen again today 11/10/2017 in follow-up on the selective care unit. She is currently resting quite comfortably in bed. She is awake and alert in no acute distress. She denies any worsening shortness of breath. She has a loose nonproductive cough. No chills or night sweats. She is maintaining good O2 saturations in the mid 90s on room air. She's been afebrile. Hemodynamically stable. Seizure activity. White count 7.8. Hemoglobin 11.4. Creatinine 0.70. She remains on Augmentin. Objective - Vital Signs Vital signs: Vital Signs Temp 98.1 F 11/10/17 12:00 Pulse 82 11/10/17 12:00 Resp 16 11/10/17 12:00 BP 152/88 11/10/17 12:00 Pulse Ox 95 11/10/17 12:00 Intake & Output 11/09/17 11/10/17 11/10/17 18:59 06:59 18:59 Intake Total 236 30 712 Balance 236 30 712 Weight 80.1 kg 81.5 kg Intake: IV 30 Sodium Chloride 0.9% 1, 30 000 ml @ 50 mls/hr IV . Q20H [facility] Rx#:[id number] Oral 236 712 Other: Voiding Method Toilet Toilet Toilet Bedside Commode # Voids 1 1 # Bowel Movements 1 - Exam Gen. appearance, comfortable and the patient is not in acute respiratory distress. Head exam was generally normal. There was no scleral icterus or corneal arcus. Mucous membranes were moist. Neck was supple and without jugular venous distension, thyromegaly, or carotid bruits. Carotids were easily palpable bilaterally. There was no adenopathy. Lungs were clear to auscultation and percussion, and with normal diaphragmatic excursion. No wheezes or rales were noted. Cardiac exam revealed the PMI to be normally situated and sized. The rhythm was regular and no extrasystoles were noted during several minutes of auscultation. The first and second heart sounds were normal and physiologic splitting of the second heart sound was noted. There were no murmurs, rubs, clicks, or gallops. Abdominal exam revealed normal bowel sounds. The abdomen was soft, non-tender, and without masses, organomegaly, or appreciable enlargement of the abdominal aorta. Examination of the extremities revealed easily palpable radial, femoral and pedal pulses. There was no cyanosis, clubbing or edema. Examination of the skin revealed no evidence of significant rashes, suspicious appearing nevi or other concerning lesions. Neurologic exam is nonfocal and the patient is moving all 4 extremities also she sews motor weakness. - Labs CBC & Chem 7: 11/10/17 05:55 11/10/17 05:55 Labs: Abnormal Lab Results - Last 24 Hours (Table) 11/09/17 11/09/17 11/10/17 Range/Units 16:34 21:04 05:55 MCHC 30.8 L (31.0-37.0) g/dL Potassium (3.5-5.1) mmol/L Carbon Dioxide (22-30) mmol/L Glucose (74-99) mg/dL POC Glucose (mg/dL) 203 H 162 H (75-99) mg/dL Phosphorus (2.5-4.5) mg/dL 11/10/17 11/10/17 11/10/17 Range/Units 05:55 06:17 11:46 MCHC (31.0-37.0) g/dL Potassium 3.2 L (3.5-5.1) mmol/L Carbon Dioxide 33 H (22-30) mmol/L Glucose 144 H (74-99) mg/dL POC Glucose (mg/dL) 139 H 156 H (75-99) mg/dL Phosphorus 4.6 H (2.5-4.5) mg/dL Microbiology - Last 24 Hours (Table) 11/06/17 10:46 Blood Culture - Preliminary Blood No Growth after 96 hours 11/06/17 09:40 Blood Culture - Preliminary Blood No Growth after 96 hours Assessment and Plan Assessment: Assessment 1 altered mentation probably related to seizure activity. The patient was intubated and placed on a mechanical ventilator due to a postictal state and subsequently the patient was weaned off the mechanical ventilated and the patient was extubated. She was taken off sedation. Today here mentation seems to have improved considerably and the patient is following commands and answering questions appropriately. The patient is currently on Kera. Neurologist on the case. 2 altered mentation secondary to above, recovering 3 acute respiratory failure, nonhypoxic, and the patient was intubated to protect the airways. The patient is extubated. There is suspicion for a right lower lobe pneumonia of an aspiration type and the patient is transitioned to Augmentin. Sputum is shown Haemophilus influenza. He covered it maintaining good O2 saturations in the 90s on room air. 4 recent hospitalization for SVT discharged home on beta blockers and the patient has a normal cardiac catheterization and normal echocardiogram 5 diabetes mellitus 6 hypertension 7 hyperlipidemia 8 obstructive sleep apnea noncompliant to CPAP therapy 9 acid reflux 10 suspected UTI, awaiting cultures Plan The patient was seen and evaluated by Dr. Segura. She remains stable from the pulmonary standpoint. Continue Augmentin. Increase her activity as tolerated. We'll continue to follow. I, the cosigning physician, performed a history & physical examination of the patient. Lungs sounds are clear. Maintaining good O2 saturations in the 90s on room air. I discussed the assessment and plan of care with my nurse practitioner, Ekaterina Perea. I attest to the above note as dictated by her.
--- NOTE | 2017-11-10 14:47 | P.DS ---
Providers Date of admission: 11/04/17 22:44 Expected date of discharge: 11/10/17 Attending physician: Wenceslao Brock Consults: 11/04/17 22:45 Consult Physician Routine Consulting Provider: Rica Martinez Consult Reason/Comments: status epilepticus Do you want consulting provider notified?: Already Contacted 11/04/17 22:46 Consult Physician Routine Consulting Provider: Ivet Borrero Consult Reason/Comments: prolonged qt Do you want consulting provider notified?: Yes 11/04/17 22:55 Consult Physician Routine Consulting Provider: Beto Hernández Consult Reason/Comments: ICU Care Do you want consulting provider notified?: Already Contacted Primary care physician: Mallorie Hudson Hospital Course: Discharge diagnosis #1 new-onset seizure with status epilepticus, no evidence of seizure at this time, patient received IV Ativan and is maintained on IV Keppra. She'll continue Keppra 750 mg by mouth twice a day. Patient followed by neurology closely during this admission. #2 acute respiratory failure requiring intubation and mechanical ventilation. Likely secondary to an aspiration pneumonia. Sputum culture growing H influenza. Patient currently on Augmentin. Followed by pulmonary service. She 'll continue Augmentin for 5 more days #3 underlying history of hypertension #4 underlying history of diabetes mellitus #5 underlying history of COPD #6 underlying history of obstructive sleep apnea #7 evidence of lung infiltrates bibasilar left more than right maintained on IV antibiotic possible aspiration pneumonia. Sputum positive for Haemophilus influenae #8 previous history of supraventricular tachycardia. Questionable arrhythmia down in emergency room on admission. Evaluated by cardiology. No evidence of arrhythmia per cardiology #9 recent cardiac catheterization which were within normal limits #10 hypomagnesium. Magnesium 1.1 on admission. Resolved #11 UTI: Urine culture negative. Patient completed treatment. 12. Generalized anxiety disorder. Resume patient's Xanax. Patient had been on multiple medications including Xanax, Celexa, Cymbalta. At this time she is been without the Celexa and Cymbalta tolerating this well. Neurology is recommending to continue to monitor just on the Xanax. Hospital course Sabine Hagen is a 72-year-old female who presented to [facility] emergency room via EMS after being noticed at home by her to be an responsive and having shaking in her extremities she was evaluated in the emergency room and was thought to have seizure activity she was given IV Ativan , and was started on IV Keppra, she was intubated and sedated for airway protection and was admitted to intensive care unit, computed tomography scan of the brain without contrast done in the emergency room did not reveal any evidence of intracranial hemorrhage or midline shift there was age-related cerebral atrophy and chronic small vessel ischemic changes, labs in the emergency room revealed evidence of leukocytosis with white blood count of 13.2 and elevated ammonia level of 62. Otherwise kidney function and liver function were within normal limits. Chest x-ray revealed left basilar infiltrate computed tomography scan of the chest abdomen and pelvis was done in the emergency room, and revealed by basilar infiltrate left greater than right otherwise no abnormality seen. Currently patient is admitted to intensive care unit, she is intubated sedated maintained on mechanical ventilation, and son are at the bedside, and history and review of system was done with them. stated that patient has been feeling tired recently, he left her at home laying down he was away for about 2 hours when he came back she was unresponsive and having shaking in her upper extremities, he called EMS and patient was brought into emergency room , patient has a known history of hypertension, diabetes mellitus, and hyperlipidemia no previous history of stroke or seizure in the past no history of coronary artery disease and no history of liver disease. On 11/06/2017 patient remains on mechanical ventilation in the intensive care unit. Per nursing staff patient has scheduled EEG and repeat CT of head today per neurology. Patient currently remains on 20mcg of diprivan. Patient followed by critical care , neurology and cardiology. Blood, urine and sputum cultures have been ordered patient started on Unasyn for critical care. Chest x -ray completed. At this point patient not making any purposeful movement or following commands. On 11/07/2017 patient has been extubated. Patient remains in the intensive care unit. Patient is awake and does follow some commands. No further seizure activity has been noted. Chest x-ray completed showing basilar atelectasis. Expiratory rotated exam. Suspect cardiomegaly. Patient currently on nasal cannula 3 L. Patient does deny any chest pain or shortness of breath. Critical team following closely. On 11/08/2017 patient is currently resting comfortably in bed on 3 L nasal cannula. Patient remains in the intensive care unit. Patient is awake and alert following commands. Patient is extremely hard of hearing making full neuro exam difficult. Patient denies chest pain or shortness of breath. Denies any nausea vomiting or diarrhea. On 11/09/2017 patient is currently resting in bed. Per nursing staff patient was on the [facility] floor but had an episode of low oxygen saturation and increased lethargy. Patient received 40 mg 1 time dose of Lasix throughout night. Patient is currently alert and oriented. She is on 6 L high flow nasal cannula which is increased from 3 L she was on yesterday. Will order 2 view Chest x-ray. Patient denies chest pain or shortness breath. Denies any nausea vomiting or diarrhea. Denies any burning with urination or frequency. Patient is medically stable for discharge on 11/10/2017. She's had no further seizure activity. Her Keppra level is therapeutic and she'll continue Keppra 750 mg twice a day. Patient will follow-up with neurology in the outpatient setting. Patient did have 2 CT scans of the brain completed during this admission which were negative for any acute intracranial abnormality. EEG gives evidence of a severe widespread diffuse disturbance in cerebral function. At discharge she did have a potassium of 3.2 she will receive supplement. Recommend checking a BMP in 3 days. She'll continue Augmentin for 5 more days to complete treatment for her possible aspiration pneumonia. Likely her low- grade temps that she had a few days ago related to this pneumonia. Fevers have resolved. White count is normal. Patient did have a few episodes of fluid overload and received 2 doses of IV Lasix per pulmonary service. Echo shows a preserved EF of 55-60% and moderate pulmonary hypertension. Also during this admission her anxiety and depression medications were addressed. At this time we will just be starting her Xanax and will monitor off of the Celexa and Cymbalta. Carotid Doppler completed shows a suboptimal study cannot exclude significant stenosis in visualized portion of the proximal right internal carotid artery. there is asymmetric focal calcified plaque right carotid bulb on noncontrast CT September 2017. Advise further investication with CTA of neck to exclude significant stenosis. We'll have patient follow-up with vascular surgery for further evaluation in the outpatient setting. Patient is medically stable for discharge. Please refer to chart for any further details. I performed an examination of the patient and discussed their management with the physician Chiropractic Practice Manager. I have reviewed the Physician Chiropractic Practice Manager's notes and agree with the documented findings and plan of care Patient Condition at Discharge: Stable Plan - Discharge Summary New Discharge Prescriptions: New ALPRAZolam [Xanax] 0.125 mg PO DAILY PRN #3 tab PRN Reason: Anxiety Amoxic-Pot Clav 875-125Mg [Augmentin 875-125] 1 each PO Q12HR #5 tab levETIRAcetam [Keppra] 750 mg PO Q12HR tab Metoprolol Tartrate [Lopressor] 25 mg PO BID #0 tab Continue Multivitamins, Thera [Multivitamin (formulary)] 1 tab PO DAILY metFORMIN HCL [Glucophage] 1,000 mg PO BID glyBURIDE [Diabeta] 5 mg PO AC-BRKFST Biotin 5 mg PO DAILY Mometasone Furoate [Nasonex Nasal [place]] 1 spray EA NOSTRIL BID Budesonide/Formoterol Fumarate [Symbicort 160-4.5 Mcg Inhaler] 2 puff INHALATION RT-BID Ranitidine HCl 150 mg PO BID Vitamin B Complex 1 cap PO DAILY Calcium Citrate 500 mg PO DAILY Aspirin 81 mg PO DAILY #30 tab Lisinopril [Zestril] 20 mg PO DAILY #30 tab Montelukast [Singulair] 10 mg PO HS Discontinued Citalopram Hydrobromide [CeleXA] 20 mg PO BID ALPRAZolam [Xanax] 0.125 mg PO DAILY DULoxetine HCL [Cymbalta] 60 mg PO DAILY Metoprolol Tartrate [Lopressor] 50 mg PO BID #60 tab Polymyxin B-Trimeth Sulf Ophth [Polytrim Opthalmic] 1 drops BOTH EYES Q6HR 7 Days #1 bottle busPIRone HCl [Buspar] 5 mg PO DAILY Discharge Medication List Biotin 5 mg PO DAILY 07/17/14 [History] Multivitamins, Thera [Multivitamin (formulary)] 1 tab PO DAILY 07/17/14 [History ] glyBURIDE [Diabeta] 5 mg PO AC-BRKFST 07/17/14 [History] metFORMIN HCL [Glucophage] 1,000 mg PO BID 07/17/14 [History] Budesonide/Formoterol Fumarate [Symbicort 160-4.5 Mcg Inhaler] 2 puff INHALATION RT-BID 10/18/17 [History] Calcium Citrate 500 mg PO DAILY 10/18/17 [History] Mometasone Furoate [Nasonex Nasal [place]] 1 spray EA NOSTRIL BID 10/18/17 [ History] Ranitidine HCl 150 mg PO BID 10/18/17 [History] Vitamin B Complex 1 cap PO DAILY 10/18/17 [History] Aspirin 81 mg PO DAILY #30 tab 10/20/17 [Rx] Lisinopril [Zestril] 20 mg PO DAILY #30 tab 10/20/17 [Rx] Montelukast [Singulair] 10 mg PO HS 11/06/17 [History] ALPRAZolam [Xanax] 0.125 mg PO DAILY PRN #3 tab 11/10/17 [Rx] Amoxic-Pot Clav 875-125Mg [Augmentin 875-125] 1 each PO Q12HR #5 tab 11/10/17 [ Rx] Metoprolol Tartrate [Lopressor] 25 mg PO BID #0 tab 11/10/17 [Rx] levETIRAcetam [Keppra] 750 mg PO Q12HR tab 11/10/17 [Rx] Follow up Appointment(s)/Referral(s): Mallorie Hudson DO [Primary Care Provider] - 1 Week Rica Martinez MD [STAFF PHYSICIAN] - 1 Week Ambulatory/Diagnostic Orders: Basic Metabolic Panel [LAB.AMB] Time Frame: 3 Days, Location: None Selected Activity/Diet/Wound Care/Special Instructions: Diet: cardiac Activity: as tolerated ok to discharge to [facility] Discharge Disposition: TRANSFER TO SNF/F
[2017-11-10 15:38] VITALS: PULSE 84
[2017-11-10] MEDS ORDERED: FAMOTIDINE 20 MG TAB PO SCH (21:00)
== END 2017-11-10 16:01 | DRG 100 ==
LOC: EC 18:34 → 6ICU 22:44 → 4MS4W 11-08 14:56 → 6SEL 11-09 01:49
PROVIDERS: ADMIT Internal Medicine; ATTEND Internal Medicine
PROC: 5A1945Z Respiratory Ventilation, 24-96 Consecutive Hours (ICD-10-PCS; principal; 2017-11-04)
PROC: 0BH17EZ Insertion of Endotracheal Airway into Trachea, Via Natural or Artificial Opening (ICD-10-PCS; principal; 2017-11-04)
DX: G40.901 Epilepsy, unspecified, not intractable, with status epilepticus (principal); J96.00 Acute respiratory failure, unspecified whether with hypoxia or hypercapnia; J69.0 Pneumonitis due to inhalation of food and vomit; E87.4 Mixed disorder of acid-base balance; I47.1 Supraventricular tachycardia; E83.42 Hypomagnesemia; E11.9 Type 2 diabetes mellitus without complications; E78.5 Hyperlipidemia, unspecified; E87.70 Fluid overload, unspecified; F32.9 Major depressive disorder, single episode, unspecified; F41.1 Generalized anxiety disorder; G47.33 Obstructive sleep apnea (adult) (pediatric); H91.90 Unspecified hearing loss, unspecified ear; I10 Essential (primary) hypertension; I27.20 Pulmonary hypertension, unspecified; J44.9 Chronic obstructive pulmonary disease, unspecified; K21.9 Gastro-esophageal reflux disease without esophagitis; E07.9 Disorder of thyroid, unspecified; Z96.653 Presence of artificial knee joint, bilateral; Z91.19 Patient's noncompliance with other medical treatment and regimen; Z79.51 Long term (current) use of inhaled steroids; Z79.82 Long term (current) use of aspirin; Z79.84 Long term (current) use of oral hypoglycemic drugs; Z79.899 Other long term (current) drug therapy; Z80.0 Family history of malignant neoplasm of digestive organs; Z86.73 Personal history of transient ischemic attack (TIA), and cerebral infarction without residual deficits; Z90.710 Acquired absence of both cervix and uterus; Z87.891 Personal history of nicotine dependence; Z90.49 Acquired absence of other specified parts of digestive tract; Z91.041 Radiographic dye allergy status; Z91.040 Latex allergy status; Z88.5 Allergy status to narcotic agent; Z91.018 Allergy to other foods
CPT/HCPCS: 31500; 36415; 36600; 70450; 71045; 71046; 71260; 74177; 80048; 80051; 80053; 80177; 80306; 81001; 82009; 82140; 82550; 82553; 82565; 82803; 82805; 82947; 83036; 83735; 84100; 84484; 84520; 85025; 85610; 85730; 87040; 87070; 87086; 87205; 93005; 93306; 93880; 94002; 94003; 94640; 94760; 95816; 96361; 96365; 96366; 96368; 96375; 96376; 99285

== ENCOUNTER → 2017-12-21 | Outpatient (CLI) | payer MEDICARE, BC ==
--- NOTE | 2017-12-21 13:33 | MR ---
EXAMINATION TYPE: MR brain wo con DATE OF EXAM: 12/21/2017 COMPARISON: None HISTORY: Seizure disorder, stroke CONTRAST: Performed utilizing 0 mL intravenous Gadavist gadolinium contrast. TECHNIQUE: Multiplanar, multiecho imaging on a 3.0 Belkis magnet is performed through the brain. Stud y is performed within 24 hours of arrival to the hospital. The craniovertebral junction is normal. The pituitary is normal. Diffusion-weighted imaging is performed. No abnormal hyperintensity is present to suggest an acute i ntracranial infarct or acute ischemic change. There are scattered punctate areas of hyperintensity on T2 and Inversion Recovery weighted sequences which are non-specific but can be related to microvascular ischemic changes. Differential diagnosis c ould include vasculitis changes from migraine headaches and Lyme disease and multiple sclerosis. Ventricles and sulci are appropriate for the patient age. IMPRESSIONS: 1. Nonspecific scattered deep white matter changes most likely on the basis of chronic white matter i schemic changes.
--- NOTE | 2017-12-21 13:39 | MR ---
EXAMINATION TYPE: MR angio neck wo/w con DATE OF EXAM: 12/21/2017 COMPARISON: None HISTORY: Seizure disorder, stroke CONTRAST: Standard multiplanar, multisequence MRI departmental protocol utilizing 7.5 mL intravenous Gadavist g adolinium contrast. TECHNIQUE: 3-D [id number] imaging is performed through the neck vessels. FINDINGS: Source images are reviewed. There is a three-vessel arch. Vertebral arteries are codominant . Common carotid arteries appear unremarkable. Bifurcations are normal without focal stenosis. No mary w gap is evident. Note is made the right internal carotid artery is somewhat medial in position. The [place] is visualized within the [id number] is unremarkable. IMPRESSION: Normal MRA of neck vessels.
== END | disposition home or self-care (01) ==
LOC: RADMRIMAIN 11:50
PROVIDERS: ATTEND Psychiatry & Neurology Neurology
DX: R90.89 Other abnormal findings on diagnostic imaging of central nervous system (principal); Z86.73 Personal history of transient ischemic attack (TIA), and cerebral infarction without residual deficits; Z96.653 Presence of artificial knee joint, bilateral
CPT/HCPCS: 82565; 70549; 70551; 36415; A9581

== ENCOUNTER → 2018-07-19 | Outpatient (CLI) | payer MEDICARE, BC ==
--- NOTE | 2018-07-20 12:48 | MM ---
Reason for exam: screening (asymptomatic). Last mammogram was performed 1 year ago. History: Patient is postmenopausal. Family history of breast cancer in paternal aunt at age 70 and breast cancer in maternal grandmother at age 56. Took hormonal contraceptives for 1 year beginning at age 29. Took estrogen for 1 year beginning at age 46. Took progesterone for 1 year beginning at age 46. Taking other hormone for 6 months beginning at age 62. Physical Findings: A clinical breast exam by your physician is recommended on an annual basis and results should be correlated with mammographic findings. MG 3D Screening Mammo W/Cad Bilateral CC and MLO view(s) were taken. Prior study comparison: July 14, 2017, bilateral MG 3d screening mammo w/cad. June 03, 2016, bilateral MG 3d screening mammo w/cad. The breast tissue is heterogeneously dense. This may lower the sensitivity of mammography. There are benign appearing round vascular dystrophic calcifications bilaterally. Asymmetric breast tissue in the left outer aspect is stable. There is no discrete abnormality. ASSESSMENT: Benign, BI-RAD 2 RECOMMENDATION: Routine screening mammogram of both breasts in 1 year.
== END | disposition home or self-care (01) ==
LOC: RADMAMWWP 12:37
PROVIDERS: ATTEND Family Medicine
DX: Z12.31 Encounter for screening mammogram for malignant neoplasm of breast (principal); Z80.3 Family history of malignant neoplasm of breast
CPT/HCPCS: 77063; 77067

== ENCOUNTER 2018-09-16 14:53 | Emergency (ER) | payer MEDICARE, BC ==
[2018-09-16] MEDS ORDERED: SODIUM CHLORIDE 0.9% 500 ML 500 ML IV STA (16:05)
[2018-09-16] MEDS ORDERED: ONDANSETRON 4 MG/2 ML VIAL IVP STA ×2 (16:05→18:42)
[2018-09-16] MEDS ORDERED: diphenhydrAMINE 50 MG/ML 1 ML VIAL IVP STA (16:05)
--- NOTE | 2018-09-16 16:12 | ED ---
General Adult HPI - General Chief complaint: Dizziness Stated complaint: MELISA/Itchy Time Seen by Provider: 09/16/18 15:20 Source: patient, family Mode of arrival: wheelchair Limitations: physical limitation - History of Present Illness Initial comments: The patient is a 73-year-old female who presents to the emergency department with reported abdominal pain. The patient describes it as a crampy, periumbilical pain without radiation. States it has been present since last night. She has also had associated nausea without vomiting. She denies any di arrhea, constipation, melanotic stools or hematochezia. Does admit to changes in her urination to include burning with urination and frequency. She has had a decreased appetite today. She has had poor oral intake. She also reports to the itchiness of her bilateral upper extremities. states that this is chronic for her because of her anxiety. She "used to take medications for this however has stopped". Denies any new exposures. The patient does have several allergies however denies exposure to any of them. The patient denies any chest pain or shortness of breath. Denies ripping or tearing sensation to her back. She does admit to feeling lightheaded upon stadning. Denies vertiginous symptoms. Denies headache, visual changes, numbness or weakness. There is no reported confusion, seizure activity, flank pain, blunt head trauma or abdominal trauma. There are no other alleviating, precipitating or modifying factors. - Related Data Home Medications Medication Instructions Recorded Confirmed Biotin 5 mg PO DAILY 07/17/14 09/16/18 Multivitamins, Thera [Multivitamin 1 tab PO DAILY 07/17/14 09/16/18 (formulary)] metFORMIN HCL [Glucophage] 1,000 mg PO BID 07/17/14 09/16/18 Calcium Citrate 500 mg PO DAILY 10/18/17 09/16/18 Montelukast [Singulair] 10 mg PO HS 11/06/17 09/16/18 ALPRAZolam [Xanax] 0.25 mg PO DAILY PRN 09/16/18 09/16/18 Albuterol Nebulized [Ventolin 2.5 mg INHALATION RT-Q6H PRN 09/16/18 09/16/18 Nebulized] Atorvastatin [Lipitor] 40 mg PO HS 09/16/18 09/16/18 Cyanocobalamin [Vitamin B-12] 500 mcg PO DAILY 09/16/18 09/16/18 DULoxetine HCL [Cymbalta] 30 mg PO BID 09/16/18 09/16/18 Ferrous Sulfate [Feosol] 325 mg PO DAILY 09/16/18 09/16/18 Fluticasone Nasal [place] [Flonase 2 spr EA NOSTRIL DAILY 09/16/18 09/16/18 Nasal [place]] Gabapentin 600 mg PO TID 09/16/18 09/16/18 Hydrocortisone Cream 1 applic TOPICAL BID PRN 09/16/18 09/16/18 [Hydrocortisone 2.5% Cream] Ipratropium Nebulized [Atrovent 0.5 mg INHALATION RT-Q6H PRN 09/16/18 09/16/18 Nebulized 0.2 MG/ML] Levothyroxine Sodium [Synthroid] 100 mcg PO DAILY 09/16/18 09/16/18 Lisinopril-Hctz 20-12.5 mg 1 tab PO DAILY 09/16/18 09/16/18 [Zestoretic 20-12.5] Omeprazole 40 mg PO DAILY 09/16/18 09/16/18 Ranitidine HCl 300 mg PO HS 09/16/18 09/16/18 Sucralfate [Carafate] 1 gm PO TID 09/16/18 09/16/18 Vit C/E/Zn/Coppr/Lutein/Zeaxan 1 cap PO DAILY 09/16/18 09/16/18 [Preservision Areds 2 Softgel] busPIRone HCl [Buspar] 5 mg PO BID 09/16/18 09/16/18 Previous Rx's Medication Instructions Recorded Aspirin 81 mg PO DAILY #30 tab 10/20/17 levETIRAcetam [Keppra] 750 mg PO Q12HR tab 11/10/17 Ondansetron Odt [Zofran Odt] 4 mg PO Q8HR PRN #10 tab 09/16/18 diphenhydrAMINE [Benadryl] 25 mg PO QID PRN #20 capsule 09/16/18 Allergies Allergy/AdvReac Type Severity Reaction Status Date / Time banana [Banana] Allergy Severe Anaphylaxis Verified 09/16/18 16:07 iodine Allergy Severe DYSPNEA, Verified 09/16/18 16:07 SKIN INFLAMED kiwi Allergy Severe Anaphylaxis Verified 09/16/18 16:07 latex Allergy Dyspnea, Verified 09/16/18 16:07 Itching morphine Allergy Rapid Verified 09/16/18 16:07 Heart Rate ivp dye Allergy Dyspnea Uncoded 09/16/18 15:05 smoke Allergy Dyspnea Uncoded 09/16/18 15:05 Review of Systems ROS Statement: Those systems with pertinent positive or pertinent negative responses have been documented in the HPI. ROS Other: All systems not noted in ROS Statement are negative. Past Medical History Past Medical History: Asthma, Chest Pain / Angina, COPD, CVA/TIA, Diabetes Mellitus, GERD/Reflux, Hearing Disorder / Deafness, Hyperlipidemia, Hypertension, Musculoskeletal Disorder, Sleep Apnea/CPAP/BIPAP, Thyroid Disorder Additional Past Medical History / Comment(s): NEUROPATHY, HEART MURMUR, NOT USING C-PAP, HIATAL HERNIA, DIVERTICULOSIS, CYST LEFT KIDNEY, DDD WITH SCIATICA AND BACK PAIN. STATES HAVING LEFT ABD & RIGHT GROIN PAIN. NEURO DERMATITIS W/ RASH. History of Any Multi-Drug Resistant Organisms: None Reported Past Surgical History: Adenoidectomy, Cholecystectomy, Hysterectomy, Joint Replacement, Orthopedic Surgery, Tonsillectomy Additional Past Surgical History / Comment(s): D & C, ARTHROSCOPY MIGUEL KNEES, MIGUEL ROTATOR CUFF , MIGUEL KNEE REPLACEMENT. Past Anesthesia/Blood Transfusion Reactions: Postoperative Nausea & Vomiting (PO NV) Past Psychological History: Anxiety, Depression Smoking Status: Former smoker Past Alcohol Use History: None Reported Past Drug Use History: None Reported - Past Family History Father Family Medical History: Pneumonia Mother Family Medical History: Cancer Additional Family Medical History / Comment(s): PANCREAS CA General Exam Limitations: physical limitation General appearance: alert, in no apparent distress Head exam: Present: atraumatic, normocephalic, normal inspection Eye exam: Present: normal appearance, PERRL, EOMI. Absent: scleral icterus, conjunctival injection, periorbital swelling ENT exam: Present: normal exam, mucous membranes moist Neck exam: Present: normal inspection. Absent: tenderness, meningismus, lymphadenopathy Respiratory exam: Present: normal lung sounds bilaterally. Absent: respiratory distress, wheezes, rales, rhonchi, stridor Cardiovascular Exam: Present: normal rhythm, tachycardia, normal heart sounds. Absent: systolic murmur, diastolic murmur, rubs, gallop, clicks GI/Abdominal exam: Present: soft, tenderness, normal bowel sounds, other (The patient has slight tenderness to palpation in the periumbilical region. No peritoneal signs. Abdomen is soft. ). Absent: distended, guarding, rebound, rig id Extremities exam: Present: normal inspection, full ROM, normal capillary refill. Absent: tenderness, pedal edema, joint swelling, calf tenderness Back exam: Present: normal inspection Neurological exam: Present: alert, oriented X3, CN II-XII intact Psychiatric exam: Present: normal affect, normal mood Skin exam: Present: warm, dry, intact, normal color, abrasion, other (The patient does have mild excorations noted to her bilateral upper extremities, proximal thighs and shoulders. They are not bleeding at this time. No surrounding cellulitic changes. No hives present). Absent: rash Course Vital Signs 09/16/18 09/16/18 09/16/18 15:02 15:05 16:05 Temperature 98.2 F 98.6 F 98.4 F Pulse Rate 114 H 78 81 Respiratory 18 18 18 Rate Blood Pressure 128/76 129/83 132/82 O2 Sat by Pulse 99 98 Oximetry 09/16/18 09/16/18 09/16/18 17:05 19:14 20:24 Temperature 97.9 F Pulse Rate 82 96 90 Respiratory 18 18 20 Rate Blood Pressure 132/75 122/65 138/54 O2 Sat by Pulse 96 96 Oximetry EKG Findings - EKG Comments: EKG Findings:: EKG demonstrates a normal sinus rhythm with a ventricular rate of 100. IA interval 116. QRS 68. QTC 456. No acute ST segment elevations or depressions concerning for ischemic changes. There is significant baseline artifact. Medical Decision Making - Medical Decision Making The patient was placed into room 1. She is hooked up to continuous pulse ox and cardiac monitoring. 12-lead EKG is performed which demonstrates a normal sinus rhythm. No acute ST segment elevations or depressions. IV access is established. The patient is given a liter bolus of saline. She is also provided with 4 mg of Zofran and 25 mg of Benadryl IV. After studies were conducted, the patient is sent for CT of her abdomen and pelvis and a chest x- ray. Upon return of the results, the patient is reevaluated. She states that her itching has improved. She is requesting another dose of the antiemetic. I did provide the patient with an additional dose of Zofran. The results of her laboratory studies are discussed the patient. She states that she feels improved at this time. She is requesting to go home. I did offer admission to the hospital for continued antiemetics as well as serial abdominal exams however the patient refused. She is of sound mind and capable of making her own decisions. She'll be discharged home at this time. She must follow-up with her primary care physician within 2-4 days for reevaluation. Should the patient of any new or worsening symptoms, she should return to the emergency room. She was given perceptions for Benadryl and Zofran. She was then discharged home in stable condition - Differential Diagnosis acute nausea, abdominal pain, dehydration, pruritis - Lab Data Result diagrams: 09/16/18 16:44 09/16/18 16:44 Lab Results 09/16/18 09/16/18 09/16/18 Range/Units 16:44 16:44 16:44 WBC 12.2 H (3.8-10.6) k/uL RBC 4.82 (3.80-5.40) m/uL Hgb 14.0 (11.4-16.0) gm/dL Hct 42.7 (34.0-46.0) % MCV 88.6 (80.0-100.0) fL MCH 29.1 (25.0-35.0) pg MCHC 32.8 (31.0-37.0) g/dL RDW 12.9 (11.5-15.5) % Plt Count 373 (150-450) k/uL Neutrophils % 66 % Lymphocytes % 25 % Monocytes % 5 % Eosinophils % 1 % Basophils % 0 % Neutrophils # 8.0 H (1.3-7.7) k/uL Lymphocytes # 3.1 (1.0-4.8) k/uL Monocytes # 0.6 (0-1.0) k/uL Eosinophils # 0.2 (0-0.7) k/uL Basophils # 0.1 (0-0.2) k/uL PT (9.0-12.0) sec INR (<1.2) APTT (22.0-30.0) sec Sodium 141 (137-145) mmol/L Potassium 3.8 (3.5-5.1) mmol/L Chloride 103 (98-107) mmol/L Carbon Dioxide 23 (22-30) mmol/L Anion Gap 15 mmol/L BUN 22 H (7-17) mg/dL Creatinine 1.02 (0.52-1.04) mg/dL Est GFR (CKD-EPI)AfAm 63 (>60 ml/min/1.73 sqM) Est GFR (CKD-EPI)NonAf 55 (>60 ml/min/1.73 sqM) Glucose 193 H (74-99) mg/dL Plasma Lactic Acid Juan 2.0 (0.7-2.0) mmol/L Calcium 10.8 H (8.4-10.2) mg/dL Magnesium 1.5 L (1.6-2.3) mg/dL Total Bilirubin 0.5 (0.2-1.3) mg/dL AST 27 (14-36) U/L ALT 27 (9-52) U/L Alkaline Phosphatase 106 (38-126) U/L Total Protein 7.6 (6.3-8.2) g/dL Albumin 4.7 (3.5-5.0) g/dL Lipase 128 (23-300) U/L Urine Color Urine Appearance (Clear) Urine pH (5.0-8.0) Ur Specific [place] (1.001-1.035) Urine Protein (Negative) Urine Glucose (UA) (Negative) Urine Ketones (Negative) Urine Blood (Negative) Urine Nitrite (Negative) Urine Bilirubin (Negative) Urine Urobilinogen (<2.0) mg/dL Ur Leukocyte Esterase (Negative) Urine RBC (0-5) /hpf Urine WBC (0-5) /hpf Ur Squamous Epith Cells (0-4) /hpf Hyaline Casts (0-2) /lpf Urine Mucus (None) /hpf 09/16/18 09/16/18 Range/Units 16:44 18:51 WBC (3.8-10.6) k/uL RBC (3.80-5.40) m/uL Hgb (11.4-16.0) gm/dL Hct (34.0-46.0) % MCV (80.0-100.0) fL MCH (25.0-35.0) pg MCHC (31.0-37.0) g/dL RDW (11.5-15.5) % Plt Count (150-450) k/uL Neutrophils % % Lymphocytes % % Monocytes % % Eosinophils % % Basophils % % Neutrophils # (1.3-7.7) k/uL Lymphocytes # (1.0-4.8) k/uL Monocytes # (0-1.0) k/uL Eosinophils # (0-0.7) k/uL Basophils # (0-0.2) k/uL PT 9.9 (9.0-12.0) sec INR 0.9 (<1.2) APTT 23.3 (22.0-30.0) sec Sodium (137-145) mmol/L Potassium (3.5-5.1) mmol/L Chloride (98-107) mmol/L Carbon Dioxide (22-30) mmol/L Anion Gap mmol/L BUN (7-17) mg/dL Creatinine (0.52-1.04) mg/dL Est GFR (CKD-EPI)AfAm (>60 ml/min/1.73 sqM) Est GFR (CKD-EPI)NonAf (>60 ml/min/1.73 sqM) Glucose (74-99) mg/dL Plasma Lactic Acid Juan (0.7-2.0) mmol/L Calcium (8.4-10.2) mg/dL Magnesium (1.6-2.3) mg/dL Total Bilirubin (0.2-1.3) mg/dL AST (14-36) U/L ALT (9-52) U/L Alkaline Phosphatase (38-126) U/L Total Protein (6.3-8.2) g/dL Albumin (3.5-5.0) g/dL Lipase (23-300) U/L Urine Color Yellow Urine Appearance Clear (Clear) Urine pH 6.0 (5.0-8.0) Ur Specific [place] 1.023 (1.001-1.035) Urine Protein Trace H (Negative) Urine Glucose (UA) Trace H (Negative) Urine Ketones 2+ H (Negative) Urine Blood Negative (Negative) Urine Nitrite Negative (Negative) Urine Bilirubin 1+ H (Negative) Urine Urobilinogen 2.0 (<2.0) mg/dL Ur Leukocyte Esterase Moderate H (Negative) Urine RBC 4 (0-5) /hpf Urine WBC 21 H (0-5) /hpf Ur Squamous Epith Cells 2 (0-4) /hpf Hyaline Casts 4 H (0-2) /lpf Urine Mucus Rare H (None) /hpf Disposition Clinical Impression: Dehydration, Abdominal pain Disposition: HOME SELF-CARE Condition: Stable Instructions (If sedation given, give patient instructions): Abdominal Pain (ED) Additional Instructions: Please see your doctor in 2-4 days. Return to the emergency room for any new or worsening symptoms Prescriptions: diphenhydrAMINE [Benadryl] 25 mg PO QID PRN #20 capsule PRN Reason: Itching Ondansetron Odt [Zofran Odt] 4 mg PO Q8HR PRN #10 tab PRN Reason: Nausea Is patient prescribed a controlled substance at d/c from ED?: No Referrals: Mallorie Hudson DO [Primary Care Provider] - 1-2 days Time of Disposition: 20:27
[2018-09-16 17:03] LABS: Basophils # (A) 0.1 k/uL (0-0.2); Basophils % (A) 0 %; Eosinophils # (A) 0.2 k/uL (0-0.7); Eosinophils % (A) 1 %; HCT 42.7 % (34.0-46.0); Lymphocytes # (A) 3.1 k/uL (1.0-4.8); Lymphocytes % (A) 25 %; MCH 29.1 pg (25.0-35.0); MCHC 32.8 g/dL (31.0-37.0); MCV 88.6 fL (80.0-100.0); Mean Platelet Volume 7.2; Monocytes # (A) 0.6 k/uL (0-1.0); Monocytes % (A) 5 %; Neutrophils % (A) 66 %; Platelet Count 373 k/uL (150-450); RBC 4.82 m/uL (3.80-5.40); RDW 12.9 % (11.5-15.5); WBC 12.2 k/uL (3.8-10.6)
[2018-09-16 17:12] LABS: Albumin 4.7 g/dL (3.5-5.0); Calcium 10.8 mg/dL (8.4-10.2); Magnesium 1.5 mg/dL (1.6-2.3); Potassium 3.8 mmol/L (3.5-5.1); Total Bilirubin 0.5 mg/dL (0.2-1.3); Total Protein 7.6 g/dL (6.3-8.2)
[2018-09-16 17:15] VITALS: TEMP 97.9
[2018-09-16 17:18] LABS: INR 0.9 (<1.2); Partial Thromboplastin Time 23.3 sec (22.0-30.0); Prothrombin Time 9.9 sec (9.0-12.0)
--- NOTE | 2018-09-16 17:49 | XR ---
EXAMINATION TYPE: XR chest 2V DATE OF EXAM: 09/16/2018 COMPARISON: 11/09/2017 HISTORY: 73-year-old female with dizziness TECHNIQUE: PA and lateral views FINDINGS: Heart normal size. Aorta and pulmonary vasculature within normal limits. Some strandy atelectasis low er left lung. No consolidation or pleural effusion. IMPRESSION: No acute cardiopulmonary process.
--- NOTE | 2018-09-16 18:10 | CT ---
EXAMINATION TYPE: CT abdomen pelvis wo con DATE OF EXAM: 09/16/2018 COMPARISON: 11/04/2017 HISTORY: 73-year-old female Pt c/o abdomen pain, sweaty, dizzy. CT DLP: 686.2 mGycm. Automated exposure control for dose reduction was used. TECHNIQUE: Contiguous axial scanning of the abdomen and pelvis without IV contrast. Coronal and sagit eufemia reconstructions performed. FINDINGS: Heart upper limits of normal in size without pericardial effusion. Possible partially visualized 4 mm posterior right lower lung pulmonary nodule not clearly seen previously. Recommend nonemergent follo w-up CT chest to survey the entire lungs and compared to 05/26/2014. Dependent atelectasis at both lung bases. Noncontrast appearance of the liver, adrenal glands, right kidney, spleen with hilar splenule, and pa ncreas show no gross abnormality. Stable exophytic lobulated cystic lesion upper pole left kidney measuring up to 4.6 cm. Anterior cyst ic component is larger measuring 1.8 cm versus 1.7 cm on 11/04/2017 and 1.3 cm back in 2014. Consider annual CT follow-up. No dilated small bowel, free fluid, or free air. Cholecystectomy clips. Normal appendix. Mild stool burden. Left colonic diverticulosis without pericolonic inflammatory hair ge. Bladder partially distended. Uterus is surgically absent. No abnormal fluid collection the pelvis or pelvic lymphadenopathy. Bones mild degenerative changes of the hips. Hypertrophic facet arthropathy mid to lower lumbar spine . Degenerative disc disease visualized lower thoracic spine and upper lumbar spine. IMPRESSION: 1. No acute inflammatory process identified in the abdomen or pelvis to explain the patient's sympto ms. There is left-sided colonic diverticulosis without acute diverticulitis. 2. Nonemergent follow-up contrast enhanced CT chest to survey the entire lungs. There is a 4 mm part ially visualized right lower lobe pulmonary nodule not clearly seen previously. 3. Annual CT surveillance of the multilocular cystic lesion of the left kidney. One of the locular c omponents appears increased in size measuring 1.8 cm versus 1.3 cm back in 2015.
[2018-09-16] MEDS: MAGNESIUM SULFATE-D5W PMX 1 GM in DEXTROSE/WATER 1 100ML.BAG IVPB SCH ×2 (19:00→20:22)
[2018-09-16 19:28] LABS: Appearance,Urine Clear (Clear); Bilirubin,Urine 1+ (Negative); Blood,Urine Negative (Negative); Color,Urine Yellow; Glucose,Urine (UA) Trace (Negative); Hyaline Casts,Urine 4 /lpf (0-2); Ketones,Urine 2+ (Negative); Leukocyte Esterase,Urine Moderate (Negative); Mucus,Urine Rare /hpf; Nitrite,Urine Negative (Negative); Protein,Urine Trace (Negative); RBC,Urine 4 /hpf (0-5); Specific Gravity,Urine 1.023 (1.001-1.035); Squamous Epithelial Cell,Urine 2 /hpf (0-4)
[2018-09-16 20:26] VITALS: BP 138/54; PULSE 90; RESP 20
== END 2018-09-16 20:56 | disposition home or self-care (01) ==
LOC: EC 14:53
DX: E86.0 Dehydration (principal); R10.33 Periumbilical pain; E83.42 Hypomagnesemia; Z53.29 Procedure and treatment not carried out because of patient's decision for other reasons; J44.9 Chronic obstructive pulmonary disease, unspecified; E11.40 Type 2 diabetes mellitus with diabetic neuropathy, unspecified; K21.9 Gastro-esophageal reflux disease without esophagitis; H91.90 Unspecified hearing loss, unspecified ear; E78.5 Hyperlipidemia, unspecified; I10 Essential (primary) hypertension; E07.9 Disorder of thyroid, unspecified; F32.9 Major depressive disorder, single episode, unspecified; F41.9 Anxiety disorder, unspecified; Z86.73 Personal history of transient ischemic attack (TIA), and cerebral infarction without residual deficits; Z87.891 Personal history of nicotine dependence; Z79.899 Other long term (current) drug therapy; Z79.84 Long term (current) use of oral hypoglycemic drugs; Z79.890 Hormone replacement therapy; Z91.040 Latex allergy status; Z88.5 Allergy status to narcotic agent; Z91.018 Allergy to other foods; Z88.8 Allergy status to other drugs, medicaments and biological substances; Z91.041 Radiographic dye allergy status; Z91.09 Other allergy status, other than to drugs and biological substances; Z96.653 Presence of artificial knee joint, bilateral
CPT/HCPCS: 36415; 93005; 80053; 83605; 83690; 83735; 85025; 85610; 85730; 81001; 87086; 71046; 74176; 99284; 96365; 96366; 96375 ×2; 96376; 96361 ×2; J1200; J2405; J3475

== ENCOUNTER → 2018-10-03 | Outpatient (CLI) | payer MEDICARE, BC ==
--- NOTE | 2018-10-04 08:41 | CT ---
EXAMINATION TYPE: CT chest w con DATE OF EXAM: 10/03/2018 COMPARISON: 11/04/2017, 09/16/2018. HISTORY: Pulmonary nodule. CT DLP: 642 mGycm, Automated exposure control for dose reduction was used. CONTRAST: Performed injected with 80ml mL of Isovue 300. TECHNIQUE: Axial images were obtained at 5 mm thick sections. Reconstructed images are reviewed on [employer] computer in the coronal plane. FINDINGS: Thyroid appears atrophic. There is a 0.4 cm nodule along the major fissure on the right. Series 3 image 27. This appears to hav e been present previously measuring 0.3 cm. This is better visualized on the current exam. This could be the same nodule identified 09/16/2018 CT abdomen pelvis. Continued monitoring is recommended. No enlarged mediastinal or hilar adenopathy is evident. After calcification is within the aorta. Th e ascending aorta diameter at the level of the main pulmonary artery is 3.8 cm. The main pulmonary a rtery diameter at the bifurcation is 2.[address] sections are obtained through the upper abdomen. There is a multilobulated cyst at the sup erior pole left kidney measuring 3.9 cm and 0 Hounsfield units. As appears stable from comparison. Mo nitoring with ultrasound is recommended. IMPRESSIONS: 1. Probable stable 4 mm nodule right midlung posterior lateral. Follow-up exam in 6 months is recomme nded. 2. Lobular multiloculated cyst superior pole left kidney, stable from comparison. Continued monitorin g is recommended.
== END | disposition home or self-care (01) ==
LOC: RADCTMAIN 16:16
PROVIDERS: ATTEND Physician Assistant
DX: R91.1 Solitary pulmonary nodule (principal); Z88.5 Allergy status to narcotic agent
CPT/HCPCS: 82565; 84520; 71260; 36415; Q9967

== ENCOUNTER 2019-03-22 18:33 | Inpatient (IN) | payer MEDICARE, BC ==
[2019-03-22] MEDS ORDERED: SODIUM CHLORIDE 0.9% 1,000 ML IV STA (18:54)
--- NOTE | 2019-03-22 18:59 | ED ---
General Adult HPI - General Chief complaint: Weakness Stated complaint: WEAKNESS Time Seen by Provider: 03/22/19 18:43 Source: patient, EMS, RN notes reviewed Mode of arrival: EMS - History of Present Illness Initial comments: 74-year-old female with a complicated past medical history presents to the emergency department for a chief complaint of weakness. Patient states that she has felt generally weak since last night. She states she just does not feel well. She is a poor historian. She denies fevers or chills denies cough congestion nausea vomiting. States that her thoughts feel jumbled and she admits to some mild confusion. She states she has some mild back pain however states this is chronic. She has no other complaints. Patient has no other complaints at this time including shortness of breath, chest pain, abdominal pain, nausea or vomiting, headache, or visual changes. - Related Data Home Medications Medication Instructions Recorded Confirmed Biotin 5 mg PO DAILY 07/17/14 09/16/18 Multivitamins, Thera [Multivitamin 1 tab PO DAILY 07/17/14 09/16/18 (formulary)] metFORMIN HCL [Glucophage] 1,000 mg PO BID 07/17/14 09/16/18 Calcium Citrate 500 mg PO DAILY 10/18/17 09/16/18 Montelukast [Singulair] 10 mg PO HS 11/06/17 09/16/18 ALPRAZolam [Xanax] 0.25 mg PO DAILY PRN 09/16/18 09/16/18 Albuterol Nebulized [Ventolin 2.5 mg INHALATION RT-Q6H PRN 09/16/18 09/16/18 Nebulized] Atorvastatin [Lipitor] 40 mg PO HS 09/16/18 09/16/18 Cyanocobalamin [Vitamin B-12] 500 mcg PO DAILY 09/16/18 09/16/18 DULoxetine HCL [Cymbalta] 30 mg PO BID 09/16/18 09/16/18 Ferrous Sulfate [Feosol] 325 mg PO DAILY 09/16/18 09/16/18 Fluticasone Nasal [place] [Flonase 2 spr EA NOSTRIL DAILY 09/16/18 09/16/18 Nasal [place]] Gabapentin 600 mg PO TID 09/16/18 09/16/18 Hydrocortisone Cream 1 applic TOPICAL BID PRN 09/16/18 09/16/18 [Hydrocortisone 2.5% Cream] Ipratropium Nebulized [Atrovent 0.5 mg INHALATION RT-Q6H PRN 09/16/18 09/16/18 Nebulized 0.2 MG/ML] Levothyroxine Sodium [Synthroid] 100 mcg PO DAILY 09/16/18 09/16/18 Lisinopril-Hctz 20-12.5 mg 1 tab PO DAILY 09/16/18 09/16/18 [Zestoretic 20-12.5] Omeprazole 40 mg PO DAILY 09/16/18 09/16/18 Ranitidine HCl 300 mg PO HS 09/16/18 09/16/18 Sucralfate [Carafate] 1 gm PO TID 09/16/18 09/16/18 Vit C/E/Zn/Coppr/Lutein/Zeaxan 1 cap PO DAILY 09/16/18 09/16/18 [Preservision Areds 2 Softgel] busPIRone HCl [Buspar] 5 mg PO BID 09/16/18 09/16/18 Previous Rx's Medication Instructions Recorded Aspirin 81 mg PO DAILY #30 tab 10/20/17 levETIRAcetam [Keppra] 750 mg PO Q12HR tab 11/10/17 Ondansetron Odt [Zofran Odt] 4 mg PO Q8HR PRN #10 tab 09/16/18 diphenhydrAMINE [Benadryl] 25 mg PO QID PRN #20 capsule 09/16/18 Allergies Allergy/AdvReac Type Severity Reaction Status Date / Time banana [Banana] Allergy Severe Anaphylaxis Verified 09/16/18 16:07 iodine Allergy Severe DYSPNEA, Verified 09/16/18 16:07 SKIN INFLAMED kiwi Allergy Severe Anaphylaxis Verified 09/16/18 16:07 latex Allergy Dyspnea, Verified 09/16/18 16:07 Itching morphine Allergy Rapid Verified 09/16/18 16:07 Heart Rate ivp dye Allergy Dyspnea Uncoded 09/16/18 15:05 smoke Allergy Dyspnea Uncoded 09/16/18 15:05 Review of Systems ROS Statement: Those systems with pertinent positive or pertinent negative responses have been documented in the HPI. ROS Other: All systems not noted in ROS Statement are negative. Past Medical History Past Medical History: Asthma, Chest Pain / Angina, COPD, CVA/TIA, Diabetes Mellitus, GERD/Reflux, Hearing Disorder / Deafness, Hyperlipidemia, Hypertension, Musculoskeletal Disorder, Sleep Apnea/CPAP/BIPAP, Thyroid Disorder Additional Past Medical History / Comment(s): NEUROPATHY, HEART MURMUR, NOT USING C-PAP, HIATAL HERNIA, DIVERTICULOSIS, CYST LEFT KIDNEY, DDD WITH SCIATICA AND BACK PAIN. STATES HAVING LEFT ABD & RIGHT GROIN PAIN. NEURO DERMATITIS W/ RASH. History of Any Multi-Drug Resistant Organisms: None Reported Past Surgical History: Adenoidectomy, Cholecystectomy, Hysterectomy, Joint Replacement, Orthopedic Surgery, Tonsillectomy Additional Past Surgical History / Comment(s): D & C, ARTHROSCOPY MIGUEL KNEES, MIGUEL ROTATOR CUFF , MIGUEL KNEE REPLACEMENT. Past Anesthesia/Blood Transfusion Reactions: Postoperative Nausea & Vomiting (PONV) Past Psychological History: Anxiety, Depression Smoking Status: Former smoker Past Alcohol Use History: None Reported Past Drug Use History: None Reported - Past Family History Father Family Medical History: Pneumonia Mother Family Medical History: Cancer Additional Family Medical History / Comment(s): PANCREAS CA General Exam General appearance: alert, in no apparent distress Head exam: Present: atraumatic, normocephalic, normal inspection Eye exam: Present: normal appearance, PERRL, EOMI. Absent: scleral icterus, conjunctival injection, periorbital swelling ENT exam: Present: normal exam, normal oropharynx, mucous membranes moist, TM's normal bilaterally, normal external ear exam Neck exam: Present: normal inspection, full ROM. Absent: tenderness, meningism us, lymphadenopathy Respiratory exam: Present: normal lung sounds bilaterally. Absent: respiratory distress, wheezes, rales, rhonchi, stridor Cardiovascular Exam: Present: regular rate, normal rhythm, normal heart sounds. Absent: systolic murmur, diastolic murmur, rubs, gallop, clicks GI/Abdominal exam: Present: soft, normal bowel sounds. Absent: distended, tenderness, guarding, rebound, rigid Neurological exam: Present: alert, oriented X3 Course Vital Signs 03/22/19 03/22/19 18:37 21:07 Temperature 97.5 F L Pulse Rate 103 H 108 H Respiratory 18 18 Rate Blood Pressure 143/79 163/44 O2 Sat by Pulse 97 96 Oximetry EKG Findings - EKG Comments: EKG Findings:: Sinus tachycardia, ventricular rate 102, ID interval 138, QTC 44 Medical Decision Making - Medical Decision Making Patient presents for generalized weakness for one day. Patient has been persistently tachycardic despite fluid bolus. She does have evidence of dehydration on CMP with a BUN to creatinine ratio of 21. Hyperglycemia which did improve to 252 with fluids. Mild hypomagnesemia of 1.4, patient given oral magnesium. She does have an elevated TSH, is currently not taking her Synthroid as she ran out. Urinalysis unremarkable. Chest x-ray and brain CT showed no acute process. We did attempt and the patient and she is a 2 person assist at this time. There was concern for fall risk with patient. At this time patient will be admitted for further management. - Lab Data Result diagrams: 03/22/19 19:18 03/22/19 19:18 Lab Results 03/22/19 03/22/19 03/22/19 Range/Units 19:18 19:18 19:18 WBC 10.5 (3.8-10.6) k/uL RBC 4.96 (3.80-5.40) m/uL Hgb 14.8 (11.4-16.0) gm/dL Hct 46.3 H (34.0-46.0) % MCV 93.4 (80.0-100.0) fL MCH 29.7 (25.0-35.0) pg MCHC 31.8 (31.0-37.0) g/dL RDW 12.3 (11.5-15.5) % Plt Count 297 (150-450) k/uL Neutrophils % 73 % Lymphocytes % 20 % Monocytes % 3 % Eosinophils % 1 % Basophils % 1 % Neutrophils # 7.6 (1.3-7.7) k/uL Lymphocytes # 2.1 (1.0-4.8) k/uL Monocytes # 0.3 (0-1.0) k/uL Eosinophils # 0.1 (0-0.7) k/uL Basophils # 0.1 (0-0.2) k/uL PT 9.7 (9.0-12.0) sec INR 0.9 (<1.2) APTT 20.6 L (22.0-30.0) sec Sodium 135 L (137-145) mmol/L Potassium 5.1 (3.5-5.1) mmol/L Chloride 103 (98-107) mmol/L Carbon Dioxide 24 (22-30) mmol/L Anion Gap 8 mmol/L BUN 21 H (7-17) mg/dL Creatinine 0.96 (0.52-1.04) mg/dL Est GFR (CKD-EPI)AfAm 67 (>60 ml/min/1.73 sqM) Est GFR (CKD-EPI)NonAf 58 (>60 ml/min/1.73 sqM) Glucose 303 H (74-99) mg/dL POC Glucose (mg/dL) (75-99) mg/dL POC Glu Veterinary Inspector ID Calcium 9.4 (8.4-10.2) mg/dL Magnesium 1.4 L (1.6-2.3) mg/dL Total Bilirubin 0.6 (0.2-1.3) mg/dL AST 31 (14-36) U/L ALT 19 (4-34) U/L Alkaline Phosphatase 107 (38-126) U/L Troponin I (0.000-0.034) ng/mL Total Protein 6.8 (6.3-8.2) g/dL Albumin 3.9 (3.5-5.0) g/dL TSH 5.450 H (0.465-4.680) mIU/L Urine Color Urine Appearance (Clear) Urine pH (5.0-8.0) Ur Specific [place] (1.001-1.035) Urine Protein (Negative) Urine Glucose (UA) (Negative) Urine Ketones (Negative) Urine Blood (Negative) Urine Nitrite (Negative) Urine Bilirubin (Negative) Urine Urobilinogen (<2.0) mg/dL Ur Leukocyte Esterase (Negative) Influenza Type A RNA (Not Detectd) Influenza Type B (PCR) (Not Detectd) 03/22/19 03/22/19 03/22/19 Range/Units 19:18 19:20 20:33 WBC (3.8-10.6) k/uL RBC (3.80-5.40) m/uL Hgb (11.4-16.0) gm/dL Hct (34.0-46.0) % MCV (80.0-100.0) fL MCH (25.0-35.0) pg MCHC (31.0-37.0) g/dL RDW (11.5-15.5) % Plt Count (150-450) k/uL Neutrophils % % Lymphocytes % % Monocytes % % Eosinophils % % Basophils % % Neutrophils # (1.3-7.7) k/uL Lymphocytes # (1.0-4.8) k/uL Monocytes # (0-1.0) k/uL Eosinophils # (0-0.7) k/uL Basophils # (0-0.2) k/uL PT (9.0-12.0) sec INR (<1.2) APTT (22.0-30.0) sec Sodium (137-145) mmol/L Potassium (3.5-5.1) mmol/L Chloride (98-107) mmol/L Carbon Dioxide (22-30) mmol/L Anion Gap mmol/L BUN (7-17) mg/dL Creatinine (0.52-1.04) mg/dL Est GFR (CKD-EPI)AfAm (>60 ml/min/1.73 sqM) Est GFR (CKD-EPI)NonAf (>60 ml/min/1.73 sqM) Glucose (74-99) mg/dL POC Glucose (mg/dL) (75-99) mg/dL POC Glu Veterinary Inspector ID Calcium (8.4-10.2) mg/dL Magnesium (1.6-2.3) mg/dL Total Bilirubin (0.2-1.3) mg/dL AST (14-36) U/L ALT (4-34) U/L Alkaline Phosphatase (38-126) U/L Troponin I <0.012 (0.000-0.034) ng/mL Total Protein (6.3-8.2) g/dL Albumin (3.5-5.0) g/dL TSH (0.465-4.680) mIU/L Urine Color Yellow Urine Appearance Clear (Clear) Urine pH 5.0 (5.0-8.0) Ur Specific [place] 1.011 (1.001-1.035) Urine Protein Negative (Negative) Urine Glucose (UA) 4+ H (Negative) Urine Ketones Trace H (Negative) Urine Blood Negative (Negative) Urine Nitrite Negative (Negative) Urine Bilirubin Negative (Negative) Urine Urobilinogen <2.0 (<2.0) mg/dL Ur Leukocyte Esterase Negative (Negative) Influenza Type A RNA Not Detected (Not Detectd) Influenza Type B (PCR) Not Detected (Not Detectd) 03/22/19 Range/Units 20:37 WBC (3.8-10.6) k/uL RBC (3.80-5.40) m/uL Hgb (11.4-16.0) gm/dL Hct (34.0-46.0) % MCV (80.0-100.0) fL MCH (25.0-35.0) pg MCHC (31.0-37.0) g/dL RDW (11.5-15.5) % Plt Count (150-450) k/uL Neutrophils % % Lymphocytes % % Monocytes % % Eosinophils % % Basophils % % Neutrophils # (1.3-7.7) k/uL Lymphocytes # (1.0-4.8) k/uL Monocytes # (0-1.0) k/uL Eosinophils # (0-0.7) k/uL Basophils # (0-0.2) k/uL PT (9.0-12.0) sec INR (<1.2) APTT (22.0-30.0) sec Sodium (137-145) mmol/L Potassium (3.5-5.1) mmol/L Chloride (98-107) mmol/L Carbon Dioxide (22-30) mmol/L Anion Gap mmol/L BUN (7-17) mg/dL Creatinine (0.52-1.04) mg/dL Est GFR (CKD-EPI)AfAm (>60 ml/min/1.73 sqM) Est GFR (CKD-EPI)NonAf (>60 ml/min/1.73 sqM) Glucose (74-99) mg/dL POC Glucose (mg/dL) 252 H (75-99) mg/dL POC Glu Veterinary Inspector ID Goldman Addis Calcium (8.4-10.2) mg/dL Magnesium (1.6-2.3) mg/dL Total Bilirubin (0.2-1.3) mg/dL AST (14-36) U/L ALT (4-34) U/L Alkaline Phosphatase (38-126) U/L Troponin I (0.000-0.034) ng/mL Total Protein (6.3-8.2) g/dL Albumin (3.5-5.0) g/dL TSH (0.465-4.680) mIU/L Urine Color Urine Appearance (Clear) Urine pH (5.0-8.0) Ur Specific [place] (1.001-1.035) Urine Protein (Negative) Urine Glucose (UA) (Negative) Urine Ketones (Negative) Urine Blood (Negative) Urine Nitrite (Negative) Urine Bilirubin (Negative) Urine Urobilinogen (<2.0) mg/dL Ur Leukocyte Esterase (Negative) Influenza Type A RNA (Not Detectd) Influenza Type B (PCR) (Not Detectd) Disposition Clinical Impression: Tachycardia, Weakness, Hypomagnesemia Disposition: ADMITTED IP TO THIS HOSP Condition: Fair Is patient prescribed a controlled substance at d/c from ED?: No Referrals: Mallorie Hudson DO [Primary Care Provider] - 1-2 days Time of Disposition: 21:16
[2019-03-22 19:27] LABS: Basophils # (A) 0.1 k/uL (0-0.2); Basophils % (A) 1 %; Eosinophils # (A) 0.1 k/uL (0-0.7); Eosinophils % (A) 1 %; HCT 46.3 % (34.0-46.0); HGB 14.8 gm/dL (11.4-16.0); Lymphocytes # (A) 2.1 k/uL (1.0-4.8); Lymphocytes % (A) 20 %; MCH 29.7 pg (25.0-35.0); MCHC 31.8 g/dL (31.0-37.0); MCV 93.4 fL (80.0-100.0); Mean Platelet Volume 8.1; Monocytes # (A) 0.3 k/uL (0-1.0); Monocytes % (A) 3 %; Neutrophils # (A) 7.6 k/uL (1.3-7.7); Neutrophils % (A) 73 %; Platelet Count 297 k/uL (150-450); RBC 4.96 m/uL (3.80-5.40); RDW 12.3 % (11.5-15.5); WBC 10.5 k/uL (3.8-10.6)
[2019-03-22 19:40] LABS: Albumin 3.9 g/dL (3.5-5.0); Calcium 9.4 mg/dL (8.4-10.2); Magnesium 1.4 mg/dL (1.6-2.3); Potassium 5.1 mmol/L (3.5-5.1); Total Bilirubin 0.6 mg/dL (0.2-1.3); Total Protein 6.8 g/dL (6.3-8.2)
[2019-03-22 19:42] LABS: INR 0.9 (<1.2); Prothrombin Time 9.7 sec (9.0-12.0)
--- NOTE | 2019-03-22 19:56 | CT ---
EXAMINATION TYPE: CT brain wo con DATE OF EXAM: 03/22/2019 COMPARISON: 11/06/2017 INDICATION: Weakness and altered mental status. DLP: 1095.4 mGycm, Automated exposure control for dose reduction was used. CONTRAST: None CT of the brain is performed utilizing 3 mm thick sections through the posterior fossa and 3 mm thick sections through the remaining calvarium. Study is performed within 24 hours of arrival to the hosp ital. No abnormal hyperdensity is present to suggest an acute intracranial hemorrhage. No mass lesion is evident. No acute infarcts are evident. Ventricles and sulci are prominent for the patient age. Paranasal sinuses and mastoid air cells within the [id number] are clear. IMPRESSIONS: 1. Mild age-related atrophy. 2. Exam is stable from comparison. 3. No acute intracranial process
--- NOTE | 2019-03-22 19:57 | XR ---
EXAMINATION TYPE: XR chest 2V DATE OF EXAM: 03/22/2019 COMPARISON: 09/16/2018 INDICATION: Weakness TECHNIQUE: Frontal and lateral views of the chest are obtained. FINDINGS: The heart size is normal. The pulmonary vasculature is normal. The lungs are clear. IMPRESSION: 1. No acute pulmonary process.
[2019-03-22 20:00] LABS: Partial Thromboplastin Time 20.6 sec (22.0-30.0)
[2019-03-22 20:39] LABS: Glucose,Whole Blood 252 mg/dL (75-99)
[2019-03-22 20:45] LABS: Appearance,Urine Clear (Clear); Bilirubin,Urine Negative (Negative); Blood,Urine Negative (Negative); Color,Urine Yellow; Glucose,Urine (UA) 4+ (Negative); Ketones,Urine Trace (Negative); Leukocyte Esterase,Urine Negative (Negative); Nitrite,Urine Negative (Negative); Protein,Urine Negative (Negative); Specific Gravity,Urine 1.011 (1.001-1.035); Urobilinogen,Urine <2.0 mg/dL (<2.0)
[2019-03-22] MEDS ORDERED: MAGNESIUM OXIDE 400 MG TAB PO STA (20:50)
[2019-03-22] MEDS ORDERED: NALOXONE 0.4 MG/ML 1 ML VIAL IV PRN (21:12)
[2019-03-22] MEDS: SODIUM CHLORIDE 0.9% 1,000 ML IV SCH (21:45)
[2019-03-22] MEDS: ACETAMINOPHEN TAB 325 MG TAB PO PRN (21:45)
[2019-03-23 09:20] LABS: Glucose,Whole Blood 208 mg/dL (75-99)
[2019-03-23] MEDS: INSULIN ASPART (NovoLOG) 100 UNIT/ML VIAL SQ SCH ×4 (09:41→20:41)
[2019-03-23] MEDS ORDERED: BACLOFEN 10 MG TAB PO PRN (11:47)
[2019-03-23] MEDS ORDERED: HYDROCORTISONE 1% CREAM 30 GM TUBE TOPICAL PRN (11:47)
[2019-03-23] MEDS ORDERED: GABAPENTIN 300 MG CAP PO PRN (11:47)
[2019-03-23] MEDS ORDERED: ALBUTEROL NEBULIZED 2.5 MG/3 ML INHALATION PRN (11:47)
[2019-03-23] MEDS ORDERED: IPRATROPIUM-ALBUTEROL 3 ML NEB INHALATION PRN (11:49)
[2019-03-23 12:06] LABS: Glucose,Whole Blood 182 mg/dL (75-99)
[2019-03-23] MEDS: REPAGLINIDE 1 MG TAB PO SCH ×2 (13:05→18:05)
[2019-03-23] MEDS: LISINOPRIL-HCTZ 20-12.5 MG 1 EACH TAB PO SCH (13:06)
[2019-03-23] MEDS: LEVOTHYROXINE 100 MCG TAB PO SCH (13:06)
[2019-03-23] MEDS: metFORMIN 500 MG TAB PO SCH ×2 (13:06→18:05)
[2019-03-23] MEDS: glipiZIDE 10 MG TAB PO SCH (13:06)
[2019-03-23] MEDS: PANTOPRAZOLE 40 MG TABLET PO SCH (13:07)
[2019-03-23] MEDS: SODIUM CHLORIDE 0.9% 1,000 ML IV SCH ×2 (13:14→23:28)
[2019-03-23] MEDS: IPRATROPIUM-ALBUTEROL 3 ML NEB INHALATION SCH ×2 (14:52→19:22)
[2019-03-23] MEDS ORDERED: Potassium Replacement Protocol 1 EACH MISC MISCELLANE PRN (15:57)
[2019-03-23] MEDS ORDERED: Magnesium Replacement Protocol 1 EACH MISC MISCELLANE PRN (15:57)
[2019-03-23 17:03] LABS: Glucose,Whole Blood 146 mg/dL (75-99)
--- NOTE | 2019-03-23 18:42 | HP ---
HISTORY AND PHYSICAL I am covering for Dr. Portillo. DATE OF SERVICE: 03/23/2019. CHIEF COMPLAINTS: Weakness and cough and shortness of breath. HISTORY OF PRESENT ILLNESS: This 74-year-old woman with a past medical history of multiple medical problems including asthma, history of COPD, CVA, TIA, diabetes, GERD, hypertension, hyperlipidemia, history of adenoidectomy, being followed by Dr. Hudson in the outpatient setting, was not feeling well for the past several days. Patient complains of cough and sputum and weakness, weakness aggravated since last night. The patient came to [facility] and was admitted to the hospital for further evaluation and treatment. Patient also has some mild confusion. There is no history of fever, rigors or chills. No history of headache, loss of consciousness, or seizures. After admission, the sugars were found to be slightly elevated. Patient also had a chest x- ray which showed no acute pulmonary process. Patient admitted to the hospital for further evaluation and treatment. There is no history of fever, rigors or chills. No history of headache, loss of consciousness, seizures. PAST MEDICAL HISTORY: History of asthma, COPD, history of CVA, TIA, history of diabetes type 2, GERD, history of hypertension, hyperlipidemia, history of DJD, history of adenoidectomy, history of anxiety, depression. MEDICATIONS: Home medications are: 1. Glucophage 1000 mg p.o. b.i.d. 2. Keppra 750 mg p.o. b.i.d. 3. DiaBeta 5 mg p.o. daily. 4. Proscar 5 mg p.o. b.i.d. 5. Vitamin C zinc 1 p.o. daily. 6. Prandin 0.5 mg t.i.d. 7. Omeprazole 40 mg p.o. daily. 8. Singulair 10 mg q.h.s. 9. Zestoretic 1 tablet p.o. daily. 10.Synthroid 100 mcg p.o. daily. 11.Atrovent 0.5 q.i.d. 12.Hydrocortisone cream application. 13.Gabapentin 600 mg q.8 p.r.n. 14.Breo Ellipta 1 puff daily. 15.Flonase 1 spray b.i.d. 16.Cymbalta 60 mg p.o. daily. 17.Baclofen 5 mg daily p.r.n. 18.Lipitor 40 mg q.h.s. 19.Ventolin 2.5 q.i.d. p.r.n. 20.Xanax 0.125 mg p.o. b.i.d. ALLERGIES: BANANA, IODINE, KIWI, LATEX, MORPHINE, IVP DYE, SMOKE. FAMILY HISTORY: History of pancreatic cancer in the family. SOCIAL HISTORY: No history of current smoking. Previous history of smoking. No history of alcohol intake. REVIEW OF SYSTEMS: ENT: No diminished vision. No diminished hearing. CARDIOVASCULAR: No angina or palpitations. RESPIRATIONS: As mentioned earlier. GI no nausea or vomiting. no dysuria or hematuria. NERVOUS SYSTEM: No numbness or weakness. ALLERGY/IMMUNOLOGY: As mentioned earlier. HEMATOLOGY/ONCOLOGY: No history of anemia. ENDOCRINE: Diabetes and hypothyroidism present. CONSTITUTIONAL: As mentioned earlier. DERMATOLOGY: Negative. RHEUMATOLOGY: As mentioned earlier. PSYCHIATRIC: As mentioned earlier. PHYSICAL EXAMINATION: Alert and oriented times three. Pulse is 100. Blood pressure 135/82, respiration 18, temperature 97.8, pulse ox 93% on room air. HEENT: Conjunctivae normal. NECK: No JVD. CARDIOVASCULAR: S1, S2 muffled. RESPIRATIONS: Breath sounds diminished in the bases. Scattered rhonchi and crackles. Expiratory wheezing also present. Breathing efforts increased. ABDOMEN: Soft, nontender. No mass palpable. LEGS: No edema. No swelling. NERVOUS SYSTEM: Higher functions as mentioned earlier. Moves all 4 limbs. No focal motor or sensory deficits. Lymphatics: No lymph nodes palpable in the neck, axillae or groin. SKIN: No ulcer, no rash and no bleeding. JOINTS: No active deforming arthropathy. LAB STUDIES: WBC 10.2, hemoglobin 14.8. Sodium 138. Potassium 5.1. Accu-Cheks noted. Magnesium 1.4. ASSESSMENT: 1. Chronic obstructive pulmonary disease, bronchial asthma, acute exacerbation with acute purulent tracheobronchitis. 2. Hyponatremia. 3. Hypomagnesemia. 4. Elevated TSH. 5. History of chest pain. 6. History of cerebrovascular accident, transient ischemic attack. 7. History of diabetes type 2. 8. Gastroesophageal reflux disease. 9. History of hard of hearing. 10.Hypertension. 11.Hyperlipidemia. 12.History of degenerative joint disease. 13.History of sleep apnea. 14.History of peripheral neuropathy. 15.History of adenoidectomy. 16.History of cholecystectomy. 17.History of anxiety, depression. 18.FULL CODE. CONDITION: In this 74-year-old woman who presented with multiple complex medical issues, we will monitor the patient closely, continue the current medications, management and symptomatic treatment. Recommend resume the home medications and start broad-spectrum IV antibiotics, bronchodilators. Monitor blood sugars closely. Continue the rest of medications. Guarded prognosis because of multiple complex medical issues. further recommendations to follow. A copy of this dictation being forwarded to Dr. Mallorie Hudson who is the primary physician. We will continue with antibiotics. Influenza is negative at this time. Monitor blood sugars closely. MMODL / IJN: [id number] /
[2019-03-23] MEDS: ACETAMINOPHEN TAB 325 MG TAB PO PRN (19:38)
[2019-03-23 20:17] LABS: Glucose,Whole Blood 165 mg/dL (75-99)
[2019-03-23] MEDS: FLUTICASONE 50MCG/SPRAY NASAL 16GM EA NOSTRIL SCH (20:40)
[2019-03-23] MEDS: busPIRone HCl 5 MG TAB PO SCH (20:40)
[2019-03-23] MEDS: ATORVASTATIN 40 MG TAB PO SCH (20:41)
[2019-03-23] MEDS: MONTELUKAST 10 MG TAB PO SCH (20:41)
[2019-03-23] MEDS: ALPRAZolam 0.25 MG TAB PO SCH (20:41)
[2019-03-23] MEDS: DULoxetine HCL 60 MG CAPSULE.DR PO SCH (20:41)
[2019-03-24] MEDS: LEVOTHYROXINE 100 MCG TAB PO SCH (06:04)
[2019-03-24 07:11] LABS: Glucose,Whole Blood 178 mg/dL (75-99)
[2019-03-24] MEDS: glipiZIDE 10 MG TAB PO SCH (07:39)
[2019-03-24] MEDS: metFORMIN 500 MG TAB PO SCH ×2 (07:39→16:59)
[2019-03-24] MEDS: ALPRAZolam 0.25 MG TAB PO SCH ×2 (07:40→20:16)
[2019-03-24] MEDS: REPAGLINIDE 1 MG TAB PO SCH ×3 (07:40→16:59)
[2019-03-24] MEDS: PANTOPRAZOLE 40 MG TABLET PO SCH (07:40)
[2019-03-24] MEDS: busPIRone HCl 5 MG TAB PO SCH ×2 (07:49→20:22)
[2019-03-24] MEDS: DULoxetine HCL 60 MG CAPSULE.DR PO SCH ×2 (07:50→20:16)
[2019-03-24] MEDS: VIT A,C & E-LUTEIN-MINERALS 1 EACH TAB PO SCH (07:51)
[2019-03-24] MEDS: FLUTICASONE 50MCG/SPRAY NASAL 16GM EA NOSTRIL SCH ×2 (07:51→20:21)
[2019-03-24] MEDS: LISINOPRIL-HCTZ 20-12.5 MG 1 EACH TAB PO SCH (07:51)
[2019-03-24] MEDS: INSULIN ASPART (NovoLOG) 100 UNIT/ML VIAL SQ SCH ×4 (07:54→22:06)
[2019-03-24] MEDS: SYMBICORT 160-4.5 MCG INHALER INHALATION SCH ×2 (08:06→19:36)
[2019-03-24] MEDS: IPRATROPIUM-ALBUTEROL 3 ML NEB INHALATION SCH ×3 (08:06→19:36)
[2019-03-24 08:39] LABS: Basophils # (A) 0.1 k/uL (0-0.2); Basophils % (A) 1 %; Eosinophils # (A) 0.1 k/uL (0-0.7); Eosinophils % (A) 2 %; HCT 39.4 % (34.0-46.0); HGB 12.5 gm/dL (11.4-16.0); Lymphocytes # (A) 2.4 k/uL (1.0-4.8); Lymphocytes % (A) 41 %; MCH 29.7 pg (25.0-35.0); MCHC 31.8 g/dL (31.0-37.0); MCV 93.6 fL (80.0-100.0); Mean Platelet Volume 8.1; Monocytes # (A) 0.2 k/uL (0-1.0); Monocytes % (A) 4 %; Neutrophils # (A) 2.9 k/uL (1.3-7.7); Neutrophils % (A) 49 %; Platelet Count 255 k/uL (150-450); RBC 4.21 m/uL (3.80-5.40); RDW 12.2 % (11.5-15.5)
[2019-03-24 09:01] LABS: African American GFR (CKD) >90 (>60 ml/min/1.73 sqM); Anion Gap 8 mmol/L; Blood Urea Nitrogen 12 mg/dL (7-17); Calcium 9.5 mg/dL (8.4-10.2); Carbon Dioxide 25 mmol/L (22-30); Chloride 106 mmol/L (98-107); Glucose 193 mg/dL (74-99); Magnesium 1.2 mg/dL (1.6-2.3); Non-African American GFR(CKD) 80 (>60 ml/min/1.73 sqM); Potassium 4.6 mmol/L (3.5-5.1); Sodium 139 mmol/L (137-145)
[2019-03-24 11:45] LABS: Glucose,Whole Blood 166 mg/dL (75-99)
[2019-03-24] MEDS: SODIUM CHLORIDE 0.9% 1,000 ML IV SCH (12:36)
[2019-03-24] MEDS ORDERED: Magnesium Replacement Protocol 1 EACH MISC MISCELLANE PRN ×2 (14:39→15:30)
--- NOTE | 2019-03-24 15:38 | PN ---
PROGRESS NOTE I am covering for Dr. Portillo. DATE OF SERVICE: 03/24/2019 This 74-year-old woman was admitted with weakness and shortness of breath, had COPD exacerbation with acute purulent tracheobronchitis. Patient also had hypomagnesemia. No chest pain. No palpitations. No fever. EXAM: Alert and oriented times three. Pulse is 109. Blood pressure 133/84, respirations 16, temperature 98.2, pulse ox 94% on room air. HEENT: Conjunctivae normal. NECK: No JVD. CARDIOVASCULAR: S1, S2 muffled. RESPIRATORY SYSTEM: Breath sounds diminished at the bases. A few scattered rhonchi and crackles ABDOMEN is soft, nontender. CENTRAL NERVOUS SYSTEM: No focal deficits. LABORATORY DATA: CBC noted. Glucose 183, 166 and magnesium 1.2. Other labs noted. ASSESSMENT: 1. Chronic obstructive pulmonary disease exacerbation with acute purulent tracheobronchitis. 2. Hypomagnesemia. 3. Hyponatremia. 4. Elevated TSH. 5. History of chest pain. 6. History of cerebrovascular accident, transient ischemic attack. 7. Diabetes mellitus type 2. 8. Gastroesophageal reflux disease. 9. History of hard of hearing. 10.History of hypertension. 11.Hyperlipidemia. 12.History of degenerative joint disease. 13.History of sleep apnea. 14.History of peripheral neuropathy. 15.History of adenoidectomy. 16.Cholecystectomy. 17.Anxiety/depression. 18.FULL CODE. RECOMMENDATIONS AND DISCUSSION: I recommend to continue current medications, management and symptomatic treatment. Otherwise, continue the antibiotics. Continue the steroids. Closely monitor. Supplement potassium. Guarded prognosis because of multiple complex medical issues. Further recommendations to follow. Dr. Portillo will follow tomorrow. MMODL / IJN: [id number] /
[2019-03-24] MEDS: MAGNESIUM SULFATE-D5W PMX 1 GM in DEXTROSE/WATER 1 100ML.BAG IVPB SCH ×3 (16:19→18:18)
[2019-03-24 16:52] LABS: Glucose,Whole Blood 132 mg/dL (75-99)
[2019-03-24 19:15] LABS: Glucose,Whole Blood 196 mg/dL (75-99)
[2019-03-24] MEDS: MONTELUKAST 10 MG TAB PO SCH (20:16)
[2019-03-24] MEDS: ATORVASTATIN 40 MG TAB PO SCH (20:16)
[2019-03-24] MEDS: ACETAMINOPHEN TAB 325 MG TAB PO PRN (20:21)
[2019-03-25] MEDS: SODIUM CHLORIDE 0.9% 1,000 ML IV SCH ×2 (02:43→10:06)
[2019-03-25] MEDS: LEVOTHYROXINE 100 MCG TAB PO SCH (05:40)
[2019-03-25 07:00] LABS: Glucose,Whole Blood 176 mg/dL (75-99)
[2019-03-25] MEDS: FLUTICASONE 50MCG/SPRAY NASAL 16GM EA NOSTRIL SCH ×2 (07:20→20:32)
[2019-03-25] MEDS: busPIRone HCl 5 MG TAB PO SCH ×2 (07:20→20:33)
[2019-03-25] MEDS: VIT A,C & E-LUTEIN-MINERALS 1 EACH TAB PO SCH (07:21)
[2019-03-25] MEDS: glipiZIDE 10 MG TAB PO SCH (07:21)
[2019-03-25] MEDS: PANTOPRAZOLE 40 MG TABLET PO SCH (07:21)
[2019-03-25] MEDS: LISINOPRIL-HCTZ 20-12.5 MG 1 EACH TAB PO SCH (07:21)
[2019-03-25] MEDS: REPAGLINIDE 1 MG TAB PO SCH ×3 (07:21→17:11)
[2019-03-25] MEDS: ALPRAZolam 0.25 MG TAB PO SCH ×2 (07:21→20:33)
[2019-03-25] MEDS: metFORMIN 500 MG TAB PO SCH ×2 (07:21→17:11)
[2019-03-25] MEDS: INSULIN ASPART (NovoLOG) 100 UNIT/ML VIAL SQ SCH ×4 (07:22→20:33)
[2019-03-25] MEDS: DULoxetine HCL 60 MG CAPSULE.DR PO SCH ×2 (07:26→20:33)
[2019-03-25 08:42] LABS: Basophils # (A) 0.1 k/uL (0-0.2); Basophils % (A) 1 %; Eosinophils # (A) 0.1 k/uL (0-0.7); Eosinophils % (A) 2 %; HCT 41.6 % (34.0-46.0); HGB 13.2 gm/dL (11.4-16.0); Lymphocytes # (A) 2.4 k/uL (1.0-4.8); Lymphocytes % (A) 37 %; MCHC 31.7 g/dL (31.0-37.0); MCV 94.5 fL (80.0-100.0); Mean Platelet Volume 8.6; Monocytes # (A) 0.3 k/uL (0-1.0); Monocytes % (A) 4 %; Neutrophils # (A) 3.3 k/uL (1.3-7.7); Neutrophils % (A) 52 %; Platelet Count 291 k/uL (150-450); RDW 12.1 % (11.5-15.5); WBC 6.4 k/uL (3.8-10.6)
[2019-03-25 08:52] LABS: African American GFR (CKD) >90 (>60 ml/min/1.73 sqM); Anion Gap 9 mmol/L; Blood Urea Nitrogen 7 mg/dL (7-17); Calcium 9.4 mg/dL (8.4-10.2); Carbon Dioxide 24 mmol/L (22-30); Chloride 106 mmol/L (98-107); Glucose 180 mg/dL (74-99); Magnesium 1.7 mg/dL (1.6-2.3); Non-African American GFR(CKD) 87 (>60 ml/min/1.73 sqM); Potassium 4.2 mmol/L (3.5-5.1); Sodium 139 mmol/L (137-145)
[2019-03-25] MEDS: IPRATROPIUM-ALBUTEROL 3 ML NEB INHALATION SCH ×3 (09:32→21:15)
[2019-03-25] MEDS: SYMBICORT 160-4.5 MCG INHALER INHALATION SCH ×2 (09:32→21:15)
[2019-03-25] MEDS: ACETAMINOPHEN TAB 325 MG TAB PO PRN (10:14)
[2019-03-25 11:08] LABS: Glucose,Whole Blood 156 mg/dL (75-99)
--- NOTE | 2019-03-25 12:08 | P.PN ---
Subjective Progress Note Date: 03/25/19 This is a 74-year-old female admitted with acute COPD exacerbation, generalized weakness and multiple other medical issues. Received gentle IV fluid hydration. Mild Tachycardia earlier this morning, resolved. Denies chest pain, palpitations. Afebrile, normal WBC. Magnesium 1.7, status post supplementa tion. Breathing, cough improving -Complains of generalized weakness, exertional shortness of breath. Maintaining O2 sats in the high 90s on room air. Objective - Vital Signs Vital signs: Vital Signs Temp 97.9 F 03/25/19 04:10 Pulse 99 03/25/19 09:45 Resp 16 03/25/19 04:10 BP 141/75 03/25/19 04:10 Pulse Ox 98 03/25/19 04:10 Intake & Output 03/24/19 03/25/19 03/25/19 18:59 06:59 18:59 Intake Total 360 1795 Balance 360 1795 Intake: Intake, IV Titration 775 Amount Magnesium Sulfate-D5w Pmx 100 1 gm In Dextrose/Water 1 100ml.bag @ 100 mls/hr IVPB Q1H SUHAS Rx#: [id number] Sodium Chloride 0.9% 1, 675 000 ml @ 75 mls/hr IV . [id number] SUHAS Rx#:[id number] Oral 360 1020 Other: Voiding Method Toilet Toilet Toilet Diaper Diaper Diaper Incontinent Incontinent Incontinent # Voids 3 1 # Bowel Movements 1 1 - Exam PHYSICAL EXAM: VITAL SIGNS: As above GENERAL: Sitting up in chair, no acute distress HEENT: Conjunctivae normal. eyes normal. Oral mucosa moist NECK: No JVD. No thyroid enlargement. No LNs CARDIOVASCULAR: S1, S2 regular. No murmur RESPIRATION: Breath sounds diminished in the bases. Mildly scattered rhonchi. ABDOMEN: Soft, nontender . No guarding. no masses palpable.Bowel sounds heard. PSYCHIATRY: Alert and oriented X3, mood and affect normal. NERVOUS SYSTEM: Diffuse weakness No focal deficits. Strength and sensation grossly intact.. Skin: no rash - Labs CBC & Chem 7: 03/25/19 07:19 03/25/19 07:15 Labs: Abnormal Lab Results - Last 24 Hours (Table) 03/24/19 03/24/19 03/24/19 Range/Units 11:44 16:51 19:13 Glucose (74-99) mg/dL POC Glucose (mg/dL) 166 H 132 H 196 H (75-99) mg/dL 03/25/19 03/25/19 Range/Units 06:58 07:15 Glucose 180 H (74-99) mg/dL POC Glucose (mg/dL) 176 H (75-99) mg/dL Assessment and Plan Assessment: Acute COPD exacerbation with acute purulent tracheobronchitis. Hypomagnesemia Elevated TSH Plan: Continue on current medication regime ,monitoring and symptomatic treatment. Maintain antibiotics, nebulized bronchodilators, steroids. Magn esium supplementation per replacement protocol as ordered. Discharge planning in progress for subacute rehab tomorrow. The impression and plan of care has been dictated as directed. : I performed a history and examination of this patient, discussed the same with the dictator. I agree with the dictator's note ,documented as a scribe. Any additional findings or plans will be noted.
[2019-03-25] MEDS: predniSONE 20 MG TAB PO SCH (12:12)
[2019-03-25 17:03] LABS: Glucose,Whole Blood 225 mg/dL (75-99)
[2019-03-25 19:46] LABS: Glucose,Whole Blood 227 mg/dL (75-99)
[2019-03-25] MEDS: ATORVASTATIN 40 MG TAB PO SCH (20:32)
[2019-03-25] MEDS: MONTELUKAST 10 MG TAB PO SCH (20:33)
[2019-03-26] MEDS: SODIUM CHLORIDE 0.9% 1,000 ML IV SCH (04:52)
[2019-03-26] MEDS: LEVOTHYROXINE 100 MCG TAB PO SCH (05:30)
[2019-03-26 07:10] LABS: Glucose,Whole Blood 168 mg/dL (75-99)
[2019-03-26] MEDS: ALPRAZolam 0.25 MG TAB PO SCH (07:44)
[2019-03-26] MEDS: metFORMIN 500 MG TAB PO SCH (07:44)
[2019-03-26] MEDS: PANTOPRAZOLE 40 MG TABLET PO SCH (07:44)
[2019-03-26] MEDS: INSULIN ASPART (NovoLOG) 100 UNIT/ML VIAL SQ SCH ×2 (07:44→12:45)
[2019-03-26] MEDS: LISINOPRIL-HCTZ 20-12.5 MG 1 EACH TAB PO SCH (07:45)
[2019-03-26] MEDS: DULoxetine HCL 60 MG CAPSULE.DR PO SCH (07:45)
[2019-03-26] MEDS: predniSONE 20 MG TAB PO SCH (07:45)
[2019-03-26] MEDS: VIT A,C & E-LUTEIN-MINERALS 1 EACH TAB PO SCH (07:45)
[2019-03-26] MEDS: glipiZIDE 10 MG TAB PO SCH (07:46)
[2019-03-26] MEDS: REPAGLINIDE 1 MG TAB PO SCH ×2 (07:46→12:43)
[2019-03-26] MEDS: busPIRone HCl 5 MG TAB PO SCH (07:46)
[2019-03-26] MEDS: FLUTICASONE 50MCG/SPRAY NASAL 16GM EA NOSTRIL SCH (08:08)
[2019-03-26 09:14] LABS: Basophils % (A) 0 %; Eosinophils # (A) 0.1 k/uL (0-0.7); Eosinophils % (A) 1 %; HCT 40.8 % (34.0-46.0); Lymphocytes # (A) 3.1 k/uL (1.0-4.8); Lymphocytes % (A) 29 %; MCHC 31.8 g/dL (31.0-37.0); MCV 94.4 fL (80.0-100.0); Monocytes # (A) 0.3 k/uL (0-1.0); Monocytes % (A) 3 %; Neutrophils # (A) 6.9 k/uL (1.3-7.7); Neutrophils % (A) 65 %; Platelet Count 335 k/uL (150-450); RBC 4.33 m/uL (3.80-5.40); RDW 12.4 % (11.5-15.5); WBC 10.6 k/uL (3.8-10.6)
[2019-03-26 09:32] LABS: African American GFR (CKD) >90 (>60 ml/min/1.73 sqM); Anion Gap 9 mmol/L; Blood Urea Nitrogen 8 mg/dL (7-17); Calcium 9.7 mg/dL (8.4-10.2); Carbon Dioxide 24 mmol/L (22-30); Chloride 106 mmol/L (98-107); Glucose 195 mg/dL (74-99); Non-African American GFR(CKD) 85 (>60 ml/min/1.73 sqM); Potassium 3.9 mmol/L (3.5-5.1); Sodium 139 mmol/L (137-145)
[2019-03-26] MEDS: SYMBICORT 160-4.5 MCG INHALER INHALATION SCH (09:43)
[2019-03-26] MEDS: IPRATROPIUM-ALBUTEROL 3 ML NEB INHALATION SCH ×2 (09:43→13:22)
[2019-03-26] MEDS ORDERED: FLUCONAZOLE 150 MG TAB PO STA (10:35)
[2019-03-26 11:01] LABS: Glucose,Whole Blood 140 mg/dL (75-99)
[2019-03-26 11:33] VITALS: BP 144/83; PULSE 110; RESP 17; TEMP 98.1
--- NOTE | 2019-03-26 11:45 | P.DS ---
Providers Date of admission: 03/22/19 21:02 Expected date of discharge: 03/26/19 Attending physician: Logan Portillo MD Primary care physician: Mallorie Hudson [facility] Course: Final Diagnoses: Acute COPD exacerbation with acute purulent tracheobronchitis. Hypomagnesemia Elevated TSH Hospital course:This is a 74-year-old female admitted with acute COPD exacerbation, generalized weakness and multiple other medical issues. Received gentle IV fluid hydration. Mild Tachycardia earlier this morning, resolved. Denies chest pain, palpitations. Afebrile, normal WBC. Magnesium 1.7, status post supplementation. Breathing, cough improving -Complains of generalized weakness, exertional shortness of breath. Maintaining O2 sats in the high 90s on room air. Significant clinical improvement. Patient is being discharged to subacute rehab in a stable condition with guarded prognosis. EXAM: GENERAL: Alert and oriented 3, no acute distress CARDIOVASCULAR: S1, S2 regular. No murmur RESPIRATION: Breath sounds diminished in the bases. ABDOMEN: Soft, nontender . No guarding. no masses palpable.Bowel sounds heard. NERVOUS SYSTEM: No focal deficits. The impression and plan of care has been dictated as directed. : I performed a history and examination of this patient, discussed the same with the dictator. I agree with the dictator's note ,documented as a scribe. Any additional findings or plans will be noted. Patient Condition at Discharge: Stable Plan - Discharge Summary New Discharge Prescriptions: New Fluconazole [Diflucan] 150 mg PO ONCE #1 tab predniSONE 10 mg PO DIRECTED #30 tab Amoxic-Pot Clav 875-125Mg [Augmentin 875-125] 1 tab PO BID #8 tablet Ipratropium-Albuterol Nebulize [Duoneb 0.5 mg-3 mg/3 ml Soln] 3 ml INHALATION RT-TID ampul.neb Ipratropium-Albuterol Nebulize [Duoneb 0.5 mg-3 mg/3 ml Soln] 3 ml INHALATION RT-TID PRN ampul.neb PRN Reason: Shortness Of Breath Or Wheezing INSULIN LISPRO (HumaLOG) [humaLOG] 0 unit SQ ACHS #1 vial Continue metFORMIN HCL [Glucophage] 1,000 mg PO BID Montelukast [Singulair] 10 mg PO HS Vit C/E/Zn/Coppr/Lutein/Zeaxan [Preservision Areds 2 Softgel] 1 cap PO DAILY Hydrocortisone Cream [Hydrocortisone 2.5% Cream] 1 applic TOPICAL BID PRN PRN Reason: Rash Fluticasone Nasal [place] [Flonase Nasal [place]] 1 spray EA NOSTRIL BID Atorvastatin [Lipitor] 40 mg PO HS Lisinopril-Hctz 20-12.5 mg [Zestoretic 20-12.5] 1 tab PO DAILY Omeprazole 40 mg PO DAILY busPIRone HCl [Buspar] 5 mg PO BID Levothyroxine Sodium [Synthroid] 100 mcg PO DAILY Repaglinide [Prandin] 0.5 mg PO TID Fluticasone/Vilanterol [Breo Ellipta 200-25 Mcg INH] 1 puff INHALATION RT- DAILY DULoxetine HCL [Cymbalta] 60 mg PO BID Baclofen 5 mg PO DAILY PRN PRN Reason: Muscle Spasm levETIRAcetam [Keppra] 750 mg PO BID glyBURIDE [Diabeta] 5 mg PO DAILY Gabapentin 600 mg PO Q8H PRN #9 tab PRN Reason: Pain ALPRAZolam [Xanax] 0.125 mg PO BID #3 tab Discontinued Ipratropium Nebulized [Atrovent Nebulized 0.2 MG/ML] 0.5 mg INHALATION RT-QID PRN PRN Reason: Shortness Of Breath Albuterol Nebulized [Ventolin Nebulized] 2.5 mg INHALATION RT-QID PRN PRN Reason: Shortness Of Breath Discharge Medication List metFORMIN HCL [Glucophage] 1,000 mg PO BID 07/17/14 [History] Montelukast [Singulair] 10 mg PO HS 11/06/17 [History] Atorvastatin [Lipitor] 40 mg PO HS 09/16/18 [History] Fluticasone Nasal [place] [Flonase Nasal [place]] 1 spray EA NOSTRIL BID 09/16/18 [History] Hydrocortisone Cream [Hydrocortisone 2.5% Cream] 1 applic TOPICAL BID PRN 09/16/18 [History] Levothyroxine Sodium [Synthroid] 100 mcg PO DAILY 09/16/18 [History] Lisinopril-Hctz 20-12.5 mg [Zestoretic 20-12.5] 1 tab PO DAILY 09/16/18 [History] Omeprazole 40 mg PO DAILY 09/16/18 [History] Vit C/E/Zn/Coppr/Lutein/Zeaxan [Preservision Areds 2 Softgel] 1 cap PO DAILY 09/16/18 [History] busPIRone HCl [Buspar] 5 mg PO BID 09/16/18 [History] Baclofen 5 mg PO DAILY PRN 03/22/19 [History] DULoxetine HCL [Cymbalta] 60 mg PO BID 03/22/19 [History] Fluticasone/Vilanterol [Breo Ellipta 200-25 Mcg INH] 1 puff INHALATION RT-DAILY 03/22/19 [History] Repaglinide [Prandin] 0.5 mg PO TID 03/22/19 [History] glyBURIDE [Diabeta] 5 mg PO DAILY 03/22/19 [History] levETIRAcetam [Keppra] 750 mg PO BID 03/22/19 [History] ALPRAZolam [Xanax] 0.125 mg PO BID #3 tab 03/26/19 [Rx] Amoxic-Pot Clav 875-125Mg [Augmentin 875-125] 1 tab PO BID #8 tablet 03/26/19 [Rx] Fluconazole [Diflucan] 150 mg PO ONCE #1 tab 03/26/19 [Rx] Gabapentin 600 mg PO Q8H PRN #9 tab 03/26/19 [Rx] INSULIN LISPRO (HumaLOG) [humaLOG] 0 unit SQ ACHS #1 vial 03/26/19 [Rx] Ipratropium-Albuterol Nebulize [Duoneb 0.5 mg-3 mg/3 ml Soln] 3 ml INHALATION RT-TID ampul.neb 03/26/19 [Rx] Ipratropium-Albuterol Nebulize [Duoneb 0.5 mg-3 mg/3 ml Soln] 3 ml INHALATION RT-TID PRN ampul.neb 03/26/19 [Rx] predniSONE 10 mg PO DIRECTED #30 tab 03/26/19 [Rx] Follow up Appointment(s)/Referral(s): Mallorie Hudson DO [Primary Care Provider] - 3 Days Kyra Noble DO [Doctor of Osteopathic Medicine] - 1 Week (As previously scheduled) Ambulatory/Diagnostic Orders: Complete Blood Count w/diff [LAB.AMB] Time Frame: 3 Days, Location: None Selected Activity/Diet/Wound Care/Special Instructions: Delaney Lawson
== END 2019-03-26 13:25 | DRG 191 ==
LOC: EC 18:33 → 5NMEDONC 21:02
PROVIDERS: ADMIT Family Medicine; ATTEND Family Medicine
DX: J44.1 Chronic obstructive pulmonary disease with (acute) exacerbation (principal); E87.1 Hypo-osmolality and hyponatremia; J44.0 Chronic obstructive pulmonary disease with (acute) lower respiratory infection; E11.40 Type 2 diabetes mellitus with diabetic neuropathy, unspecified; E11.65 Type 2 diabetes mellitus with hyperglycemia; E78.5 Hyperlipidemia, unspecified; E83.42 Hypomagnesemia; E86.0 Dehydration; F32.9 Major depressive disorder, single episode, unspecified; F41.9 Anxiety disorder, unspecified; H91.90 Unspecified hearing loss, unspecified ear; I10 Essential (primary) hypertension; K21.9 Gastro-esophageal reflux disease without esophagitis; G47.30 Sleep apnea, unspecified; M19.90 Unspecified osteoarthritis, unspecified site; R01.1 Cardiac murmur, unspecified; R00.0 Tachycardia, unspecified; R32 Unspecified urinary incontinence; E03.9 Hypothyroidism, unspecified; K44.9 Diaphragmatic hernia without obstruction or gangrene; K57.90 Diverticulosis of intestine, part unspecified, without perforation or abscess without bleeding; N28.1 Cyst of kidney, acquired; M54.30 Sciatica, unspecified side; J20.9 Acute bronchitis, unspecified; Z79.82 Long term (current) use of aspirin; Z79.84 Long term (current) use of oral hypoglycemic drugs; Z79.890 Hormone replacement therapy; Z79.899 Other long term (current) drug therapy; Z96.653 Presence of artificial knee joint, bilateral; Z90.710 Acquired absence of both cervix and uterus; Z90.49 Acquired absence of other specified parts of digestive tract; Z87.891 Personal history of nicotine dependence; Z86.73 Personal history of transient ischemic attack (TIA), and cerebral infarction without residual deficits; Z91.041 Radiographic dye allergy status; Z91.040 Latex allergy status; Z88.5 Allergy status to narcotic agent; Z91.018 Allergy to other foods; Z80.0 Family history of malignant neoplasm of digestive organs
CPT/HCPCS: 36415; 70450; 71046; 80048; 80053; 81003; 83735; 84443; 84484; 85025; 85610; 85730; 87502; 94640; 96360; 96361; 99285

== ENCOUNTER 2019-09-29 10:48 | Emergency (ER) | payer MEDICARE, BC ==
[2019-09-29] MEDS ORDERED: SODIUM CHLORIDE 0.9% 500 ML 500 ML IV STA (11:08)
[2019-09-29] MEDS ORDERED: PANTOPRAZOLE 40 MG/10 ML VIAL IVP STA (11:08)
--- NOTE | 2019-09-29 11:17 | ED ---
Nausea/Vomiting/Diarrhea HPI - General Chief complaint: Nausea/Vomiting/Diarrhea Stated complaint: Nausea, vomiting Time Seen by Provider: 09/29/19 10:49 Source: patient Mode of arrival: wheelchair Limitations: physical limitation - History of Present Illness Initial comments: Patient is a 74-year-old female, history of COPD, diabetes, hypertension, pre senting to the emergency department via EMS with complaints of nausea, vomiting for the past 2 days. She states she is also feeling weaker than normal. Patient states she admits to some abdominal cramping but no specific pains. She states that she has been having regular bowel movements but the last bowel movement was darker than normal and she thought she might of saw some redness to it. She denies any chest pain, shortness of breath, cough, fever or chills. She denies any urinary complaints at this time. She has no further complaints. Prior to arrival patient received 4 mg of Zofran the EMS. Upon arrival to the ER, patient's vital signs are stable. - Related Data Home Medications Medication Instructions Recorded Confirmed metFORMIN HCL [Glucophage] 1,000 mg PO BID 07/17/14 03/22/19 Montelukast [Singulair] 10 mg PO HS 11/06/17 03/22/19 Atorvastatin [Lipitor] 40 mg PO HS 09/16/18 03/22/19 Fluticasone Nasal [place] [Flonase 1 spray EA NOSTRIL BID 09/16/18 03/22/19 Nasal [place]] Hydrocortisone Cream 1 applic TOPICAL BID PRN 09/16/18 03/22/19 [Hydrocortisone 2.5% Cream] Levothyroxine Sodium [Synthroid] 100 mcg PO DAILY 09/16/18 03/22/19 Lisinopril-Hctz 20-12.5 mg 1 tab PO DAILY 09/16/18 03/22/19 [Zestoretic 20-12.5] Omeprazole 40 mg PO DAILY 09/16/18 03/22/19 Vit C/E/Zn/Coppr/Lutein/Zeaxan 1 cap PO DAILY 09/16/18 03/22/19 [Preservision Areds 2 Softgel] busPIRone HCl [Buspar] 5 mg PO BID 09/16/18 03/22/19 Baclofen 5 mg PO DAILY PRN 03/22/19 03/22/19 DULoxetine HCL [Cymbalta] 60 mg PO BID 03/22/19 03/22/19 Fluticasone/Vilanterol [Breo 1 puff INHALATION RT-DAILY 03/22/19 03/22/19 Ellipta 200-25 Mcg INH] Repaglinide [Prandin] 0.5 mg PO TID 03/22/19 03/22/19 glyBURIDE [Diabeta] 5 mg PO DAILY 03/22/19 03/22/19 levETIRAcetam [Keppra] 750 mg PO BID 03/22/19 03/22/19 Previous Rx's Medication Instructions Recorded ALPRAZolam [Xanax] 0.125 mg PO BID #3 tab 03/26/19 Amoxic-Pot Clav 875-125Mg 1 tab PO BID #8 tablet 03/26/19 [Augmentin 875-125] Fluconazole [Diflucan] 150 mg PO ONCE #1 tab 03/26/19 Gabapentin 600 mg PO Q8H PRN #9 tab 03/26/19 INSULIN LISPRO (HumaLOG) [humaLOG] 0 unit SQ ACHS #1 vial 03/26/19 Ipratropium-Albuterol Nebulize 3 ml INHALATION RT-TID ampul.neb 03/26/19 [Duoneb 0.5 mg-3 mg/3 ml Soln] Ipratropium-Albuterol Nebulize 3 ml INHALATION RT-TID PRN 03/26/19 [Duoneb 0.5 mg-3 mg/3 ml Soln] ampul.neb predniSONE 10 mg PO DIRECTED #30 tab 03/26/19 Cephalexin [Keflex] 500 mg PO BID 5 Days #10 cap 09/29/19 Allergies Allergy/AdvReac Type Severity Reaction Status Date / Time banana [Banana] Allergy Severe Anaphylaxis Verified 09/29/19 10:57 iodine Allergy Severe DYSPNEA, Verified 09/29/19 10:57 SKIN INFLAMED kiwi Allergy Severe Anaphylaxis Verified 09/29/19 10:57 latex Allergy Dyspnea, Verified 09/29/19 10:57 Itching morphine Allergy Rapid Verified 09/29/19 10:57 Heart Rate ivp dye Allergy Dyspnea Uncoded 09/29/19 10:57 smoke AdvReac Dyspnea Uncoded 09/29/19 10:57 Review of Systems ROS Statement: Those systems with pertinent positive or pertinent negative responses have been documented in the HPI. ROS Other: All systems not noted in ROS Statement are negative. Past Medical History Past Medical History: Asthma, Chest Pain / Angina, COPD, CVA/TIA, Diabetes Mellitus, GERD/Reflux, Hearing Disorder / Deafness, Hyperlipidemia, Hypertension, Musculoskeletal Disorder, Sleep Apnea/CPAP/BIPAP, Thyroid Disorder Additional Past Medical History / Comment(s): NEUROPATHY, HEART MURMUR, NOT USING C-PAP, HIATAL HERNIA, DIVERTICULOSIS, CYST LEFT KIDNEY, DDD WITH SCIATICA AND BACK PAIN. . NEURO DERMATITIS W/ RASH. History of Any Multi-Drug Resistant Organisms: None Reported Past Surgical History: Adenoidectomy, Cholecystectomy, Hysterectomy, Joint Replacement, Orthopedic Surgery, Tonsillectomy Additional Past Surgical History / Comment(s): D & C, ARTHROSCOPY MIGUEL KNEES, MIGUEL ROTATOR CUFF , MIGUEL KNEE REPLACEMENT. Past Anesthesia/Blood Transfusion Reactions: Postoperative Nausea & Vomiting (PONV) Past Psychological History: Anxiety, Depression Smoking Status: Former smoker Past Alcohol Use History: None Reported Past Drug Use History: None Reported - Past Family History Father Family Medical History: Pneumonia Mother Family Medical History: Cancer Additional Family Medical History / Comment(s): PANCREAS CA General Exam - General Exam Comments Initial Comments: GENERAL: Well-appearing, well-nourished and in no acute distress. HEAD: Atraumatic, normocephalic. EYES: Pupils equal round and reactive to light, extraocular movements intact, sclera anicteric, conjunctiva are normal. ENT: TMs normal, nares patent, oropharynx clear without exudates. Moist mucous membranes. NECK: Normal range of motion, supple without lymphadenopathy or JVD. LUNGS: Breath sounds clear to auscultation bilaterally and equal. No wheezes rales or rhonchi. HEART: Regular rate and rhythm without murmurs, rubs or gallops. ABDOMEN: Mild pressure with palpation of suprapubic, lower abdomen, no specific areas of sharp pain. Soft, normoactive bowel sounds. No guarding, no rebound. No masses appreciated. : Deferred EXTREMITIES: Normal range of motion, no pitting or edema. No clubbing or cyanosis. NEUROLOGICAL: Cranial nerves II through XII grossly intact. Normal speech, normal gait. PSYCH: Normal mood, normal affect. SKIN: Warm, Dry, normal turgor, no rashes or lesions noted. Limitations: physical limitation Course Vital Signs 09/29/19 09/29/19 11:13 11:30 Temperature 99.2 F Pulse Rate 90 88 Respiratory 18 17 Rate Blood Pressure 146/87 149/87 O2 Sat by Pulse 98 98 Oximetry Medical Decision Making - Medical Decision Making Patient is a 74-year-old female presenting for her nausea and vomiting 2 days as well as some lower abdominal pressure. She denies any fever, chills. Vitals are stable upon arrival. Exam reveals some mild suprapubic tenderness. Labs reveal slight leukocytosis of 13, lactic acid normal at 1.7. Urine does show large amount of WBC, bacteria. Urine culture is pending. Stool Occult is negative. Patient is given fluids, Zofran, dose of Rocephin. She is stable for discharge at this time. Discussed with patient under symptoms most likely related to her UTI. She'll be continued with Keflex as outpatient. She'll follow up with her PCP in 1-2 days. Patient and patient's is in agreement with this plan of care. Return parameters were discussed with the patient she verbalized understanding. Case discussed with Dr. Barragan. - Lab Data Result diagrams: 09/29/19 11:10 09/29/19 11:10 Lab Results 09/29/19 09/29/19 09/29/19 Range/Units 11:10 11:10 11:10 WBC 13.0 H (3.8-10.6) k/uL RBC 5.07 (3.80-5.40) m/uL Hgb 15.2 (11.4-16.0) gm/dL Hct 47.1 H (34.0-46.0) % MCV 92.8 (80.0-100.0) fL MCH 30.0 (25.0-35.0) pg MCHC 32.3 (31.0-37.0) g/dL RDW 12.0 (11.5-15.5) % Plt Count 319 (150-450) k/uL Neutrophils % 66 % Lymphocytes % 27 % Monocytes % 4 % Eosinophils % 2 % Basophils % 0 % Neutrophils # 8.6 H (1.3-7.7) k/uL Lymphocytes # 3.4 (1.0-4.8) k/uL Monocytes # 0.5 (0-1.0) k/uL Eosinophils # 0.2 (0-0.7) k/uL Basophils # 0.1 (0-0.2) k/uL PT 10.3 (9.0-12.0) sec INR 1.0 (<1.2) APTT 22.1 (22.0-30.0) sec Sodium 138 (137-145) mmol/L Potassium 4.7 (3.5-5.1) mmol/L Chloride 108 H (98-107) mmol/L Carbon Dioxide 16 L (22-30) mmol/L Anion Gap 14 mmol/L BUN 21 H (7-17) mg/dL Creatinine 0.84 (0.52-1.04) mg/dL Est GFR (CKD-EPI)AfAm 79 (>60 ml/min/1.73 sqM) Est GFR (CKD-EPI)NonAf 68 (>60 ml/min/1.73 sqM) Glucose 216 H (74-99) mg/dL Plasma Lactic Acid Juan (0.7-2.0) mmol/L Calcium 9.6 (8.4-10.2) mg/dL Total Bilirubin 1.0 (0.2-1.3) mg/dL AST 34 (14-36) U/L ALT 23 (4-34) U/L Alkaline Phosphatase 54 (38-126) U/L Total Protein 7.3 (6.3-8.2) g/dL Albumin 4.3 (3.5-5.0) g/dL Lipase 116 (23-300) U/L Urine Color Urine Appearance (Clear) Urine pH (5.0-8.0) Ur Specific [place] (1.001-1.035) Urine Protein (Negative) Urine Glucose (UA) (Negative) Urine Ketones (Negative) Urine Blood (Negative) Urine Nitrite (Negative) Urine Bilirubin (Negative) Urine Urobilinogen (<2.0) mg/dL Ur Leukocyte Esterase (Negative) Urine RBC (0-5) /hpf Urine WBC (0-5) /hpf Ur Squamous Epith Cells (0-4) /hpf Urine Bacteria (None) /hpf Hyaline Casts (0-2) /lpf Urine Mucus (None) /hpf Stool Occult Blood (Negative) 09/29/19 09/29/19 09/29/19 Range/Units 11:10 11:13 11:49 WBC (3.8-10.6) k/uL RBC (3.80-5.40) m/uL Hgb (11.4-16.0) gm/dL Hct (34.0-46.0) % MCV (80.0-100.0) fL MCH (25.0-35.0) pg MCHC (31.0-37.0) g/dL RDW (11.5-15.5) % Plt Count (150-450) k/uL Neutrophils % % Lymphocytes % % Monocytes % % Eosinophils % % Basophils % % Neutrophils # (1.3-7.7) k/uL Lymphocytes # (1.0-4.8) k/uL Monocytes # (0-1.0) k/uL Eosinophils # (0-0.7) k/uL Basophils # (0-0.2) k/uL PT (9.0-12.0) sec INR (<1.2) APTT (22.0-30.0) sec Sodium (137-145) mmol/L Potassium (3.5-5.1) mmol/L Chloride (98-107) mmol/L Carbon Dioxide (22-30) mmol/L Anion Gap mmol/L BUN (7-17) mg/dL Creatinine (0.52-1.04) mg/dL Est GFR (CKD-EPI)AfAm (>60 ml/min/1.73 sqM) Est GFR (CKD-EPI)NonAf (>60 ml/min/1.73 sqM) Glucose (74-99) mg/dL Plasma Lactic Acid Juan 1.7 (0.7-2.0) mmol/L Calcium (8.4-10.2) mg/dL Total Bilirubin (0.2-1.3) mg/dL AST (14-36) U/L ALT (4-34) U/L Alkaline Phosphatase (38-126) U/L Total Protein (6.3-8.2) g/dL Albumin (3.5-5.0) g/dL Lipase (23-300) U/L Urine Color Yellow Urine Appearance Clear (Clear) Urine pH 5.0 (5.0-8.0) Ur Specific [place] 1.015 (1.001-1.035) Urine Protein Trace H (Negative) Urine Glucose (UA) 4+ H (Negative) Urine Ketones 3+ H (Negative) Urine Blood Negative (Negative) Urine Nitrite Negative (Negative) Urine Bilirubin Negative (Negative) Urine Urobilinogen <2.0 (<2.0) mg/dL Ur Leukocyte Esterase Large H (Negative) Urine RBC 3 (0-5) /hpf Urine WBC 160 H (0-5) /hpf Ur Squamous Epith Cells <1 (0-4) /hpf Urine Bacteria Few H (None) /hpf Hyaline Casts 1 (0-2) /lpf Urine Mucus Rare H (None) /hpf Stool Occult Blood Negative (Negative) Disposition Clinical Impression: Nausea & vomiting, UTI (urinary tract infection) Disposition: HOME SELF-CARE Condition: Stable Instructions (If sedation given, give patient instructions): Urinary Tract Infection in Women (ED) Additional Instructions: Please return to the Emergency Department if symptoms worsen or any other concerns. Take antibiotic as prescribed. Follow-up with PCP in 1-3 days. Prescriptions: Cephalexin [Keflex] 500 mg PO BID 5 Days #10 cap Is patient prescribed a controlled substance at d/c from ED?: No Referrals: Mallorie Hudson DO [Primary Care Provider] - 1-2 days
[2019-09-29 11:30] LABS: Basophils # (A) 0.1 k/uL (0-0.2); Basophils % (A) 0 %; Eosinophils # (A) 0.2 k/uL (0-0.7); Eosinophils % (A) 2 %; HCT 47.1 % (34.0-46.0); HGB 15.2 gm/dL (11.4-16.0); Lymphocytes # (A) 3.4 k/uL (1.0-4.8); Lymphocytes % (A) 27 %; MCHC 32.3 g/dL (31.0-37.0); MCV 92.8 fL (80.0-100.0); Mean Platelet Volume 8.3; Monocytes # (A) 0.5 k/uL (0-1.0); Monocytes % (A) 4 %; Neutrophils # (A) 8.6 k/uL (1.3-7.7); Neutrophils % (A) 66 %; Platelet Count 319 k/uL (150-450); RBC 5.07 m/uL (3.80-5.40)
[2019-09-29 11:40] LABS: Partial Thromboplastin Time 22.1 sec (22.0-30.0); Prothrombin Time 10.3 sec (9.0-12.0)
[2019-09-29 11:42] LABS: Albumin 4.3 g/dL (3.5-5.0); Calcium 9.6 mg/dL (8.4-10.2); Total Protein 7.3 g/dL (6.3-8.2)
[2019-09-29 11:46] LABS: Potassium 4.7 mmol/L (3.5-5.1)
[2019-09-29 12:11] LABS: Appearance,Urine Clear (Clear); Bacteria,Urine Few /hpf; Bilirubin,Urine Negative (Negative); Blood,Urine Negative (Negative); Color,Urine Yellow; Glucose,Urine (UA) 4+ (Negative); Hyaline Casts,Urine 1 /lpf (0-2); Leukocyte Esterase,Urine Large (Negative); Mucus,Urine Rare /hpf; Nitrite,Urine Negative (Negative); Protein,Urine Trace (Negative); RBC,Urine 3 /hpf (0-5); Specific Gravity,Urine 1.015 (1.001-1.035); Squamous Epithelial Cell,Urine <1 /hpf (0-4); Urobilinogen,Urine <2.0 mg/dL (<2.0); WBC,Urine 160 /hpf (0-5)
[2019-09-29 12:23] LABS: Ketones,Urine 3+ (Negative)
[2019-09-29] MEDS ORDERED: cefTRIAXone IN SWFI 1,000 MG/10 ML SYRINGE IVP STA (12:24)
[2019-09-29] MEDS ORDERED: ONDANSETRON 4 MG ODT STARTER PACK 2 TAB BTL PO STA (13:02)
[2019-09-29 13:23] VITALS: BP 138/78; PULSE 72; RESP 23; TEMP 98.9
== END 2019-09-29 13:27 | disposition home or self-care (01) ==
LOC: EC 10:48
DX: N39.0 Urinary tract infection, site not specified (principal); J44.9 Chronic obstructive pulmonary disease, unspecified; K21.9 Gastro-esophageal reflux disease without esophagitis; I10 Essential (primary) hypertension; E78.5 Hyperlipidemia, unspecified; G47.30 Sleep apnea, unspecified; E07.9 Disorder of thyroid, unspecified; E11.40 Type 2 diabetes mellitus with diabetic neuropathy, unspecified; F41.9 Anxiety disorder, unspecified; F32.9 Major depressive disorder, single episode, unspecified; Z79.51 Long term (current) use of inhaled steroids; Z79.899 Other long term (current) drug therapy; Z79.890 Hormone replacement therapy; Z79.84 Long term (current) use of oral hypoglycemic drugs; Z91.018 Allergy to other foods; Z91.048 Other nonmedicinal substance allergy status; Z91.040 Latex allergy status; Z88.5 Allergy status to narcotic agent; Z91.09 Other allergy status, other than to drugs and biological substances; Z96.653 Presence of artificial knee joint, bilateral; Z99.89 Dependence on other enabling machines and devices; Z90.49 Acquired absence of other specified parts of digestive tract; Z90.710 Acquired absence of both cervix and uterus
CPT/HCPCS: 36415; 80053; 83605; 83690; 85025; 85610; 85730; 82272; 81001; 87086; 99284; 96374; 96375; J0696; C9113

== ENCOUNTER 2019-10-01 10:45 | Inpatient (IN) | payer MEDICARE, BC ==
[2019-10-01] MEDS ORDERED: ADENOSINE 3 MG/ML 2 ML VIAL IVP STA (10:58)
[2019-10-01] MEDS ORDERED: SODIUM CHLORIDE 0.9% 500 ML 500 ML IV STA (10:58)
--- NOTE | 2019-10-01 11:17 | ED ---
General Adult HPI - General Chief complaint: Abdominal Pain Stated complaint: Back pain, cold sweats Time Seen by Provider: 10/01/19 10:53 Source: patient, RN notes reviewed, old records reviewed Mode of arrival: ambulatory Limitations: no limitations - History of Present Illness Initial comments: 74-year-old female with recent diagnosis of urinary tract infection presents for nausea vomiting, flank pain and abdominal pain. Pain is primarily suprapubic. She had been prescribed oral antibiotics for UTI approximately 2 days ago. She's had low-grade fever and nausea and vomiting. She additionally reports palpitations. Denies central chest pain - Related Data Home Medications Medication Instructions Recorded Confirmed metFORMIN HCL [Glucophage] 1,000 mg PO BID 07/17/14 10/01/19 Montelukast [Singulair] 10 mg PO HS 11/06/17 10/01/19 Fluticasone Nasal [place] [Flonase 2 spray EA NOSTRIL DAILY 09/16/18 10/01/19 Nasal [place]] Levothyroxine Sodium [Synthroid] 100 mcg PO DAILY 09/16/18 10/01/19 Omeprazole 40 mg PO DAILY 09/16/18 10/01/19 Vit C/E/Zn/Coppr/Lutein/Zeaxan 1 cap PO BID 09/16/18 10/01/19 [Preservision Areds 2 Softgel] busPIRone HCl [Buspar] 5 mg PO BID 09/16/18 10/01/19 Baclofen 5 mg PO BID PRN 03/22/19 10/01/19 DULoxetine HCL [Cymbalta] 60 mg PO BID 03/22/19 10/01/19 Repaglinide [Prandin] 0.5 mg PO TID-W/MEALS 03/22/19 10/01/19 glyBURIDE [Diabeta] 5 mg PO DAILY 03/22/19 10/01/19 levETIRAcetam [Keppra] 750 mg PO BID 03/22/19 10/01/19 Atorvastatin [Lipitor] 80 mg PO HS 10/01/19 10/01/19 Biotin 10,000 mcg PO DAILY 10/01/19 10/01/19 Cephalexin [Keflex] 500 mg PO BID 10/01/19 10/01/19 Fenofibrate [Lofibra] 160 mg PO DAILY 10/01/19 10/01/19 Ferrous Sulfate [Feosol] 325 mg PO DAILY 10/01/19 10/01/19 Gabapentin 600 mg PO TID 10/01/19 10/01/19 Ipratropium-Albuterol Nebulize 3 ml INHALATION RT-QID PRN 10/01/19 10/01/19 [Duoneb 0.5 mg-3 mg/3 ml Soln] Lisinopril-Hctz 20-12.5 mg 1 tab PO DAILY 10/01/19 10/01/19 [Zestoretic 20-12.5] Multivitamins, Thera [Multivitamin 1 tab PO DAILY 10/01/19 10/01/19 (formulary)] Ondansetron Odt [Zofran Odt] 8 mg PO Q8HR PRN 10/01/19 10/01/19 Sucralfate [Carafate] 1 gm PO ACHS 10/01/19 10/01/19 traMADol HCl [Ultram] 50 mg PO BID 10/01/19 10/01/19 Allergies Allergy/AdvReac Type Severity Reaction Status Date / Time banana [Banana] Allergy Severe Anaphylaxis Verified 10/01/19 11:54 iodine Allergy Severe DYSPNEA, Verified 10/01/19 11:54 SKIN INFLAMED kiwi Allergy Severe Anaphylaxis Verified 10/01/19 11:54 Iodinated Contrast Media Allergy Dyspnea Verified 10/01/19 11:54 latex Allergy Dyspnea, Verified 10/01/19 11:54 Itching morphine Allergy Rapid Verified 10/01/19 11:54 Heart Rate smoke Allergy Dyspnea Uncoded 10/01/19 11:54 Review of Systems ROS Statement: Those systems with pertinent positive or pertinent negative responses have been documented in the HPI. ROS Other: All systems not noted in ROS Statement are negative. Past Medical History Past Medical History: Asthma, Chest Pain / Angina, COPD, CVA/TIA, Diabetes Mellitus, GERD/Reflux, Hearing Disorder / Deafness, Hyperlipidemia, Hypertension, Musculoskeletal Disorder, Sleep Apnea/CPAP/BIPAP, Thyroid Disorder Additional Past Medical History / Comment(s): NEUROPATHY, HEART MURMUR, NOT USING C-PAP, HIATAL HERNIA, DIVERTICULOSIS, CYST LEFT KIDNEY, DDD WITH SCIATICA AND BACK PAIN. . NEURO DERMATITIS W/ RASH. History of Any Multi-Drug Resistant Organisms: None Reported Past Surgical History: Adenoidectomy, Cholecystectomy, Hysterectomy, Joint Replacement, Orthopedic Surgery, Tonsillectomy Additional Past Surgical History / Comment(s): D & C, ARTHROSCOPY MIGUEL KNEES, MIGUEL ROTATOR CUFF , MIGUEL KNEE REPLACEMENT. Past Anesthesia/Blood Transfusion Reactions: Postoperative Nausea & Vomiting (PONV) Past Psychological History: Anxiety, Depression Smoking Status: Never smoker Past Alcohol Use History: None Reported Past Drug Use History: None Reported - Past Family History Father Family Medical History: Pneumonia Mother Family Medical History: Cancer Additional Family Medical History / Comment(s): PANCREAS CA General Exam Limitations: no limitations General appearance: alert, in no apparent distress Head exam: Present: atraumatic, normocephalic Eye exam: Present: normal appearance, PERRL ENT exam: Present: mucous membranes dry Neck exam: Present: normal inspection. Absent: tenderness, meningismus Respiratory exam: Present: normal lung sounds bilaterally. Absent: respiratory distress, wheezes Cardiovascular Exam: Present: normal rhythm, tachycardia GI/Abdominal exam: Present: soft, distended, tenderness (Umbilical and suprapubic tenderness to palpation, minimal.) Extremities exam: Present: normal inspection, normal capillary refill, pedal edema. Absent: calf tenderness Neurological exam: Present: alert, oriented X3, CN II-XII intact. Absent: motor sensory deficit Psychiatric exam: Present: normal affect, normal mood Skin exam: Present: warm, dry, intact. 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 EKG Findings - EKG Comments: EKG Findings:: EKG at 1056, SVT with left axis rate of 182, QRS duration 106, QTC 480. EKG at 1105 after adenosine, sinus tachycardia, rate of 108, IN interval 122, QRS duration 72, QTC 455, no ST segment elevation. Medical Decision Making - Medical Decision Making 74-year-old female presenting with nausea vomiting, flank pain. Recent diagnosis of UTI on oral antibiotics. She is febrile, hypotensive in SVT upon arrival. She's given a fluid bolus as well as 6 mg of adenosine and does convert into sinus rhythm with improved blood pressure. Workup reveals an increasing white blood cell count at 15.7, hemoglobin 15.1, creatinine is also increased at 1.3 consistent with some degree of acute renal failure. Her magnesium is 1.[address] performed which is negative for any acute intra-abdominal processes. Chest x-ray negative for focal pneumonia. Patient had urine culture 2 days ago which was sensitive to cephalosporins, E. coli. She is continued on ceftriaxone as well as IV fluids and will be admitted for pyelonephritis, sepsis, SVT. Case discussed with Dr. Portillo who will admit. - Lab Data Result diagrams: 10/01/19 11:09 10/01/19 11:09 Lab Results 10/01/19 10/01/19 10/01/19 Range/Units 11:09 11:09 11:09 WBC 15.7 H (3.8-10.6) k/uL RBC 4.89 (3.80-5.40) m/uL Hgb 15.1 (11.4-16.0) gm/dL Hct 46.5 H (34.0-46.0) % MCV 95.0 (80.0-100.0) fL MCH 30.8 (25.0-35.0) pg MCHC 32.4 (31.0-37.0) g/dL RDW 12.0 (11.5-15.5) % Plt Count 390 (150-450) k/uL Neutrophils % 66 % Lymphocytes % 26 % Monocytes % 4 % Eosinophils % 1 % Basophils % 1 % Neutrophils # 10.4 H (1.3-7.7) k/uL Lymphocytes # 4.1 (1.0-4.8) k/uL Monocytes # 0.6 (0-1.0) k/uL Eosinophils # 0.2 (0-0.7) k/uL Basophils # 0.1 (0-0.2) k/uL Hypochromasia Slight PT 10.4 (9.0-12.0) sec INR 1.0 (<1.2) APTT 23.0 (22.0-30.0) sec Sodium 136 L (137-145) mmol/L Potassium 3.9 (3.5-5.1) mmol/L Chloride 100 (98-107) mmol/L Carbon Dioxide 22 (22-30) mmol/L Anion Gap 14 mmol/L BUN 20 H (7-17) mg/dL Creatinine 1.31 H (0.52-1.04) mg/dL Est GFR (CKD-EPI)AfAm 46 (>60 ml/min/1.73 sqM) Est GFR (CKD-EPI)NonAf 40 (>60 ml/min/1.73 sqM) Glucose 366 H (74-99) mg/dL Calcium 9.4 (8.4-10.2) mg/dL Magnesium 1.4 L (1.6-2.3) mg/dL Total Bilirubin 0.5 (0.2-1.3) mg/dL AST 33 (14-36) U/L ALT 26 (4-34) U/L Alkaline Phosphatase 65 (38-126) U/L Troponin I (0.000-0.034) ng/mL Total Protein 6.6 (6.3-8.2) g/dL Albumin 4.1 (3.5-5.0) g/dL Lipase 144 (23-300) U/L 10/01/19 Range/Units 11:09 WBC (3.8-10.6) k/uL RBC (3.80-5.40) m/uL Hgb (11.4-16.0) gm/dL Hct (34.0-46.0) % MCV (80.0-100.0) fL MCH (25.0-35.0) pg MCHC (31.0-37.0) g/dL RDW (11.5-15.5) % Plt Count (150-450) k/uL Neutrophils % % Lymphocytes % % Monocytes % % Eosinophils % % Basophils % % Neutrophils # (1.3-7.7) k/uL Lymphocytes # (1.0-4.8) k/uL Monocytes # (0-1.0) k/uL Eosinophils # (0-0.7) k/uL Basophils # (0-0.2) k/uL Hypochromasia PT (9.0-12.0) sec INR (<1.2) APTT (22.0-30.0) sec Sodium (137-145) mmol/L Potassium (3.5-5.1) mmol/L Chloride (98-107) mmol/L Carbon Dioxide (22-30) mmol/L Anion Gap mmol/L BUN (7-17) mg/dL Creatinine (0.52-1.04) mg/dL Est GFR (CKD-EPI)AfAm (>60 ml/min/1.73 sqM) Est GFR (CKD-EPI)NonAf (>60 ml/min/1.73 sqM) Glucose (74-99) mg/dL Calcium (8.4-10.2) mg/dL Magnesium (1.6-2.3) mg/dL Total Bilirubin (0.2-1.3) mg/dL AST (14-36) U/L ALT (4-34) U/L Alkaline Phosphatase (38-126) U/L Troponin I 0.034 (0.000-0.034) ng/mL Total Protein (6.3-8.2) g/dL Albumin (3.5-5.0) g/dL Lipase (23-300) U/L Critical Care Time Critical Care Time: Yes Total Critical Care Time: 35 Disposition Clinical Impression: SVT (supraventricular tachycardia), Sepsis, Pyelonephritis Disposition: ADMITTED IP TO THIS [facility] Condition: Stable Is patient prescribed a controlled substance at d/c from ED?: No Referrals: Mallorie Hudson DO [Primary Care Provider] - 1-2 days Decision to Admit Reason: Admit from EC Decision Date: 10/01/19 Decision Time: 12:25
[2019-10-01 11:21] LABS: Basophils # (A) 0.1 k/uL (0-0.2); Basophils % (A) 1 %; Eosinophils # (A) 0.2 k/uL (0-0.7); Eosinophils % (A) 1 %; HCT 46.5 % (34.0-46.0); HGB 15.1 gm/dL (11.4-16.0); Hypochromasia Slight; Lymphocytes # (A) 4.1 k/uL (1.0-4.8); Lymphocytes % (A) 26 %; MCH 30.8 pg (25.0-35.0); MCHC 32.4 g/dL (31.0-37.0); Monocytes # (A) 0.6 k/uL (0-1.0); Monocytes % (A) 4 %; Neutrophils # (A) 10.4 k/uL (1.3-7.7); Neutrophils % (A) 66 %; Platelet Count 390 k/uL (150-450); RBC 4.89 m/uL (3.80-5.40); WBC 15.7 k/uL (3.8-10.6)
[2019-10-01 11:26] LABS: Albumin 4.1 g/dL (3.5-5.0); Calcium 9.4 mg/dL (8.4-10.2); Magnesium 1.4 mg/dL (1.6-2.3); Potassium 3.9 mmol/L (3.5-5.1); Total Bilirubin 0.5 mg/dL (0.2-1.3); Total Protein 6.6 g/dL (6.3-8.2)
[2019-10-01] MEDS ORDERED: cefTRIAXone IN SWFI 1,000 MG/10 ML SYRINGE IVP STA (11:34)
[2019-10-01] MEDS ORDERED: MAGNESIUM SULFATE-D5W PMX 1 GM in DEXTROSE/WATER 1 100ML.BAG IVPB ONE (11:52)
[2019-10-01 11:58] LABS: Prothrombin Time 10.4 sec (9.0-12.0)
--- NOTE | 2019-10-01 11:58 | XR ---
EXAMINATION TYPE: XR chest 1V portable DATE OF EXAM: 10/01/2019 COMPARISON: 03/22/2019 INDICATION: Dysrhythmia nausea vomiting TECHNIQUE: Single frontal view of the chest is obtained. FINDINGS: The heart size is normal. The pulmonary vasculature is normal. The lungs are clear. No acute pulmonary process. IMPRESSION: 1. No acute pulmonary process.
--- NOTE | 2019-10-01 12:01 | CT ---
EXAMINATION TYPE: CT abdomen pelvis wo con DATE OF EXAM: 10/01/2019 COMPARISON: Prior CT 09/16/2018 HISTORY: Pain, nausea and vomiting CT DLP: 719.6 mGycm Automated exposure control for dose reduction was used. TECHNIQUE: Helical acquisition of images from the lung bases through the pelvis. FINDINGS: Lack of intravenous contrast could compromise sensitivity. Thickened stomach wall is likely due to lack of distention LUNG BASES: No significant abnormality is appreciated. AORTA: No significant abnormality is appreciated. LIVER/GB: Patient is post cholecystectomy. No evident liver mass. Low density within the liver may be due to hepatic steatosis. PANCREAS: No significant abnormality is seen. SPLEEN: No significant abnormality is seen. Splenule is present at the inferior widening hilum ADRENALS: No significant abnormality is seen. KIDNEYS: Exophytic location extending from the left upper pole towards the splenic hilum4, there is a low dense lobular focus measuring 5 x 3.7 x 3.7 cm likely representing exophytic cysts, there is no hydronephrosis or renal calculus bilaterally, no evident ureteral calculus REPRODUCTIVE ORGANS: Uterus and adnexal structures are not seen. URINARY BLADDER: No significant abnormality is seen. BOWEL: Extensive diverticular changes present especially in the sigmoid and descending colon. Append ix is normal. FREE AIR: No Free Air is visible. ASCITES: None visible. PELVIC ADENOPATHY: None visualized. RETROPERITONEAL ADENOPATHY: No Retroperitoneal Adenopathy visible. OSSEOUS STRUCTURES: There is a spinal curvature. There is degenerative disc change, facet arthropath y within the visualized spine. Spinal stenosis suspected L4-5.. IMPRESSION: NONCONTRAST EXAM. DIVERTICULOSIS. POSTOP CHANGES. CORRELATE FOR HEPATIC STEATOSIS.
[2019-10-01] MEDS ORDERED: NALOXONE 0.4 MG/ML 1 ML VIAL IV PRN (12:21)
[2019-10-01] MEDS: SODIUM CHLORIDE 0.9% 1,000 ML IV SCH (12:42)
[2019-10-01] MEDS ORDERED: BACLOFEN 10 MG TAB PO PRN (14:05)
[2019-10-01] MEDS: GABAPENTIN 300 MG CAP PO SCH ×2 (16:38→20:55)
[2019-10-01 16:54] LABS: Glucose,Whole Blood 174 mg/dL (75-99)
[2019-10-01 20:43] LABS: Glucose,Whole Blood 262 mg/dL (75-99)
[2019-10-01] MEDS: DULoxetine HCL 60 MG CAPSULE.DR PO SCH (20:54)
[2019-10-01] MEDS: ATORVASTATIN 80 MG TAB PO SCH (20:54)
[2019-10-01] MEDS: MONTELUKAST 10 MG TAB PO SCH (20:55)
[2019-10-01] MEDS: busPIRone HCl 5 MG TAB PO SCH (20:55)
[2019-10-01] MEDS: INSULIN ASPART (NovoLOG) 100 UNIT/ML VIAL SQ SCH (21:03)
[2019-10-02 06:07] LABS: Glucose,Whole Blood 174 mg/dL (75-99)
[2019-10-02] MEDS: SODIUM CHLORIDE 0.9% 1,000 ML IV SCH ×2 (06:38→20:57)
[2019-10-02] MEDS: LEVOTHYROXINE 100 MCG TAB PO SCH (06:39)
[2019-10-02] MEDS: INSULIN ASPART (NovoLOG) 100 UNIT/ML VIAL SQ SCH ×4 (06:39→20:57)
[2019-10-02] MEDS ORDERED: PANTOPRAZOLE 40 MG TABLET PO SCH (07:30)
[2019-10-02] MEDS: DULoxetine HCL 60 MG CAPSULE.DR PO SCH ×2 (08:56→20:59)
[2019-10-02] MEDS: busPIRone HCl 5 MG TAB PO SCH ×2 (08:56→20:58)
[2019-10-02] MEDS: GABAPENTIN 300 MG CAP PO SCH ×3 (08:56→20:59)
[2019-10-02 11:05] VITALS: BMI 29.4
[2019-10-02 11:44] LABS: Glucose,Whole Blood 330 mg/dL (75-99)
[2019-10-02] MEDS: ACETAMINOPHEN TAB 325 MG TAB PO PRN (12:21)
[2019-10-02 16:57] LABS: Glucose,Whole Blood 103 mg/dL (75-99)
[2019-10-02 17:47] LABS: Appearance,Urine Clear (Clear); Bilirubin,Urine Negative (Negative); Blood,Urine Negative (Negative); Color,Urine Yellow; Glucose,Urine (UA) 4+ (Negative); Ketones,Urine Negative (Negative); Leukocyte Esterase,Urine Negative (Negative); Nitrite,Urine Negative (Negative); PH, Urine 5.5 (5.0-8.0); Protein,Urine Negative (Negative); Urobilinogen,Urine <2.0 mg/dL (<2.0)
[2019-10-02 20:39] LABS: Glucose,Whole Blood 212 mg/dL (75-99)
[2019-10-02] MEDS: MONTELUKAST 10 MG TAB PO SCH (20:57)
[2019-10-02] MEDS: ATORVASTATIN 80 MG TAB PO SCH (20:58)
[2019-10-02] MEDS ORDERED: NITROGLYCERIN SL TABS 0.4 MG TAB SUBLINGUAL ONE ×2 (21:19→21:31)
--- NOTE | 2019-10-02 22:58 | P.HPIM ---
History of Present Illness H&P Date: 10/02/19 Chief Complaint: dysuria, fever, malaise Sabine Hagen is a 74 yo F with PMH of T2DM, seizure disorder, HTN, HLD who presented to the ED complaining of suprapubic pain, nausea, vomiting, dysuria and malaise over the past few days. She notes she was seen in the ED last week a nd diagnosed at that time with UTI, she was discharged with keflex. She then presented to her PCP clinic 2 days ago and complained of continued symptoms as well as nausea and vomiting. Pt was given a shot of rocephin and zofran and advised to complete her antibiotics. When her symptoms persisted she came back to the ED. On presentation she was tachycardic and hypotensive with HR in the 170s and BP 70/50. WBC 16k, Cr 1.3. Pt was given adenosine with improvement in her tachycardia and started on rocephin and IVF rehydration. Today she is feeling significantly improved with less abdominal pain and resolution of her nausea and vomiting. Vitals and BP have normalized. Review of Systems All systems: negative Constitutional: Reports malaise, Denies chills, Denies fever Eyes: denies blurred vision, denies pain Ears, nose, mouth and throat: Denies headache, Denies sore throat Cardiovascular: Denies chest pain, Denies shortness of breath Respiratory: Denies cough Gastrointestinal: Denies abdominal pain, Denies diarrhea, Denies nausea, Denies vomiting Genitourinary: Reports as per HPI, Reports dysuria, Reports urgency, Reports urinary frequency, Denies hematuria Musculoskeletal: Denies myalgias Integumentary: Denies pruritus, Denies rash Neurological: Denies numbness, Denies weakness Psychiatric: Denies anxiety, Denies depression Endocrine: Denies fatigue, Denies weight change Past Medical History Past Medical History: Asthma, Chest Pain / Angina, COPD, CVA/TIA, Diabetes Mellitus, Eye Disorder, GERD/Reflux, Hearing Disorder / Deafness, Hyperlipidemia, Hypertension, Neurologic Disorder, Osteoarthritis (OA), Pneumonia, Sleep Apnea/CPAP/BIPAP, Thyroid Disorder Additional Past Medical History / Comment(s): Recent UTI tx with antibiotics, past UTIs, NIDDM type II, neuropathy bilateral feet, cardiac valve disease, murmur, TIA, seizure-last one 2017, neurodematitis with rash, bronchitis, JAGJIT but lost her Cpap, gastric ulcer, IBS, bilateral macular degeneration/diificulty with vision, very [place] bilaterally-normally uses aide in R ear, DDD, low back pain with R side sciatica, hypothyroid. History of Any Multi-Drug Resistant Organisms: None Reported Past Surgical History: Adenoidectomy, Cholecystectomy, Hysterectomy, Joint Repl acement, Orthopedic Surgery, Tonsillectomy Additional Past Surgical History / Comment(s): EGD, colonoscopy, hemorrhoidectomy, D&C, bilatearl knee scopes and then total knee arthroplasties, bialteral rotator cuff repairs, lumbar epidural injections-last one 2 weeks ago, bilateral eye cataract removals with lens implants, L lower eyelid "wart" removed Past Anesthesia/Blood Transfusion Reactions: No Reported Reaction Smoking Status: Former smoker - Past Family History Father Family Medical History: Pneumonia Mother Family Medical History: Cancer Additional Family Medical History / Comment(s): PANCREAS CA Medications and Allergies Home Medications Medication Instructions Recorded Confirmed Type metFORMIN HCL [Glucophage] 1,000 mg PO BID 07/17/14 10/01/19 History Montelukast [Singulair] 10 mg PO HS 11/06/17 10/01/19 History Fluticasone Nasal [place] [Flonase 2 spray EA NOSTRIL DAILY 09/16/18 10/01/19 History Nasal [place]] Levothyroxine Sodium [Synthroid] 100 mcg PO DAILY 09/16/18 10/01/19 History Omeprazole 40 mg PO DAILY 09/16/18 10/01/19 History Vit C/E/Zn/Coppr/Lutein/Zeaxan 1 cap PO BID 09/16/18 10/01/19 History [Preservision Areds 2 Softgel] busPIRone HCl [Buspar] 5 mg PO BID 09/16/18 10/01/19 History Baclofen 5 mg PO BID PRN 03/22/19 10/01/19 History DULoxetine HCL [Cymbalta] 60 mg PO BID 03/22/19 10/01/19 History Repaglinide [Prandin] 0.5 mg PO TID-W/MEALS 03/22/19 10/01/19 History glyBURIDE [Diabeta] 5 mg PO DAILY 03/22/19 10/01/19 History levETIRAcetam [Keppra] 750 mg PO BID 03/22/19 10/01/19 History Atorvastatin [Lipitor] 80 mg PO HS 10/01/19 10/01/19 History Biotin 10,000 mcg PO DAILY 10/01/19 10/01/19 History Cephalexin [Keflex] 500 mg PO BID 10/01/19 10/01/19 History Fenofibrate [Lofibra] 160 mg PO DAILY 10/01/19 10/01/19 History Ferrous Sulfate [Feosol] 325 mg PO DAILY 10/01/19 10/01/19 History Gabapentin 600 mg PO TID 10/01/19 10/01/19 History Ipratropium-Albuterol Nebulize 3 ml INHALATION RT-QID PRN 10/01/19 10/01/19 History [Duoneb 0.5 mg-3 mg/3 ml Soln] Lisinopril-Hctz 20-12.5 mg 1 tab PO DAILY 10/01/19 10/01/19 History [Zestoretic 20-12.5] Multivitamins, Thera [Multivitamin 1 tab PO DAILY 10/01/19 10/01/19 History (formulary)] Ondansetron Odt [Zofran Odt] 8 mg PO Q8HR PRN 10/01/19 10/01/19 History Sucralfate [Carafate] 1 gm PO ACHS 10/01/19 10/01/19 History traMADol HCl [Ultram] 50 mg PO BID 10/01/19 10/01/19 History Allergies Allergy/AdvReac Type Severity Reaction Status Date / Time banana [Banana] Allergy Severe Anaphylaxis Verified 10/01/19 11:54 iodine Allergy Severe DYSPNEA, Verified 10/01/19 11:54 SKIN INFLAMED kiwi Allergy Severe Anaphylaxis Verified 10/01/19 11:54 Iodinated Contrast Media Allergy Dyspnea Verified 10/01/19 11:54 latex Allergy Dyspnea, Verified 10/01/19 11:54 Itching morphine Allergy Rapid Verified 10/01/19 11:54 Heart Rate smoke Allergy Dyspnea Uncoded 10/01/19 11:54 Physical Exam Vitals: Vital Signs Temp Pulse Resp BP Pulse Ox 10/02/19 20:00 98.0 F 84 18 134/63 97 10/02/19 16:00 87 16 135/72 94 L 10/02/19 12:00 82 16 118/70 96 10/02/19 11:31 16 10/02/19 08:00 98.5 F 79 16 103/69 97 10/02/19 04:00 97.7 F 81 16 131/62 94 L 10/02/19 00:00 97.5 F L 79 16 128/61 99 Intake and Output 10/02/19 10/02/19 10/02/19 06:59 14:59 22:59 Intake Total 720 480 Balance 720 480 Intake: Intake, IV Titration 600 Amount Sodium Chloride 0.9% 1, 600 000 ml @ 75 mls/hr IV . [id number] SUHAS Rx#:[id number] Oral 120 480 Other: # Voids 2 0 Weight 77.7 kg 77.7 kg General: well nourished, well developed, NAD. Vitals reviewed Eyes: PERRL, EOMI, conjunctiva normal HENT: normocephalic, mucus membranes moist Neck: supple, no JVD Lungs: normal respiratory effort, no wheezes or rales CV: Regular rate and rhythm, no murmur. Peripheral pulses 2+ Abdomen: soft, nondistended, no organomegaly. Suprapubic tenderness Lymph: no cervical or axillary LAD Skin: warm and dry. Neuro: A&Ox3, normal mood and affect Results CBC & Chem 7: 10/01/19 11:09 10/01/19 11:09 Labs: Abnormal Lab Results - Last 24 Hours (Table) 10/02/19 10/02/19 10/02/19 Range/Units 06:03 11:42 16:56 POC Glucose (mg/dL) 174 H 330 H 103 H (75-99) mg/dL Urine Glucose (UA) (Negative) 10/02/19 10/02/19 Range/Units 17:25 20:37 POC Glucose (mg/dL) 212 H (75-99) mg/dL Urine Glucose (UA) 4+ H (Negative) Microbiology - Last 24 Hours (Table) 10/01/19 12:59 Blood Culture - Preliminary Blood No Growth after 24 hours Thrombosis Risk Factor Assmnt - Choose All That Apply Any of the Below Risk Factors Present?: Yes Each Factor Represents 1 point: Abnormal pulmonary function (COPD), Obesity (BMI >25), Sepsis (< 1month), Serious lung disease incl. pneumonia (< 1month) Other Risk Factors: Yes Each Risk Factor Represents 3 Points: Age 75 years or older Other congenital or acquired thrombophilia - If yes, enter type in comment: No Thrombosis Risk Factor Assessment Total Risk Factor Score: 7 Thrombosis Risk Factor Assessment Level: High Risk Assessment and Plan (1) Sepsis due to urinary tract infection Current Visit: Yes Status: Acute Code(s): A41.9 - SEPSIS, UNSPECIFIED ORGANISM; N39.0 - URINARY TRACT INFECTION, SITE NOT SPECIFIED SNOMED Code(s): 844774931 (2) Supraventricular tachycardia Current Visit: Yes Status: Acute Code(s): I47.1 - SUPRAVENTRICULAR TACHYCARDIA SNOMED Code(s): 1825400 (3) Altered mental status Current Visit: No Status: Acute Code(s): R41.82 - ALTERED MENTAL STATUS, UNSPECIFIED SNOMED Code(s): 297122551 (4) Diabetes mellitus Current Visit: No Status: Acute Code(s): E11.9 - TYPE 2 DIABETES MELLITUS WITHOUT COMPLICATIONS SNOMED Code(s): 64747438 (5) Nausea & vomiting Current Visit: No Status: Acute Code(s): R11.2 - NAUSEA WITH VOMITING, UNSPECIFIED SNOMED Code(s): 91334405 Plan: 1. Septic shock, SVT. Resolved with adenosine and IVF 2. Sepsis due to UTI. Continue IV fluids, rocephin. Follow cultures 3. Toxic encephalopathy, resolved 4. T2DM. Accucheck, sliding scale 5. Diabetic neuropathy. Continue gabapentin, cymbalta
[2019-10-02] MEDS: PANTOPRAZOLE 40 MG/10 ML VIAL IVP SCH (23:27)
[2019-10-03] MEDS: SODIUM CHLORIDE 0.9% 1,000 ML IV SCH ×2 (04:10→20:24)
[2019-10-03 06:05] LABS: Glucose,Whole Blood 206 mg/dL (75-99)
[2019-10-03] MEDS: INSULIN ASPART (NovoLOG) 100 UNIT/ML VIAL SQ SCH ×4 (06:31→20:24)
[2019-10-03] MEDS: LEVOTHYROXINE 100 MCG TAB PO SCH (06:31)
[2019-10-03 08:07] LABS: Calcium 8.3 mg/dL (8.4-10.2); Potassium 3.9 mmol/L (3.5-5.1)
[2019-10-03] MEDS: PANTOPRAZOLE 40 MG/10 ML VIAL IVP SCH (08:39)
[2019-10-03] MEDS: GABAPENTIN 300 MG CAP PO SCH ×3 (08:39→21:03)
[2019-10-03] MEDS: DULoxetine HCL 60 MG CAPSULE.DR PO SCH ×2 (08:40→20:23)
[2019-10-03] MEDS: busPIRone HCl 5 MG TAB PO SCH ×2 (08:40→20:24)
[2019-10-03] MEDS ORDERED: FLUCONAZOLE 150 MG TAB PO STA (11:00)
[2019-10-03 12:06] LABS: Glucose,Whole Blood 206 mg/dL (75-99)
[2019-10-03] MEDS: ACETAMINOPHEN TAB 325 MG TAB PO PRN (12:16)
[2019-10-03] MEDS: VERAPAMIL 40 MG TAB PO SCH ×2 (13:22→21:04)
--- NOTE | 2019-10-03 16:47 | P.PN ---
Subjective Progress Note Date: 10/03/19 Sabine Hagen is a 74 yo F with PMH of T2DM, seizure disorder, HTN, HLD who presented to the ED complaining of suprapubic pain, nausea, vomiting, dysuria and malaise over the past few days. She notes she was seen in the ED last week and diagnosed at that time with UTI, she was discharged with keflex. She then presented to her PCP clinic 2 days ago and complained of continued symptoms as well as nausea and vomiting. Pt was given a shot of rocephin and zofran and advised to complete her antibiotics. When her symptoms persisted she came back to the ED. On presentation she was tachycardic and hypotensive with HR in the 170s and BP 70/50. WBC 16k, Cr 1.3. Pt was given adenosine with improvement in her tachycardia and started on rocephin and IVF rehydration. Today she is feeling significantly improved with less abdominal pain and resolution of her nausea and vomiting. Vitals and BP have normalized. 10/03/2019 maintained on antibiotics. Afebrile, blood cultures reporting no growth at 48 hours Denies abdominal pain. Nonproductive cough. Reports chronic lower back pain. C/O midsternal to left chest chest pain, accompanied by shortness of breath, no palpitations. Heart rate controlled. Objective - Vital Signs Vital signs: Vital Signs Temp 98.1 F 10/03/19 08:00 Pulse 88 10/03/19 08:00 Resp 16 10/03/19 08:00 BP 146/76 10/03/19 08:00 Pulse Ox 96 10/03/19 08:00 Intake & Output 10/02/19 10/03/19 10/03/19 18:59 06:59 18:59 Intake Total 1200 130 Output Total 450 Balance 1200 -450 130 Weight 77.7 kg 80.1 kg Intake: Intake, IV Titration 600 Amount Sodium Chloride 0.9% 1, 600 000 ml @ 75 mls/hr IV . [id number] SUHAS Rx#:[id number] Oral 600 130 Output: Urine 450 Other: # Voids 0 1 - Exam General: Sitting up in bed, NAD. Vitals reviewed Eyes: PERRL, EOMI, conjunctiva normal HENT: normocephalic, mucus membranes moist Neck: supple, no JVD Lungs: normal respiratory effort, no wheezes or rales CV: Regular rate and rhythm, no murmur. Peripheral pulses 2+ Abdomen: soft, nondistended, no organomegaly. Suprapubic tenderness Skin: warm and dry. Neuro: A&Ox3, normal mood and affect - Labs CBC & Chem 7: 10/01/19 11:09 10/03/19 06:42 Labs: Abnormal Lab Results - Last 24 Hours (Table) 10/02/19 10/02/19 10/02/19 Range/Units 11:42 16:56 17:25 Chloride (98-107) mmol/L Glucose (74-99) mg/dL POC Glucose (mg/dL) 330 H 103 H (75-99) mg/dL Calcium (8.4-10.2) mg/dL Urine Glucose (UA) 4+ H (Negative) 10/02/19 10/03/19 10/03/19 Range/Units 20:37 06:04 06:42 Chloride 109 H (98-107) mmol/L Glucose 225 H (74-99) mg/dL POC Glucose (mg/dL) 212 H 206 H (75-99) mg/dL Calcium 8.3 L (8.4-10.2) mg/dL Urine Glucose (UA) (Negative) Microbiology - Last 24 Hours (Table) 10/01/19 12:59 Blood Culture - Preliminary Blood No Growth after 24 hours Assessment and Plan Assessment: (1) septic shock, SVT, resolved with adenosine Current Visit: Yes Status: Acute Code(s): I47.1 - SUPRAVENTRICULAR TACHYCARDIA SNOMED Code(s): 6397878 (2) Sepsis due to urinary tract infection Current Visit: Yes Status: Acute Code(s): A41.9 - SEPSIS, UNSPECIFIED ORGANISM; N39.0 - URINARY TRACT INFECTION, SITE NOT SPECIFIED SNOMED Code(s): 638041337 (3) Altered mental status, acute metabolic encephalopathy secondary to the above Current Visit: No Status: Acute Code(s): R41.82 - ALTERED MENTAL STATUS, UNSPECIFIED SNOMED Code(s): 591859663 (4) Diabetes mellitus Current Visit: No Status: Acute Code(s): E11.9 - TYPE 2 DIABETES MELLITUS WITHOUT COMPLICATIONS SNOMED Code(s): 52307784 (5) Nausea & vomiting Current Visit: No Status: Acute Code(s): R11.2 - NAUSEA WITH VOMITING, UNSPECIFIED SNOMED Code(s): 91468282 (6) diabetic neuropathy (7) chest pain, workup in progress Plan: Continue on current medication regime ,monitoring and symptomatic treatment. Maintain IV fluid hydration. Diflucan 1 for vulvovaginal candidasis. EKG, troponin ordered. Cardiology consulted . PT/OT consulted. The impression and plan of care has been dictated as directed. : I performed a history and examination of this patient, discussed the same with the dictator. I agree with the dictator's note ,documented as a scribe. Any additional findings or plans will be noted.
[2019-10-03 17:05] LABS: Glucose,Whole Blood 223 mg/dL (75-99)
[2019-10-03 20:06] LABS: Glucose,Whole Blood 168 mg/dL (75-99)
[2019-10-03] MEDS: ATORVASTATIN 80 MG TAB PO SCH (20:24)
[2019-10-03] MEDS: MONTELUKAST 10 MG TAB PO SCH (20:24)
--- NOTE | 2019-10-03 21:02 | CONS ---
CONSULTATION Mrs. Sabine Hagen is a lady with a known history of paroxysmal supraventricular tachycardia. She has been admitted to the hospital with what seems to be a urinary tract infection/pyelonephritis under the care of Dr. Portillo. While she was here and upon arrival, she had a run of SVT that seems to have converted to sinus rhythm spontaneously. On reviewing the old record, she has had these episodes of paroxysmal supraventricular tachycardia before. She came in complaining of suprapubic area pain, low-grade fever, nausea, vomiting. She has type 2 diabetes, hypertension, hyperlipidemia, hypothyroidism and bronchial asthma. At the time of my evaluation, she is in sinus rhythm resting comfortably without any symptoms. Upon arrival at the hospital she was hypotensive and in SVT. She was given a fluid bolus and 6 mg of adenosine and she converted to sinus rhythm and blood pressure normalized. However, she is asymptomatic at this time. She is on antibiotics. PAST MEDICAL HISTORY: This is remarkable for bronchial asthma, hypertension, hyperlipidemia, type 2 diabetes, history of obstructive sleep apnea, wears a CPAP. She also has history of paroxysmal SVT in the past. She is status post cholecystectomy, hysterectomy, joint replacement, bilateral knees. MEDICATIONS: Medications at home included tramadol, lisinopril/ hydrochlorothiazide 20/12.5 one tablet daily. She takes Keflex, fenofibrate, Diabeta, Keppra, atorvastatin 80 mg daily, Prandin. She also takes levothyroxine 100 mcg daily, metformin 1000 mg b.i.d. PHYSICAL EXAMINATION: Blood pressure is 130/70. Pulse rate is 80 per minute, sinus. HEENT unremarkable. Fundus was not examined by me. Neck is supple. There is JVD. There is no carotid bruit. Heart exam reveals S1, S2 heard normally. Short systolic murmur noted. Lungs reveal diminished air entry. Abdomen is soft, distended, nontender. Lower extremities reveal diminished pulses. Central nervous system grossly within normal limits. No focal deficits. IMPRESSION: 1. Paroxysmal supraventricular tachycardia. 2. Urinary tract infection/sepsis. 3. Hypertension. 4. Hyperlipidemia. 5. Diabetes mellitus. RECOMMENDATIONS: I am recommending from a cardiac standpoint that we add verapamil 40 mg t.i.d. to her regimen and continue all her other medications as before. She is already receiving antibiotics for UTI. She has multiple comorbid conditions, and the SVT may have occurred in the setting of stress with a high adrenergic state. I will advise an echocardiogram to assess LV function and add verapamil 40 mg t.i.d. to her regimen and continue telemetry monitoring. Thank you very much for the consult. ORLY / LORENZO: [id number] /
[2019-10-04 06:07] LABS: Glucose,Whole Blood 191 mg/dL (75-99)
[2019-10-04] MEDS: INSULIN ASPART (NovoLOG) 100 UNIT/ML VIAL SQ SCH ×2 (06:33→12:23)
[2019-10-04] MEDS: LEVOTHYROXINE 100 MCG TAB PO SCH (06:33)
[2019-10-04] MEDS: SODIUM CHLORIDE 0.9% 1,000 ML IV SCH (06:35)
[2019-10-04 06:50] LABS: Basophils % (A) 0 %; Eosinophils # (A) 0.2 k/uL (0-0.7); Eosinophils % (A) 2 %; HGB 12.9 gm/dL (11.4-16.0); Lymphocytes # (A) 2.7 k/uL (1.0-4.8); Lymphocytes % (A) 30 %; MCH 30.3 pg (25.0-35.0); MCHC 32.2 g/dL (31.0-37.0); MCV 94.1 fL (80.0-100.0); Mean Platelet Volume 7.2; Monocytes # (A) 0.3 k/uL (0-1.0); Monocytes % (A) 4 %; Neutrophils # (A) 5.5 k/uL (1.3-7.7); Neutrophils % (A) 62 %; Platelet Count 230 k/uL (150-450); RBC 4.25 m/uL (3.80-5.40); WBC 8.9 k/uL (3.8-10.6)
[2019-10-04 07:02] LABS: Calcium 8.8 mg/dL (8.4-10.2); Magnesium 1.3 mg/dL (1.6-2.3); Potassium 4.2 mmol/L (3.5-5.1)
[2019-10-04] MEDS: VERAPAMIL 40 MG TAB PO SCH (08:12)
[2019-10-04] MEDS: GABAPENTIN 300 MG CAP PO SCH (08:12)
[2019-10-04] MEDS: PANTOPRAZOLE 40 MG/10 ML VIAL IVP SCH (08:12)
[2019-10-04] MEDS: DULoxetine HCL 60 MG CAPSULE.DR PO SCH (08:13)
[2019-10-04] MEDS: busPIRone HCl 5 MG TAB PO SCH (08:13)
[2019-10-04] MEDS: ACETAMINOPHEN TAB 325 MG TAB PO PRN (08:13)
[2019-10-04 09:18] VITALS: BP 148/69; PULSE 83; RESP 20; TEMP 98
--- NOTE | 2019-10-04 09:21 | ECHOF ---
Referral Reason:[facility] MEASUREMENTS -------- HEIGHT: 162.6 cm WEIGHT: 79.8 kg BP: 152/70 RVIDd: 2.9 cm (< 3.3) IVSd: 0.9 cm (0.6 - 1.1) LVIDd: 4.1 cm (3.9 - 5.3) LVPWd: 1.4 cm (0.6 - 1.1) IVSs: 1.2 cm LVIDs: 2.7 cm LVPWs: 1.8 cm Ao Diam: 2.9 cm (2.0 - 3.7) AV Cusp: 1.5 cm (1.5 - 2.6) LA Diam: 3.9 cm (2.7 - 3.8) MV EXCURSION: 15.271 mm (> 18.000) MV EF SLOPE: 61 mm/s (70 - 150) EPSS: 0.9 cm MV E Joseph: 0.81 m/s MV DecT: 208 ms MV A Joseph: 1.06 m/s MV E/A Ratio: 0.77 AR PHT: 491 ms RAP: 5.00 mmHg RVSP: 43.88 mmHg FINDINGS -------- Sinus rhythm. This was a techncally difficult study with suboptimal views, , Lumason utilized for enhancement of im ages. LV size, wall thickness and systolic function are normal, with an EF greater than 55%. The left fely tricular size is normal. The diastolic filling pattern indicates impaired relaxation 15.80. The right ventricle is normal in size. The left atrial size is normal. The right atrial size is normal. The aortic valve is trileaflet and appears structurally normal. There is mild aortic regurgitation. Mild mitral annular calcification present. Mild mitral regurgitation is present. Mild tricuspid regurgitation present. There is mild pulmonary hypertension. The right ventricular systolic pressure, as measured by Doppler, is 43.88mmHg. Trace/mild (physiologic) pulmonic regurgitation. The aortic root size is normal. Echo free space represents a pericardial fat pad. CONCLUSIONS -------- 1. This was a techncally difficult study with suboptimal views, , Lumason utilized for enhancement of images. 2. LV size, wall thickness and systolic function are normal, with an EF greater than 55%. 3. The diastolic filling pattern indicates impaired relaxation 15.80.. 4. The left atrial size is normal. 5. There is mild aortic regurgitation. 6. Mild mitral annular calcification present. 7. Mild mitral regurgitation is present. 8. Mild tricuspid regurgitation present. 9. There is mild pulmonary hypertension. 10. Trace/mild (physiologic) pulmonic regurgitation. 11. Echo free space represents a pericardial fat pad. GROUNDMAN/LINEMAN: Delicia Watts RDCS
--- NOTE | 2019-10-04 09:50 | P.DS ---
Providers Date of admission: 10/01/19 12:21 Expected date of discharge: 10/04/19 Attending physician: Logan Portillo MD Consults: 10/03/19 11:07 Consult Physician Routine Consulting Provider: Jose Castillo Consult Reason/Comments: CP Do you want consulting provider notified?: Yes Primary care physician: Mallorie Hudson [facility] Course: Final Diagnoses: (1) septic shock, paroxysmal SVT, resolved with adenosine Current Visit: Yes Status: Acute Code(s): I47.1 - SUPRAVENTRICULAR TACH YCARDIA SNOMED Code(s): 5435322 (2) Sepsis due to urinary tract infection Current Visit: Yes Status: Acute Code(s): A41.9 - SEPSIS, UNSPECIFIED ORGANISM; N39.0 - URINARY TRACT INFECTION, SITE NOT SPECIFIED SNOMED Code(s): 169898237 (3) Altered mental status, acute metabolic encephalopathy secondary to the above Current Visit: No Status: Acute Code(s): R41.82 - ALTERED MENTAL STATUS, UNSPECIFIED SNOMED Code(s): 960754638 (4) Diabetes mellitus Current Visit: No Status: Acute Code(s): E11.9 - TYPE 2 DIABETES MELLITUS WITHOUT COMPLICATIONS SNOMED Code(s): 50713151 (5) Nausea & vomiting Current Visit: No Status: Acute Code(s): R11.2 - NAUSEA WITH VOMITING, UNSPECIFIED SNOMED Code(s): 34890845 (6) diabetic neuropathy (7) chest pain, workup in progress (8) pulmonary hypertension Hospital course:Sabine Hagen is a 74 yo F with PMH of T2DM, seizure disorder, HTN, HLD who presented to the ED complaining of suprapubic pain, nausea, vomiting, dysuria and malaise over the past few days. She notes she was seen in the ED last week and diagnosed at that time with UTI, she was discharged with keflex. She then presented to her PCP clinic 2 days ago and complained of continued symptoms as well as nausea and vomiting. Pt was given a shot of rocephin and zofran and advised to complete her antibiotics. When her symptoms persisted she came back to the ED. On presentation she was tachycardic and hypotensive with HR in the 170s and BP 70/50. WBC 16k, Cr 1.3. Pt was given adenosine with improvement in her tachycardia and started on rocephin and IVF rehydration. Today she is feeling significantly improved with less abdominal pain and resolution of her nausea and vomiting. Vitals and BP have normalized. 10/03/2019 maintained on antibiotics. Afebrile, blood cultures reporting no growth at 48 hours Denies abdominal pain. Nonproductive cough. Reports chronic lower back pain. C/O midsternal to left chest chest pain, accompanied by shortness of breath, no palpitations. Heart rate controlled. Echo reported normal LV function, EF greater than 55%, mild pulmonary hypertension. Evaluated by cardiology, verapamil initiated. Significant clinical improvement. Patient will be discharged home today in stable condition with guarded prognosis pending cardiology clearance. The impression and plan of care has been dictated as directed. : I performed a history and examination of this patient, discussed the same with the dictator. I agree with the dictator's note ,documented as a scribe. Any additional findings or plans will be noted. Patient Condition at Discharge: Stable Plan - Discharge Summary Discharge Rx Participant: No New Discharge Prescriptions: New Amoxic-Pot Clav 875-125Mg [Augmentin 875-125] 1 tab PO Q12HR 2 Days #4 tab Verapamil [Isoptin] 40 mg PO TID #90 tab Continue metFORMIN HCL [Glucophage] 1,000 mg PO BID Montelukast [Singulair] 10 mg PO HS Vit C/E/Zn/Coppr/Lutein/Zeaxan [Preservision Areds 2 Softgel] 1 cap PO BID Fluticasone Nasal [place] [Flonase Nasal [place]] 2 spray EA NOSTRIL DAILY Omeprazole 40 mg PO DAILY busPIRone HCl [Buspar] 5 mg PO BID Levothyroxine Sodium [Synthroid] 100 mcg PO DAILY Repaglinide [Prandin] 0.5 mg PO TID-W/MEALS DULoxetine HCL [Cymbalta] 60 mg PO BID Baclofen 5 mg PO BID PRN PRN Reason: Muscle Spasm levETIRAcetam [Keppra] 750 mg PO BID glyBURIDE [Diabeta] 5 mg PO DAILY Lisinopril-Hctz 20-12.5 mg [Zestoretic 20-12.5] 1 tab PO DAILY Atorvastatin [Lipitor] 80 mg PO HS Gabapentin 600 mg PO TID Fenofibrate [Lofibra] 160 mg PO DAILY Biotin 10,000 mcg PO DAILY Multivitamins, Thera [Multivitamin (formulary)] 1 tab PO DAILY Sucralfate [Carafate] 1 gm PO ACHS Ipratropium-Albuterol Nebulize [Duoneb 0.5 mg-3 mg/3 ml Soln] 3 ml INHALATION RT-QID PRN PRN Reason: Shortness Of Breath Ferrous Sulfate [Iron (65 MG Elemental)] 325 mg PO DAILY traMADol HCl [Ultram] 50 mg PO BID Ondansetron Odt [Zofran ODT] 8 mg PO Q8HR PRN PRN Reason: Nausea Discontinued Cephalexin [Keflex] 500 mg PO BID Discharge Medication List metFORMIN HCL [Glucophage] 1,000 mg PO BID 07/17/14 [History] Montelukast [Singulair] 10 mg PO HS 11/06/17 [History] Fluticasone Nasal [place] [Flonase Nasal [place]] 2 spray EA NOSTRIL DAILY 09/16/18 [History] Levothyroxine Sodium [Synthroid] 100 mcg PO DAILY 09/16/18 [History] Omeprazole 40 mg PO DAILY 09/16/18 [History] Vit C/E/Zn/Coppr/Lutein/Zeaxan [Preservision Areds 2 Softgel] 1 cap PO BID 09/16/18 [History] busPIRone HCl [Buspar] 5 mg PO BID 09/16/18 [History] Baclofen 5 mg PO BID PRN 03/22/19 [History] DULoxetine HCL [Cymbalta] 60 mg PO BID 03/22/19 [History] Repaglinide [Prandin] 0.5 mg PO TID-W/MEALS 03/22/19 [History] glyBURIDE [Diabeta] 5 mg PO DAILY 03/22/19 [History] levETIRAcetam [Keppra] 750 mg PO BID 03/22/19 [History] Atorvastatin [Lipitor] 80 mg PO HS 10/01/19 [History] Biotin 10,000 mcg PO DAILY 10/01/19 [History] Fenofibrate [Lofibra] 160 mg PO DAILY 10/01/19 [History] Ferrous Sulfate [Iron (65 MG Elemental)] 325 mg PO DAILY 10/01/19 [History] Gabapentin 600 mg PO TID 10/01/19 [History] Ipratropium-Albuterol Nebulize [Duoneb 0.5 mg-3 mg/3 ml Soln] 3 ml INHALATION RT-QID PRN 10/01/19 [History] Lisinopril-Hctz 20-12.5 mg [Zestoretic 20-12.5] 1 tab PO DAILY 10/01/19 [History] Multivitamins, Thera [Multivitamin (formulary)] 1 tab PO DAILY 10/01/19 [History] Ondansetron Odt [Zofran ODT] 8 mg PO Q8HR PRN 10/01/19 [History] Sucralfate [Carafate] 1 gm PO ACHS 10/01/19 [History] traMADol HCl [Ultram] 50 mg PO BID 10/01/19 [History] Amoxic-Pot Clav 875-125Mg [Augmentin 875-125] 1 tab PO Q12HR 2 Days #4 tab 10/04/19 [Rx] Verapamil [Isoptin] 40 mg PO TID #90 tab 10/04/19 [Rx] Follow up Appointment(s)/Referral(s): Logan Portillo MD [STAFF PHYSICIAN] - 3 Days Ambulatory/Diagnostic Orders: Complete Blood Count w/diff [LAB.AMB] Time Frame: 3 Days, Location: None Selected Activity/Diet/Wound Care/Special Instructions: Confirm cardiology clearance and follow-up appointment prior to discharge.
[2019-10-04] MEDS ORDERED: Magnesium Replacement Protocol 1 EACH MISC MISCELLANE PRN (09:51)
[2019-10-04 12:13] LABS: Glucose,Whole Blood 261 mg/dL (75-99)
--- NOTE | 2019-10-04 15:38 | PN ---
PROGRESS NOTE Mrs. Hagen is in sinus rhythm. She has no further SVT. I had started her on verapamil SR 120 mg daily. I will add metoprolol tartrate 25 mg daily to her regimen. She has urosepsis probably, but cardiac-cline she is doing well, maintaining sinus rhythm, hemodynamically stable. Vital signs are stable. JVD is 1 cm. No carotid bruit. S1, S2 heard normally. Short systolic murmur. Lungs reveal improved air entry. Abdomen is soft. Rest of physical exam unchanged. Plan is to continue current medications, and I will see her as needed. MMODL / IJN: [id number] /
[2019-10-05] MEDS ORDERED: METOPROLOL TARTRATE 25 MG TAB PO SCH (09:00)
--- NOTE | 2019-10-06 11:38 | CDI ---
Documentation Clarification Form Date: 10/06/19 From: Marjan Heck Phone: If you have a question about this query, please contact Darlin Dixon, Investor Relations Analyst at [phone] between 8am and 5pm. Admit Date: 10/01/19 Discharge Date: 10/04/19 Patient Name: ANIKA FISHER Visit Number: [id number] ATTENTION: The Clinical Documentation Specialists (CDI) and [facility] Coding Staff appreciate your assistance in clarifying documentation. Please respond to the clarification below the line at the bottom and electronically sign. The CDI & [facility] Coding staff will review the response and follow-up if needed. Please note: Queries are made part of the Legal Health Record. If you have any questions, please contact the author of this message via ITS. Dear Dr. Logan Portillo, Documentation states: Per ED note - "Her magnesium is 1.4 which is replaced. Per DS - "ADDENDUM Magnesium 1.3, receiving supplementation per protocol prior to discharge." Magnesium oxide 400 mg daily added to DC med list. History/Risk Factors: sepsis and septic shock, pyelonephritis, toxic encephalopathy, MARY, SVT, Type 2 DM w neuropathy, pulmonary HTN Clinical significance of diagnostic testing and treatment CANNOT be assumed or coded without physician documentation of significance if any. Please clarify what abnormal laboratory signifies: Hypomagnesemia Unable to determine Other, please specify Hypomagnesemia MTDD
--- NOTE | 2019-10-06 11:42 | CDI ---
Documentation Clarification Form Date: 10/06/19 From: Marjan Heck Phone: If you have a question about this query, please contact Darlin Dixon [employer] at [phone] between 8am and 5pm. Admit Date: 10/01/19 Discharge Date: 10/04/19 Patient Name: ANIKA FISHER Visit Number: [id number] ATTENTION: The Clinical Documentation Specialists (CDI) and [facility] Coding Staff appreciate your assistance in clarifying documentation. Please respond to the clarification below the line at the bottom and electronically sign. The CDI & [facility] Coding staff will review the response and follow-up if needed. Please note: Queries are made part of the Legal Health Record. If you have any questions, please contact the author of this message via ITS. Dear Dr. Logan Portillo, Pyelonephritis is documented in the ED note, consult. Please specify the acuity of this condition with terms such as: Acute Chronic Other (please specify in the medical record) Clinically unable to further specify Unknown Acute pyelonephritis MTDD
== END 2019-10-04 13:29 | disposition home or self-care (01) | DRG 871 ==
LOC: EC 10:45 → 3SCARD 12:21
PROVIDERS: ADMIT Family Medicine; ATTEND Family Medicine
DX: A41.9 Sepsis, unspecified organism (principal); R65.21 Severe sepsis with septic shock; G92 Toxic encephalopathy; N17.9 Acute kidney failure, unspecified; I47.1 Supraventricular tachycardia; N10 Acute pyelonephritis; I27.20 Pulmonary hypertension, unspecified; E11.40 Type 2 diabetes mellitus with diabetic neuropathy, unspecified; B96.20 Unspecified Escherichia coli [E. coli] as the cause of diseases classified elsewhere; J44.9 Chronic obstructive pulmonary disease, unspecified; G40.909 Epilepsy, unspecified, not intractable, without status epilepticus; Z20.828 Contact with and (suspected) exposure to other viral communicable diseases; E83.42 Hypomagnesemia; E78.5 Hyperlipidemia, unspecified; F32.9 Major depressive disorder, single episode, unspecified; F41.9 Anxiety disorder, unspecified; I10 Essential (primary) hypertension; G47.33 Obstructive sleep apnea (adult) (pediatric); H35.30 Unspecified macular degeneration; K21.9 Gastro-esophageal reflux disease without esophagitis; H91.90 Unspecified hearing loss, unspecified ear; K44.9 Diaphragmatic hernia without obstruction or gangrene; K57.90 Diverticulosis of intestine, part unspecified, without perforation or abscess without bleeding; E03.9 Hypothyroidism, unspecified; G89.29 Other chronic pain; M54.41 Lumbago with sciatica, right side; N28.1 Cyst of kidney, acquired; K58.9 Irritable bowel syndrome, unspecified; M19.90 Unspecified osteoarthritis, unspecified site; L28.0 Lichen simplex chronicus; Z79.84 Long term (current) use of oral hypoglycemic drugs; Z79.890 Hormone replacement therapy; Z79.899 Other long term (current) drug therapy; Z87.440 Personal history of urinary (tract) infections; Z90.49 Acquired absence of other specified parts of digestive tract; Z86.73 Personal history of transient ischemic attack (TIA), and cerebral infarction without residual deficits; Z87.39 Personal history of other diseases of the musculoskeletal system and connective tissue; Z90.710 Acquired absence of both cervix and uterus; Z96.653 Presence of artificial knee joint, bilateral; Z87.01 Personal history of pneumonia (recurrent); Z87.11 Personal history of peptic ulcer disease; Z87.891 Personal history of nicotine dependence; Z98.42 Cataract extraction status, left eye; Z98.41 Cataract extraction status, right eye; Z96.1 Presence of intraocular lens; Z90.89 Acquired absence of other organs; Z91.041 Radiographic dye allergy status; Z91.040 Latex allergy status; Z88.5 Allergy status to narcotic agent; Z88.8 Allergy status to other drugs, medicaments and biological substances; Z91.018 Allergy to other foods; Z91.048 Other nonmedicinal substance allergy status; Z83.6 Family history of other diseases of the respiratory system; Z80.0 Family history of malignant neoplasm of digestive organs
CPT/HCPCS: 36415; 71045; 74176; 80048; 80053; 81003; 83690; 83735; 84443; 84484; 85025; 85610; 85730; 87040; 93005; 93306; 96361; 96365; 96374; 96375; 99291

== ENCOUNTER → 2020-08-12 | Outpatient (CLI) | payer MEDICARE, BC ==
--- NOTE | 2020-08-12 13:38 | P.PAINCN ---
History of Present Illness - Reason for Consult Consult date: 08/12/20 - History of Present Illness This is an initial consultation visit for this 75 years old female with a chronic history of severe low back pain, she'll take lumbar radiculopathy lumbar degenerative disc disease and lumbar spondylosis with lumbar facet arthropathy, patient was treated previously at [facility], and Dr. Ochoa done radiofrequency ablation of the medial branch lumbar area, she get excellent pain relief, further radiofrequency and she was able to ambulate and the last radiofrequency was done in March 2019, currently patient complaining of severe low back pain localized in the low back area with occasional radiation to the posterior lateral aspect of the lower extremity more prominent on the right side, she is ambulating using a walker, intensity of the pain interferes with the quality of life, she denies any fever or night sweats denies any change in bowel movement or urination Past Medical History Past Medical History: Asthma, Chest Pain / Angina, COPD, CVA/TIA, Diabetes Mellitus, Eye Disorder, GERD/Reflux, Hearing Disorder / Deafness, Hyperlipidemia, Hypertension, Neurologic Disorder, Osteoarthritis (OA), Pneumonia, Sleep Apnea/CPAP/BIPAP, Thyroid Disorder Additional Past Medical History / Comment(s): Recent UTI tx with antibiotics, past UTIs, NIDDM type II, neuropathy bilateral feet, cardiac valve disease, murmur, TIA, seizure-last one 2017, neurodematitis with rash, bronchitis, JAGJIT but lost her Cpap, gastric ulcer, IBS, bilateral macular degeneration/diificulty with vision, very NISQUALLY bilaterally-normally uses aide in R ear, DDD, low back pain with R side sciatica, hypothyroid. History of Any Multi-Drug Resistant Organisms: None Reported Past Surgical History: Adenoidectomy, Cholecystectomy, Hysterectomy, Joint Replacement, Orthopedic Surgery, Tonsillectomy Additional Past Surgical History / Comment(s): EGD, colonoscopy, hemorrhoidectomy, D&C, bilatearl knee scopes and then total knee arthroplasties, bialteral rotator cuff repairs, lumbar epidural injections-last one 2 weeks ago, bilateral eye cataract removals with lens implants, L lower eyelid "wart" removed Past Anesthesia/Blood Transfusion Reactions: No Reported Reaction Past Psychological History: Anxiety, Depression Additional Psychological History / Comment(s): Pt resides with her spouse. They are considering moving into assisted living. They have 2 cats. Her spouse is her caregiver. She uses a walker when outside the home. She can no longer dirve, her spouse drves. Smoking Status: Former smoker Past Alcohol Use History: None Reported Additional Past Alcohol Use History / Comment(s): Pt started smoking in 1963 and quit in 1966 Past Drug Use History: None Reported - Past Family History Father Family Medical History: Pneumonia Mother Family Medical History: Cancer Additional Family Medical History / Comment(s): PANCREAS CA Medications and Allergies Home Medications Medication Instructions Recorded Confirmed Type metFORMIN HCL [Glucophage] 1,000 mg PO BID 07/17/14 10/01/19 History Montelukast [Singulair] 10 mg PO HS 11/06/17 10/01/19 History Fluticasone Nasal [place] [Flonase 2 spray EA NOSTRIL DAILY 09/16/18 10/01/19 History Nasal [place]] Levothyroxine Sodium [Synthroid] 100 mcg PO DAILY 09/16/18 10/01/19 History busPIRone HCl [Buspar] 5 mg PO BID 09/16/18 10/01/19 History Baclofen 5 mg PO BID PRN 03/22/19 10/01/19 History DULoxetine HCL [Cymbalta] 60 mg PO BID 03/22/19 10/01/19 History Repaglinide [Prandin] 0.5 mg PO TID-W/MEALS 03/22/19 10/01/19 History glyBURIDE [Diabeta] 5 mg PO DAILY 03/22/19 10/01/19 History levETIRAcetam [Keppra] 750 mg PO BID 03/22/19 10/01/19 History Atorvastatin [Lipitor] 80 mg PO HS 10/01/19 10/01/19 History Biotin 10,000 mcg PO DAILY 10/01/19 10/01/19 History Fenofibrate [Lofibra] 160 mg PO DAILY 10/01/19 10/01/19 History Ferrous Sulfate [Iron (65 MG 325 mg PO DAILY 10/01/19 10/01/19 History Elemental)] Gabapentin 600 mg PO TID 10/01/19 10/01/19 History Ipratropium-Albuterol Nebulize 3 ml INHALATION RT-QID PRN 10/01/19 10/01/19 History [Duoneb 0.5 mg-3 mg/3 ml Soln] Lisinopril-Hctz 20-12.5 mg 1 tab PO DAILY 10/01/19 10/01/19 History [Zestoretic 20-12.5] Multivitamins, Thera [Multivitamin 1 tab PO DAILY 10/01/19 10/01/19 History (formulary)] Ondansetron Odt [Zofran ODT] 8 mg PO Q8HR PRN 10/01/19 10/01/19 History Sucralfate [Carafate] 1 gm PO ACHS 10/01/19 10/01/19 History Amoxic-Pot Clav 875-125Mg 1 tab PO Q12HR 2 Days #4 tab 10/04/19 Rx [Augmentin 875-125] Magnesium Oxide [Mag-Ox] 400 mg PO DAILY #30 tablet 10/04/19 Rx Metoprolol Tartrate [Lopressor] 25 mg PO DAILY #30 tab 10/04/19 Rx Verapamil [Isoptin] 40 mg PO TID #90 tab 10/04/19 Rx Allergies Allergy/AdvReac Type Severity Reaction Status Date / Time banana [Banana] Allergy Severe Anaphylaxis Verified 10/01/19 11:54 iodine Allergy Severe DYSPNEA, Verified 10/01/19 11:54 SKIN INFLAMED kiwi Allergy Severe Anaphylaxis Verified 10/01/19 11:54 Iodinated Contrast Media Allergy Dyspnea Verified 10/01/19 11:54 latex Allergy Dyspnea, Verified 10/01/19 11:54 Itching morphine Allergy Rapid Verified 10/01/19 11:54 Heart Rate smoke Allergy Dyspnea Uncoded 10/01/19 11:54 Physical Exam Vitals: Intake and Output 08/11/20 08/12/20 08/12/20 22:59 06:59 14:59 Other: Weight 81.647 kg Physical Examinations : -Constitutiona : Cooperative , not in acute distress . -HEENT : nech : supple , no Lymphadenopathy , normal thyroid size . : eyes : no ptosis , no icterus, no photophobia . - neurologic : Cranial nerve II to XII intact , no focal neurological deffecit . -psychatric : alert , oriented X 3 , appropriate affect , intact judgment and insight . -Lymphatic : no Lymphadenopathy . - musculoskeltal : Lumber spine moter stegnth lower extremities ,thigh and legs 4/5 Right side , 4/5 Left side deep tendon reflexes : normal Knee Jerk , normal ankle Jerk lumber facet Loading Test =positive Right , positive Left Range of motion of the lumbar spine Flexion 30 degrees, extension 10 degrees strait leg raising test = positive at 30 degree bilaterally Fabere test= positive Right , and positive LT . tenderness over the Sacroiliac joint on the Right , and Left sides Results Comments: MRI of the lumbar spine L3 4 facet degeneration and degenerative disc disease and left neural foraminal narrowing L4 5 spondylolisthesis and facet arthropathy and degenerative changes L5-S1 degenerative disc disease and facet joint degeneration Assessment and Plan Plan: Assessment and plan=1-lumbar degenerative disc disease. 2-lumbar spondylosis with lumbar facet arthropathy without myelopathy. She had RFA of the medial branch lumbar area, that excellent pain relief lasted more than 1 year, and the patient complaining of severe low back pain, patient could benefit from repeat RFA of the medial branch lumbar area at L3, L4, L5, bilaterally Time with Patient: Greater than 30 PQRS Measure Charge Sheet Measure #130: Documentation of Current Meds in Medical Chart: Patient's medications documented in chart Measure #226: Tobacco Use: Screen & Cessation Intervention: Pt not a tobacco user Measure #111: Pneumonia Vaccination: Pneumococcal vaccine administered or previously received Measure #47: Advance Care Plan: Advance care planning discussed & documented, pt chose/unable to give Measure #412: Opioid Treatment Agreement: No documentation of signed opioid treatment agreement Measure #408: Opioid Therapy Follow-up Evaluation: Patient had NO f/u eval minimum every 3 months during opioid therapy Measure #317: Preventitive Care & Scrn High Bld Press & F/U: Normal blood pressure, f/u not required Measure #128: Body Mass Index (BMI) Screening & Follow-up: BMI documented ABOVE normal parameters - f/u documented Measure #131: Pain Assessment & Follow-up: Pain positive & plan documented, Follow-up scheduled Measure #431: Unhealthy Alcohol Use Preventative Care & Scrn: Patient not identified as an unhealthy alcohol user PQRS Narrative: Smoking Status Former smoker Home Medications: Ambulatory Orders metFORMIN HCL [Glucophage] 1,000 mg PO BID 07/17/14 Montelukast [Singulair] 10 mg PO HS 11/06/17 Fluticasone Nasal [place] [Flonase Nasal [place]] 2 spray EA NOSTRIL DAILY 09/16/18 Levothyroxine Sodium [Synthroid] 100 mcg PO DAILY 09/16/18 busPIRone HCl [Buspar] 5 mg PO BID 09/16/18 Baclofen 5 mg PO BID PRN 03/22/19 DULoxetine HCL [Cymbalta] 60 mg PO BID 03/22/19 Repaglinide [Prandin] 0.5 mg PO TID-W/MEALS 03/22/19 glyBURIDE [Diabeta] 5 mg PO DAILY 03/22/19 levETIRAcetam [Keppra] 750 mg PO BID 03/22/19 Atorvastatin [Lipitor] 80 mg PO HS 10/01/19 Biotin 10,000 mcg PO DAILY 10/01/19 Fenofibrate [Lofibra] 160 mg PO DAILY 10/01/19 Ferrous Sulfate [Iron (65 MG Elemental)] 325 mg PO DAILY 10/01/19 Gabapentin 600 mg PO TID 10/01/19 Ipratropium-Albuterol Nebulize [Duoneb 0.5 mg-3 mg/3 ml Soln] 3 ml INHALATION R T-QID PRN 10/01/19 Lisinopril-Hctz 20-12.5 mg [Zestoretic 20-12.5] 1 tab PO DAILY 10/01/19 Multivitamins, Thera [Multivitamin (formulary)] 1 tab PO DAILY 10/01/19 Ondansetron Odt [Zofran ODT] 8 mg PO Q8HR PRN 10/01/19 Sucralfate [Carafate] 1 gm PO ACHS 10/01/19 Amoxic-Pot Clav 875-125Mg [Augmentin 875-125] 1 tab PO Q12HR 2 Days #4 tab 10/04/19 Magnesium Oxide [Mag-Ox] 400 mg PO DAILY #30 tablet 10/04/19 Metoprolol Tartrate [Lopressor] 25 mg PO DAILY #30 tab 10/04/19 Verapamil [Isoptin] 40 mg PO TID #90 tab 10/04/19
[2020-08-12 13:41] VITALS: BP 112/64; PULSE 82; RESP 16; TEMP 97.9
== END ==
LOC: PNWHC3 13:03
PROVIDERS: ATTEND Specialist
DX: M51.36 Other intervertebral disc degeneration, lumbar region (principal); M47.816 Spondylosis without myelopathy or radiculopathy, lumbar region; Z98.890 Other specified postprocedural states; E11.40 Type 2 diabetes mellitus with diabetic neuropathy, unspecified; E78.5 Hyperlipidemia, unspecified; J44.9 Chronic obstructive pulmonary disease, unspecified; Z86.73 Personal history of transient ischemic attack (TIA), and cerebral infarction without residual deficits; I10 Essential (primary) hypertension; M19.90 Unspecified osteoarthritis, unspecified site; E03.9 Hypothyroidism, unspecified; F32.9 Major depressive disorder, single episode, unspecified; F41.9 Anxiety disorder, unspecified; Z87.891 Personal history of nicotine dependence; Z79.84 Long term (current) use of oral hypoglycemic drugs; Z79.899 Other long term (current) drug therapy; Z91.041 Radiographic dye allergy status; Z88.5 Allergy status to narcotic agent; Z91.018 Allergy to other foods; Z91.040 Latex allergy status; Z91.09 Other allergy status, other than to drugs and biological substances
CPT/HCPCS: 99211

== ENCOUNTER 2020-09-04 12:00 | Day surgery (SDC) | payer MEDICARE, BC ==
[2020-09-03 11:00] VITALS: BMI 36.3
[~2020-09-04 12:00] MED LIST: LACTATED RINGERS 1,000 ML IV SCH
[2020-09-04] MEDS ORDERED: LIDOCAINE 1% (10MG/ML) FOR IV START INTRADERMA ONE (12:30)
[2020-09-04 12:45] LABS: Glucose,Whole Blood 140 mg/dL (75-99)
[2020-09-04 12:53] VITALS: TEMP 97
[2020-09-04] MEDS ORDERED: fentaNYL (PF) 50 MCG/ML 2 ML AMP ONE (13:17)
[2020-09-04] MEDS ORDERED: MIDAZOLAM 2 MG/2 ML VIAL ONE (13:17)
[2020-09-04] MEDS ORDERED: methylPREDNISolone ACETATE 40 MG/ML 1 ML VIAL ONE (13:18)
[2020-09-04] MEDS ORDERED: ROPIVACAINE 5MG/ML 20ML VIAL ONE (13:18)
--- NOTE | 2020-09-04 13:51 | P.PCN ---
Date of Procedure: 09/04/20 Procedure(s) Performed: PREOPERATIVE DIAGNOSIS: 1-Lumbar Spondylosis with Facet Arthropathy without myelopathy. 2- Lumber degenerative disc disease. POSTOPERATIVE DIAGNOSIS: 1- Lumbar Spondylosis with Facet Arthropathy without myelopathy. 2- Lumber degenerative disc disease. PROCEDURES : Bilateral Radiofrequency thermocoagulation, L3 , L4 , and L5 medial branch, with fluoroscopic guidance (fluoroscopy images available in the radiology department) ( to denervate the facet joint at Bilateral L4-5 ,and L5-S1 levels ). ANESTHESIA: monitered anesthesia care per anesthesia department. EBL: Minimal PROCEDURE INDICATION: The patient with low back pain secondary to lumbar facet arthropathy who had more than 50% relief of her pain with previous diagnostic lumbar medial branch block with bupivacaine. PROCEDURE DESCRIPTION / TECHNIQUE: The patient was seen and identified in the preoperative area. Risks, benefits, complications, including but not limited to risk of infection ,bleeding , allergic reactions to the medications and no complete pain releife , and alternatives were discussed with the patient, the patient agreed to proceed with the procedure and signed the consent. IV was started. Vital signs remained stable throughout the procedure. Patient was taken to the OR and time out was completed. The patient was placed in the prone position on the procedure table. The lumber area was prepped and draped in the usual sterile fashion. . Vital signs were closely monitored during the procedure .IV sedation was used during the procedure to decrease patients anxiety. Using AP and then oblique fluoroscopy, the ``eye of the Emmanuel dog coral esponding to the connection between the superior and transverse articular processes of right L3, L4, and L5 were identified, marked, and localized with 1% lidocaine. Subsequently, a 18 -dd radiofrequency cannula with a 10- mm active tip was advanced guided by fluoroscopy to each of the``eyes of the Emmanuel dog at right L3, L4, and L5. Each site then underwent sensory testing at 50 Hz and 0 to 1 volt and motor testing at 2.5 Hz and 0 to 3 volt with local stimulation, but no radicular symptoms down the legs. Thereafter each sites underwent radiofrequency thermocoagulation at 80 degrees celsius for 90 seconds after injecting 0.5 ml of PF Ropivacaine 1ml, then after the thermocoagulation done , 1 ml of the block solution containing Depo-Medrol 20 mg and 3 ml of Ropivacaine 0.5% was injected at the right L3 , L4 , and L5 , levels after negative aspiration of CSF and blood and with no paresthesias. Cannulas were retracted while injecting lidocaine 1% until the needle is out. The same procedure was repeated at the level of Left L3, L4, and L5 levels. At the end of the procedure, the skin was cleansed and bandages were applied. COMPLICATIONS: No acute complications. DISPOSITION / PLANS: The patient was placed in a supine position and transferred to the recovery area in a stable condition for observation and was discharged from the recovery room after meeting discharge criteria. Home discharge instructions given to the patient by the staff. The patient was reexamined prior to discharge. The patient will schedule a follow up in the clinic in 2-4 weeks.
[2020-09-04] MEDS ORDERED: IV FLUID CONTINUATION 600 ML IV ONE (13:54)
--- NOTE | 2020-09-04 13:57 | FL ---
EXAMINATION TYPE: FL guided pain mgmt statistic DATE OF EXAM: 09/04/2020 CLINICAL HISTORY: Low back pain. TECHNIQUE: Fluoroscopy. COMPARISON: None. FINDINGS: Fluoroscopic guidance was provided during pain relief procedure performed by Dr. Cantu . A total of 15 seconds of fluoroscopic time was utilized during the procedure and 6 spot images are acquired. Images acquired shows needle localization at several levels in the lumbar spine. IMPRESSION: As Above.
[2020-09-04 14:26] VITALS: BP 106/66; PULSE 89; RESP 16
== END 2020-09-04 14:28 | disposition home or self-care (01) ==
LOC: ORPAIN 12:00
PROVIDERS: ATTEND Specialist
DX: M47.816 Spondylosis without myelopathy or radiculopathy, lumbar region (principal); M51.36 Other intervertebral disc degeneration, lumbar region; I10 Essential (primary) hypertension; E78.5 Hyperlipidemia, unspecified; G47.33 Obstructive sleep apnea (adult) (pediatric); J44.9 Chronic obstructive pulmonary disease, unspecified; Z86.73 Personal history of transient ischemic attack (TIA), and cerebral infarction without residual deficits; R56.9 Unspecified convulsions; K21.9 Gastro-esophageal reflux disease without esophagitis; Z79.84 Long term (current) use of oral hypoglycemic drugs; Z79.82 Long term (current) use of aspirin; Z79.890 Hormone replacement therapy; Z79.899 Other long term (current) drug therapy; Z91.041 Radiographic dye allergy status; Z91.040 Latex allergy status; Z88.5 Allergy status to narcotic agent; Z91.018 Allergy to other foods
CPT/HCPCS: 64635; 64636; J2250; J1030; J3010; J2795

== ENCOUNTER → 2020-09-30 | Outpatient (CLI) | payer MEDICARE, BC ==
[2020-09-30 11:02] VITALS: BP 124/80; PULSE 75; RESP 16; TEMP 97.6
--- NOTE | 2020-09-30 11:37 | P.PN ---
Subjective Progress Note Date: 09/30/20 Follow-up visit for this 75 years old female with a chronic history of severe low back pain, she is diagnosed with lumbar degenerative disc disease lumbar spondylosis with lumbar facet arthropathy, recently we have an RFA of the medial branch lumbar area, he reported that procedure helped her low back pain significantly but she continued to have severe pain in the buttock area bilaterally which is increased with any activity, she denies any motor or sensory deficit Objective - Vital Signs Vital signs: Vital Signs Temp 97.6 F 09/30/20 11:00 Pulse 75 09/30/20 11:00 Resp 16 09/30/20 11:00 BP 124/80 09/30/20 11:00 Pulse Ox 97 09/30/20 11:00 - Exam Physical Examinations : -Constitutiona : Cooperative , not in acute distress . -HEENT : nech : supple , no Lymphadenopathy , normal thyroid size . : eyes : no ptosis , no icterus, no photophobia . - neurologic : Cranial nerve II to XII intact , no focal neurological deffecit . -psychatric : alert , oriented X 3 , appropriate affect , intact judgment and insight . -Lymphatic : no Lymphadenopathy . - musculoskeltal : Lumber spine moter stegnth lower extremities ,thigh and legs 5/5 Right side , 5/5 Left side deep tendon reflexes : normal Knee Jerk , normal ankle Jerk lumber facet Loading Test =positive Right , positive Left Range of motion of the lumbar spine Flexion 30 degrees, extension 10 degrees strait leg raising test = positive at 45 degree Fabere test= positive Right , and positive LT . Sever tenderness over the Sacroiliac joint on the Right , and Left sides Gaenslen test= positive right ,and positive left . Seated flexion test= positive right ,and positive Left . Distraction test= positive bilaterally Assessment and Plan Plan: Assessment and plan=1-lumbar spondylosis and lumbar facet arthropathy. 2-lumber degenerative disc disease. 3-bilateral sacroiliitis. could benefit from bilateral sacroiliac joint steroid injection under fluoroscopy guidance. - PQRS measures = - Patient's medications are documented in the chart. -Tobacco use is negative and counseling.Given. -Patient's has not received pneumococcal vaccine. -Advanced care planning discussed, patient not eligible. -Opiate contract not signed. -Pain positive and follow-up visit/procedure is scheduled. -Patient's blood pressure measured [124/80 ] , and documented in the record ,and patient will follow up with the primary care. -Patient's weight was measured and body mass index [ ] above the, normal limits and counseling was done. and patient instructed to follow-up with the primary care physician. -Patient was not identified as an unhealthy alcohol user Time with Patient: Less than 30
== END | disposition home or self-care (01) ==
LOC: PNWHC3 10:45
PROVIDERS: ATTEND Specialist
DX: M51.36 Other intervertebral disc degeneration, lumbar region (principal); M47.816 Spondylosis without myelopathy or radiculopathy, lumbar region; M46.96 Unspecified inflammatory spondylopathy, lumbar region; M46.1 Sacroiliitis, not elsewhere classified; Z98.890 Other specified postprocedural states
CPT/HCPCS: 99211

== ENCOUNTER 2020-10-27 07:39 | Day surgery (SDC) | payer MEDICARE, BC ==
[2020-10-23 14:16] VITALS: BMI 36.3
[2020-10-27 08:05] VITALS: TEMP 97.2
[2020-10-27] MEDS ORDERED: LIDOCAINE 1% (10MG/ML) FOR IV START INTRADERMA ONE (08:19)
[2020-10-27 08:30] LABS: Glucose,Whole Blood 171 mg/dL (75-99)
[2020-10-27] MEDS ORDERED: LACTATED RINGERS 1,000 ML IV ONE (08:31)
[2020-10-27] MEDS ORDERED: MIDAZOLAM 2 MG/2 ML VIAL ONE (08:35)
[2020-10-27] MEDS ORDERED: methylPREDNISolone ACETATE 40 MG/ML 1 ML VIAL ONE (08:35)
[2020-10-27] MEDS ORDERED: ROPIVACAINE 5MG/ML 20ML VIAL ONE (08:35)
[2020-10-27] MEDS ORDERED: fentaNYL (PF) 50 MCG/ML 2 ML AMP ONE (08:35)
--- NOTE | 2020-10-27 08:45 | P.PCN ---
Date of Procedure: 10/27/20 Procedure(s) Performed: Procedure= bilateral sacroiliac joints steroid injection under fluoroscopy guidance (fluoroscopy image stored on file in the radiology Department ) Preoperative diagnosis= 1-bilateral sacroiliitis 2-lumbar degenerative disc disease 3-lumbar spondylosis with facet arthropathy Postoperative diagnosis=Same as preop Diagnosis . Complication = none Condition= stable Anesthesia= moderate sedation with intravenous Versed 1 mg , and fentanyl 50 micrograms . Indication for the procedure= patient complaining of low back pain , examination was positive for severe tenderness over the sacroiliac joints bilaterally and patient diagnosed with sacroiliitis, for this reason he/ she was good candidate for sacroiliac joint steroid injection. Description of the procedure= procedure risk and benefits discussed with the patient, including but not limited, risk of infection and bleeding, and ALLERGIC reaction to the medication and not complete pain relief and patient agreed with the preceding patient taken to the operating room, placed in prone position or standard monitors applied to the patient then after induction of anesthesia back prepped with chlorhexidine 3 times , Then under strict sterile technique, first I did the right sacroiliac joint the which was identified under fluoroscopy guidance been local infiltration of the skin and subcu interstitial with lidocaine 1% then 22-gauge Quincke Needle advanced slowly under fluoroscopy and placed in the right sacroiliac joint needle placement confirmed with AP and oblique and lateral view and after appropriate needle placement confirmed and after negative aspiration, or heme , then Ropivacaine 0.5% 4 mL, and 20 mg of Depo-Medrol mixed together and injected in the right sacroiliac joint after negative aspiration patient tolerated the procedure well without any complication. Then the left sacroiliac joint steroid injection done under strict sterile technique local infiltration of the skin and subcu interstitial at the location of the left sacroiliac joint then a 22-gauge Quincke Needle advanced slowly unde r fluoroscopy time placed in the left sacroiliac joint, needle placement confirmed with AP and oblique and lateral view then after appropriate needle placement confirmed and after negative aspiration 0.5% Ropivacaine 4 mL and 20 mg of Depo-Medrol injected in the left sacroiliac joint after negative aspiration patient tolerated the procedure well that any complications and she will follow up in clinic 3 weeks
[2020-10-27] MEDS ORDERED: IV FLUID CONTINUATION 625 ML IV ONE (08:55)
--- NOTE | 2020-10-27 08:55 | FL ---
EXAMINATION TYPE: FL guided pain mgmt statistic DATE OF EXAM: 10/27/2020 HISTORY: Fluoroscopy time 7 seconds of fluoroscopy provided. IMPRESSION: 1. Fluoroscopy time.
[2020-10-27 09:07] VITALS: RESP 20
[2020-10-27 09:09] VITALS: BP 112/73; PULSE 87
== END 2020-10-27 09:25 | disposition home or self-care (01) ==
LOC: ORPAIN 07:39
PROVIDERS: ATTEND Specialist
DX: M46.1 Sacroiliitis, not elsewhere classified (principal); M51.36 Other intervertebral disc degeneration, lumbar region; M47.816 Spondylosis without myelopathy or radiculopathy, lumbar region; I10 Essential (primary) hypertension; E03.9 Hypothyroidism, unspecified; Z90.710 Acquired absence of both cervix and uterus; Z91.040 Latex allergy status; Z88.5 Allergy status to narcotic agent; Z91.048 Other nonmedicinal substance allergy status; Z91.09 Other allergy status, other than to drugs and biological substances
CPT/HCPCS: J2250; J1030; J3010; J2795; G0260

== ENCOUNTER 2020-11-26 09:43 | Day surgery (SDC) | payer MEDICARE, BC ==
[2020-11-19 14:14] VITALS: BMI 37.6
[2020-11-26] MEDS ORDERED: LIDOCAINE 1% (10MG/ML) FOR IV START INTRADERMA ONE (10:11)
[2020-11-26 10:15] LABS: Glucose,Whole Blood 162 mg/dL (75-99)
[2020-11-26 10:16] VITALS: TEMP 97.3
[2020-11-26] MEDS ORDERED: ROPIVACAINE 5MG/ML 20ML VIAL ONE (10:20)
[2020-11-26] MEDS ORDERED: fentaNYL (PF) 50 MCG/ML 2 ML AMP ONE (10:20)
[2020-11-26] MEDS ORDERED: methylPREDNISolone ACETATE 40 MG/ML 1 ML VIAL ONE (10:20)
[2020-11-26] MEDS ORDERED: MIDAZOLAM 2 MG/2 ML VIAL ONE (10:20)
--- NOTE | 2020-11-26 10:32 | P.PCN ---
Date of Procedure: 11/26/20 Procedure(s) Performed: Procedure= bilateral sacroiliac joints steroid injection under fluoroscopy guidance (fluoroscopy image stored on file in the radiology Department ) Preoperative diagnosis= 1-bilateral sacroiliitis 2-lumbar degenerative disc disease 3-lumbar spondylosis with facet arthropathy Postoperative diagnosis=Same as preop Diagnosis . Complication = none Condition= stable Anesthesia= moderate sedation with intravenous Versed 1 mg , and fentanyl 50 micrograms . Indication for the procedure= patient complaining of low back pain , examination was positive for severe tenderness over the sacroiliac joints bilaterally and patient diagnosed with sacroiliitis, for this reason he/ she was good candidate for sacroiliac joint steroid injection. Description of the procedure= procedure risk and benefits discussed with the patient, including but not limited, risk of infection and bleeding, and ALLERGIC reaction to the medication and not complete pain relief and patient agreed with the preceding patient taken to the operating room, placed in prone position or standard monitors applied to the patient then after induction of anesthesia back prepped with chlorhexidine 3 times , Then under strict sterile technique, first I did the right sacroiliac joint the which was identified under fluoroscopy guidance been local infiltration of the skin and subcu interstitial with lidocaine 1% then 22-gauge Quincke Needle advanced slowly under fluoroscopy and placed in the right sacroiliac joint needle placement confirmed with AP and oblique and lateral view and after appropriate needle placement confirmed and after negative aspiration, or heme , then Ropivacaine 0.5% 4 mL, and 20 mg of Depo-Medrol mixed together and injected in the right sacroiliac joint after negative aspiration patient tolerated the procedure well without any complication. Then the left sacroiliac joint steroid injection done under strict sterile technique local infiltration of the skin and subcu interstitial at the location of the left sacroiliac joint then a 22-gauge Quincke Needle advanced slowly under fluoroscopy time placed in the left sacroiliac joint, needle placement confirmed with AP and oblique and lateral view then after appropriate needle placement confirmed and after negative aspiration 0.5% Ropivacaine 4 mL and 20 mg of Depo-Medrol injected in the left sacroiliac joint after negative aspiration patient tolerated the procedure well that any complications and she will follow up in clinic 3 weeks
[2020-11-26] MEDS ORDERED: IV FLUID CONTINUATION 1,000 ML IV ONE (10:40)
--- NOTE | 2020-11-26 10:47 | FL ---
EXAMINATION TYPE: FL guided pain mgmt statistic DATE OF EXAM: 11/26/2020 CLINICAL HISTORY: Bilateral sacroiliac joint pain. TECHNIQUE: Fluoroscopy. COMPARISON: None. FINDINGS: Fluoroscopic guidance was provided during pain relief procedure performed by Dr. Cantu . A total of 10 seconds of fluoroscopic time was utilized during the procedure and two spot images a re acquired. Images acquired shows needle localization at the inferior aspect of bilateral sacroilia c joints. IMPRESSION: As Above.
[2020-11-26 10:57] VITALS: BP 111/58; PULSE 82; RESP 18
== END 2020-11-26 11:20 | disposition home or self-care (01) ==
LOC: ORPAIN 09:43
PROVIDERS: ATTEND Specialist
DX: M53.3 Sacrococcygeal disorders, not elsewhere classified (principal)
CPT/HCPCS: G0260; J2250; J1030; J3010; J2795

== ENCOUNTER → 2020-12-08 | Outpatient (CLI) | payer MEDICARE, BC ==
--- NOTE | 2020-12-08 13:44 | MM ---
Reason for exam: screening (asymptomatic). Last mammogram was performed 1 year and 2 months ago. History: Patient is postmenopausal. Family history of breast cancer in paternal aunt at age 70 and breast cancer in maternal grandmother at age 56. Took hormonal contraceptives for 1 year beginning at age 29. Took estrogen for 1 year beginning at age 46. Took progesterone for 1 year beginning at age 46. Taking other hormone for 6 months beginning at age 62. Physical Findings: A clinical breast exam by your physician is recommended on an annual basis and results should be correlated with mammographic findings. MG 3D Screening Mammo W/Cad Bilateral CC and MLO view(s) were taken. Prior study comparison: October 16, 2019, bilateral MG 3d screening mammo w/cad. July 19, 2018, bilateral MG 3d screening mammo w/cad. July 14, 2017, bilateral MG 3d screening mammo w/cad. There are scattered fibroglandular densities. There are benign appearing round, linear, dystrophic calcifications bilaterally. There is no discrete abnormality. ASSESSMENT: Benign, BI-RAD 2 RECOMMENDATION: Routine screening mammogram of both breasts in 1 year.
== END | disposition home or self-care (01) ==
LOC: RADMAMWWP 10:35
PROVIDERS: ATTEND Family Medicine
DX: Z12.31 Encounter for screening mammogram for malignant neoplasm of breast (principal)
CPT/HCPCS: 77063; 77067

== ENCOUNTER → 2020-12-23 | Outpatient (CLI) | payer MEDICARE, BC ==
[2020-12-23 11:16] VITALS: BP 112/8; PULSE 78; RESP 18; TEMP 98.4
--- NOTE | 2020-12-23 12:37 | P.PN ---
Subjective Progress Note Date: 12/23/20 This is Follow-up visit for this 75 years old female with a chronic history of severe low back pain, she is diagnosed with lumbar degenerative disc disease lumbar spondylosis with lumbar facet arthropathy,and sacroiliitis , previously we have an RFA of the medial branch lumbar area, and bilateral sacroiliac joint steroid injection,she reporte that , she continued to have severe pain in the buttock area bilaterally which is increased with any activity, she denies any motor or sensory deficit, she continued to use Neurontin 600 mg every 8 h, magnesium oxide ,and baclofen 5 mg twice a day without any benefit Physical Examinations : -Constitutiona : Cooperative , not in acute distress . -HEENT : nech : supple , no Lymphadenopathy , normal thyroid size . : eyes : no ptosis , no icterus, no photophobia . - neurologic : Cranial nerve II to XII intact , no focal neurological deffecit . -psychatric : alert , oriented X 3 , appropriate affect , intact judgment and insight . -Lymphatic : no Lymphadenopathy . - musculoskeltal : Lumber spine moter stegnth lower extremities ,thigh and legs 5/5 Right side , 5/5 Left side deep tendon reflexes : normal Knee Jerk , normal ankle Jerk lumber facet Loading Test =positive Right , positive Left Range of motion of the lumbar spine Flexion 30 degrees, extension 10 degrees strait leg raising test = positive at 45 degree Fabere test= positive Right , and positive LT . Sever tenderness over the Sacroiliac joint on the Right , and Left sides Gaenslen test= positive right ,and positive left . Seated flexion test= positive right ,and positive Left . Distraction test= positive bilaterally Assessment and plan=1-lumbar spondylosis and lumbar facet arthropathy. 2-lumber degenerative disc disease. 3-bilateral sacroiliitis. Patient continued to have severe low back pain after RFA of the medial branch lumbar area, He'll follow up with for evaluation for possible surgical intervention. - PQRS measures = - Patient's medications are documented in the chart. -Tobacco use is negative and counseling.Given. -Patient's has not received pneumococcal vaccine. -Advanced care planning discussed, patient not eligible. -Opiate contract not signed. -Pain positive and follow-up visit/procedure is scheduled. -Patient's blood pressure measured [112/82 ] , and documented in the record ,and patient will follow up with the primary care. -Patient's weight was measured and body mass index [ 37 ] above the, normal limits and counseling was done. and patient instructed to follow-up with the primary care physician. -Patient was not identified as an unhealthy alcohol user Objective - Vital Signs Vital signs: Vital Signs Temp 98.4 F 12/23/20 11:13 Pulse 78 12/23/20 11:13 Resp 18 12/23/20 11:13 BP 112/8 12/23/20 11:13 Pulse Ox
== END | disposition home or self-care (01) ==
LOC: PNWHC3 10:17
PROVIDERS: ATTEND Specialist
DX: M47.896 Other spondylosis, lumbar region (principal); M51.36 Other intervertebral disc degeneration, lumbar region; M46.96 Unspecified inflammatory spondylopathy, lumbar region; M46.1 Sacroiliitis, not elsewhere classified
CPT/HCPCS: 99211

== ENCOUNTER 2021-01-10 13:50 | Emergency (ER) | payer MEDICARE, BC ==
[2021-01-10 14:37] VITALS: TEMP 98.2
[2021-01-10] MEDS ORDERED: ONDANSETRON 4 MG/2 ML VIAL IVP STA ×2 (14:55→18:23)
[2021-01-10] MEDS ORDERED: SODIUM CHLORIDE 0.9% 500 ML 500 ML IV STA (14:55)
--- NOTE | 2021-01-10 14:59 | ED ---
General Adult HPI - General Chief complaint: Nausea/Vomiting/Diarrhea Stated complaint: Abd pain,Vomiting,Fever Time Seen by Provider: 01/10/21 14:47 Source: patient, RN notes reviewed Mode of arrival: wheelchair Limitations: no limitations - History of Present Illness Initial comments: 75-year-old female presents to the emergency department with multiple complaints. Patient states she has had left flank pain for the past week, then developed epigastric pain that radiates up into her chest along with nausea/vomiting Monday. Also reports pain to the left shoulder blade. Patient also complains of right low back pain; states that she is scheduled to see the back doctor tomorrow for chronic right low back pain that extends to the right hip and leg. states the patient has been feeling poorly the last 2 days. Complains of fever and chills today. She denies dizziness, shortness of breath, difficulty breathing, constipation, diarrhea, or dysuria. - Related Data Home Medications Medication Instructions Recorded Confirmed metFORMIN HCL [Glucophage] 1,000 mg PO BID 07/17/14 01/10/21 Montelukast [Singulair] 10 mg PO HS 11/06/17 01/10/21 Fluticasone Nasal [place] [Flonase 2 spray EA NOSTRIL DAILY PRN 09/16/18 01/10/21 Nasal [place]] Levothyroxine Sodium [Synthroid] 100 mcg PO DAILY 09/16/18 01/10/21 busPIRone HCl [Buspar] 5 mg PO BID 09/16/18 01/10/21 Baclofen 5 mg PO BID PRN 03/22/19 01/10/21 DULoxetine HCL [Cymbalta] 60 mg PO BID 03/22/19 01/10/21 Repaglinide [Prandin] 0.5 mg PO TID-W/MEALS 03/22/19 01/10/21 glyBURIDE [Diabeta] 5 mg PO DAILY 03/22/19 01/10/21 levETIRAcetam [Keppra] 750 mg PO BID 03/22/19 01/10/21 Atorvastatin [Lipitor] 80 mg PO HS 10/01/19 01/10/21 Biotin 10,000 mcg PO DAILY 10/01/19 01/10/21 Fenofibrate [Lofibra] 160 mg PO DAILY 10/01/19 01/10/21 Ferrous Sulfate [Iron (65 MG 325 mg PO DAILY 10/01/19 01/10/21 Elemental)] Lisinopril-Hctz 20-12.5 mg 1 tab PO DAILY 10/01/19 01/10/21 [Zestoretic 20-12.5] Multivitamins, Thera [Multivitamin 1 tab PO DAILY 10/01/19 01/10/21 (formulary)] Sucralfate [Carafate] 1 gm PO QID PRN 10/01/19 01/10/21 Aspirin 81 mg PO DAILY 09/03/20 01/10/21 Hydrocortisone [Cortisone] 28 gm TOPICAL DAILY PRN 09/03/20 01/10/21 Insulin NPH Hum/Reg Insulin Hm 7 units SQ DIRECTED 09/03/20 01/10/21 [Novolin 70-30 Flexpen] Omeprazole [PriLOSEC] 40 mg PO DAILY 09/03/20 01/10/21 Vit C/E/Zn/Coppr/Lutein/Zeaxan 1 tab PO BID 09/03/20 01/10/21 [Preservision Areds 2 Softgel] Vitamin B Complex 1 tab PO DAILY 09/03/20 01/10/21 Ipratropium-Albuterol Nebulize 1 applicate INHALATION TID PRN 09/28/20 01/10/21 [Duoneb 0.5 mg-3 mg/3 ml Soln] Ergocalciferol (Vitamin D2) 1,250 mcg PO MO 09/29/20 01/10/21 [Drisdol (50,000 Iu)] Metoprolol Tartrate [Lopressor] 25 mg PO DAILY 10/23/20 01/10/21 ondansetron HCL [Zofran] 8 mg PO Q8HR PRN 11/19/20 01/10/21 Magnesium Oxide [Mag-Ox] 420 mg PO DAILY 12/21/20 01/10/21 Gabapentin 600 mg PO TID 01/10/21 01/10/21 Previous Rx's Medication Instructions Recorded Verapamil [Isoptin] 40 mg PO TID #90 tab 10/04/19 Ondansetron Odt [Zofran Odt] 4 mg PO Q8HR PRN #10 tab 01/10/21 Allergies Allergy/AdvReac Type Severity Reaction Status Date / Time banana [Banana] Allergy Severe Anaphylaxis Verified 01/10/21 14:37 iodine Allergy Severe DYSPNEA, Verified 01/10/21 14:37 SKIN INFLAMED kiwi Allergy Severe Anaphylaxis Verified 01/10/21 14:37 grass pollen Allergy Unknown Verified 01/10/21 14:37 Iodinated Contrast Media Allergy Dyspnea Verified 01/10/21 14:37 latex Allergy Dyspnea, Verified 01/10/21 14:37 Itching morphine Allergy Rapid Verified 01/10/21 14:37 Heart Rate rubber Allergy Dyspnea Uncoded 01/10/21 14:37 smoke Allergy Dyspnea Uncoded 01/10/21 14:37 Review of Systems ROS Statement: Those systems with pertinent positive or pertinent negative responses have been documented in the HPI. ROS Other: All systems not noted in ROS Statement are negative. Past Medical History Past Medical History: Asthma, Chest Pain / Angina, COPD, CVA/TIA, Diabetes Mellitus, Eye Disorder, GERD/Reflux, Hearing Disorder / Deafness, Hyperlipidemia, Hypertension, Neurologic Disorder, Osteoarthritis (OA), Pneumonia, Skin Disorder, Sleep Apnea/CPAP/BIPAP, Thyroid Disorder Additional Past Medical History / Comment(s): hx. past UTIs, NIDDM type II, neuropathy bilateral feet, cardiac valve disease, murmur, TIA, seizure-last one 2017, neurodematitis with rash, bronchitis, JAGJIT but lost her Cpap, gastric ulcer, IBS, bilateral macular degeneration/diificulty with vision, very [place] bilaterally-normally uses aide in R ear, DDD, low back pain with R side sciatica, hypothyroid, sores on back and evon legs - open and weeping History of Any Multi-Drug Resistant Organisms: None Reported Past Surgical History: Adenoidectomy, Cholecystectomy, Hysterectomy, Joint Replacement, Orthopedic Surgery, Tonsillectomy Additional Past Surgical History / Comment(s): EGD, colonoscopy, hemorrhoidectomy, D&C, bilatearl knee scopes and then total knee arthroplasties, bilateral rotator cuff repairs, lumbar epidural injections-last one 2 weeks ago, bilateral eye cataract removals with lens implants, L lower eyelid "wart" removed Past Anesthesia/Blood Transfusion Reactions: No Reported Reaction Past Psychological History: Anxiety, Depression Smoking Status: Former smoker Past Alcohol Use History: None Reported Past Drug Use History: None Reported - Past Family History Father Family Medical History: Pneumonia Mother Family Medical History: Cancer Additional Family Medical History / Comment(s): PANCREAS [place] General Exam Limitations: no limitations (Patient is very hard of hearing) General appearance: alert, in no apparent distress Eye exam: Present: PERRL, EOMI, conjunctival injection. Absent: periorbital swelling, periorbital tenderness ENT exam: Present: normal exam, mucous membranes moist Neck exam: Present: normal inspection. Absent: tenderness, meningismus, lymphadenopathy Respiratory exam: Present: normal lung sounds bilaterally. Absent: respiratory distress, wheezes, rales, rhonchi, stridor Cardiovascular Exam: Present: regular rate, normal rhythm, normal heart sounds. Absent: systolic murmur, diastolic murmur, rubs, gallop, clicks GI/Abdominal exam: Present: soft, normal bowel sounds. Absent: distended, tenderness, guarding, rebound, rigid Back exam: Present: normal inspection, CVA tenderness (L), other (Left-sided Subscapular pain) Neurological exam: Present: alert, oriented X3 Psychiatric exam: Present: normal affect, normal mood Skin exam: Present: warm, dry, intact, other (Face appears flushed) Course Vital Signs 01/10/21 01/10/21 14:33 18:42 Temperature 98.2 F Pulse Rate 95 89 Respiratory 20 16 Rate Blood Pressure 115/86 121/92 O2 Sat by Pulse 99 97 Oximetry - Reevaluation(s) Reevaluation #1: 01/10/21 18:20 Patient appears to be resting comfortably. With pain reassessment, patient denies discomfort in the left hip, back, or flank. States her right lower back continues to be hurt, however this was established as a source of chronic pain for which she is scheduled to see the back doctor tomorrow. Patient states she is still nauseous. Additional fluid and Zofran will be ordered. 01/10/21 18:59 Patient assisted upright position in bed. Able to tolerate sips of water without nausea or vomiting. Pain is controlled. Will reassess. 01/10/21 20:03 Patient sitting upright in bed. Has tolerated 8 ounces of water and is eating applesauce and crackers. Patient reports desired to go home. Medical Decision Making - Medical Decision Making 75-year-old female with extensive medical history presents to the emergency department for evaluation of multiple complaints including nausea, vomiting, back pain, flank pain, epigastric pain, and shoulder pain. Patient is very hard of hearing making it difficult to distinguish if she is a poor historian, or just unable to hear questions asked. Family present at bedside supplements minimal information, but validates her hearing difficulty. Upon initial assessment, patient appears pale overall, with flushed cheeks and Emesis basin with small amount of frothy clear vomitus. Multiple areas of pain were assessed including the right low back extending into the right hip and thigh, which is a chronic condition for patient. Left sided back pain extended from the left scapula to the left flank with diffuse tenderness upon palpation. Epigastric pain appeared to be exacerbated by vomiting. CT was obtained, patient required premedication due to iodine ALLERGY. Tolerated imaging well with no adverse si de effects. No acute abdominal process or aortic dissection or found. Due to patient's inability to tolerate most pain medications, treatment was focused on nausea and IV fluids. Laboratory studies were obtained. Mild leukocytosis felt to be secondary to vomiting. 2+ ketones in urine; patient was given additional fluids. Magnesium 1.4 was supplemented orally. Chest x-ray was negative for any acute process. Patient was able to tolerate 8 ounces of water, a container of apple sauce, and a packet of saltine crackers prior to departure. Patient expresses readiness to go home. This case was discussed with my attending Dr. Hudson throughout the duration of the patient's work-up. Patient was instructed to follow up with her primary care provider for a recheck in the next 1-2 days. Return parameters were discussed with the patient and spouse; they verbalize understanding and agree with this plan. - Lab Data Result diagrams: 01/10/21 15:08 01/10/21 15:08 Lab Results 01/10/21 01/10/21 01/10/21 Range/Units 15:08 15:08 15:08 WBC 12.1 H (3.8-10.6) k/uL RBC 4.93 (3.80-5.40) m/uL Hgb 14.7 (11.4-16.0) gm/dL Hct 46.1 H (34.0-46.0) % MCV 93.5 (80.0-100.0) fL MCH 29.8 (25.0-35.0) pg MCHC 31.8 (31.0-37.0) g/dL RDW 12.5 (11.5-15.5) % Plt Count 449 (150-450) k/uL MPV 8.6 Neutrophils % 63 % Lymphocytes % 28 % Monocytes % 4 % Eosinophils % 2 % Basophils % 1 % Neutrophils # 7.7 (1.3-7.7) k/uL Lymphocytes # 3.4 (1.0-4.8) k/uL Monocytes # 0.4 (0-1.0) k/uL Eosinophils # 0.2 (0-0.7) k/uL Basophils # 0.1 (0-0.2) k/uL PT 10.8 (9.0-12.0) sec INR 1.0 (<1.2) APTT 22.3 (22.0-30.0) sec Sodium (137-145) mmol/L Potassium (3.5-5.1) mmol/L Chloride (98-107) mmol/L Carbon Dioxide (22-30) mmol/L Anion Gap mmol/L BUN (7-17) mg/dL Creatinine (0.52-1.04) mg/dL Est GFR (CKD-EPI)AfAm (>60 ml/min/1.73 sqM) Est GFR (CKD-EPI)NonAf (>60 ml/min/1.73 sqM) Glucose (74-99) mg/dL Calcium (8.4-10.2) mg/dL Magnesium (1.6-2.3) mg/dL Total Bilirubin (0.2-1.3) mg/dL AST (14-36) U/L ALT (4-34) U/L Alkaline Phosphatase (38-126) U/L Troponin I (0.000-0.034) ng/mL NT-Pro-B Natriuret Pep pg/mL Total Protein (6.3-8.2) g/dL Albumin (3.5-5.0) g/dL Lipase (23-300) U/L Urine Color Yellow Urine Appearance Clear (Clear) Urine pH 6.5 (5.0-8.0) Ur Specific [place] 1.022 (1.001-1.035) Urine Protein Negative (Negative) Urine Glucose (UA) Negative (Negative) Urine Ketones 2+ H (Negative) Urine Blood Negative (Negative) Urine Nitrite Negative (Negative) Urine Bilirubin Negative (Negative) Urine Urobilinogen 2.0 (<2.0) mg/dL Ur Leukocyte Esterase Small H (Negative) Urine RBC <1 (0-5) /hpf Urine WBC 2 (0-5) /hpf Ur Squamous Epith Cells 1 (0-4) /hpf Urine Mucus Rare H (None) /hpf 01/10/21 01/10/21 01/10/21 Range/Units 15:08 15:08 15:08 WBC (3.8-10.6) k/uL RBC (3.80-5.40) m/uL Hgb (11.4-16.0) gm/dL Hct (34.0-46.0) % MCV (80.0-100.0) fL MCH (25.0-35.0) pg MCHC (31.0-37.0) g/dL RDW (11.5-15.5) % Plt Count (150-450) k/uL MPV Neutrophils % % Lymphocytes % % Monocytes % % Eosinophils % % Basophils % % Neutrophils # (1.3-7.7) k/uL Lymphocytes # (1.0-4.8) k/uL Monocytes # (0-1.0) k/uL Eosinophils # (0-0.7) k/uL Basophils # (0-0.2) k/uL PT (9.0-12.0) sec INR (<1.2) APTT (22.0-30.0) sec Sodium 138 (137-145) mmol/L Potassium 4.2 (3.5-5.1) mmol/L Chloride 103 (98-107) mmol/L Carbon Dioxide 19 L (22-30) mmol/L Anion Gap 16 mmol/L BUN 21 H (7-17) mg/dL Creatinine 1.03 (0.52-1.04) mg/dL Est GFR (CKD-EPI)AfAm 61 (>60 ml/min/1.73 sqM) Est GFR (CKD-EPI)NonAf 53 (>60 ml/min/1.73 sqM) Glucose 204 H (74-99) mg/dL Calcium 11.0 H (8.4-10.2) mg/dL Magnesium 1.4 L (1.6-2.3) mg/dL Total Bilirubin 0.7 (0.2-1.3) mg/dL AST 49 H (14-36) U/L ALT 59 H (4-34) U/L Alkaline Phosphatase 61 (38-126) U/L Troponin I 0.022 (0.000-0.034) ng/mL NT-Pro-B Natriuret Pep 1350 pg/mL Total Protein 7.6 (6.3-8.2) g/dL Albumin 4.6 (3.5-5.0) g/dL Lipase 121 (23-300) U/L Urine Color Urine Appearance (Clear) Urine pH (5.0-8.0) Ur Specific [place] (1.001-1.035) Urine Protein (Negative) Urine Glucose (UA) (Negative) Urine Ketones (Negative) Urine Blood (Negative) Urine Nitrite (Negative) Urine Bilirubin (Negative) Urine Urobilinogen (<2.0) mg/dL Ur Leukocyte Esterase (Negative) Urine RBC (0-5) /hpf Urine WBC (0-5) /hpf Ur Squamous Epith Cells (0-4) /hpf Urine Mucus (None) /hpf - EKG Data EKG shows normal: sinus rhythm Rate: normal EKG Comments: EKG was obtained at 1527 shows normal sinus rhythm with Nonspecific ST abnormality. Ventricular rate 87, WV interval 132, QRS duration 70, QT/QTc 400/481. - Radiology Data Radiology results: report reviewed, image reviewed Two-view chest x-ray was obtained. Report was reviewed in its entirety. Impression per Dr. Granados is normal chest. No adverse change. CT was obtained. Report was reviewed in its entirety. Impression per Dr. Granados as negative CT angiogram of the chest abdomen and pelvis. No evidence of aneurysm or dissection. No evidence of hemodynamic stenosis. There is some colonic diverticulosis without diverticulitis. Disposition Clinical Impression: Nausea & vomiting, Dehydration, Hypomagnesemia, Chronic back pain Disposition: HOME SELF-CARE Condition: Stable Instructions (If sedation given, give patient instructions): Dehydration (ED), Acute Nausea and Vomiting (ED) Additional Instructions: Rest. Increase fluids. Eat small frequent meals. Follow-up as scheduled for treatment of chronic back pain. May take Tylenol or Motrin for fever. Return to the ER with any new, worsening, or concerning symptoms. Prescriptions: Ondansetron Odt [Zofran Odt] 4 mg PO Q8HR PRN #10 tab PRN Reason: Nausea Is patient prescribed a controlled substance at d/c from ED?: No Referrals: Mallorie Hudson DO [Primary Care Provider] - 1-2 days Time of Disposition: 20:20
[2021-01-10 15:17] LABS: Basophils # (A) 0.1 k/uL (0-0.2); Basophils % (A) 1 %; Eosinophils # (A) 0.2 k/uL (0-0.7); Eosinophils % (A) 2 %; HCT 46.1 % (34.0-46.0); HGB 14.7 gm/dL (11.4-16.0); Lymphocytes # (A) 3.4 k/uL (1.0-4.8); Lymphocytes % (A) 28 %; MCH 29.8 pg (25.0-35.0); MCHC 31.8 g/dL (31.0-37.0); MCV 93.5 fL (80.0-100.0); Mean Platelet Volume 8.6; Monocytes # (A) 0.4 k/uL (0-1.0); Monocytes % (A) 4 %; Neutrophils # (A) 7.7 k/uL (1.3-7.7); Neutrophils % (A) 63 %; Platelet Count 449 k/uL (150-450); RBC 4.93 m/uL (3.80-5.40); RDW 12.5 % (11.5-15.5); WBC 12.1 k/uL (3.8-10.6)
[2021-01-10 15:28] LABS: Albumin 4.6 g/dL (3.5-5.0); Magnesium 1.4 mg/dL (1.6-2.3); Potassium 4.2 mmol/L (3.5-5.1); Total Bilirubin 0.7 mg/dL (0.2-1.3); Total Protein 7.6 g/dL (6.3-8.2)
[2021-01-10 15:33] LABS: Partial Thromboplastin Time 22.3 sec (22.0-30.0); Prothrombin Time 10.8 sec (9.0-12.0)
--- NOTE | 2021-01-10 15:40 | XR ---
EXAMINATION TYPE: XR chest 2V DATE OF EXAM: 01/10/2021 COMPARISON: 10/01/2019 HISTORY: Chest pain TECHNIQUE: 2 views FINDINGS: Heart and mediastinum are normal. Lungs are clear. Diaphragm is normal. Bony thorax is inta ct. IMPRESSION: Normal chest. No adverse change.
[2021-01-10] MEDS ORDERED: methylPREDNISolone SOD SUCCI 125 MG/2 ML VIAL IV STA (16:43)
[2021-01-10] MEDS ORDERED: diphenhydrAMINE 50 MG/ML 1 ML VIAL IVP STA (16:43)
[2021-01-10] MEDS ORDERED: FAMOTIDINE 20 MG/2 ML VIAL IV STA (16:43)
[2021-01-10 16:48] LABS: Appearance,Urine Clear (Clear); Bilirubin,Urine Negative (Negative); Blood,Urine Negative (Negative); Color,Urine Yellow; Glucose,Urine (UA) Negative (Negative); Ketones,Urine 2+ (Negative); Leukocyte Esterase,Urine Small (Negative); Mucus,Urine Rare /hpf; Nitrite,Urine Negative (Negative); PH, Urine 6.5 (5.0-8.0); Protein,Urine Negative (Negative); RBC,Urine <1 /hpf (0-5); Specific Gravity,Urine 1.022 (1.001-1.035); Squamous Epithelial Cell,Urine 1 /hpf (0-4); WBC,Urine 2 /hpf (0-5)
--- NOTE | 2021-01-10 18:10 | CT ---
EXAMINATION TYPE: CT angio thor/abd pel aorta DATE OF EXAM: 01/10/2021 COMPARISON: None HISTORY: Generalized pain. CT DLP: 1952.3 mGycm Automated exposure control for dose reduction was used. CONTRAST: Performed without and with IV Contrast, patient injected with 80 mL of Isovue 300. Images obtained from the thoracic inlet to the mid pelvis without and with IV contrast. There are 3-D post processed images. There is some interstitial infiltrate in the posterior lung barriga. Heart is top normal in size. Ther e is no pericardial effusion. There is no pleural effusion. Liver spleen pancreas appear intact. Stom ach is intact. The bile ducts are not dilated. There are clips from cholecystectomy. There is no adre nal mass. Kidneys show satisfactory contrast opacification. There is no hydronephrosis. There is lobu lated cyst in the upper pole left kidney measuring 5 cm. Ureters are not dilated. There is no retrope ritoneal adenopathy. Bladder distends smoothly. There is no inguinal hernia. There is normal contrast opacification of the thoracic aorta. There is no dissection. The ascending a antonino measures 3.6 cm. Abdominal aorta is intact. There is no aneurysm or dissection. There is arterial flow in the celiac a rtery and superior mesenteric artery. There is arterial flow in the renal and iliac and femoral arter ies. There is arterial flow in the inferior mesenteric artery. There is no evidence of hemodynamic st enosis. Appendix appears normal. There is no mesenteric edema. There is no ascites or free air. There is no b owel obstruction. There are multiple sigmoid diverticula. There is no sign of diverticulitis. Thoracic and lumbar vertebra have normal alignment. Sternum is intact. Bony pelvis is intact. IMPRESSION: Negative CT angiogram of the chest abdomen pelvis. No evidence of aneurysm or dissection. No evidence of hemodynamic stenosis. There is some colonic diverticulosis without diverticulitis.
[2021-01-10] MEDS ORDERED: SODIUM CHLORIDE 0.9% 500 ML 500 ML IV ONE (18:23)
[2021-01-10 18:43] VITALS: BP 121/92; PULSE 89; RESP 16
[2021-01-10] MEDS ORDERED: ONDANSETRON 4 MG ODT STARTER PACK 2 TAB BTL PO STA (20:20)
[2021-01-10] MEDS ORDERED: MAGNESIUM OXIDE 400 MG TAB PO STA (20:21)
== END 2021-01-10 20:46 | disposition home or self-care (01) ==
LOC: EC 13:50
DX: E86.0 Dehydration (principal); R11.2 Nausea with vomiting, unspecified; E83.42 Hypomagnesemia; M54.9 Dorsalgia, unspecified; G89.29 Other chronic pain; J44.9 Chronic obstructive pulmonary disease, unspecified; E11.9 Type 2 diabetes mellitus without complications; I10 Essential (primary) hypertension; K21.9 Gastro-esophageal reflux disease without esophagitis; R50.9 Fever, unspecified; M25.512 Pain in left shoulder; R10.13 Epigastric pain; M19.90 Unspecified osteoarthritis, unspecified site; E03.9 Hypothyroidism, unspecified; E78.5 Hyperlipidemia, unspecified; Z79.4 Long term (current) use of insulin; Z87.891 Personal history of nicotine dependence; Z90.49 Acquired absence of other specified parts of digestive tract; Z86.73 Personal history of transient ischemic attack (TIA), and cerebral infarction without residual deficits; Z79.899 Other long term (current) drug therapy; Z91.040 Latex allergy status; Z79.82 Long term (current) use of aspirin
CPT/HCPCS: 36415; 93005; 83880; 80053; 83690; 83735; 84484; 85025; 85610; 85730; 81001; 71046; 71275; 74174; 99284; 96374; 96375; 96376; J1200; J2930; J2405; S0119; Q9967

== ENCOUNTER 2021-08-19 11:23 | Inpatient (IN) | payer MEDICARE, BC ==
[2021-08-19] MEDS ORDERED: ONDANSETRON 4 MG/2 ML VIAL IVP STA (12:04)
[2021-08-19] MEDS ORDERED: SODIUM CHLORIDE 0.9% 1,000 ML IV STA ×2 (12:04→13:41)
[2021-08-19] MEDS ORDERED: diphenhydrAMINE 50 MG/ML 1 ML VIAL IVP STA (12:04)
[2021-08-19] MEDS ORDERED: FAMOTIDINE 20 MG/2 ML VIAL IV STA (12:05)
[2021-08-19] MEDS ORDERED: levETIRAcetam IV 1,000 MG in SALINE 1 100ML.BAG IVPB STA (12:05)
[2021-08-19 12:20] LABS: Basophils # (A) 0.1 k/uL (0-0.2); Basophils % (A) 1 %; Eosinophils # (A) 0.1 k/uL (0-0.7); Eosinophils % (A) 1 %; HGB 14.2 gm/dL (11.4-16.0); Lymphocytes # (A) 3.8 k/uL (1.0-4.8); Lymphocytes % (A) 35 %; MCH 28.8 pg (25.0-35.0); MCHC 30.8 g/dL (31.0-37.0); MCV 93.4 fL (80.0-100.0); Mean Platelet Volume 8.2; Monocytes # (A) 0.4 k/uL (0-1.0); Monocytes % (A) 4 %; Neutrophils # (A) 6.3 k/uL (1.3-7.7); Neutrophils % (A) 58 %; Platelet Count 378 k/uL (150-450); RBC 4.93 m/uL (3.80-5.40); RDW 12.6 % (11.5-15.5); WBC 10.9 k/uL (3.8-10.6)
[2021-08-19 12:29] LABS: Partial Thromboplastin Time 22.4 sec (22.0-30.0); Prothrombin Time 10.7 sec (9.0-12.0)
[2021-08-19 12:34] LABS: Albumin 4.7 g/dL (3.5-5.0); Calcium 10.4 mg/dL (8.4-10.2); Potassium 4.1 mmol/L (3.5-5.1); Total Bilirubin 0.8 mg/dL (0.2-1.3); Total Protein 7.5 g/dL (6.3-8.2)
[2021-08-19] MEDS ORDERED: diphenhydrAMINE 50 MG/ML 1 ML VIAL IVP ONE (13:00)
[2021-08-19] MEDS ORDERED: methylPREDNISolone SOD SUCCI 125 MG/2 ML VIAL IV STA (13:00)
[2021-08-19 13:25] LABS: Appearance,Urine Clear (Clear); Bilirubin,Urine Negative (Negative); Blood,Urine Negative (Negative); Color,Urine Yellow; Glucose,Urine (UA) Trace (Negative); Ketones,Urine 2+ (Negative); Leukocyte Esterase,Urine Small (Negative); Nitrite,Urine Negative (Negative); Protein,Urine Trace (Negative); RBC,Urine 1 /hpf (0-5); Specific Gravity,Urine 1.018 (1.001-1.035); Squamous Epithelial Cell,Urine 3 /hpf (0-4); Urobilinogen,Urine <2.0 mg/dL (<2.0); WBC,Urine 10 /hpf (0-5)
--- NOTE | 2021-08-19 13:53 | XR ---
EXAMINATION TYPE: XR chest 1V portable DATE OF EXAM: 08/19/2021 COMPARISON: Chest x-ray January 10, 2021 HISTORY: Chest pain and nausea. TECHNIQUE: Single AP portable frontal upright view of the chest is obtained. FINDINGS: Low lung volumes are redemonstrated. There is no suspicious focal air space opacity, pleur al effusion, or pneumothorax seen. Cardiomegaly is redemonstrated. Mild central vascular congestion i s seen on current study. The osseous structures are demineralized. IMPRESSION: Cannot exclude CHF exacerbation as there is cardiomegaly with suspected new mild central vascular congestion. Correlate clinically.
--- NOTE | 2021-08-19 14:10 | ED ---
General Adult HPI - General Source: patient, RN notes reviewed, old records reviewed Mode of arrival: ambulatory Limitations: no limitations <Rex Hudson - Last Filed: 08/19/21 14:38> <Reese Berry - Last Filed: 08/19/21 17:44> - General Chief complaint: Abdominal Pain Stated complaint: Abd Pain/Nausea/Vomiting Time Seen by Provider: 08/19/21 11:55 - History of Present Illness Initial comments: Patient is a 76-year-old female with a past medical history remarkable for asthma, COPD, seizure disorder, hypertension, diabetes who presents emergency Department complaining of 2 day history of generalized abdominal discomfort associated with nausea, nonbilious somewhat emesis, nonbloody diarrhea. States that the pain occasionally gets worsening chest when she has episodes of emesis. Denies coughing, fever. Denies any back pain. He endorses generalized abdominal discomfort. Denies any urinary complaints. His no other acute complaints at this time. States she has been having a difficult time keeping any form of fluids or liquids down. Presents emergency department over concern for her persistent nausea, vomiting, diarrhea. No known sick contacts at home. (Rex Hudson) - Related Data Home Medications Medication Instructions Recorded Confirmed metFORMIN HCL [Glucophage] 1,000 mg PO BID 07/17/14 08/19/21 Montelukast [Singulair] 10 mg PO HS 11/06/17 08/19/21 Fluticasone Nasal [place] [Flonase 2 spray EA NOSTRIL DAILY PRN 09/16/18 08/19/21 Nasal [place]] Levothyroxine Sodium [Synthroid] 100 mcg PO DAILY 09/16/18 08/19/21 busPIRone HCl [Buspar] 5 mg PO BID 09/16/18 08/19/21 Baclofen 5 mg PO BID PRN 03/22/19 08/19/21 DULoxetine HCL [Cymbalta] 60 mg PO BID 03/22/19 08/19/21 Repaglinide [Prandin] 0.5 mg PO TID-W/MEALS 03/22/19 08/19/21 glyBURIDE [Diabeta] 5 mg PO DAILY 03/22/19 08/19/21 levETIRAcetam [Keppra] 750 mg PO BID 03/22/19 08/19/21 Atorvastatin [Lipitor] 80 mg PO HS 10/01/19 08/19/21 Biotin 10,000 mcg PO DAILY 10/01/19 08/19/21 Fenofibrate [Lofibra] 160 mg PO DAILY 10/01/19 08/19/21 Ferrous Sulfate [Iron (65 MG 325 mg PO DAILY 10/01/19 08/19/21 Elemental)] Lisinopril-Hctz 20-12.5 mg 1 tab PO DAILY 10/01/19 08/19/21 [Zestoretic 20-12.5] Aspirin 81 mg PO DAILY 09/03/20 08/19/21 Insulin NPH Hum/Reg Insulin Hm 7 units SQ BID 09/03/20 08/19/21 [Novolin 70-30 Flexpen] Omeprazole [PriLOSEC] 40 mg PO DAILY 09/03/20 08/19/21 Vit C/E/Zn/Coppr/Lutein/Zeaxan 1 tab PO BID 09/03/20 08/19/21 [Preservision Areds 2 Softgel] Ipratropium-Albuterol Nebulize 3 ml INHALATION RT-QID PRN 09/28/20 08/19/21 [Duoneb 0.5 mg-3 mg/3 ml Soln] Ergocalciferol (Vitamin D2) 1,250 mcg PO MO 09/29/20 08/19/21 [Drisdol (50,000 Iu)] Metoprolol Tartrate [Lopressor] 25 mg PO DAILY 10/23/20 08/19/21 Magnesium Oxide [Mag-Ox] 400 mg PO DAILY 12/21/20 08/19/21 Gabapentin 600 mg PO TID 01/10/21 08/19/21 Acetaminophen Tab [Tylenol] 650 mg PO Q6HR PRN 08/19/21 08/19/21 Clindamycin Topical Soln 1 applic TOPICAL BID 08/19/21 08/19/21 [Cleocin-T Topical Soln] Famotidine [Pepcid] 20 mg PO DAILY 08/19/21 08/19/21 Lidocaine 4% Patch 1 patch TOPICAL DAILY PRN 08/19/21 08/19/21 Multivitamins, Thera [Multivitamin 1 tab PO DAILY 08/19/21 08/19/21 (formulary)] Ondansetron Odt [Zofran ODT] 8 mg PO Q8H PRN 08/19/21 08/19/21 Pantoprazole Sodium [Protonix] 40 mg PO DAILY 08/19/21 08/19/21 Super B Complex 1 tab PO DAILY 08/19/21 08/19/21 Previous Rx's Medication Instructions Recorded Verapamil [Isoptin] 40 mg PO TID #90 tab 10/04/19 Allergies Allergy/AdvReac Type Severity Reaction Status Date / Time banana [Banana] Allergy Severe Anaphylaxis Verified 08/19/21 11:38 iodine Allergy Severe DYSPNEA, Verified 08/19/21 11:38 SKIN INFLAMED kiwi Allergy Severe Anaphylaxis Verified 08/19/21 11:38 grass pollen Allergy Unknown Verified 08/19/21 11:38 Iodinated Contrast Media Allergy Dyspnea Verified 08/19/21 11:38 latex Allergy Dyspnea, Verified 08/19/21 11:38 Itching morphine Allergy Rapid Verified 08/19/21 11:38 Heart Rate rubber Allergy Dyspnea Uncoded 08/19/21 11:38 smoke Allergy Dyspnea Uncoded 08/19/21 11:38 Review of Systems ROS Other: All systems not noted in ROS Statement are negative. <Rex Hudson - Last Filed: 08/19/21 14:38> ROS Other: All systems not noted in ROS Statement are negative. <Reese Berry - Last Filed: 08/19/21 17:44> ROS Statement: Those systems with pertinent positive or pertinent negative responses have been documented in the HPI. Review of Systems: CONST: Denies fever EYES: Denies blurry vision ENT: Denies nasal congestion C/V: Denies Chest pain RESP: Denies shortness of breath GI: Endorses abdominal pain : Denies dysuria SKIN: Denies rash. MSK: Denies joint pain. NEURO: Denies headache (Rex Hudson) Past Medical History Past Medical History: Asthma, Chest Pain / Angina, COPD, CVA/TIA, Diabetes Mellitus, Eye Disorder, GERD/Reflux, Hearing Disorder / Deafness, Hyper lipidemia, Hypertension, Neurologic Disorder, Osteoarthritis (OA), Pneumonia, Skin Disorder, Sleep Apnea/CPAP/BIPAP, Thyroid Disorder Additional Past Medical History / Comment(s): hx. past UTIs, NIDDM type II, neuropathy bilateral feet, cardiac valve disease, murmur, TIA, seizure-last one 2018, neurodematitis with rash, bronchitis, JAGJIT but lost her Cpap, gastric ulcer, IBS, bilateral macular degeneration/diificulty with vision, very [place] bilaterally-normally uses aide in R ear, DDD, low back pain with R side sciatica, hypothyroid, sores on back and evon legs - open and weeping History of Any Multi-Drug Resistant Organisms: None Reported Past Surgical History: Adenoidectomy, Cholecystectomy, Hysterectomy, Joint Replacement, Orthopedic Surgery, Tonsillectomy Additional Past Surgical History / Comment(s): EGD, colonoscopy, hemorrhoidectomy, D&C, bilatearl knee scopes and then total knee arthroplasties, bilateral rotator cuff repairs, lumbar epidural injections-last one 2 weeks ago, bilateral eye cataract removals with lens implants, L lower eyelid "wart" removed Past Anesthesia/Blood Transfusion Reactions: No Reported Reaction Past Psychological History: Anxiety, Depression Smoking Status: Former smoker Past Alcohol Use History: None Reported Past Drug Use History: None Reported - Past Family History Father Family Medical History: Pneumonia Mother Family Medical History: Cancer Additional Family Medical History / Comment(s): PANCREAS CA <Rex Hudson - Last Filed: 08/19/21 14:38> General Exam Limitations: no limitations <Rex Hudson - Last Filed: 08/19/21 14:38> - General Exam Comments Initial Comments: General: Appears in mild distress secondary to abdominal discomfort. HEAD: Normal with no signs of head trauma. EYES: PERRLA, EOMI, conjunctiva normal, no discharge. ENT: Hearing grossly intact, normal oropharynx. RESPIRATORY: Clear breath sounds bilaterally. No wheezes, rales, or rhonchi. C/V: Regular rate and rhythm. S1 and S2 auscultated, no edema, peripheral pulses 2+ and intact throughout ABD: Abd is soft, nondistended. Mild abdominal discomfort that is nonlocali zed. No guarding. No peritoneal signs. No rebound tenderness. EXT: Normal range of motion, no obvious deformity SKIN: No rashes or lesions observed on exposed skin. NEURO: Alert and oriented 4. (Rex Hudson) Course Vital Signs 08/19/21 08/19/21 08/19/21 11:35 11:41 13:38 Temperature 98.9 F Pulse Rate 98 88 89 Respiratory 20 18 18 Rate Blood Pressure 109/67 123/91 124/77 O2 Sat by Pulse 100 99 95 Oximetry 08/19/21 08/19/21 14:29 16:00 Temperature Pulse Rate 93 99 Respiratory 15 18 Rate Blood Pressure 129/72 132/68 O2 Sat by Pulse 98 93 L Oximetry Medical Decision Making - Lab Data Result diagrams: 08/19/21 12:07 08/19/21 12:07 - EKG Data -: EKG Interpreted by Me <Rex Hudson - Last Filed: 08/19/21 14:38> - Lab Data Result diagrams: 08/19/21 12:07 08/19/21 12:07 <Reese Berry - Last Filed: 08/19/21 17:44> - Medical Decision Making Based on the patient's presentation and physical exam, I'm concerned for possible infectious etiology for her current symptoms. Cannot rule out intra- abdominal process. We will obtain abdominal laboratory studies, as well as a screening EKG and single troponin considering should chest pain that resolved yesterday. Chest x-ray will also be obtained additional viral swabs. She'll be given symptomatic treatment with IV GI cocktail, 1 L fluid bolus, as well as IV Keppra. She was in agreement this plan. EKG shows no signs of acute ischemia. Patient has a mild leukocytosis of 10.9. Patient is a mild lactic acidosis of 3.3, likely secondary to her vomiting and diarrhea. Kidney function is relatively normal. Troponin is undetectable. Urinalysis shows no acute findings, and 2+ ketones. Covid influenza negative. On reevaluation, I would like to obtain a CT abdomen and pelvis. She will be pretreated that she has an iodine allergy. She was in agreement this plan. Chest x-ray revealed mild central vascular congestion. She has no upper respiratory symptoms. Patient will be administered an additional liter fluid bolus. At this time it is the end of my shift. Disposition is pending results of CT imaging. Patiently signed out to the oncoming emergency Department physician Dr. Berry in stable condition. (Rex Hudson) Patient is sent out to me by previous shift physician, Dr. Hudson. Briefly, patient is a 76-year-old female presents to the emergency Department with vomiting. Patient's labs are positive for lactic acidosis 3.3. Rest of labs are within acceptable limits. Plan at signout was follow-up with pending CT imaging. Computed tomography scan was completed and reviewed by radiologist showing findings suspicious for diverticulitis. Given patient's stability, lactic acidosis and slightly elevated white blood cell count patient be admitted. Patient started on Zosyn. (Reese Berry) - Lab Data Lab Results 08/19/21 08/19/21 08/19/21 Range/Units 12:07 12:07 12:07 WBC 10.9 H (3.8-10.6) k/uL RBC 4.93 (3.80-5.40) m/uL Hgb 14.2 (11.4-16.0) gm/dL Hct 46.0 (34.0-46.0) % MCV 93.4 (80.0-100.0) fL MCH 28.8 (25.0-35.0) pg MCHC 30.8 L (31.0-37.0) g/dL RDW 12.6 (11.5-15.5) % Plt Count 378 (150-450) k/uL MPV 8.2 Neutrophils % 58 % Lymphocytes % 35 % Monocytes % 4 % Eosinophils % 1 % Basophils % 1 % Neutrophils # 6.3 (1.3-7.7) k/uL Lymphocytes # 3.8 (1.0-4.8) k/uL Monocytes # 0.4 (0-1.0) k/uL Eosinophils # 0.1 (0-0.7) k/uL Basophils # 0.1 (0-0.2) k/uL PT 10.7 (9.0-12.0) sec INR 1.0 (<1.2) APTT 22.4 (22.0-30.0) sec Sodium (137-145) mmol/L Potassium (3.5-5.1) mmol/L Chloride (98-107) mmol/L Carbon Dioxide (22-30) mmol/L Anion Gap mmol/L BUN (7-17) mg/dL Creatinine (0.52-1.04) mg/dL Est GFR (CKD-EPI)AfAm (>60 ml/min/1.73 sqM) Est GFR (CKD-EPI)NonAf (>60 ml/min/1.73 sqM) Glucose (74-99) mg/dL Lactic Ac Sepsis Rflx Plasma Lactic Acid Juan (0.7-2.0) mmol/L Calcium (8.4-10.2) mg/dL Total Bilirubin (0.2-1.3) mg/dL AST (14-36) U/L ALT (4-34) U/L Alkaline Phosphatase (38-126) U/L Troponin I (0.000-0.034) ng/mL Total Protein (6.3-8.2) g/dL Albumin (3.5-5.0) g/dL Amylase (30-110) U/L Lipase (23-300) U/L Urine Color Yellow Urine Appearance Clear (Clear) Urine pH 8.0 (5.0-8.0) Ur Specific [place] 1.018 (1.001-1.035) Urine Protein Trace H (Negative) Urine Glucose (UA) Trace H (Negative) Urine Ketones 2+ H (Negative) Urine Blood Negative (Negative) Urine Nitrite Negative (Negative) Urine Bilirubin Negative (Negative) Urine Urobilinogen <2.0 (<2.0) mg/dL Ur Leukocyte Esterase Small H (Negative) Urine RBC 1 (0-5) /hpf Urine WBC 10 H (0-5) /hpf Ur Squamous Epith Cells 3 (0-4) /hpf Coronavirus (PCR) (Not Detectd) Influenza Type A RNA (Not Detectd) Influenza Type B (PCR) (Not Detectd) 08/19/21 08/19/21 08/19/21 Range/Units 12:07 12:07 12:07 WBC (3.8-10.6) k/uL RBC (3.80-5.40) m/uL Hgb (11.4-16.0) gm/dL Hct (34.0-46.0) % MCV (80.0-100.0) fL MCH (25.0-35.0) pg MCHC (31.0-37.0) g/dL RDW (11.5-15.5) % Plt Count (150-450) k/uL MPV Neutrophils % % Lymphocytes % % Monocytes % % Eosinophils % % Basophils % % Neutrophils # (1.3-7.7) k/uL Lymphocytes # (1.0-4.8) k/uL Monocytes # (0-1.0) k/uL Eosinophils # (0-0.7) k/uL Basophils # (0-0.2) k/uL PT (9.0-12.0) sec INR (<1.2) APTT (22.0-30.0) sec Sodium 139 (137-145) mmol/L Potassium 4.1 (3.5-5.1) mmol/L Chloride 100 (98-107) mmol/L Carbon Dioxide 22 (22-30) mmol/L Anion Gap 17 mmol/L BUN 14 (7-17) mg/dL Creatinine 1.06 H (0.52-1.04) mg/dL Est GFR (CKD-EPI)AfAm 59 (>60 ml/min/1.73 sqM) Est GFR (CKD-EPI)NonAf 51 (>60 ml/min/1.73 sqM) Glucose 185 H (74-99) mg/dL Lactic Ac Sepsis Rflx Plasma Lactic Acid Juan 3.3 H* (0.7-2.0) mmol/L Calcium 10.4 H (8.4-10.2) mg/dL Total Bilirubin 0.8 (0.2-1.3) mg/dL AST 49 H (14-36) U/L ALT 46 H (4-34) U/L Alkaline Phosphatase 61 (38-126) U/L Troponin I <0.012 (0.000-0.034) ng/mL Total Protein 7.5 (6.3-8.2) g/dL Albumin 4.7 (3.5-5.0) g/dL Amylase 38 (30-110) U/L Lipase 122 (23-300) U/L Urine Color Urine Appearance (Clear) Urine pH (5.0-8.0) Ur Specific [place] (1.001-1.035) Urine Protein (Negative) Urine Glucose (UA) (Negative) Urine Ketones (Negative) Urine Blood (Negative) Urine Nitrite (Negative) Urine Bilirubin (Negative) Urine Urobilinogen (<2.0) mg/dL Ur Leukocyte Esterase (Negative) Urine RBC (0-5) /hpf Urine WBC (0-5) /hpf Ur Squamous Epith Cells (0-4) /hpf Coronavirus (PCR) (Not Detectd) Influenza Type A RNA (Not Detectd) Influenza Type B (PCR) (Not Detectd) 0608/19/21 08/19/21 Range/Units 12:11 12:11 12:41 WBC (3.8-10.6) k/uL RBC (3.80-5.40) m/uL Hgb (11.4-16.0) gm/dL Hct (34.0-46.0) % MCV (80.0-100.0) fL MCH (25.0-35.0) pg MCHC (31.0-37.0) g/dL RDW (11.5-15.5) % Plt Count (150-450) k/uL MPV Neutrophils % % Lymphocytes % % Monocytes % % Eosinophils % % Basophils % % Neutrophils # (1.3-7.7) k/uL Lymphocytes # (1.0-4.8) k/uL Monocytes # (0-1.0) k/uL Eosinophils # (0-0.7) k/uL Basophils # (0-0.2) k/uL PT (9.0-12.0) sec INR (<1.2) APTT (22.0-30.0) sec Sodium (137-145) mmol/L Potassium (3.5-5.1) mmol/L Chloride (98-107) mmol/L Carbon Dioxide (22-30) mmol/L Anion Gap mmol/L BUN (7-17) mg/dL Creatinine (0.52-1.04) mg/dL Est GFR (CKD-EPI)AfAm (>60 ml/min/1.73 sqM) Est GFR (CKD-EPI)NonAf (>60 ml/min/1.73 sqM) Glucose (74-99) mg/dL Lactic Ac Sepsis Rflx Y Plasma Lactic Acid Juan (0.7-2.0) mmol/L Calcium (8.4-10.2) mg/dL Total Bilirubin (0.2-1.3) mg/dL AST (14-36) U/L ALT (4-34) U/L Alkaline Phosphatase (38-126) U/L Troponin I (0.000-0.034) ng/mL Total Protein (6.3-8.2) g/dL Albumin (3.5-5.0) g/dL Amylase (30-110) U/L Lipase (23-300) U/L Urine Color Urine Appearance (Clear) Urine pH (5.0-8.0) Ur Specific [place] (1.001-1.035) Urine Protein (Negative) Urine Glucose (UA) (Negative) Urine Ketones (Negative) Urine Blood (Negative) Urine Nitrite (Negative) Urine Bilirubin (Negative) Urine Urobilinogen (<2.0) mg/dL Ur Leukocyte Esterase (Negative) Urine RBC (0-5) /hpf Urine WBC (0-5) /hpf Ur Squamous Epith Cells (0-4) /hpf Coronavirus (PCR) Not Detected (Not Detectd) Influenza Type A RNA Not Detected (Not Detectd) Influenza Type B (PCR) Not Detected (Not Detectd) - EKG Data EKG Comments: 12-lead Electrocardiogram Interpretation Note EKG was reviewed and interpreted by myself. 12-lead ECG performed at 1143 is interpreted by me as revealing normal sinus rhythm at a rate of 91 beats per minute. Left axis deviation. IL interval is 144 ms, QRS duration is 72 ms QTC is 425 ms.. There were no ST or T wave abnormalities to suggest myocardial ischemia or injury. R wave progression across the precordium was satisfactory. By my interpretation this EKG is non-diagnostic for acute ischemia. (Rex Hudson) Disposition <Rex Hudson - Last Filed: 08/19/21 14:38> <Reese Berry - Last Filed: 08/19/21 17:44> Clinical Impression: Diverticulitis Disposition: ADMITTED IP TO THIS HOSP Condition: Fair Referrals: Mallorie Hudson DO [Primary Care Provider] - 1-2 days
[2021-08-19] MEDS ORDERED: KETOROLAC 15 MG/ML 1 ML VIAL IVP STA (14:42)
--- NOTE | 2021-08-19 15:40 | CT ---
EXAMINATION TYPE: CT abdomen pelvis w con DATE OF EXAM: 08/19/2021 COMPARISON: 01/10/2021 and 10/01/2019 HISTORY: 76 year-old female abdominal pain, acute, nonlocalized, vomiting for 2 days. TECHNIQUE: Contiguous axial scanning of the abdomen and pelvis following administration of 80 ml Isov ue 300 IV contrast from a 100 mL bottle. Delayed images through the kidneys and coronal/sagittal rec onstructions performed. CT DLP: 1449.8 mGycm Automated exposure control for dose reduction was used. FINDINGS: Heart upper limits of normal in size. Dependent atelectasis posterior lower lungs. No focal liver lesion or biliary ductal dilatation. Portal venous system is patent. Cholecystectomy clips. Adrenal glands, spleen, and pancreas within normal limits. Symmetric uptake and excretion of contrast from both kidneys. Redemonstrated exophytic lobulated or m ultilocular cyst from the anterior upper pole of the left kidney measuring 4.8 cm, unchanged. Slightl y larger from 10/01/2019 where it measured 4.4 cm. Consider additional annual surveillance follow-up. Some prominent left abdominal jejunal loops with mild fold thickening, axial image 51 and 52. No dila mady small bowel, free fluid, or free air. No mesenteric or retroperitoneal lymphadenopathy. Normal appendix. Mild scattered stool. Left-sided colonic diverticulosis. There is mild pericolonic f at stranding along the midsigmoid colon, axial image 68 and 69. This could reflect prominent pericolo elsy vessels. Mild inflammation difficult to exclude. Bladder distended. Uterus surgically absent. Neither ovary is visualized. No abnormal fluid collectio n in the pelvis or pelvic lymphadenopathy. Bones: Hypertrophic facet arthropathy throughout. Degenerative grade 1 anterolisthesis L4-L5. Moderat e multilevel degenerative disc disease. IMPRESSION: 1. SOME MILD WALL THICKENING OF A FEW LEFT ABDOMINAL JEJUNAL LOOPS. CONSIDER A REGIONAL ENTERITIS. 2. LEFT-SIDED COLONIC DIVERTICULOSIS GREATEST IN THE SIGMOID COLON. THERE IS PERICOLONIC STRANDING HE RE THAT COULD REPRESENT PROMINENT VESSELS VERSUS INFLAMMATION RELATED TO MILD ACUTE DIVERTICULITIS. C LINICALLY CORRELATE. NO ABSCESS OR FREE AIR. 3. EITHER A LOBULATED CYST VERSUS MULTILOCULAR, COMPLEX CYST EXOPHYTIC FROM THE UPPER POLE LEFT KIDNE Y MEASURING 4.8 CM. UNCHANGED FROM 01/10/2021 BUT LARGER FROM 4.4 CM IN 2019. CONSIDER AN ADDITIONAL ANNUAL SURVEILLANCE EXAM.
[2021-08-19] MEDS ORDERED: ACETAMINOPHEN TAB 325 MG TAB PO PRN (17:45)
[2021-08-19] MEDS ORDERED: NALOXONE 0.4 MG/ML 1 ML VIAL IV PRN (17:45)
[2021-08-19] MEDS: SODIUM CHLORIDE 0.9% 1,000 ML IV SCH (18:56)
[2021-08-19] MEDS: PIPERACILLIN-TAZOBACTAM 3.375 GM in SODIUM CHLORIDE 0.9% 100 ML IVPB SCH (18:57)
[2021-08-19] MEDS: MELATONIN 5 MG TABLET PO PRN (23:33)
[2021-08-19] MEDS: ONDANSETRON 4 MG/2 ML VIAL IVP PRN (23:33)
[2021-08-19] MEDS: KETOROLAC 15 MG/ML 1 ML VIAL IVP PRN (23:33)
[2021-08-20] MEDS: PIPERACILLIN-TAZOBACTAM 3.375 GM in SODIUM CHLORIDE 0.9% 100 ML IVPB SCH ×3 (02:42→17:42)
[2021-08-20] MEDS: LEVOTHYROXINE 100 MCG TAB PO SCH (05:24)
[2021-08-20 07:44] LABS: Glucose,Whole Blood 133 mg/dL (75-99)
[2021-08-20] MEDS: KETOROLAC 15 MG/ML 1 ML VIAL IVP PRN ×2 (08:24→17:31)
[2021-08-20] MEDS: SODIUM CHLORIDE 0.9% 1,000 ML IV SCH ×3 (08:26→22:25)
[2021-08-20 11:28] LABS: Basophils # (A) 0.05 X 10*3/uL (0.00-0.10); Basophils % (A) 0.5 %; Eosinophils # (A) 0.02 X 10*3/uL (0.04-0.35); Eosinophils % (A) 0.2 %; HCT 36.8 % (37.2-46.3); HGB 11.4 g/dL (12.0-15.0); Immature Grans, Automated 0.4 %; Lymphocytes # (A) 3.27 X 10*3/uL (0.90-5.00); Lymphocytes % (A) 33.3 %; MCH 28.6 pg (27.0-32.0); MCV 92.5 fL (80.0-97.0); Mean Platelet Volume 10.9 fL (9.5-12.2); Monocytes # (A) 0.64 X 10*3/uL (0.20-1.00); Monocytes % (A) 6.5 %; NRBC Per 100 WBC 0 /100 WBCS (0.0-0.0); Neutrophils # (A) 5.81 X 10*3/uL (1.80-7.70); Neutrophils % (A) 59.1 %; Platelet Count 308 X 10*3/uL (140-440); RBC 3.98 X 10*6/uL (4.10-5.20); RDW 13.2 % (11.5-14.5); WBC 9.83 X 10*3/uL (4.50-10.00)
[2021-08-20 11:48] LABS: African American GFR (CKD) 50.5 (60.0-200.0); Anion Gap 14.8 mmol/L (10.00-18.00); BUN/Creat Ratio 16.08 Ratio (12.00-20.00); Blood Urea Nitrogen 19.3 mg/dL (9.0-27.0); Calcium 8.8 mg/dL (8.7-10.3); Carbon Dioxide 22.2 mmol/L (20.0-27.5); Magnesium 1.8 mg/dL (1.5-2.4); Non-African American GFR(CKD) 43.6 (60.0-200.0); Potassium 4.1 mmol/L (3.5-5.5)
[2021-08-20 12:04] LABS: Glucose,Whole Blood 131 mg/dL (75-99)
--- NOTE | 2021-08-20 12:31 | P.HPIM ---
History of Present Illness his is a pleasant 76 years old female with past medical history of Asthma, COPD, CVA/TIA, Diabetes Mellitus,, GERD/Reflux, Hearing Disorder / Deafness, Hyperlipidemia, Hypertension,Osteoarthritis Sleep Apnea/CPAP/BIPAP, hypothyroid ism, JAGJIT but lost her Cpap, gastric ulcer, IBS, bilateral macular degeneration/diificulty with vision, low back pain with R side sciatica, sores on back and evon legs - open and weeping, Anxiety, Depression presents emergency Department complaining of 2 day history of generalized abdominal discomfort associated with recurrent nausea and vomiting, nonbloody as per patient. Also she is complaining of from lower abdominal pain, his chronic that comes and go but she had it for the last few days, nonspecific, nonradiating moderate in severity. She denies chest pain or dyspnea. No headache or weakness or numbness. She denies smoking, alcohol or illicit drugs Vitals on admission are stable and patient is afebrile. has mild leukocytosis of 10.9, INR and rest of CBC, BMP are unremarkable. Creatinine slightly elevated at 1.06. Glucose 185. Lactic acid elevated came back to normal. Liver enzymes slightly elevated with AST 49 and ALT 46 with normal bilirubin of 0.8. Lipase normal. Urine Analysis looks 2+ ketones with no evidence of infection. Covid and influenza not detected viruses CT of the abdomen and pelvis with contrast: Left exophytic lobulated or multilocular cyst in the left kidney measuring 4.8 cm, and slightly larger from before and recommended follow-up in 1 year. Some mild wall thickening of few jejunal loops consider regional enteritis, possible mild acute diverticulitis EKG showed normal sinus rhythm with no significant ST-T changes. QTC 425 Chest x-ray: Cannot exclude CHF exacerbation there is cardiomegaly with suspected new mild central venous congestion. Correlate clinically In the emergency room patient was started on normal saline, Pepcid and Benadryl and IV Solu-Medrol. Also Zosyn Review of Systems Review of systems CONSTITUTIONAL: No fever, no malaise, no fatigue. HEENT: No recent visual problems or hearing problems. Denied any sore throat. CARDIOVASCULAR: No orthopnea, PND, no palpitations, no syncope. PULMONARY: No shortness of breath, no cough, no hemoptysis. GASTROINTESTINAL: No diarrhea, . Normoactive bowel sounds. NEUROLOGICAL: No headaches, no weakness, no numbness. HEMATOLOGICAL: Denies any bleeding or petechiae. GENITOURINARY: Denies any burning micturition, frequency, or urgency. MUSCULOSKELETAL/RHEUMATOLOGICAL: Denies any joint pain, swelling, or any muscle pain. ENDOCRINE: Denies any polyuria or polydipsia. Past Medical History Past Medical History: Asthma, Chest Pain / Angina, COPD, CVA/TIA, Diabetes Mellitus, Eye Disorder, GERD/Reflux, Hearing Disorder / Deafness, Hyperlipidemia, Hypertension, Neurologic Disorder, Osteoarthritis (OA), Pneumonia, Skin Disorder, Sleep Apnea/CPAP/BIPAP, Thyroid Disorder Additional Past Medical History / Comment(s): hx. past UTIs, NIDDM type II, neuropathy bilateral feet, cardiac valve disease, murmur, TIA, seizure-last one 2017, neurodematitis with rash, bronchitis, JAGJIT but lost her Cpap, gastric ulcer, IBS, bilateral macular degeneration/diificulty with vision, very [place] bilaterally-normally uses aide in R ear, DDD, low back pain with R side sciatica , hypothyroid, sores on back and evon legs - open and weeping History of Any Multi-Drug Resistant Organisms: None Reported Past Surgical History: Adenoidectomy, Cholecystectomy, Hysterectomy, Joint Replacement, Orthopedic Surgery, Tonsillectomy Additional Past Surgical History / Comment(s): EGD, colonoscopy, hemorrhoidectom y, D&C, bilatearl knee scopes and then total knee arthroplasties, bilateral rotator cuff repairs, lumbar epidural injections-last one 2 weeks ago, bilateral eye cataract removals with lens implants, L lower eyelid "wart" removed Past Anesthesia/Blood Transfusion Reactions: No Reported Reaction Past Psychological History: Anxiety, Depression Smoking Status: Former smoker Past Alcohol Use History: None Reported Past Drug Use History: None Reported - Past Family History Father Family Medical History: Pneumonia Mother Family Medical History: Cancer Additional Family Medical History / Comment(s): PANCREAS CA Medications and Allergies Home Medications Medication Instructions Recorded Confirmed Type metFORMIN HCL [Glucophage] 1,000 mg PO BID 07/17/14 08/19/21 History Montelukast [Singulair] 10 mg PO HS 11/06/17 08/19/21 History Fluticasone Nasal [place] [Flonase 2 spray EA NOSTRIL DAILY PRN 09/16/18 08/19/21 History Nasal [place]] Levothyroxine Sodium [Synthroid] 100 mcg PO DAILY 09/16/18 08/19/21 History busPIRone HCl [Buspar] 5 mg PO BID 09/16/18 08/19/21 History Baclofen 5 mg PO BID PRN 03/22/19 08/19/21 History DULoxetine HCL [Cymbalta] 60 mg PO BID 03/22/19 08/19/21 History Repaglinide [Prandin] 0.5 mg PO TID-W/MEALS 03/22/19 08/19/21 History glyBURIDE [Diabeta] 5 mg PO DAILY 03/22/19 08/19/21 History levETIRAcetam [Keppra] 750 mg PO BID 03/22/19 08/19/21 History Atorvastatin [Lipitor] 80 mg PO HS 10/01/19 08/19/21 History Biotin 10,000 mcg PO DAILY 10/01/19 08/19/21 History Fenofibrate [Lofibra] 160 mg PO DAILY 10/01/19 08/19/21 History Ferrous Sulfate [Iron (65 MG 325 mg PO DAILY 10/01/19 08/19/21 History Elemental)] Lisinopril-Hctz 20-12.5 mg 1 tab PO DAILY 10/01/19 08/19/21 History [Zestoretic 20-12.5] Verapamil [Isoptin] 40 mg PO TID #90 tab 10/04/19 08/19/21 Rx Aspirin 81 mg PO DAILY 09/03/20 08/19/21 History Insulin NPH Hum/Reg Insulin Hm 7 units SQ BID 09/03/20 08/19/21 History [Novolin 70-30 Flexpen] Omeprazole [PriLOSEC] 40 mg PO DAILY 09/03/20 08/19/21 History Vit C/E/Zn/Coppr/Lutein/Zeaxan 1 tab PO BID 09/03/20 08/19/21 History [Preservision Areds 2 Softgel] Ipratropium-Albuterol Nebulize 3 ml INHALATION RT-QID PRN 09/28/20 08/19/21 History [Duoneb 0.5 mg-3 mg/3 ml Soln] Ergocalciferol (Vitamin D2) 1,250 mcg PO MO 09/29/20 08/19/21 History [Drisdol (50,000 Iu)] Metoprolol Tartrate [Lopressor] 25 mg PO DAILY 10/23/20 08/19/21 History Magnesium Oxide [Mag-Ox] 400 mg PO DAILY 12/21/20 08/19/21 History Gabapentin 600 mg PO TID 01/10/21 08/19/21 History Acetaminophen Tab [Tylenol] 650 mg PO Q6HR PRN 08/19/21 08/19/21 History Clindamycin Topical Soln 1 applic TOPICAL BID 08/19/21 08/19/21 History [Cleocin-T Topical Soln] Famotidine [Pepcid] 20 mg PO DAILY 08/19/21 08/19/21 History Lidocaine 4% Patch 1 patch TOPICAL DAILY PRN 08/19/21 08/19/21 History Multivitamins, Thera [Multivitamin 1 tab PO DAILY 08/19/21 08/19/21 History (formulary)] Ondansetron Odt [Zofran ODT] 8 mg PO Q8H PRN 08/19/21 08/19/21 History Pantoprazole Sodium [Protonix] 40 mg PO DAILY 08/19/21 08/19/21 History Super B Complex 1 tab PO DAILY 08/19/21 08/19/21 History Allergies Allergy/AdvReac Type Severity Reaction Status Date / Time banana [Banana] Allergy Severe Anaphylaxis Verified 08/19/21 11:38 iodine Allergy Severe DYSPNEA, Verified 08/19/21 11:38 SKIN INFLAMED kiwi Allergy Severe Anaphylaxis Verified 08/19/21 11:38 grass pollen Allergy Unknown Verified 08/19/21 11:38 Iodinated Contrast Media Allergy Dyspnea Verified 08/19/21 11:38 latex Allergy Dyspnea, Verified 08/19/21 11:38 Itching morphine Allergy Rapid Verified 08/19/21 11:38 Heart Rate rubber Allergy Dyspnea Uncoded 08/19/21 11:38 smoke Allergy Dyspnea Uncoded 08/19/21 11:38 Physical Exam Vitals: Vital Signs Temp Pulse Pulse Resp BP BP Pulse Ox 08/20/21 05:27 98.1 F 84 18 127/77 95 08/20/21 02:52 91 16 08/19/21 22:05 98.0 F 91 16 128/79 96 08/19/21 21:46 96.7 F L 92 18 100/85 95 08/19/21 18:57 88 18 136/76 95 08/19/21 16:00 99 18 132/68 93 L 08/19/21 14:29 93 15 129/72 98 08/19/21 13:38 89 18 124/77 95 08/19/21 11:41 88 18 123/91 99 08/19/21 11:35 98.9 F 98 20 109/67 100 Intake and Output 08/19/21 08/20/21 08/20/21 22:59 06:59 14:59 Intake Total 600 Balance 600 Intake: Intake, IV Titration 600 Amount Sodium Chloride 0.9% 1, 600 000 ml @ 75 mls/hr IV . [id number] [facility] Rx#:[id number] Other: Voiding Method Toilet Weight 77.111 kg GENERAL: The patient is alert and oriented x3, not in any acute distress. Well developed, well nourished. HEENT: Pupils are round and equally reacting to light. EOMI. No scleral icterus. No conjunctival pallor. Normocephalic, atraumatic. No pharyngeal erythema. No thyromegaly. CARDIOVASCULAR: S1 and S2 present. No murmurs, rubs, or gallops. PULMONARY: Chest is clear to auscultation, no wheezing or crackles. -ABDOMEN: Soft, lower abdominal tenderness, no rebound tenderness, nondistended, normoactive bowel sounds. No palpable organomegaly. MUSCULOSKELETAL: No joint swelling or deformity. EXTREMITIES: No cyanosis, clubbing, or pedal edema. NEUROLOGICAL: Gross neurological examination did not reveal any focal deficits. SKIN: No rashes. no petechiae. Results CBC & Chem 7: 08/20/21 06:27 08/20/21 06:27 Labs: Abnormal Lab Results - Last 24 Hours (Table) 08/19/21 08/19/21 08/19/21 Range/Units 12:07 12:07 12:07 WBC 10.9 H (3.8-10.6) k/uL MCHC 30.8 L (31.0-37.0) g/dL Creatinine 1.06 H (0.52-1.04) mg/dL Glucose 185 H (74-99) mg/dL POC Glucose (mg/dL) (75-99) mg/dL Plasma Lactic Acid Juan (0.7-2.0) mmol/L Calcium 10.4 H (8.4-10.2) mg/dL AST 49 H (14-36) U/L ALT 46 H (4-34) U/L Urine Protein Trace H (Negative) Urine Glucose (UA) Trace H (Negative) Urine Ketones 2+ H (Negative) Ur Leukocyte Esterase Small H (Negative) Urine WBC 10 H (0-5) /hpf 08/19/21 08/20/21 Range/Units 12:07 07:42 WBC (3.8-10.6) k/uL MCHC (31.0-37.0) g/dL Creatinine (0.52-1.04) mg/dL Glucose (74-99) mg/dL POC Glucose (mg/dL) 133 H (75-99) mg/dL Plasma Lactic Acid Juan 3.3 H* (0.7-2.0) mmol/L Calcium (8.4-10.2) mg/dL AST (14-36) U/L ALT (4-34) U/L Urine Protein (Negative) Urine Glucose (UA) (Negative) Urine Ketones (Negative) Ur Leukocyte Esterase (Negative) Urine WBC (0-5) /hpf Thrombosis Risk Factor Assmnt - Choose All That Apply Any of the Below Risk Factors Present?: Yes Each Factor Represents 1 point: Obesity (BMI >25) Other Risk Factors: Yes Each Risk Factor Represents 3 Points: Age 75 years or older Thrombosis Risk Factor Assessment Total Risk Factor Score: 4 Thrombosis Risk Factor Assessment Level: Moderate Risk Assessment and Plan Assessment: Acute diverticulitis Possible regional jejunitis Constipation rather than diarrhea over the last 2 days prior to admission. COPD with no acute exacerbation Diabetes mellitus History of GERD Hyperlipidemia Hypertension Osteoarthritis History of sleep apnea Hypothyroidism History of irritable bowel syndrome History of bilateral macular degeneration History of low back pain with right sciatic History of prostatic depression, not an active issue Plan: This is a pleasant 76 years old female who presents with gas GI symptoms possible acute diverticulitis/enteritis consintue with IV fluids and pain management. Continue with Zosyn We will keep monitoring Check stool Studies Check C. diff Check pro-calcitonin Surgery team consult Neurology follow-up as an outpatient Labs and medication were reviewed.. Continue same treatment. Continue with symptomatic treatment. Resume home medication. Monitor lytes and vitals. DVT and GI prophylaxis. Further recommendations as per clinical course of the patient DVT prophylaxis: Subcutaneous heparin GI Prophylaxis: Pepcid PT/OT: Pending Prognosis is guarded
--- NOTE | 2021-08-20 15:40 | P.GSCN ---
History of Present Illness Consult date: 08/20/21 History of present illness: CHIEF COMPLAINT: Abdominal pain HISTORY OF PRESENT ILLNESS: This is a 76-year-old female who presented to the hospital with complaints of lower abdominal pain. Patient is tender in the left lower quadrant. Patient is very hard of hearing. She had a computed tomography scan with evidence of diverticulitis. She's been started on antibiotics. Patient seen and examined with Dr. brown. Patient reports that she is less tender since coming into the hospital. She had a previous EGD and colonoscopy which had shown antral ulcer and diverticulosis. No evidence of blood in her emesis or stool. She had a mildly elevated white count and lactic acid. Denies any fever chills or sweats. Patient is a poor historian. PAST MEDICAL HISTORY: See list. PAST SURGICAL HISTORY: See list. MEDICATIONS: See list. ALLERGIES: See list. SOCIAL HISTORY: No illicit drug use. REVIEW OF SYSTEMS: CONSTITUTIONAL: Denies fever or chills. HEENT: Denies blurred vision, vision changes, or eye pain. Denies hemoptysis CARDIOVASCULAR: Denies chest pain or pressure. RESPIRATORY: No shortness of breath. GASTROINTESTINAL: See HPI for pertinent findings HEMATOLOGIC: Denies bleeding disorders. GENITOURINARY: Denies any blood in urine or increased urinary frequency. SKIN: Denies pruitis. Denies rash. PHYSICAL EXAM: VITAL SIGNS: Reviewed GENERAL: Well-developed in no acute distress. HEENT: No sclera icterus. Extraocular movements grossly intact. Moist buccal mucosa. Head is atraumatic, normocephalic. No nasal drainage. ABDOMEN: Soft. Nondistended. Tenderness to palpation left lower quadrant NEUROLOGIC: Alert and oriented. Cranial nerves II through XII grossly intact. LABORATORY DATA: WBC 10.9 down to 9.83 hemoglobin 14.2 down to 11.4 platelets 308 Sodium is 142 potassium is 4.1 creatinine 1.6-1.2 AST 49 ALT 46 lipase 122 Covid and influenza screening not detected IMAGING: Computed tomography scan of the pelvis some mild wall thickening of a few left abdominal jejunal loops. Consider regional enteritis. Left-sided colonic diverticulosis is greatest in the sigmoid colon. There is pericolonic stranding that could represent prominent vessels versus inflammation related to mild acute diverticulitis. No abscess or free air. Either a lobulated cyst versus multiloculated complex cyst from the upper pole left kidney measuring 4.8 cm. Unchanged from 01/10/2021 ASSESSMENT: 1. Acute diverticulitis PLAN: -Continue to observe -Continue antibiotics -Advance diet to full liquids -Continue supportive care Physician Low Vision Therapist note has been reviewed by physician. Signing provider agrees with the documented findings, assessment, and plan of care. Past Medical History Past Medical History: Asthma, Chest Pain / Angina, COPD, CVA/TIA, Diabetes Mellitus, Eye Disorder, GERD/Reflux, Hearing Disorder / Deafness, Hyperlipidemia, Hypertension, Neurologic Disorder, Osteoarthritis (OA), Pneumonia, Skin Disorder, Sleep Apnea/CPAP/BIPAP, Thyroid Disorder Additional Past Medical History / Comment(s): hx. past UTIs, NIDDM type II, neuropathy bilateral feet, cardiac valve disease, murmur, TIA, seizure-last one 2017, neurodematitis with rash, bronchitis, JAGJIT but lost her Cpap, gastric ulcer, IBS, bilateral macular degeneration/diificulty with vision, very [place] bilaterally-normally uses aide in R ear, DDD, low back pain with R side sciatica, hypothyroid, sores on back and evon legs - open and weeping History of Any Multi-Drug Resistant Organisms: None Reported Past Surgical History: Adenoidectomy, Cholecystectomy, Hysterectomy, Joint Replacement, Orthopedic Surgery, Tonsillectomy Additional Past Surgical History / Comment(s): EGD, colonoscopy, hemorrhoidectomy, D&C, bilatearl knee scopes and then total knee arthroplasties, bilateral rotator cuff repairs, lumbar epidural injections-last one 2 weeks ago, bilateral eye cataract removals with lens implants, L lower eyelid "wart" removed Past Anesthesia/Blood Transfusion Reactions: No Reported Reaction Past Psychological History: Anxiety, Depression Smoking Status: Former smoker Past Alcohol Use History: None Reported Past Drug Use History: None Reported - Past Family History Father Family Medical History: Pneumonia Mother Family Medical History: Cancer Additional Family Medical History / Comment(s): PANCREAS [place] Medications and Allergies Home Medications Medication Instructions Recorded Confirmed Type metFORMIN HCL [Glucophage] 1,000 mg PO BID 07/17/14 08/19/21 History Montelukast [Singulair] 10 mg PO HS 11/06/17 08/19/21 History Fluticasone Nasal [place] [Flonase 2 spray EA NOSTRIL DAILY PRN 09/16/18 08/19/21 History Nasal [place]] Levothyroxine Sodium [Synthroid] 100 mcg PO DAILY 09/16/18 08/19/21 History busPIRone HCl [Buspar] 5 mg PO BID 09/16/18 08/19/21 History Baclofen 5 mg PO BID PRN 03/22/19 08/19/21 History DULoxetine HCL [Cymbalta] 60 mg PO BID 03/22/19 08/19/21 History Repaglinide [Prandin] 0.5 mg PO TID-W/MEALS 03/22/19 08/19/21 History glyBURIDE [Diabeta] 5 mg PO DAILY 03/22/19 08/19/21 History levETIRAcetam [Keppra] 750 mg PO BID 03/22/19 08/19/21 History Atorvastatin [Lipitor] 80 mg PO HS 10/01/19 08/19/21 History Biotin 10,000 mcg PO DAILY 10/01/19 08/19/21 History Fenofibrate [Lofibra] 160 mg PO DAILY 10/01/19 08/19/21 History Ferrous Sulfate [Iron (65 MG 325 mg PO DAILY 10/01/19 08/19/21 History Elemental)] Lisinopril-Hctz 20-12.5 mg 1 tab PO DAILY 10/01/19 08/19/21 History [Zestoretic 20-12.5] Verapamil [Isoptin] 40 mg PO TID #90 tab 10/04/19 08/19/21 Rx Aspirin 81 mg PO DAILY 09/03/20 08/19/21 History Insulin NPH Hum/Reg Insulin Hm 7 units SQ BID 09/03/20 08/19/21 History [Novolin 70-30 Flexpen] Omeprazole [PriLOSEC] 40 mg PO DAILY 09/03/20 08/19/21 History Vit C/E/Zn/Coppr/Lutein/Zeaxan 1 tab PO BID 09/03/20 08/19/21 History [Preservision Areds 2 Softgel] Ipratropium-Albuterol Nebulize 3 ml INHALATION RT-QID PRN 09/28/20 08/19/21 History [Duoneb 0.5 mg-3 mg/3 ml Soln] Ergocalciferol (Vitamin D2) 1,250 mcg PO MO 09/29/20 08/19/21 History [Drisdol (50,000 Iu)] Metoprolol Tartrate [Lopressor] 25 mg PO DAILY 10/23/20 08/19/21 History Magnesium Oxide [Mag-Ox] 400 mg PO DAILY 12/21/20 08/19/21 History Gabapentin 600 mg PO TID 01/10/21 08/19/21 History Acetaminophen Tab [Tylenol] 650 mg PO Q6HR PRN 08/19/21 08/19/21 History Clindamycin Topical Soln 1 applic TOPICAL BID 08/19/21 08/19/21 History [Cleocin-T Topical Soln] Famotidine [Pepcid] 20 mg PO DAILY 08/19/21 08/19/21 History Lidocaine 4% Patch 1 patch TOPICAL DAILY PRN 08/19/21 08/19/21 History Multivitamins, Thera [Multivitamin 1 tab PO DAILY 08/19/21 08/19/21 History (formulary)] Ondansetron Odt [Zofran ODT] 8 mg PO Q8H PRN 08/19/21 08/19/21 History Pantoprazole Sodium [Protonix] 40 mg PO DAILY 08/19/21 08/19/21 History Super B Complex 1 tab PO DAILY 08/19/21 08/19/21 History Allergies Allergy/AdvReac Type Severity Reaction Status Date / Time banana [Banana] Allergy Severe Anaphylaxis Verified 08/19/21 11:38 iodine Allergy Severe DYSPNEA, Verified 08/19/21 11:38 SKIN INFLAMED kiwi Allergy Severe Anaphylaxis Verified 08/19/21 11:38 grass pollen Allergy Unknown Verified 08/19/21 11:38 Iodinated Contrast Media Allergy Dyspnea Verified 08/19/21 11:38 latex Allergy Dyspnea, Verified 08/19/21 11:38 Itching morphine Allergy Rapid Verified 08/19/21 11:38 Heart Rate rubber Allergy Dyspnea Uncoded 08/19/21 11:38 smoke Allergy Dyspnea Uncoded 08/19/21 11:38 Surgical - Exam Vital Signs Temp Pulse Resp BP Pulse Ox 98.9 F 98 20 109/67 100 08/19/21 11:35 08/19/21 11:35 08/19/21 11:35 08/19/21 11:35 08/19/21 11:35 Results - Labs 08/20/21 06:27 08/20/21 06:27 Abnormal Lab Results - Last 24 Hours (Table) 08/20/21 08/20/21 08/20/21 Range/Units 06:27 06:27 07:42 RBC 3.98 L (4.10-5.20) X 10*6/uL Hgb 11.4 L (12.0-15.0) g/dL Hct 36.8 L (37.2-46.3) % MCHC 31.0 L (32.0-37.0) g/dL Eosinophils # 0.02 L (0.04-0.35) X 10*3/uL Est GFR (CKD-EPI)AfAm 50.5 L (60.0-200.0) Est GFR (CKD-EPI)NonAf 43.6 L (60.0-200.0) Glucose 146 H (70-110) mg/dL POC Glucose (mg/dL) 133 H (75-99) mg/dL 08/20/21 Range/Units 12:02 RBC (4.10-5.20) X 10*6/uL Hgb (12.0-15.0) g/dL Hct (37.2-46.3) % MCHC (32.0-37.0) g/dL Eosinophils # (0.04-0.35) X 10*3/uL Est GFR (CKD-EPI)AfAm (60.0-200.0) Est GFR (CKD-EPI)NonAf (60.0-200.0) Glucose (70-110) mg/dL POC Glucose (mg/dL) 131 H (75-99) mg/dL Microbiology - Last 24 Hours (Table) 08/19/21 12:07 Blood Culture - Preliminary Blood No Growth after 24 hours 08/19/21 12:07 Blood Culture - Preliminary Blood No Growth after 24 hours Diabetes panel 08/20/21 Range/Units 06:27 Sodium 142 (135-145) mmol/L Potassium 4.1 (3.5-5.5) mmol/L Chloride 105 (96-109) mmol/L Carbon Dioxide 22.2 (20.0-27.5) mmol/L BUN 19.3 (9.0-27.0) mg/dL Creatinine 1.2 (0.6-1.5) mg/dL Glucose 146 H (70-110) mg/dL Calcium 8.8 (8.7-10.3) mg/dL Calcium panel 08/20/21 Range/Units 06:27 Calcium 8.8 (8.7-10.3) mg/dL Pituitary panel 08/20/21 Range/Units 06:27 Sodium 142 (135-145) mmol/L Potassium 4.1 (3.5-5.5) mmol/L Chloride 105 (96-109) mmol/L Carbon Dioxide 22.2 (20.0-27.5) mmol/L BUN 19.3 (9.0-27.0) mg/dL Creatinine 1.2 (0.6-1.5) mg/dL Glucose 146 H (70-110) mg/dL Calcium 8.8 (8.7-10.3) mg/dL Adrenal panel 08/20/21 Range/Units 06:27 Sodium 142 (135-145) mmol/L Potassium 4.1 (3.5-5.5) mmol/L Chloride 105 (96-109) mmol/L Carbon Dioxide 22.2 (20.0-27.5) mmol/L BUN 19.3 (9.0-27.0) mg/dL Creatinine 1.2 (0.6-1.5) mg/dL Glucose 146 H (70-110) mg/dL Calcium 8.8 (8.7-10.3) mg/dL
[2021-08-20 17:23] LABS: Glucose,Whole Blood 207 mg/dL (75-99)
[2021-08-20] MEDS: ONDANSETRON 4 MG/2 ML VIAL IVP PRN (17:30)
[2021-08-20] MEDS ORDERED: FLUTICASONE 50MCG/SPRAY NASAL 16GM EA NOSTRIL PRN (19:36)
[2021-08-20] MEDS ORDERED: BACLOFEN 10 MG TAB PO PRN (19:36)
[2021-08-20] MEDS ORDERED: IPRATROPIUM-ALBUTEROL 3 ML NEB INHALATION PRN (19:36)
[2021-08-20] MEDS ORDERED: LIDOCAINE 4% TOPICAL PRN (19:36)
[2021-08-20] MEDS: CLINDAMYCIN TOPICAL SCH (20:20)
[2021-08-20] MEDS: DULoxetine HCL 60 MG CAPSULE.DR PO SCH (20:26)
[2021-08-20] MEDS: ATORVASTATIN 80 MG TAB PO SCH (20:26)
[2021-08-20] MEDS: MONTELUKAST 10 MG TAB PO SCH (20:26)
[2021-08-20] MEDS: GABAPENTIN 300 MG CAP PO SCH (20:26)
[2021-08-20] MEDS: metFORMIN 500 MG TAB PO SCH (20:26)
[2021-08-20] MEDS: VIT A,C & E-LUTEIN-MINERALS 1 EACH TAB PO SCH (20:26)
[2021-08-20] MEDS: busPIRone HCl 5 MG TAB PO SCH (20:26)
[2021-08-20] MEDS: MELATONIN 5 MG TABLET PO PRN (20:26)
[2021-08-20] MEDS: VERAPAMIL 40 MG TAB PO SCH (20:26)
[2021-08-20] MEDS: METOPROLOL TARTRATE 25 MG TAB PO SCH (20:26)
[2021-08-20 20:42] LABS: Glucose,Whole Blood 164 mg/dL (75-99)
[2021-08-20] MEDS ORDERED: ADENOSINE 3 MG/ML 2 ML VIAL IVP STA (21:52)
[2021-08-20 22:39] LABS: Basophils # (A) 0.1 k/uL (0-0.2); Basophils % (A) 1 %; Eosinophils # (A) 0.2 k/uL (0-0.7); Eosinophils % (A) 2 %; HCT 44.1 % (34.0-46.0); HGB 13.4 gm/dL (11.4-16.0); Lymphocytes % (A) 34 %; MCH 28.6 pg (25.0-35.0); MCHC 30.4 g/dL (31.0-37.0); MCV 94.3 fL (80.0-100.0); Mean Platelet Volume 8.3; Monocytes # (A) 0.5 k/uL (0-1.0); Monocytes % (A) 5 %; Neutrophils # (A) 6.5 k/uL (1.3-7.7); Neutrophils % (A) 56 %; Platelet Count 351 k/uL (150-450); RBC 4.67 m/uL (3.80-5.40); RDW 12.7 % (11.5-15.5); WBC 11.6 k/uL (3.8-10.6)
[2021-08-20 22:42] LABS: ALT 49 U/L (4-34); AST 50 U/L (14-36); African American GFR (CKD) 48 (>60 ml/min/1.73 sqM); Albumin/Globulin Ratio 1.6; Alkaline Phosphatase 57 U/L (38-126); Anion Gap 10 mmol/L; Blood Urea Nitrogen 22 mg/dL (7-17); Calcium 9.4 mg/dL (8.4-10.2); Carbon Dioxide 20 mmol/L (22-30); Chloride 107 mmol/L (98-107); Globulin 2.5 g/dL; Glucose 175 mg/dL (74-99); Magnesium 1.7 mg/dL (1.6-2.3); Non-African American GFR(CKD) 42 (>60 ml/min/1.73 sqM); Potassium 4.2 mmol/L (3.5-5.1); Sodium 137 mmol/L (137-145); Total Bilirubin 0.6 mg/dL (0.2-1.3); Total Protein 6.5 g/dL (6.3-8.2)
[2021-08-20 22:44] LABS: Prothrombin Time 11.1 sec (9.0-12.0)
[2021-08-21] MEDS: PIPERACILLIN-TAZOBACTAM 3.375 GM in SODIUM CHLORIDE 0.9% 100 ML IVPB SCH ×3 (01:48→17:34)
[2021-08-21] MEDS: REPAGLINIDE 1 MG TAB PO SCH ×3 (05:56→17:34)
[2021-08-21] MEDS: LEVOTHYROXINE 100 MCG TAB PO SCH (05:56)
[2021-08-21 06:35] LABS: Glucose,Whole Blood 173 mg/dL (75-99)
[2021-08-21] MEDS: CLINDAMYCIN TOPICAL SCH (08:19)
[2021-08-21] MEDS: GABAPENTIN 300 MG CAP PO SCH ×3 (08:32→20:38)
[2021-08-21] MEDS: busPIRone HCl 5 MG TAB PO SCH ×2 (08:32→20:37)
[2021-08-21] MEDS: FENOFIBRATE 160 MG TAB PO SCH (08:32)
[2021-08-21] MEDS: glipiZIDE 10 MG TAB PO SCH (08:32)
[2021-08-21] MEDS: FAMOTIDINE 20 MG TAB PO SCH (08:32)
[2021-08-21] MEDS: METOPROLOL TARTRATE 25 MG TAB PO SCH ×2 (08:32→20:38)
[2021-08-21] MEDS: DULoxetine HCL 60 MG CAPSULE.DR PO SCH ×2 (08:32→20:37)
[2021-08-21] MEDS: metFORMIN 500 MG TAB PO SCH ×2 (08:32→20:38)
[2021-08-21] MEDS: FERROUS SULFATE 325 MG TAB PO SCH (08:33)
[2021-08-21] MEDS: MULTIVITAMINS, THERA 1 EACH TAB PO SCH (08:33)
[2021-08-21] MEDS: MAGNESIUM OXIDE 400 MG TAB PO SCH (08:33)
[2021-08-21] MEDS: PANTOPRAZOLE 40 MG TABLET PO SCH (08:33)
[2021-08-21] MEDS: VERAPAMIL 40 MG TAB PO SCH (08:34)
[2021-08-21] MEDS: VIT A,C & E-LUTEIN-MINERALS 1 EACH TAB PO SCH ×2 (08:34→20:37)
[2021-08-21] MEDS: LISINOPRIL-HCTZ 20-12.5 MG 1 EACH TAB PO SCH (08:34)
[2021-08-21] MEDS ORDERED: NON FORMULARY DRUG (Biotin [Biotin] 10,000 MCG Capsule) PO SCH (09:00)
[2021-08-21] MEDS ORDERED: NON FORMULARY DRUG (Super B Complex 1 TAB) PO SCH (09:00)
[2021-08-21] MEDS ORDERED: NON FORMULARY DRUG (Omeprazole 40 MG Capsule.Dr) PO SCH (09:00)
[2021-08-21] MEDS ORDERED: VERAPAMIL 40 MG TAB PO ONE (09:30)
--- NOTE | 2021-08-21 10:25 | P.CRDCN ---
History of Present Illness Consult date: 08/21/21 History of present illness: HISTORY OF PRESENT ILLNESS: This is a 76-year-old female with a past medical history significant for hypertension, hyperlipidemia, and diabetes. Patient follows in the office with Dr. Borrero. We have been asked to see the patient in consultation for SVT. Patient examined at the bedside. Patient is admitted to the hospital secondary to acute diverticulitis. She is being followed by general surgery. Yesterday evening, the patient went into SVT and she was transferred to the cardiac stepdown unit. She received 6 mg IV adenosine with conversion to sinus mechanism. She is maintaining sinus mechanism this morning. Patient believes she may have had SVT in the past. * EKG reveals SVT * Chest xray cannot exclude CHF exacerbation as well as cardio male with suspected new mild central vascular congestion. Correlate clinically. * Laboratory data: W BC 11.6. Hemoglobin 13.4. Platelet count 351. Sodium 137. Potassium 4.2. BUN 22. Creatinine 1.25. * Current home cardiac medications include verapamil 40 mg 3 times a day, metoprolol tartrate 25 mg daily, aspirin 81 mg daily, lisinopril hydrochlorothiazide 20 mg12.5 mg daily, Lipitor 80 mg at night * Most recent echocardiogram obtained in September 2019 revealed normal ejection fraction, mild AR, mild TR, mild MR * Cardiac catheterization history: 2018 revealing normal coronary arteries REVIEW OF SYSTEMS: At the time of my exam: CONSTITUTIONAL: Denies fever or chills. HEENT: Denies blurred vision, vision changes, or eye pain. Denies hemoptysis CARDIOVASCULAR: Denies chest pain. Denies orthopnea. Denies PND. Denies palpit ations RESPIRATORY: Denies shortness of breath. GASTROINTESTINAL: Denies abdominal pain. Denies nausea or vomiting. HEMATOLOGIC: Denies bleeding disorders. GENITOURINARY: Denies any blood in urine. SKIN: Denies pruitis. Denies rash. PHYSICAL EXAM: VITAL SIGNS: Reviewed. GENERAL: Well-developed in no acute distress. HEENT: Head is normocephalic. Pupils are equal, round. Sclerae anicteric. Mucous membranes of the mouth are moist. Neck supple. No JVD or thyromegaly LUNGS: Respirations even and unlabored. Lungs essentially clear to auscultation bilaterally. HEART: Regular rate and rhythm. S1 and S2 heard. ABDOMEN: Soft. Nondistended. Nontender. EXTREMITIES: Normal range of motion. No clubbing or cyanosis. Peripheral pulses intact. No lower extremity edema NEUROLOGIC: Awake and alert. Oriented x 3. ASSESSMENT: Abdominal pain Acute diverticulitis SVT, conversion to sinus mechanism with adenosine Hypertension Hyperlipidemia Diabetes PLAN: Obtain 2D echo to assess cardiac structure and function Check TSH Increase verapamil to 80 mg 3 times a day Increase metoprolol to 25 mg twice a day Continue telemetry monitoring Resume additional home cardiac medications Further recommendations pending patient's course Nurse practitioner note has been reviewed by physician. Signing provider agrees with the documented findings, assessment, and plan of care. Past Medical History Past Medical History: Asthma, Chest Pain / Angina, COPD, CVA/TIA, Diabetes Me llitus, Eye Disorder, GERD/Reflux, Hearing Disorder / Deafness, Hyperlipidemia, Hypertension, Neurologic Disorder, Osteoarthritis (OA), Pneumonia, Skin Disorder, Sleep Apnea/CPAP/BIPAP, Thyroid Disorder Additional Past Medical History / Comment(s): hx. past UTIs, NIDDM type II, neuropathy bilateral feet, cardiac valve disease, murmur, TIA, seizure-last one 2017, neurodematitis with rash, bronchitis, JAGJIT but lost her Cpap, gastric ulcer, IBS, bilateral macular degeneration/diificulty with vision, very [place] bilaterally-normally uses aide in R ear, DDD, low back pain with R side sciatica, hypothyroid, sores on back and evon legs - open and weeping History of Any Multi-Drug Resistant Organisms: None Reported Past Surgical History: Adenoidectomy, Cholecystectomy, Hysterectomy, Joint Replacement, Orthopedic Surgery, Tonsillectomy Additional Past Surgical History / Comment(s): EGD, colonoscopy, hemorrhoidectomy, D&C, bilatearl knee scopes and then total knee arthroplasties, bilateral rotator cuff repairs, lumbar epidural injections-last one 2 weeks ago, bilateral eye cataract removals with lens implants, L lower eyelid "wart" removed Past Anesthesia/Blood Transfusion Reactions: No Reported Reaction Past Psychological History: Anxiety, Depression Smoking Status: Former smoker Past Alcohol Use History: None Reported Past Drug Use History: None Reported - Past Family History Father Family Medical History: Pneumonia Mother Family Medical History: Cancer Additional Family Medical History / Comment(s): PANCREAS [place] Medications and Allergies Home Medications Medication Instructions Recorded Confirmed Type metFORMIN HCL [Glucophage] 1,000 mg PO BID 07/17/14 08/19/21 History Montelukast [Singulair] 10 mg PO HS 11/06/17 08/19/21 History Fluticasone Nasal Amagon [Flonase 2 spray EA NOSTRIL DAILY PRN 09/16/18 08/19/21 History Nasal Amagon] Levothyroxine Sodium [Synthroid] 100 mcg PO DAILY 09/16/18 08/19/21 History busPIRone HCl [Buspar] 5 mg PO BID 09/16/18 08/19/21 History Baclofen 5 mg PO BID PRN 03/22/19 08/19/21 History DULoxetine HCL [Cymbalta] 60 mg PO BID 03/22/19 08/19/21 History Repaglinide [Prandin] 0.5 mg PO TID-W/MEALS 03/22/19 08/19/21 History glyBURIDE [Diabeta] 5 mg PO DAILY 03/22/19 08/19/21 History levETIRAcetam [Keppra] 750 mg PO BID 03/22/19 08/19/21 History Atorvastatin [Lipitor] 80 mg PO HS 10/01/19 08/19/21 History Biotin 10,000 mcg PO DAILY 10/01/19 08/19/21 History Fenofibrate [Lofibra] 160 mg PO DAILY 10/01/19 08/19/21 History Ferrous Sulfate [Iron (65 MG 325 mg PO DAILY 10/01/19 08/19/21 History Elemental)] Lisinopril-Hctz 20-12.5 mg 1 tab PO DAILY 10/01/19 08/19/21 History [Zestoretic 20-12.5] Verapamil [Isoptin] 40 mg PO TID #90 tab 10/04/19 08/19/21 Rx Aspirin 81 mg PO DAILY 09/03/20 08/19/21 History Insulin NPH Hum/Reg Insulin Hm 7 units SQ BID 09/03/20 08/19/21 History [Novolin 70-30 Flexpen] Omeprazole [PriLOSEC] 40 mg PO DAILY 09/03/20 08/19/21 History Vit C/E/Zn/Coppr/Lutein/Zeaxan 1 tab PO BID 09/03/20 08/19/21 History [Preservision Areds 2 Softgel] Ipratropium-Albuterol Nebulize 3 ml INHALATION RT-QID PRN 09/28/20 08/19/21 History [Duoneb 0.5 mg-3 mg/3 ml Soln] Ergocalciferol (Vitamin D2) 1,250 mcg PO MO 09/29/20 08/19/21 History [Drisdol (50,000 Iu)] Metoprolol Tartrate [Lopressor] 25 mg PO DAILY 10/23/20 08/19/21 History Magnesium Oxide [Mag-Ox] 400 mg PO DAILY 12/21/20 08/19/21 History Gabapentin 600 mg PO TID 01/10/21 08/19/21 History Acetaminophen Tab [Tylenol] 650 mg PO Q6HR PRN 08/19/21 08/19/21 History Clindamycin Topical Soln 1 applic TOPICAL BID 08/19/21 08/19/21 History [Cleocin-T Topical Soln] Famotidine [Pepcid] 20 mg PO DAILY 08/19/21 08/19/21 History Lidocaine 4% Patch 1 patch TOPICAL DAILY PRN 08/19/21 08/19/21 History Multivitamins, Thera [Multivitamin 1 tab PO DAILY 08/19/21 08/19/21 History (formulary)] Ondansetron Odt [Zofran ODT] 8 mg PO Q8H PRN 08/19/21 08/19/21 History Pantoprazole Sodium [Protonix] 40 mg PO DAILY 08/19/21 08/19/21 History Super B Complex 1 tab PO DAILY 08/19/21 08/19/21 History Allergies Allergy/AdvReac Type Severity Reaction Status Date / Time banana [Banana] Allergy Severe Anaphylaxis Verified 08/19/21 11:38 iodine Allergy Severe DYSPNEA, Verified 08/19/21 11:38 SKIN INFLAMED kiwi Allergy Severe Anaphylaxis Verified 08/19/21 11:38 grass pollen Allergy Unknown Verified 08/19/21 11:38 Iodinated Contrast Media Allergy Dyspnea Verified 08/19/21 11:38 latex Allergy Dyspnea, Verified 08/19/21 11:38 Itching morphine Allergy Rapid Verified 08/19/21 11:38 Heart Rate rubber Allergy Dyspnea Uncoded 08/19/21 11:38 smoke Allergy Dyspnea Uncoded 06/02/22 11:38 Physical Exam Vitals: Vital Signs Temp Pulse Resp BP Pulse Ox 08/21/21 08:28 97.9 F 77 18 127/73 99 08/21/21 04:00 98.1 F 70 18 136/82 95 08/21/21 02:00 75 18 113/70 95 08/20/21 22:10 84 18 142/81 93 L 08/20/21 22:00 156 H 18 109/68 91 L 08/20/21 21:35 159 H 26 H 122/87 98 08/20/21 21:14 156 H 26 H 131/92 100 08/20/21 20:00 97.7 F 68 16 135/80 95 08/20/21 18:52 159 H 26 H 08/20/21 17:35 78 16 155/85 98 08/20/21 12:28 98.1 F 82 16 132/78 96 Intake and Output 08/20/21 08/21/21 08/21/21 22:59 06:59 14:59 Intake Total 540 120 90 Output Total 300 500 Balance 240 -380 90 Intake: Intake, IV Titration 300 Amount Piperacillin-Tazobactam 3 200 .375 gm In Sodium Chloride 0.9% 100 ml @ 25 mls/hr IVPB Q8H [facility] Rx#: [id number] Sodium Chloride 0.9% 1, 100 000 ml @ 50 mls/hr IV . Q20H [facility] Rx#:[id number] Oral 240 120 90 Output: Urine 300 500 Other: Voiding Method Toilet Toilet External Catheter Results 08/20/21 22:16 08/20/21 22:16 Cardiac Enzymes 08/20/21 08/20/21 Range/Units 21:53 22:16 AST 50 H (14-36) U/L Troponin I <0.012 (0.000-0.034) ng/mL Coagulation 08/20/21 Range/Units 22:16 PT 11.1 (9.0-12.0) sec APTT 23.0 (22.0-30.0) sec CBC 08/20/21 08/20/21 Range/Units 06:27 22:16 WBC 9.83 11.6 H (4.50-10.00) X 10*3/uL RBC 3.98 L 4.67 (4.10-5.20) X 10*6/uL Hgb 11.4 L 13.4 (12.0-15.0) g/dL Hct 36.8 L 44.1 (37.2-46.3) % Plt Count 308 351 (140-440) X 10*3/uL Comprehensive Metabolic Panel 08/20/21 08/20/21 Range/Units 06:27 22:16 Sodium 142 137 (135-145) mmol/L Potassium 4.1 4.2 (3.5-5.5) mmol/L Chloride 105 107 (96-109) mmol/L Carbon Dioxide 22.2 20 L (20.0-27.5) mmol/L BUN 19.3 22 H (9.0-27.0) mg/dL Creatinine 1.2 1.25 H (0.6-1.5) mg/dL Glucose 146 H 175 H (70-110) mg/dL Calcium 8.8 9.4 (8.7-10.3) mg/dL AST 50 H (14-36) U/L ALT 49 H (4-34) U/L Alkaline Phosphatase 57 (38-126) U/L Total Protein 6.5 (6.3-8.2) g/dL Albumin 4.0 (3.5-5.0) g/dL Current Medications Generic Name Dose Route Start Last Admin Trade Name Freq PRN Reason Stop Dose Admin Acetaminophen 650 mg 08/19/21 17:45 Acetaminophen Tab 325 Mg Tab PO Q6HR PRN Mild Pain or Fever > 100.5 Albuterol/Ipratropium 3 ml 08/20/21 19:36 Ipratropium-Albuterol 3 Ml Neb INHALATION RT-QID PRN Dyspnea Atorvastatin Calcium 80 mg 08/20/21 21:00 08/20/21 20:26 Atorvastatin 80 Mg Tab PO 80 mg HS [facility] Administration Baclofen 5 mg 08/20/21 19:36 Baclofen 10 Mg Tab PO BID PRN Muscle Spasm Buspirone HCl 5 mg 08/20/21 21:00 08/21/21 08:32 Buspirone Hcl 5 Mg Tab PO 5 mg BID [facility] Administration Duloxetine HCl 60 mg 08/20/21 21:00 08/21/21 08:32 Duloxetine Hcl 60 Mg Capsule.Dr PO 60 mg BID [facility] Administration Ergocalciferol 1,250 mcg 08/23/21 09:00 Ergocalciferol 1,250 Mcg (50,000 Iu) Capsule PO MO [facility] Famotidine 20 mg 08/21/21 09:00 08/21/21 08:32 Famotidine 20 Mg Tab PO 20 mg DAILY [facility] Administration Fenofibrate 160 mg 08/21/21 09:00 08/21/21 08:32 Fenofibrate 160 Mg Tab PO 160 mg DAILY [facility] Administration Ferrous Sulfate 325 mg 08/21/21 09:00 08/21/21 08:33 Ferrous Sulfate 325 Mg Tab PO 325 mg DAILY [facility] Administration Fluticasone Propionate 2 spray 08/20/21 19:36 Fluticasone 50mcg/Amagon Nasal 16gm EA NOSTRIL DAILY PRN Allergy Symptoms Gabapentin 600 mg 08/20/21 22:00 08/21/21 08:32 Gabapentin 300 Mg Cap PO 600 mg TID [facility] Administration Glipizide 10 mg 08/21/21 09:00 08/21/21 08:32 Glipizide 10 Mg Tab PO 10 mg DAILY [facility] Administration Lisinopril/HCTZ 1 each 08/21/21 09:00 08/21/21 08:34 Lisinopril-Hctz 20-12.5 Mg 1 Each Tab PO 1 each DAILY [facility] Administration Piperacillin Sod/Tazobactam 100 mls @ 25 mls/hr 08/19/21 18:00 08/21/21 08:34 Sod 3.375 gm/ Sodium Chloride IVPB 25 mls/hr Q8H [facility] Administration Protocol Sodium Chloride 1,000 mls @ 50 mls/hr 08/20/21 20:15 08/20/21 22:25 Saline 0.9% IV Not Given .Q20H [facility] Ketorolac Tromethamine 15 mg 08/19/21 23:10 08/20/21 17:31 Ketorolac 15 Mg/Ml 1 Ml Vial IVP 08/22/21 23:11 15 mg Q6HR PRN Administration Pain/Discomfort Levetiracetam 750 mg 08/20/21 21:00 08/21/21 08:32 Levetiracetam 750 Mg Tab PO 750 mg BID [facility] Administration Levothyroxine Sodium 100 mcg 08/20/21 06:30 08/21/21 05:56 Levothyroxine 100 Mcg Tab PO 100 mcg DAILY@0630 [facility] Administration Magnesium Oxide 400 mg 08/21/21 09:00 08/21/21 08:33 Magnesium Oxide 400 Mg Tab PO 400 mg DAILY [facility] Administration Melatonin 5 mg 08/19/21 23:12 08/20/21 20:26 Melatonin 5 Mg Tablet PO 5 mg HS PRN Administration Insomnia Metformin HCl 1,000 mg 08/20/21 21:00 08/21/21 08:32 Metformin 500 Mg Tab PO 1,000 mg BID [facility] Administration Metoprolol Tartrate 25 mg 08/20/21 19:45 08/21/21 08:32 Metoprolol Tartrate 25 Mg Tab PO 25 mg DAILY [facility] Administration Montelukast Sodium 10 mg 08/20/21 21:00 08/20/21 20:26 Montelukast 10 Mg Tab PO 10 mg HS [facility] Administration Multivitamins 1 each 08/21/21 09:00 08/21/21 08:33 Multivitamins, Thera 1 Each Tab PO 1 each DAILY [facility] Administration Multivitamins/Minerals 1 each 08/20/21 21:00 08/21/21 08:34 Vit A,C & W-Lpbhoq-Ekligwae 1 Each Tab PO 1 each BID [facility] Administration Naloxone HCl 0.2 mg 08/19/21 17:45 Naloxone 0.4 Mg/Ml 1 Ml Vial IV Q2M PRN Opioid Reversal Patient's Own ( 1 applic 08/20/21 21:00 08/21/21 08:19 Clindamycin Topical TOPICAL Not Given Soln 1 Applic Ml) BID [facility] Patient's Own ( 1 patch 08/20/21 19:36 Lidocaine 4% Patch 1 TOPICAL Patch) DAILY PRN BACK PAIN Ondansetron HCl 4 mg 08/19/21 23:10 08/20/21 17:30 Ondansetron 4 Mg/2 Ml Vial IVP 4 mg Q8HR PRN Administration Nausea And Vomiting Pantoprazole Sodium 40 mg 08/21/21 09:00 08/21/21 08:33 Pantoprazole 40 Mg Tablet PO 40 mg DAILY [facility] Administration Repaglinide 0.5 mg 08/21/21 07:30 08/21/21 05:56 Repaglinide 1 Mg Tab PO 0.5 mg TID-W/MEALS [facility] Administration Verapamil HCl 80 mg 08/21/21 16:00 Verapamil 80 Mg Tab PO TID [facility] Intake and Output 08/20/21 08/21/21 08/21/21 22:59 06:59 14:59 Intake Total 540 120 90 Output Total 300 500 Balance 240 -380 90 Intake: Intake, IV Titration 300 Amount Piperacillin-Tazobactam 3 200 .375 gm In Sodium Chloride 0.9% 100 ml @ 25 mls/hr IVPB Q8H [facility] Rx#: [id number] Sodium Chloride 0.9% 1, 100 000 ml @ 50 mls/hr IV . Q20H [facility] Rx#:[id number] Oral 240 120 90 Output: Urine 300 500 Other: Voiding Method Toilet Toilet External Catheter 08/20/21 22:16 08/20/21 22:16
--- NOTE | 2021-08-21 10:41 | P.PN ---
Subjective Progress Note Date: 08/21/21 Principal diagnosis: Diverticulitis 76-year-old female admitted with diverticulitis. Says her pain is absent now. She is tolerating full liquids. She is afebrile. Objective - Vital Signs Vital signs: Vital Signs Temp 97.9 F 08/21/21 08:28 Pulse 77 08/21/21 08:28 Resp 18 08/21/21 08:28 BP 127/73 08/21/21 08:28 Pulse Ox 99 08/21/21 08:28 FiO2 Intake & Output 08/20/21 08/21/21 08/21/21 18:59 06:59 18:59 Intake Total 100 560 90 Output Total 800 Balance 100 -240 90 Intake: Intake, IV Titration 100 200 Amount Piperacillin-Tazobactam 3 100 100 .375 gm In Sodium Chloride 0.9% 100 ml @ 25 mls/hr IVPB Q8H [facility] Rx#: [id number] Sodium Chloride 0.9% 1, 100 000 ml @ 50 mls/hr IV . Q20H [facility] Rx#:[id number] Oral 360 90 Output: Urine 800 Other: Voiding Method Toilet Toilet External Catheter - Exam Abdomen: Soft, nondistended, mild tenderness left lower quadrant, no rebound or guarding - Labs CBC & Chem 7: 08/20/21 22:16 08/20/21 22:16 Labs: Abnormal Lab Results - Last 24 Hours (Table) 08/20/21 08/20/21 08/20/21 Range/Units 06:27 06:27 12:02 WBC (3.8-10.6) k/uL RBC 3.98 L (4.10-5.20) X 10*6/uL Hgb 11.4 L (12.0-15.0) g/dL Hct 36.8 L (37.2-46.3) % MCHC 31.0 L (32.0-37.0) g/dL Eosinophils # 0.02 L (0.04-0.35) X 10*3/uL Carbon Dioxide (22-30) mmol/L BUN (7-17) mg/dL Creatinine (0.52-1.04) mg/dL Est GFR (CKD-EPI)AfAm 50.5 L (60.0-200.0) Est GFR (CKD-EPI)NonAf 43.6 L (60.0-200.0) Glucose 146 H (70-110) mg/dL POC Glucose (mg/dL) 131 H (75-99) mg/dL AST (14-36) U/L ALT (4-34) U/L 08/20/21 08/20/21 08/20/21 Range/Units 17:22 20:41 22:16 WBC 11.6 H (3.8-10.6) k/uL RBC (4.10-5.20) X 10*6/uL Hgb (12.0-15.0) g/dL Hct (37.2-46.3) % MCHC 30.4 L (32.0-37.0) g/dL Eosinophils # (0.04-0.35) X 10*3/uL Carbon Dioxide (22-30) mmol/L BUN (7-17) mg/dL Creatinine (0.52-1.04) mg/dL Est GFR (CKD-EPI)AfAm (60.0-200.0) Est GFR (CKD-EPI)NonAf (60.0-200.0) Glucose (70-110) mg/dL POC Glucose (mg/dL) 207 H 164 H (75-99) mg/dL AST (14-36) U/L ALT (4-34) U/L 08/20/21 08/21/21 Range/Units 22:16 06:28 WBC (3.8-10.6) k/uL RBC (4.10-5.20) X 10*6/uL Hgb (12.0-15.0) g/dL Hct (37.2-46.3) % MCHC (32.0-37.0) g/dL Eosinophils # (0.04-0.35) X 10*3/uL Carbon Dioxide 20 L (22-30) mmol/L BUN 22 H (7-17) mg/dL Creatinine 1.25 H (0.52-1.04) mg/dL Est GFR (CKD-EPI)AfAm (60.0-200.0) Est GFR (CKD-EPI)NonAf (60.0-200.0) Glucose 175 H (70-110) mg/dL POC Glucose (mg/dL) 173 H (75-99) mg/dL AST 50 H (14-36) U/L ALT 49 H (4-34) U/L Microbiology - Last 24 Hours (Table) 08/19/21 12:07 Blood Culture - Preliminary Blood No Growth after 24 hours 08/19/21 12:07 Blood Culture - Preliminary Blood No Growth after 24 hours Assessment and Plan (1) Diverticulitis Narrative/Plan: 76-year-old female with diverticulitis. Patient seems to be improved today. Continue advancing diet as tolerated. Continue antibiotics. Ambulate. Current Visit: Yes Status: Acute Code(s): K57.92 - DVTRCLI OF INTEST, PART UNSP, W/O PERF OR ABSCESS W/O BLEED SNOMED Code(s): 762877100
--- NOTE | 2021-08-21 10:49 | P.PN ---
Subjective his is a pleasant 76 years old female with past medical history of Asthma, COPD, CVA/TIA, Diabetes Mellitus,, GERD/Reflux, Hearing Disorder / Deafness, Hyperlipidemia, Hypertension,Osteoarthritis Sleep Apnea/CPAP/BIPAP, hypothyroidism, JAGJIT but lost her Cpap, gastric ulcer, IBS, bilateral macular degeneration/diificulty with vision, low back pain with R side sciatica, sores on back and evon legs - open and weeping, Anxiety, Depression presents emergency Department complaining of 2 day history of generalized abdominal discomfort associated with recurrent nausea and vomiting, nonbloody as per patient. Also she is complaining of from lower abdominal pain, his chronic that comes and go but she had it for the last few days, nonspecific, nonradiating moderate in severity. She denies chest pain or dyspnea. No headache or weakness or numbness. She denies smoking, alcohol or illicit drugs Vitals on admission are stable and patient is afebrile. has mild leukocytosis of 10.9, INR and rest of CBC, BMP are unremarkable. Creatinine slightly elevated at 1.06. Glucose 185. Lactic acid elevated came back to normal. Liver enzymes slightly elevated with AST 49 and ALT 46 with normal bilirubin of 0.8. Lipase normal. Urine Analysis looks 2+ ketones with no evidence of infection. Covid and influenza not detected viruses CT of the abdomen and pelvis with contrast: Left exophytic lobulated or multilocular cyst in the left kidney measuring 4.8 cm, and slightly larger from before and recommended follow-up in 1 year. Some mild wall thickening of few jejunal loops consider regional enteritis, possible mild acute diverticulitis EKG showed normal sinus rhythm with no significant ST-T changes. QTC 425 Chest x-ray: Cannot exclude CHF exacerbation there is cardiomegaly with suspected new mild central venous congestion. Correlate clinically In the emergency room patient was started on normal saline, Pepcid and Benadryl and IV Solu-Medrol. Also Zosyn 60 07/08/2011 Patient abdominal pain is improving and diet is exacerbated by surgery team Last night she developed SVT comforted by adenosine. She is continued on her home dose of metoprolol 25 mg and verapamil was increased 40 mg up to 8 mg 3 times a day. Echocardiogram and TSH pending. WBCs 11.6, creatinine 1.25. Patient remains on Zosyn and normal saline at 50 mL per hour. Objective - Vital Signs Vital signs: Vital Signs Temp 97.9 F 08/21/21 08:28 Pulse 77 08/21/21 08:28 Resp 18 08/21/21 08:28 BP 127/73 08/21/21 08:28 Pulse Ox 99 08/21/21 08:28 FiO2 Intake & Output 08/20/21 08/21/21 08/21/21 18:59 06:59 18:59 Intake Total 100 560 90 Output Total 800 Balance 100 -240 90 Intake: Intake, IV Titration 100 200 Amount Piperacillin-Tazobactam 3 100 100 .375 gm In Sodium Chloride 0.9% 100 ml @ 25 mls/hr IVPB Q8H [facility] Rx#: [id number] Sodium Chloride 0.9% 1, 100 000 ml @ 50 mls/hr IV . Q20H [facility] Rx#:[id number] Oral 360 90 Output: Urine 800 Other: Voiding Method Toilet Toilet External Catheter - Exam -GENERAL: The patient is alert and oriented x3, not in any acute distress. Well developed, well nourished. Generally weak HEENT: Pupils are round and equally reacting to light. EOMI. No scleral icterus. No conjunctival pallor. Normocephalic, atraumatic. No pharyngeal erythema. No thyromegaly. CARDIOVASCULAR: S1 and S2 present. No murmurs, rubs, or gallops. PULMONARY: Chest is clear to auscultation, no wheezing or crackles. ABDOMEN: Soft, nontender, nondistended, normoactive bowel sounds. No palpable organomegaly. MUSCULOSKELETAL: No joint swelling or deformity. EXTREMITIES: No cyanosis, clubbing, or pedal edema. NEUROLOGICAL: Gross neurological examination did not reveal any focal deficits. SKIN: No rashes. no petechiae. - Labs CBC & Chem 7: 08/20/21 22:16 08/20/21 22:16 Labs: Abnormal Lab Results - Last 24 Hours (Table) 08/20/21 08/20/21 08/20/21 Range/Units 06:27 06:27 12:02 WBC (3.8-10.6) k/uL RBC 3.98 L (4.10-5.20) X 10*6/uL Hgb 11.4 L (12.0-15.0) g/dL Hct 36.8 L (37.2-46.3) % MCHC 31.0 L (32.0-37.0) g/dL Eosinophils # 0.02 L (0.04-0.35) X 10*3/uL Carbon Dioxide (22-30) mmol/L BUN (7-17) mg/dL Creatinine (0.52-1.04) mg/dL Est GFR (CKD-EPI)AfAm 50.5 L (60.0-200.0) Est GFR (CKD-EPI)NonAf 43.6 L (60.0-200.0) Glucose 146 H (70-110) mg/dL POC Glucose (mg/dL) 131 H (75-99) mg/dL AST (14-36) U/L ALT (4-34) U/L 08/20/21 08/20/21 08/20/21 Range/Units 17:22 20:41 22:16 WBC 11.6 H (3.8-10.6) k/uL RBC (4.10-5.20) X 10*6/uL Hgb (12.0-15.0) g/dL Hct (37.2-46.3) % MCHC 30.4 L (32.0-37.0) g/dL Eosinophils # (0.04-0.35) X 10*3/uL Carbon Dioxide (22-30) mmol/L BUN (7-17) mg/dL Creatinine (0.52-1.04) mg/dL Est GFR (CKD-EPI)AfAm (60.0-200.0) Est GFR (CKD-EPI)NonAf (60.0-200.0) Glucose (70-110) mg/dL POC Glucose (mg/dL) 207 H 164 H (75-99) mg/dL AST (14-36) U/L ALT (4-34) U/L 08/20/21 08/21/21 Range/Units 22:16 06:28 WBC (3.8-10.6) k/uL RBC (4.10-5.20) X 10*6/uL Hgb (12.0-15.0) g/dL Hct (37.2-46.3) % MCHC (32.0-37.0) g/dL Eosinophils # (0.04-0.35) X 10*3/uL Carbon Dioxide 20 L (22-30) mmol/L BUN 22 H (7-17) mg/dL Creatinine 1.25 H (0.52-1.04) mg/dL Est GFR (CKD-EPI)AfAm (60.0-200.0) Est GFR (CKD-EPI)NonAf (60.0-200.0) Glucose 175 H (70-110) mg/dL POC Glucose (mg/dL) 173 H (75-99) mg/dL AST 50 H (14-36) U/L ALT 49 H (4-34) U/L Microbiology - Last 24 Hours (Table) 08/19/21 12:07 Blood Culture - Preliminary Blood No Growth after 24 hours 08/19/21 12:07 Blood Culture - Preliminary Blood No Growth after 24 hours Assessment and Plan Assessment: Acute diverticulitis Possible regional jejunitis SVT status post adenosine and converted to sinus rhythm Constipation rather than diarrhea over the last 2 days prior to admission. COPD with no acute exacerbation Diabetes mellitus History of GERD Hyperlipidemia Hypertension Osteoarthritis History of sleep apnea Hypothyroidism History of irritable bowel syndrome History of bilateral macular degeneration History of low back pain with right sciatic History of prostatic depression, not an active issue Plan: This is a pleasant 76 years old female who presents with gas GI symptoms possible acute diverticulitis/enteritis consintue with IV fluids and pain management. Continue with Zosyn Advance diet Surgery team consult Continue with metoprolol, verapamil. Beet Worker on the case Neurology follow-up as an outpatient Labs and medication were reviewed.. Continue same treatment. Continue with symptomatic treatment. Resume home medication. Monitor lytes and vitals. DVT and GI prophylaxis. Further recommendations as per clinical course of the patient DVT prophylaxis: Subcutaneous heparin GI Prophylaxis: Pepcid PT/OT: Pending Prognosis is guarded
[2021-08-21] MEDS ORDERED: SODIUM CHLORIDE 0.65% NASAL SPRAY 44 ML BTL NASAL PRN (11:58)
[2021-08-21 12:04] LABS: Glucose,Whole Blood 142 mg/dL (75-99)
[2021-08-21] MEDS: VERAPAMIL 80 MG TAB PO SCH ×2 (16:08→20:39)
[2021-08-21] MEDS: SODIUM CHLORIDE 0.9% 1,000 ML IV SCH (16:09)
[2021-08-21 16:25] LABS: Basophils # (A) 0.06 X 10*3/uL (0.00-0.10); Basophils % (A) 0.8 %; Eosinophils # (A) 0.21 X 10*3/uL (0.04-0.35); Eosinophils % (A) 2.7 %; HCT 38.2 % (37.2-46.3); HGB 11.6 g/dL (12.0-15.0); Immature Grans, Automated 0.4 %; Lymphocytes # (A) 2.85 X 10*3/uL (0.90-5.00); Lymphocytes % (A) 36.5 %; MCH 28.6 pg (27.0-32.0); MCHC 30.4 g/dL (32.0-37.0); MCV 94.1 fL (80.0-97.0); Mean Platelet Volume 10.9 fL (9.5-12.2); Monocytes # (A) 0.38 X 10*3/uL (0.20-1.00); Monocytes % (A) 4.9 %; NRBC Per 100 WBC 0 /100 WBCS (0.0-0.0); Neutrophils # (A) 4.28 X 10*3/uL (1.80-7.70); Neutrophils % (A) 54.7 %; Platelet Count 308 X 10*3/uL (140-440); RBC 4.06 X 10*6/uL (4.10-5.20); RDW 13.2 % (11.5-14.5); WBC 7.81 X 10*3/uL (4.50-10.00)
[2021-08-21 17:06] LABS: Glucose,Whole Blood 124 mg/dL (75-99)
[2021-08-21 20:20] LABS: Glucose,Whole Blood 181 mg/dL (75-99)
[2021-08-21] MEDS: MONTELUKAST 10 MG TAB PO SCH (20:37)
[2021-08-21] MEDS: ATORVASTATIN 80 MG TAB PO SCH (20:38)
[2021-08-22] MEDS: CLINDAMYCIN TOPICAL SCH ×3 (00:46→22:03)
[2021-08-22] MEDS: PIPERACILLIN-TAZOBACTAM 3.375 GM in SODIUM CHLORIDE 0.9% 100 ML IVPB SCH ×3 (01:38→17:15)
[2021-08-22 05:59] LABS: Glucose,Whole Blood 169 mg/dL (75-99)
[2021-08-22] MEDS: LEVOTHYROXINE 100 MCG TAB PO SCH (06:20)
[2021-08-22] MEDS: REPAGLINIDE 1 MG TAB PO SCH ×3 (06:20→17:15)
[2021-08-22] MEDS: busPIRone HCl 5 MG TAB PO SCH ×2 (08:21→22:03)
[2021-08-22] MEDS: metFORMIN 500 MG TAB PO SCH ×2 (08:21→22:03)
[2021-08-22] MEDS: VIT A,C & E-LUTEIN-MINERALS 1 EACH TAB PO SCH ×2 (08:21→22:03)
[2021-08-22] MEDS: FENOFIBRATE 160 MG TAB PO SCH (08:21)
[2021-08-22] MEDS: VERAPAMIL 80 MG TAB PO SCH ×3 (08:21→22:03)
[2021-08-22] MEDS: GABAPENTIN 300 MG CAP PO SCH ×3 (08:21→22:02)
[2021-08-22] MEDS: DULoxetine HCL 60 MG CAPSULE.DR PO SCH ×2 (08:21→22:03)
[2021-08-22] MEDS: MULTIVITAMINS, THERA 1 EACH TAB PO SCH (08:21)
[2021-08-22] MEDS: LISINOPRIL-HCTZ 20-12.5 MG 1 EACH TAB PO SCH (08:21)
[2021-08-22] MEDS: METOPROLOL TARTRATE 25 MG TAB PO SCH ×2 (08:22→22:03)
[2021-08-22] MEDS: MAGNESIUM OXIDE 400 MG TAB PO SCH (08:22)
[2021-08-22] MEDS: FAMOTIDINE 20 MG TAB PO SCH (08:22)
[2021-08-22] MEDS: PANTOPRAZOLE 40 MG TABLET PO SCH (08:22)
[2021-08-22] MEDS: glipiZIDE 10 MG TAB PO SCH (08:22)
[2021-08-22] MEDS: FERROUS SULFATE 325 MG TAB PO SCH (08:22)
[2021-08-22 09:38] LABS: Basophils # (A) 0.1 k/uL (0-0.2); Basophils % (A) 1 %; Eosinophils # (A) 0.4 k/uL (0-0.7); Eosinophils % (A) 4 %; HCT 42.9 % (34.0-46.0); HGB 13.3 gm/dL (11.4-16.0); Hypochromasia Slight; Lymphocytes # (A) 3.4 k/uL (1.0-4.8); Lymphocytes % (A) 38 %; MCH 29.6 pg (25.0-35.0); MCHC 30.9 g/dL (31.0-37.0); MCV 95.7 fL (80.0-100.0); Mean Platelet Volume 7.7; Monocytes # (A) 0.4 k/uL (0-1.0); Monocytes % (A) 4 %; Neutrophils # (A) 4.4 k/uL (1.3-7.7); Neutrophils % (A) 49 %; Platelet Count 336 k/uL (150-450); RBC 4.48 m/uL (3.80-5.40); RDW 13.1 % (11.5-15.5); WBC 8.9 k/uL (3.8-10.6)
[2021-08-22 09:45] LABS: Calcium 9.4 mg/dL (8.4-10.2); Magnesium 1.6 mg/dL (1.6-2.3); Potassium 4.1 mmol/L (3.5-5.1)
[2021-08-22] MEDS: SODIUM CHLORIDE 0.9% 1,000 ML IV SCH (11:02)
[2021-08-22 11:03] LABS: Glucose,Whole Blood 164 mg/dL (75-99)
--- NOTE | 2021-08-22 11:15 | CA ---
Transthoracic Echo Report Name: Sabine Hagen Age: 76 Gender: F : 1945 Exam Date: 08/21/2021 10:19 Exam Location: [facility] Ht (in): 50 Wt (lb): 170 Ordering Physician: Georgiana De Santiago Attending/Referring Phys: [id number], Jonnathan Logistician Delicia Watts, EMERITA Procedure CPT: Indications: LV function Cardiac Hx: Technical Quality: Fair Contrast 1: Total Dose (mL): Contrast 2: N/A Total Dose (mL): MEASUREMENTS (Male / Female) Normal Values 2D ECHO LV Diastolic Diameter PLAX 3.8 cm 4.2 - 5.9 / 3.9 - 5.3 cm LV Systolic Diameter PLAX 2.6 cm IVS Diastolic Thickness 1.1 cm 0.6 - 1.0 / 0.6 - 0.9 cm LVPW Diastolic Thickness 1.7 cm 0.6 - 1.0 / 0.6 - 0.9 cm LV Relative Wall Thickness 0.7 RV Internal Dim ED PLAX 2.8 cm M-MODE Aortic Root Diameter MM 2.8 cm LA Systolic Diameter MM 3.9 cm LA Ao Ratio MM 1.4 MV E Point Septal Separation 1.1 cm AV Cusp Separation MM 1.5 cm DOPPLER MV Area PHT 3.1 cm??? Mitral E Point Velocity 114.0 cm/s Mitral A Point Velocity 92.8 cm/s Mitral E to A Ratio 1.2 MV Deceleration Time 242.0 ms MV E' Velocity 4.7 cm/s Mitral E to MV E' Ratio 24.1 TR Peak Velocity 251.8 cm/s TR Peak Gradient 25.4 mmHg Right Ventricular Systolic Press 30.4 mmHg FINDINGS Left Ventricle Normal Left ventricular size, mild wall thickness, systolic function with no obvious regional wall motion abnormalities. Right Ventricle Normal right ventricular size and function. Right ventricular systolic pressure within normal limits. Right Atrium Normal right atrial size. Left Atrium Left atrial size at the upper limits of normal. Mitral Valve Structurally normal mitral valve. Mild mitral regurgitation. Aortic Valve Trileaflet aortic valve. Tricuspid Valve Structurally normal tricuspid valve. Mild tricuspid regurgitation. Pulmonic Valve Pulmonic valve not well visualized. Pericardium Echo free space anterior to the right ventricle likely represents a fat pad. Aorta Normal size aortic root and proximal ascending aorta. CONCLUSIONS #1. Normal left because size and function. #2. Mild mitral and tricuspid regurgitation Previewed by: Dr. Anjum Fishman MD (Electronically Signed) Final Date: 22 August 2021 11:14
--- NOTE | 2021-08-22 11:26 | P.PN ---
Subjective Progress Note Date: 08/22/21 Principal diagnosis: Diverticulitis Patient doing better today. Her pain is improved. She did have a bowel movement this morning. Tolerating diet. She is afebrile. White blood cell count is normal. Objective - Vital Signs Vital signs: Vital Signs Temp 97.5 F L 08/22/21 08:13 Pulse 73 08/22/21 11:21 Resp 18 08/22/21 11:21 BP 124/69 08/22/21 11:21 Pulse Ox 96 08/22/21 11:21 FiO2 Intake & Output 08/21/21 08/22/21 08/22/21 18:59 06:59 18:59 Intake Total 330 200 Output Total 300 Balance 30 200 Intake: Oral 330 200 Output: Urine 300 Other: Voiding Method External Catheter External Catheter External Catheter # Bowel Movements 1 1 1 - Exam Abdomen: Soft, nondistended, mild left lower quadrant tenderness - Labs CBC & Chem 7: 08/22/21 09:20 08/22/21 09:20 Labs: Abnormal Lab Results - Last 24 Hours (Table) 08/21/21 08/21/21 08/21/21 Range/Units 09:28 12:02 17:03 RBC 4.06 L (4.10-5.20) X 10*6/uL Hgb 11.6 L (12.0-15.0) g/dL MCHC 30.4 L (32.0-37.0) g/dL Creatinine (0.52-1.04) mg/dL Glucose (74-99) mg/dL POC Glucose (mg/dL) 142 H 124 H (75-99) mg/dL 08/21/21 08/22/21 08/22/21 Range/Units 20:07 05:46 09:20 RBC (4.10-5.20) X 10*6/uL Hgb (12.0-15.0) g/dL MCHC 30.9 L (32.0-37.0) g/dL Creatinine (0.52-1.04) mg/dL Glucose (74-99) mg/dL POC Glucose (mg/dL) 181 H 169 H (75-99) mg/dL 08/22/21 08/22/21 Range/Units 09:20 11:01 RBC (4.10-5.20) X 10*6/uL Hgb (12.0-15.0) g/dL MCHC (32.0-37.0) g/dL Creatinine 1.09 H (0.52-1.04) mg/dL Glucose 175 H (74-99) mg/dL POC Glucose (mg/dL) 164 H (75-99) mg/dL Microbiology - Last 24 Hours (Table) 08/21/21 11:00 Stool Culture - Preliminary Stool 08/19/21 12:07 Blood Culture - Preliminary Blood No Growth after 48 hours 08/19/21 12:07 Blood Culture - Preliminary Blood No Growth after 48 hours Assessment and Plan (1) Diverticulitis Narrative/Plan: Patient doing well today. Continue antibiotics. Continue diet as tolerated. Current Visit: Yes Status: Acute Code(s): K57.92 - DVTRCLI OF INTEST, PART UNSP, W/O PERF OR ABSCESS W/O BLEED SNOMED Code(s): 121549956
--- NOTE | 2021-08-22 13:11 | P.PN ---
Subjective Progress Note Date: 08/22/21 HISTORY OF PRESENT ILLNESS: This is a 76-year-old female with a past medical history significant for hypertension, hyperlipidemia, and diabetes. Patient follows in the office with Dr. Borrero. We have been asked to see the patient in consultation for SVT. Patient examined at the bedside. Patient is admitted to the hospital secondary to acute diverticulitis. She is being followed by general surgery. Yesterday evening, the patient went into SVT and she was transferred to the cardiac stepdown unit. She received 6 mg IV adenosine with conversion to sinus mechanism. She is maintaining sinus mechanism this morning. Patient believes she may have had SVT in the past. * EKG reveals SVT * Chest xray cannot exclude CHF exacerbation as well as cardio male with suspected new mild central vascular congestion. Correlate clinically. * Laboratory data: W BC 11.6. Hemoglobin 13.4. Platelet count 351. Sodium 137. Potassium 4.2. BUN 22. Creatinine 1.25. * Current home cardiac medications include verapamil 40 mg 3 times a day, metoprolol tartrate 25 mg daily, aspirin 81 mg daily, lisinopril hydrochlorothiazide 20 mg12.5 mg daily, Lipitor 80 mg at night * Most recent echocardiogram obtained in September 2019 revealed normal ejection fraction, mild AR, mild TR, mild MR * Cardiac catheterization history: 2018 revealing normal coronary arteries 08/22: Patient denies having a chest pain or shortness of breath. Echocardiogram reveals normal systolic function, mild mitral and tricuspid regurgitation. TSH 1.420. secured entrance monitor is sinus rhythm, heart rate running in the 60s and 70s. PHYSICAL EXAM: VITAL SIGNS: Reviewed. GENERAL: Well-developed in no acute distress. HEENT: Head is normocephalic. Pupils are equal, round. Sclerae anicteric. Mucous membranes of the mouth are moist. Neck supple. No JVD or thyromegaly LUNGS: Respirations even and unlabored. Lungs essentially clear to auscultation bilaterally. HEART: Regular rate and rhythm. S1 and S2 heard. ABDOMEN: Soft. Nondistended. Nontender. EXTREMITIES: Normal range of motion. No clubbing or cyanosis. Peripheral pulses intact. No lower extremity edema NEUROLOGIC: Awake and alert. Oriented x 3. ASSESSMENT: Abdominal pain Acute diverticulitis SVT, conversion to sinus mechanism with adenosine Hypertension Hyperlipidemia Diabetes PLAN: Continue verapamil at increased dose of 80 mg 3 times a day Continue metoprolol at increased dose of 25 mg twice a day Continue telemetry monitoring Resume additional home cardiac medications Further recommendations pending patient's course Nurse practitioner note has been reviewed by physician. Signing provider agrees with the documented findings, assessment, and plan of care. Objective - Vital Signs Vital signs: Vital Signs Temp 97.5 F L 08/22/21 08:13 Pulse 71 08/22/21 08:13 Resp 18 08/22/21 08:13 BP 138/65 08/22/21 08:13 Pulse Ox 100 08/22/21 08:13 FiO2 Intake & Output 08/21/21 08/22/21 08/22/21 18:59 06:59 18:59 Intake Total 330 200 Output Total 300 Balance 30 200 Intake: Oral 330 200 Output: Urine 300 Other: Voiding Method External Catheter External Catheter # Bowel Movements 1 1 1 - Labs CBC & Chem 7: 08/22/21 09:20 08/22/21 09:20 Labs: Abnormal Lab Results - Last 24 Hours (Table) 08/21/21 08/21/21 08/21/21 Range/Units 09:28 12:02 17:03 RBC 4.06 L (4.10-5.20) X 10*6/uL Hgb 11.6 L (12.0-15.0) g/dL MCHC 30.4 L (32.0-37.0) g/dL Creatinine (0.52-1.04) mg/dL Glucose (74-99) mg/dL POC Glucose (mg/dL) 142 H 124 H (75-99) mg/dL 08/21/21 08/22/21 08/22/21 Range/Units 20:07 05:46 09:20 RBC (4.10-5.20) X 10*6/uL Hgb (12.0-15.0) g/dL MCHC 30.9 L (32.0-37.0) g/dL Creatinine (0.52-1.04) mg/dL Glucose (74-99) mg/dL POC Glucose (mg/dL) 181 H 169 H (75-99) mg/dL 08/22/21 Range/Units 09:20 RBC (4.10-5.20) X 10*6/uL Hgb (12.0-15.0) g/dL MCHC (32.0-37.0) g/dL Creatinine 1.09 H (0.52-1.04) mg/dL Glucose 175 H (74-99) mg/dL POC Glucose (mg/dL) (75-99) mg/dL Microbiology - Last 24 Hours (Table) 08/21/21 11:00 Stool Culture - Preliminary Stool 08/19/21 12:07 Blood Culture - Preliminary Blood No Growth after 48 hours 08/19/21 12:07 Blood Culture - Preliminary Blood No Growth after 48 hours
[2021-08-22 16:12] LABS: Glucose,Whole Blood 145 mg/dL (75-99)
--- NOTE | 2021-08-22 16:43 | P.PN ---
Subjective his is a pleasant 76 years old female with past medical history of Asthma, COPD, CVA/TIA, Diabetes Mellitus,, GERD/Reflux, Hearing Disorder / Deafness, Hyperlipidemia, Hypertension,Osteoarthritis Sleep Apnea/CPAP/BIPAP, hypothyroidism, JAGJIT but lost her Cpap, gastric ulcer, IBS, bilateral macular degeneration/diificulty with vision, low back pain with R side sciatica, sores on back and evon legs - open and weeping, Anxiety, Depression presents emergency Department complaining of 2 day history of generalized abdominal discomfort associated with recurrent nausea and vomiting, nonbloody as per patient. Also she is complaining of from lower abdominal pain, his chronic that comes and go but she had it for the last few days, nonspecific, nonradiating moderate in severity. She denies chest pain or dyspnea. No headache or weakness or numbness. She denies smoking, alcohol or illicit drugs Vitals on admission are stable and patient is afebrile. has mild leukocytosis of 10.9, INR and rest of CBC, BMP are unremarkable. Creatinine slightly elevated at 1.06. Glucose 185. Lactic acid elevated came back to normal. Liver enzymes slightly elevated with AST 49 and ALT 46 with normal bilirubin of 0.8. Lipase normal. Urine Analysis looks 2+ ketones with no evidence of infection. Covid and influenza not detected viruses CT of the abdomen and pelvis with contrast: Left exophytic lobulated or multilocular cyst in the left kidney measuring 4.8 cm, and slightly larger from before and recommended follow-up in 1 year. Some mild wall thickening of few jejunal loops consider regional enteritis, possible mild acute diverticulitis EKG showed normal sinus rhythm with no significant ST-T changes. QTC 425 Chest x-ray: Cannot exclude CHF exacerbation there is cardiomegaly with suspected new mild central venous congestion. Correlate clinically In the emergency room patient was started on normal saline, Pepcid and Benadryl and IV Solu-Medrol. Also Zosyn 60 07/08/2011 Patient abdominal pain is improving and diet is exacerbated by surgery team Last night she developed SVT comforted by adenosine. She is continued on her home dose of metoprolol 25 mg and verapamil was increased 40 mg up to 8 mg 3 times a day. Echocardiogram and TSH pending. WBCs 11.6, creatinine 1.25. Patient remains on Zosyn and normal saline at 50 mL per hour. 08/22/2021 patient clinically doing well, she is tolerating diet 100%, no nausea vomiting. She still have abdominal cramps /10 No chest pain, no dyspnea. Echocardiogram showed normal functioning of the left ventricle Labs are normal. Creatinine 1.0. Patient continued on Zosyn. We will discontinue IV fluid today Objective - Vital Signs Vital signs: Vital Signs Temp 97.5 F L 08/22/21 08:13 Pulse 73 08/22/21 11:21 Resp 18 08/22/21 11:21 BP 124/69 08/22/21 11:21 Pulse Ox 96 08/22/21 11:21 FiO2 Intake & Output 08/21/21 08/22/21 08/22/21 18:59 06:59 18:59 Intake Total 330 200 Output Total 300 Balance 30 200 Intake: Oral 330 200 Output: Urine 300 Other: Voiding Method External Catheter External Catheter External Catheter # Bowel Movements 1 1 1 - Exam -GENERAL: The patient is alert and oriented x3, not in any acute distress. Well developed, well nourished. Generally weak HEENT: Pupils are round and equally reacting to light. EOMI. No scleral icterus. No conjunctival pallor. Normocephalic, atraumatic. No pharyngeal erythema. No thyromegaly. CARDIOVASCULAR: S1 and S2 present. No murmurs, rubs, or gallops. PULMONARY: Chest is clear to auscultation, no wheezing or crackles. ABDOMEN: Soft, nontender, nondistended, normoactive bowel sounds. No palpable organomegaly. MUSCULOSKELETAL: No joint swelling or deformity. EXTREMITIES: No cyanosis, clubbing, or pedal edema. NEUROLOGICAL: Gross neurological examination did not reveal any focal deficits. SKIN: No rashes. no petechiae. - Labs CBC & Chem 7: 08/22/21 09:20 08/22/21 09:20 Labs: Abnormal Lab Results - Last 24 Hours (Table) 08/21/21 08/21/21 08/21/21 Range/Units 09:28 12:02 17:03 RBC 4.06 L (4.10-5.20) X 10*6/uL Hgb 11.6 L (12.0-15.0) g/dL MCHC 30.4 L (32.0-37.0) g/dL Creatinine (0.52-1.04) mg/dL Glucose (74-99) mg/dL POC Glucose (mg/dL) 142 H 124 H (75-99) mg/dL 08/21/21 08/22/21 08/22/21 Range/Units 20:07 05:46 09:20 RBC (4.10-5.20) X 10*6/uL Hgb (12.0-15.0) g/dL MCHC 30.9 L (32.0-37.0) g/dL Creatinine (0.52-1.04) mg/dL Glucose (74-99) mg/dL POC Glucose (mg/dL) 181 H 169 H (75-99) mg/dL 08/22/21 08/22/21 Range/Units 09:20 11:01 RBC (4.10-5.20) X 10*6/uL Hgb (12.0-15.0) g/dL MCHC (32.0-37.0) g/dL Creatinine 1.09 H (0.52-1.04) mg/dL Glucose 175 H (74-99) mg/dL POC Glucose (mg/dL) 164 H (75-99) mg/dL Microbiology - Last 24 Hours (Table) 08/21/21 11:00 Stool Culture - Preliminary Stool 08/19/21 12:07 Blood Culture - Preliminary Blood No Growth after 48 hours 08/19/21 12:07 Blood Culture - Preliminary Blood No Growth after 48 hours Assessment and Plan Assessment: Acute diverticulitis Possible regional jejunitis SVT status post adenosine and converted to sinus rhythm Constipation rather than diarrhea over the last 2 days prior to admission. COPD with no acute exacerbation Diabetes mellitus History of GERD Hyperlipidemia Hypertension Osteoarthritis History of sleep apnea Hypothyroidism History of irritable bowel syndrome History of bilateral macular degeneration History of low back pain with right sciatic History of prostatic depression, not an active issue Plan: This is a pleasant 76 years old female who presents with gas GI symptoms possible acute diverticulitis/enteritis discontinue IV fluids and pain management. Continue with Zosyn Continue with low fiber diet Surgery team consult Continue with metoprolol, verapamil. Manager Trust on the case We recommend Neurology follow-up as an outpatient. Patient informed and she agrees Labs and medication were reviewed.. Continue same treatment. Continue with symptomatic treatment. Resume home medication. Monitor lytes and vitals. DVT and GI prophylaxis. Further recommendations as per clinical course of the p atient DVT prophylaxis: Subcutaneous heparin GI Prophylaxis: Pepcid PT/OT: Pending Prognosis is guarded
[2021-08-22 20:27] LABS: Glucose,Whole Blood 167 mg/dL (75-99)
[2021-08-22] MEDS: ATORVASTATIN 80 MG TAB PO SCH (22:03)
[2021-08-22] MEDS: MONTELUKAST 10 MG TAB PO SCH (22:03)
[2021-08-23] MEDS: PIPERACILLIN-TAZOBACTAM 3.375 GM in SODIUM CHLORIDE 0.9% 100 ML IVPB SCH ×3 (02:07→17:10)
[2021-08-23 06:12] LABS: Glucose,Whole Blood 119 mg/dL (75-99)
[2021-08-23] MEDS: LEVOTHYROXINE 100 MCG TAB PO SCH (06:16)
[2021-08-23] MEDS: REPAGLINIDE 1 MG TAB PO SCH ×3 (06:16→17:10)
[2021-08-23] MEDS: CLINDAMYCIN TOPICAL SCH ×2 (07:20→19:58)
[2021-08-23] MEDS ORDERED: ERGOCALCIFEROL 1,250 MCG (50,000 IU) CAPSULE PO SCH (09:00)
[2021-08-23] MEDS: VERAPAMIL 80 MG TAB PO SCH (09:58)
[2021-08-23] MEDS: LISINOPRIL-HCTZ 20-12.5 MG 1 EACH TAB PO SCH (09:58)
[2021-08-23] MEDS: metFORMIN 500 MG TAB PO SCH ×2 (09:58→21:17)
[2021-08-23] MEDS: GABAPENTIN 300 MG CAP PO SCH ×3 (09:59→21:17)
[2021-08-23] MEDS: FAMOTIDINE 20 MG TAB PO SCH (09:59)
[2021-08-23] MEDS: MAGNESIUM OXIDE 400 MG TAB PO SCH (09:59)
[2021-08-23] MEDS: MULTIVITAMINS, THERA 1 EACH TAB PO SCH (09:59)
[2021-08-23] MEDS: FENOFIBRATE 160 MG TAB PO SCH (09:59)
[2021-08-23] MEDS: busPIRone HCl 5 MG TAB PO SCH ×2 (09:59→21:17)
[2021-08-23] MEDS: VIT A,C & E-LUTEIN-MINERALS 1 EACH TAB PO SCH ×2 (09:59→21:17)
[2021-08-23] MEDS: METOPROLOL TARTRATE 25 MG TAB PO SCH (09:59)
[2021-08-23] MEDS: DULoxetine HCL 60 MG CAPSULE.DR PO SCH ×2 (10:00→21:17)
[2021-08-23] MEDS: FERROUS SULFATE 325 MG TAB PO SCH (10:00)
[2021-08-23] MEDS: glipiZIDE 10 MG TAB PO SCH (10:00)
[2021-08-23] MEDS: PANTOPRAZOLE 40 MG TABLET PO SCH (10:01)
[2021-08-23 12:01] LABS: Glucose,Whole Blood 115 mg/dL (75-99)
[2021-08-23] MEDS: VERAPAMIL SR 240 MG TABLET.ER PO SCH (12:36)
--- NOTE | 2021-08-23 12:53 | P.PN ---
Subjective Progress Note Date: 08/23/21 CHIEF COMPLAINT: Diverticulitis HISTORY OF PRESENT ILLNESS: Patient is lying in bed comfortably. She is tolerating a low fiber diet. She has minimal pain in the left lower quadrant. She does report pain does improve after bowel movements and urinating. She denies any nausea or vomiting. She is currently on the cardiac floor after having SVT 3 days ago. Patient followed by cardiology. Afebrile WBC is 8.9 PHYSICAL EXAM: VITAL SIGNS: Reviewed. GENERAL: Well-developed in no acute distress. HEENT: No sclera icterus. Extraocular movements grossly intact. Moist buccal mucosa. Head is atraumatic, normocephalic. ABDOMEN: Soft. Nondistended. mild tenderness to palpation left lower quadrant NEUROLOGIC: Alert and oriented. Cranial nerves II through XII grossly intact. ASSESSMENT: 1. Acute sigmoid diverticulitis PLAN: -Continue with medical management -Continue low fiber diet -Continue antibiotics -Continue supportive care Physician Provider Relations Advocate note has been reviewed by physician. Signing provider agrees with the documented findings, assessment, and plan of care. Objective - Vital Signs Vital signs: Vital Signs Temp 98.1 F 08/23/21 09:04 Pulse 68 08/23/21 04:00 Resp 16 08/23/21 09:04 BP 180/78 08/23/21 09:04 Pulse Ox 98 08/23/21 09:04 FiO2 Intake & Output 08/22/21 08/23/21 08/23/21 18:59 06:59 18:59 Intake Total 600 515 818 Output Total 600 1150 550 Balance 0 -635 268 Intake: IV 20 Invasive Line 2 20 Intake, IV Titration 275 Amount Piperacillin-Tazobactam 3 100 .375 gm In Sodium Chloride 0.9% 100 ml @ 25 mls/hr IVPB Q8H [facility] Rx#: [id number] Sodium Chloride 0.9% 1, 175 000 ml @ 50 mls/hr IV . Q20H [facility] Rx#:[id number] Oral 600 220 818 Output: Urine 600 1150 550 Other: Voiding Method External Catheter External Catheter External Catheter # Bowel Movements 1 - Labs CBC & Chem 7: 08/22/21 09:20 08/22/21 09:20 Labs: Abnormal Lab Results - Last 24 Hours (Table) 08/22/21 08/22/21 08/23/21 Range/Units 16:11 20:15 06:01 POC Glucose (mg/dL) 145 H 167 H 119 H (75-99) mg/dL 08/23/21 Range/Units 11:54 POC Glucose (mg/dL) 115 H (75-99) mg/dL Microbiology - Last 24 Hours (Table) 08/21/21 11:00 Stool Culture - Preliminary Stool Yeast species Yeast species#2 08/19/21 12:07 Blood Culture - Preliminary Blood No Growth after 72 hours 08/19/21 12:07 Blood Culture - Preliminary Blood No Growth after 72 hours
--- NOTE | 2021-08-23 13:17 | P.PN ---
Subjective This is a 76-year-old female with a past medical history significant for hypertension, hyperlipidemia, and diabetes. Patient follows in the office with Dr. Borrero. We have been asked to see the patient in consultation for SVT. Patient is admitted to the hospital secondary to acute diverticulitis. She is being followed by general surgery. Yesterday evening, the patient went into SVT HR 150s and she was transferred to the cardiac stepdown unit. She received 6 mg IV adenosine with conversion to sinus mechanism. 08/23/2021 Patient seen and examined at bedside, no acute distress. She is maintaining sinus mechanism this morning. No further episodes of SVT. Blood pressure 130/70, heart 71, afebrile, saturation 96% on room air. Echocardiogram revealed normal LV systolic function, mild mitral and tricuspid regurgitation. Labs TSH within normal limits PHYSICAL EXAM: VITAL SIGNS: Reviewed. GENERAL: Well-developed in no acute distress. HEENT: Head is normocephalic. Pupils are equal, round. Sclerae anicteric. Mucous membranes of the mouth are moist. Neck supple. No JVD or thyromegaly LUNGS: Respirations even and unlabored. Lungs essentially clear to auscultation bilaterally. HEART: Regular rate and rhythm. S1 and S2 heard. ABDOMEN: Soft. Nondistended. Nontender. EXTREMITIES: Normal range of motion. No clubbing or cyanosis. Peripheral pulses intact. No lower extremity edema NEUROLOGIC: Awake and alert. Oriented x 3. ASSESSMENT: Abdominal pain Acute diverticulitis SVT, conversion to sinus mechanism with adenosine Hypertension Hyperlipidemia Diabetes PLAN: Discontinue beta cullen Verapamil 240mg daily Continue telemetry monitoring Resume additional home cardiac medications Further recommendations pending patient's course Nurse practitioner note has been reviewed by physician. Signing provider agrees with the documented findings, assessment, and plan of care. Objective - Vital Signs Vital signs: Vital Signs Temp 97.6 F 08/23/21 11:05 Pulse 71 08/23/21 11:05 Resp 18 08/23/21 11:05 BP 138/70 08/23/21 11:05 Pulse Ox 96 08/23/21 11:05 FiO2 Intake & Output 08/22/21 08/23/21 08/23/21 18:59 06:59 18:59 Intake Total 600 515 818 Output Total 600 1150 550 Balance 0 -635 268 Intake: IV 20 Invasive Line 2 20 Intake, IV Titration 275 Amount Piperacillin-Tazobactam 3 100 .375 gm In Sodium Chloride 0.9% 100 ml @ 25 mls/hr IVPB Q8H [facility] Rx#: [id number] Sodium Chloride 0.9% 1, 175 000 ml @ 50 mls/hr IV . Q20H [facility] Rx#:[id number] Oral 600 220 818 Output: Urine 600 1150 550 Other: Voiding Method External Catheter External Catheter External Catheter # Bowel Movements 1 - Labs CBC & Chem 7: 08/22/21 09:20 08/22/21 09:20 Labs: Abnormal Lab Results - Last 24 Hours (Table) 08/22/21 08/22/21 08/23/21 Range/Units 16:11 20:15 06:01 POC Glucose (mg/dL) 145 H 167 H 119 H (75-99) mg/dL 08/23/21 Range/Units 11:54 POC Glucose (mg/dL) 115 H (75-99) mg/dL Microbiology - Last 24 Hours (Table) 08/21/21 11:00 Stool Culture - Preliminary Stool Yeast species Yeast species#2 08/19/21 12:07 Blood Culture - Preliminary Blood No Growth after 72 hours 08/19/21 12:07 Blood Culture - Preliminary Blood No Growth after 72 hours
[2021-08-23 16:22] LABS: Glucose,Whole Blood 100 mg/dL (75-99)
[2021-08-23 20:52] LABS: Glucose,Whole Blood 108 mg/dL (75-99)
[2021-08-23] MEDS: ATORVASTATIN 80 MG TAB PO SCH (21:17)
[2021-08-23] MEDS: MONTELUKAST 10 MG TAB PO SCH (21:17)
[2021-08-24] MEDS: PIPERACILLIN-TAZOBACTAM 3.375 GM in SODIUM CHLORIDE 0.9% 100 ML IVPB SCH ×3 (02:39→16:48)
[2021-08-24 06:10] LABS: Glucose,Whole Blood 136 mg/dL (75-99)
[2021-08-24] MEDS: REPAGLINIDE 1 MG TAB PO SCH ×3 (06:12→16:49)
[2021-08-24] MEDS: LEVOTHYROXINE 100 MCG TAB PO SCH (06:12)
[2021-08-24] MEDS: GABAPENTIN 300 MG CAP PO SCH ×3 (09:13→20:54)
[2021-08-24] MEDS: MULTIVITAMINS, THERA 1 EACH TAB PO SCH (09:13)
[2021-08-24] MEDS: LISINOPRIL-HCTZ 20-12.5 MG 1 EACH TAB PO SCH (09:13)
[2021-08-24] MEDS: VIT A,C & E-LUTEIN-MINERALS 1 EACH TAB PO SCH ×2 (09:13→20:54)
[2021-08-24] MEDS: busPIRone HCl 5 MG TAB PO SCH ×2 (09:13→20:54)
[2021-08-24] MEDS: VERAPAMIL SR 240 MG TABLET.ER PO SCH (09:13)
[2021-08-24] MEDS: FENOFIBRATE 160 MG TAB PO SCH (09:13)
[2021-08-24] MEDS: FERROUS SULFATE 325 MG TAB PO SCH (09:13)
[2021-08-24] MEDS: FAMOTIDINE 20 MG TAB PO SCH (09:13)
[2021-08-24] MEDS: MAGNESIUM OXIDE 400 MG TAB PO SCH (09:13)
[2021-08-24] MEDS: metFORMIN 500 MG TAB PO SCH ×2 (09:13→20:54)
[2021-08-24] MEDS: CLINDAMYCIN TOPICAL SCH ×2 (09:14→16:49)
[2021-08-24] MEDS: PANTOPRAZOLE 40 MG TABLET PO SCH (09:14)
[2021-08-24] MEDS: glipiZIDE 10 MG TAB PO SCH (09:14)
[2021-08-24] MEDS: DULoxetine HCL 60 MG CAPSULE.DR PO SCH ×2 (09:14→20:54)
--- NOTE | 2021-08-24 09:53 | P.PN ---
Subjective Progress Note Date: 08/23/21 This is a pleasant 76 years old female with past medical history of Asthma, COPD, CVA/TIA, Diabetes Mellitus,, GERD/Reflux, Hearing Disorder / Deafness, Hyperlipidemia, Hypertension,Osteoarthritis Sleep Apnea/CPAP/BIPAP, hypothyroidism, JAGJIT but lost her Cpap, gastric ulcer, IBS, bilateral macular degeneration/diificulty with vision, low back pain with R side sciatica, sores on back and evon legs - open and weeping, Anxiety, Depression presents emergency Department complaining of 2 day history of generalized abdominal discomfort associated with recurrent nausea and vomiting, nonbloody as per patient. Also she is complaining of from lower abdominal pain, his chronic that comes and go but she had it for the last few days, nonspecific, nonradiating moderate in severity. She denies chest pain or dyspnea. No headache or weakness or numbness. She denies smoking, alcohol or illicit drugs Vitals on admission are stable and patient is afebrile. has mild leukocytosis of 10.9, INR and rest of CBC, BMP are unremarkable. Creatinine slightly elevated at 1.06. Glucose 185. Lactic acid elevated came back to normal. Liver enzymes slightly elevated with AST 49 and ALT 46 with normal bilirubin of 0.8. Lipase normal. Urine Analysis looks 2+ ketones with no evidence of infection. Covid and influenza not detected viruses CT of the abdomen and pelvis with contrast: Left exophytic lobulated or multi locular cyst in the left kidney measuring 4.8 cm, and slightly larger from before and recommended follow-up in 1 year. Some mild wall thickening of few jejunal loops consider regional enteritis, possible mild acute diverticulitis EKG showed normal sinus rhythm with no significant ST-T changes. QTC 425 Chest x-ray: Cannot exclude CHF exacerbation there is cardiomegaly with suspected new mild central venous congestion. Correlate clinically In the emergency room patient was started on normal saline, Pepcid and Benadryl and IV Solu-Medrol. Also Zosyn 08/22/2011 Patient abdominal pain is improving and diet is exacerbated by surgery team Last night she developed SVT comforted by adenosine. She is continued on her home dose of metoprolol 25 mg and verapamil was increased 40 mg up to 8 mg 3 t imes a day. Echocardiogram and TSH pending. WBCs 11.6, creatinine 1.25. Patient remains on Zosyn and normal saline at 50 mL per hour. 08/22/2021 patient clinically doing well, she is tolerating diet 100%, no nausea vomiting. She still have abdominal cramps 6/10 No chest pain, no dyspnea. Echocardiogram showed normal functioning of the left ventricle Labs are normal. Creatinine 1.0. Patient continued on Zosyn. We will discontinue IV fluid today 08/23/2021 Resting in the bed. Awake alert and oriented 3. Abdominal pain is much improved. No complaints of nausea or vomiting. Patient did have a bowel movement which is semisolid. No diarrhea. Patient is being continued on antibiotics for acute diverticulitis. Laboratory data reviewed. Blood sugars controlled. Magnesium has been replaced. Patient was started on low fiber diet and advance as tolerated. Patient was seen by cardiology and beta cullen has been discontinued and patient was started on verapamil 240 mg daily. Current medications reviewed. Objective - Vital Signs Vital signs: Vital Signs Temp 97.6 F 08/23/21 11:05 Pulse 71 08/23/21 11:05 Resp 18 08/23/21 11:05 BP 138/70 08/23/21 11:05 Pulse Ox 96 08/23/21 11:05 FiO2 Intake & Output 08/22/21 08/23/21 08/23/21 18:59 06:59 18:59 Intake Total 600 515 818 Output Total 600 1150 550 Balance 0 -635 268 Intake: IV 20 Invasive Line 2 20 Intake, IV Titration 275 Amount Piperacillin-Tazobactam 3 100 .375 gm In Sodium Chloride 0.9% 100 ml @ 25 mls/hr IVPB Q8H [facility] Rx#: [id number] Sodium Chloride 0.9% 1, 175 000 ml @ 50 mls/hr IV . Q20H [facility] Rx#:[id number] Oral 600 220 818 Output: Urine 600 1150 550 Other: Voiding Method External Catheter External Catheter External Catheter # Bowel Movements 1 - Exam -GENERAL: The patient is alert and oriented x3, not in any acute distress. Well developed, well nourished. Generally weak HEENT: Pupils are round and equally reacting to light. EOMI. No scleral icterus. No conjunctival pallor. Normocephalic, atraumatic. No pharyngeal erythema. No thyromegaly. CARDIOVASCULAR: S1 and S2 present. No murmurs, rubs, or gallops. PULMONARY: Chest is clear to auscultation, no wheezing or crackles. ABDOMEN: Soft, nontender, nondistended, normoactive bowel sounds. No palpable organomegaly. MUSCULOSKELETAL: No joint swelling or deformity. EXTREMITIES: No cyanosis, clubbing, or pedal edema. NEUROLOGICAL: Gross neurological examination did not reveal any focal deficits. SKIN: No rashes. no petechiae. - Labs CBC & Chem 7: 08/25/21 07:19 08/24/21 10:33 Labs: Abnormal Lab Results - Last 24 Hours (Table) 08/22/21 08/22/21 08/23/21 Range/Units 16:11 20:15 06:01 POC Glucose (mg/dL) 145 H 167 H 119 H (75-99) mg/dL 08/23/21 Range/Units 11:54 POC Glucose (mg/dL) 115 H (75-99) mg/dL Microbiology - Last 24 Hours (Table) 08/19/21 12:07 Blood Culture - Preliminary Blood No Growth after 96 hours 08/19/21 12:07 Blood Culture - Preliminary Blood No Growth after 96 hours 08/21/21 11:00 Stool Culture - Preliminary Stool Yeast species Yeast species#2 Assessment and Plan Assessment: Acute diverticulitis Possible regional jejunitis SVT status post adenosine and converted to sinus rhythm. Beta cullen changed to verapamil. Constipation rather than diarrhea over the last 2 days prior to admission. COPD with no acute exacerbation Diabetes mellitus History of GERD Hyperlipidemia Hypertension Osteoarthritis History of sleep apnea Hypothyroidism History of irritable bowel syndrome History of bilateral macular degeneration History of low back pain with right sciatic History of depression, not an active issue Plan: This is a pleasant 76 years old female who presents with gas GI symptoms possible acute diverticulitis/enteritis discontinue IV fluids and pain management. Continue with Zosyn Continue with low fiber diet Surgery team is following. DC'd metoprolol, continue verapamil. Intake Coordinator on the case We recommend Neurology follow-up as an outpatient. Patient informed and she agrees Labs and medication were reviewed.. Monitor lytes and vitals. DVT and GI prophylaxis. Further recommendations as per clinical course of the patient DVT prophylaxis: Subcutaneous heparin GI Prophylaxis: Pepcid PT/OT: Pending Prognosis is guarded Time with Patient: Greater than 30
[2021-08-24 11:07] LABS: Calcium 9.4 mg/dL (8.4-10.2); Potassium 3.7 mmol/L (3.5-5.1)
[2021-08-24] MEDS: ONDANSETRON 4 MG/2 ML VIAL IVP PRN (11:20)
[2021-08-24 11:49] LABS: Glucose,Whole Blood 166 mg/dL (75-99)
[2021-08-24 12:17] LABS: Basophils # (A) 0.1 k/uL (0-0.2); Basophils % (A) 1 %; Eosinophils # (A) 0.3 k/uL (0-0.7); Eosinophils % (A) 3 %; HGB 12.7 gm/dL (11.4-16.0); Lymphocytes # (A) 3.6 k/uL (1.0-4.8); Lymphocytes % (A) 36 %; MCHC 30.9 g/dL (31.0-37.0); MCV 93.9 fL (80.0-100.0); Mean Platelet Volume 7.7; Monocytes # (A) 0.4 k/uL (0-1.0); Monocytes % (A) 4 %; Neutrophils # (A) 5.5 k/uL (1.3-7.7); Neutrophils % (A) 54 %; Platelet Count 280 k/uL (150-450); RBC 4.37 m/uL (3.80-5.40); RDW 12.8 % (11.5-15.5)
--- NOTE | 2021-08-24 12:25 | P.PN ---
Subjective This is a 76-year-old female with a past medical history significant for hypertension, hyperlipidemia, and diabetes. Patient follows in the office with Dr. Borrero. We have been asked to see the patient in consultation for SVT. Patient is admitted to the hospital secondary to acute diverticulitis. She is being followed by general surgery. Yesterday evening, the patient went into SVT HR 150s and she was transferred to the cardiac stepdown unit. She received 6 mg IV adenosine with conversion to sinus mechanism. 08/24/2021 Patient seen and examined at bedside, no acute distress. She is maintaining sinus mechanism. No further episodes of SVT. Blood pressure 140/60, heart 86, afebrile, saturation 97% on room air. Echocardiogram revealed normal LV systolic function, mild mitral and tricuspid regurgitation. Patient denies constipation, 2 bowel movement yesterday and 1 today. Labs TSH within normal limits PHYSICAL EXAM: VITAL SIGNS: Reviewed. GENERAL: Well-developed in no acute distress. HEENT: Head is normocephalic. Pupils are equal, round. Sclerae anicteric. Mucous membranes of the mouth are moist. Neck supple. No JVD LUNGS: Respirations even and unlabored. Lungs essentially clear to auscultation bilaterally. HEART: Regular rate and rhythm. S1 and S2 heard. ABDOMEN: Soft. Nondistended. Nontender. EXTREMITIES: Normal range of motion. No clubbing or cyanosis. Peripheral pulses intact. No lower extremity edema NEUROLOGIC: Awake and alert. Oriented x 3. ASSESSMENT: Abdominal pain Acute diverticulitis SVT, conversion to sinus mechanism with adenosine Hypertension Hyperlipidemia Diabetes PLAN: We will continue to hold beta cullen at this time Verapamil 240mg daily Continue telemetry monitoring Continue home statin, Lofibra, Lisinopril-hctz From a cardiology perspective, patient is stable on current medication regimen. Follow up in 1-[address] Borrero, further management as an outpatient Nurse practitioner note has been reviewed by physician. Signing provider agrees with the documented findings, assessment, and plan of care. Objective - Vital Signs Vital signs: Vital Signs Temp 97.1 F L 08/24/21 11:33 Pulse 86 08/24/21 11:33 Resp 18 08/24/21 11:33 BP 140/60 08/24/21 11:33 Pulse Ox 97 08/24/21 11:33 FiO2 Intake & Output 08/23/21 08/24/21 08/24/21 18:59 06:59 18:59 Intake Total 2118 240 580 Output Total 1250 300 Balance 868 240 280 Weight 83 kg Intake: IV 240 .9@20 240 Intake, IV Titration 100 Amount Piperacillin-Tazobactam 3 100 .375 gm In Sodium Chloride 0.9% 100 ml @ 25 mls/hr IVPB Q8H [facility] Rx#: [id number] Oral 2118 240 240 Output: Urine 1250 300 Other: Voiding Method External Catheter External Catheter External Catheter # Voids 1 2 # Bowel Movements 2 1 - Labs CBC & Chem 7: 08/24/21 11:42 08/24/21 10:33 Labs: Abnormal Lab Results - Last 24 Hours (Table) 08/23/21 08/23/21 08/24/21 Range/Units 16:21 20:50 06:08 MCHC (31.0-37.0) g/dL Glucose (74-99) mg/dL POC Glucose (mg/dL) 100 H 108 H 136 H (75-99) mg/dL 08/24/21 08/24/21 08/24/21 Range/Units 10:33 11:42 11:48 MCHC 30.9 L (31.0-37.0) g/dL Glucose 195 H (74-99) mg/dL POC Glucose (mg/dL) 166 H (75-99) mg/dL Microbiology - Last 24 Hours (Table) 08/21/21 11:00 Stool Culture - Final Stool Yeast species Yeast species#2 08/19/21 12:07 Blood Culture - Preliminary Blood No Growth after 96 hours 08/19/21 12:07 Blood Culture - Preliminary Blood No Growth after 96 hours
--- NOTE | 2021-08-24 12:53 | P.PN ---
Subjective Progress Note Date: 08/24/21 CHIEF COMPLAINT: Diverticulitis HISTORY OF PRESENT ILLNESS: Patient complaining of more abdominal pain in the lower abdomen today. She reports that it is in the left lower quadrant and radiates across the lower abdomen. She has been having nausea. She reports that the pain is better at the moment. No vomiting. She did report a bowel movement. Afebrile. WBC is 10 hemoglobin 12.7 PHYSICAL EXAM: VITAL SIGNS: Reviewed. GENERAL: Well-developed in no acute distress. HEENT: No sclera icterus. Extraocular movements grossly intact. Moist buccal mucosa. Head is atraumatic, normocephalic. ABDOMEN: Soft. Nondistended. mild tenderness to palpation left lower quadrant NEUROLOGIC: Alert and oriented. Cranial nerves II through XII grossly intact. ASSESSMENT: 1. Acute sigmoid diverticulitis PLAN: -Downgrade diet to full liquid due to increased abdominal pain -Continue with medical management -Continue antibiotics -Continue supportive care Physician Linen Room Houseperson note has been reviewed by physician. Signing provider agrees with the documented findings, assessment, and plan of care. Objective - Vital Signs Vital signs: Vital Signs Temp 97.1 F L 08/24/21 11:33 Pulse 86 08/24/21 11:33 Resp 18 08/24/21 11:33 BP 140/60 08/24/21 11:33 Pulse Ox 97 08/24/21 11:33 FiO2 Intake & Output 08/23/21 08/24/21 08/24/21 18:59 06:59 18:59 Intake Total 2118 240 580 Output Total 1250 300 Balance 868 240 280 Weight 83 kg Intake: IV 240 .9@20 240 Intake, IV Titration 100 Amount Piperacillin-Tazobactam 3 100 .375 gm In Sodium Chloride 0.9% 100 ml @ 25 mls/hr IVPB Q8H [facility] Rx#: [id number] Oral 2118 240 240 Output: Urine 1250 300 Other: Voiding Method External Catheter External Catheter External Catheter # Voids 1 2 # Bowel Movements 2 1 - Labs CBC & Chem 7: 08/24/21 11:42 08/24/21 10:33 Labs: Abnormal Lab Results - Last 24 Hours (Table) 08/23/21 08/23/21 08/24/21 Range/Units 16:21 20:50 06:08 MCHC (31.0-37.0) g/dL Glucose (74-99) mg/dL POC Glucose (mg/dL) 100 H 108 H 136 H (75-99) mg/dL 08/24/21 08/24/21 08/24/21 Range/Units 10:33 11:42 11:48 MCHC 30.9 L (31.0-37.0) g/dL Glucose 195 H (74-99) mg/dL POC Glucose (mg/dL) 166 H (75-99) mg/dL Microbiology - Last 24 Hours (Table) 08/21/21 11:00 Stool Culture - Final Stool Yeast species Yeast species#2 08/19/21 12:07 Blood Culture - Preliminary Blood No Growth after 96 hours 08/19/21 12:07 Blood Culture - Preliminary Blood No Growth after 96 hours
[2021-08-24 14:49] VITALS: BMI 38.2
[2021-08-24 16:41] LABS: Glucose,Whole Blood 99 mg/dL (75-99)
[2021-08-24 20:05] LABS: Glucose,Whole Blood 81 mg/dL (75-99)
[2021-08-24] MEDS: MONTELUKAST 10 MG TAB PO SCH (20:54)
[2021-08-24] MEDS: ATORVASTATIN 80 MG TAB PO SCH (20:54)
[2021-08-25] MEDS: PIPERACILLIN-TAZOBACTAM 3.375 GM in SODIUM CHLORIDE 0.9% 100 ML IVPB SCH ×2 (01:16→09:18)
[2021-08-25 06:13] LABS: Glucose,Whole Blood 99 mg/dL (75-99)
[2021-08-25] MEDS: LEVOTHYROXINE 100 MCG TAB PO SCH (06:42)
[2021-08-25] MEDS: REPAGLINIDE 1 MG TAB PO SCH ×2 (06:42→12:09)
[2021-08-25 08:04] LABS: Basophils # (A) 0.1 k/uL (0-0.2); Basophils % (A) 1 %; Eosinophils # (A) 0.4 k/uL (0-0.7); Eosinophils % (A) 4 %; HCT 43.1 % (34.0-46.0); HGB 12.8 gm/dL (11.4-16.0); Lymphocytes # (A) 3.5 k/uL (1.0-4.8); Lymphocytes % (A) 33 %; MCH 28.4 pg (25.0-35.0); MCHC 29.7 g/dL (31.0-37.0); MCV 95.5 fL (80.0-100.0); Mean Platelet Volume 7.9; Monocytes # (A) 0.4 k/uL (0-1.0); Monocytes % (A) 4 %; Neutrophils # (A) 5.9 k/uL (1.3-7.7); Neutrophils % (A) 56 %; Platelet Count 313 k/uL (150-450); RBC 4.52 m/uL (3.80-5.40); RDW 12.9 % (11.5-15.5); WBC 10.5 k/uL (3.8-10.6)
[2021-08-25 09:16] VITALS: BP 118/75; PULSE 89; RESP 18; TEMP 98
[2021-08-25] MEDS: DULoxetine HCL 60 MG CAPSULE.DR PO SCH (09:18)
[2021-08-25] MEDS: glipiZIDE 10 MG TAB PO SCH (09:18)
[2021-08-25] MEDS: MULTIVITAMINS, THERA 1 EACH TAB PO SCH (09:18)
[2021-08-25] MEDS: PANTOPRAZOLE 40 MG TABLET PO SCH (09:18)
[2021-08-25] MEDS: LISINOPRIL-HCTZ 20-12.5 MG 1 EACH TAB PO SCH (09:19)
[2021-08-25] MEDS: CLINDAMYCIN TOPICAL SCH (09:19)
[2021-08-25] MEDS: GABAPENTIN 300 MG CAP PO SCH (09:19)
[2021-08-25] MEDS: FAMOTIDINE 20 MG TAB PO SCH (09:19)
[2021-08-25] MEDS: metFORMIN 500 MG TAB PO SCH (09:19)
[2021-08-25] MEDS: VIT A,C & E-LUTEIN-MINERALS 1 EACH TAB PO SCH (09:19)
[2021-08-25] MEDS: MAGNESIUM OXIDE 400 MG TAB PO SCH (09:19)
[2021-08-25] MEDS: FERROUS SULFATE 325 MG TAB PO SCH (09:19)
[2021-08-25] MEDS: busPIRone HCl 5 MG TAB PO SCH (09:19)
[2021-08-25] MEDS: VERAPAMIL SR 240 MG TABLET.ER PO SCH (09:19)
[2021-08-25] MEDS: FENOFIBRATE 160 MG TAB PO SCH (09:19)
--- NOTE | 2021-08-25 10:48 | P.PN ---
Subjective Progress Note Date: 08/24/21 This is a pleasant 76 years old female with past medical history of Asthma, COPD, CVA/TIA, Diabetes Mellitus,, GERD/Reflux, Hearing Disorder / Deafness, Hyperlipidemia, Hypertension,Osteoarthritis Sleep Apnea/CPAP/BIPAP, hypothyroidism, JAGJIT but lost her Cpap, gastric ulcer, IBS, bilateral macular degeneration/diificulty with vision, low back pain with R side sciatica, sores on back and evon legs - open and weeping, Anxiety, Depression presents emergency Department complaining of 2 day history of generalized abdominal discomfort associated with recurrent nausea and vomiting, nonbloody as per patient. Also she is complaining of from lower abdominal pain, his chronic that comes and go but she had it for the last few days, nonspecific, nonradiating moderate in severity. She denies chest pain or dyspnea. No headache or weakness or numbness. She denies smoking, alcohol or illicit drugs Vitals on admission are stable and patient is afebrile. has mild leukocytosis of 10.9, INR and rest of CBC, BMP are unremarkable. Creatinine slightly elevated at 1.06. Glucose 185. Lactic acid elevated came back to normal. Liver enzymes slightly elevated with AST 49 and ALT 46 with normal bilirubin of 0.8. Lipase normal. Urine Analysis looks 2+ ketones with no evidence of infection. Covid and influenza not detected viruses CT of the abdomen and pelvis with contrast: Left exophytic lobulated or multi locular cyst in the left kidney measuring 4.8 cm, and slightly larger from before and recommended follow-up in 1 year. Some mild wall thickening of few jejunal loops consider regional enteritis, possible mild acute diverticulitis EKG showed normal sinus rhythm with no significant ST-T changes. QTC 425 Chest x-ray: Cannot exclude CHF exacerbation there is cardiomegaly with suspected new mild central venous congestion. Correlate clinically In the emergency room patient was started on normal saline, Pepcid and Benadryl and IV Solu-Medrol. Also Zosyn 60 07/08/2011 Patient abdominal pain is improving and diet is exacerbated by surgery team Last night she developed SVT comforted by adenosine. She is continued on her home dose of metoprolol 25 mg and verapamil was increased 40 mg up to 8 mg 3 times a day. Echocardiogram and TSH pending. WBCs 11.6, creatinine 1.25. Patient remains on Zosyn and normal saline at 50 mL per hour. 08/22/2021 patient clinically doing well, she is tolerating diet 100%, no nausea vomiting. She still have abdominal cramps 6/10 No chest pain, no dyspnea. Echocardiogram showed normal functioning of the left ventricle Labs are normal. Creatinine 1.0. Patient continued on Zosyn. We will discontinue IV fluid today 08/23/2021 Resting in the bed. Awake alert and oriented 3. Abdominal pain is much improved. No complaints of nausea or vomiting. Patient did have a bowel movement which is semisolid. No diarrhea. Patient is being continued on antibiotics for acute diverticulitis. Laboratory data reviewed. Blood sugars controlled. Magnesium has been replaced. Patient was started on low fiber diet and advance as tolerated. Patient was seen by cardiology and beta cullen has been discontinued and patient was started on verapamil 240 mg daily. 08/24/2021 Patient is currently lying in the bed. Awake alert but hard of hearing. Complaints of lower abdominal pain/discomfort and also feels very nauseous. Process of vomiting. Patient is able to tolerate oral diet. While. No fever no chills. No Chest pain or shortness of breath. Patient did have a bowel movement. Patient is being continued on antibiotics in the form of Zosyn. Laboratory data Sugar was 10.7 hemoglobin 12.7 and platelets 280 sodium 138 potassium 3.7 chloride 103 bicarb is 26 BUN 14 and creatinine 0.6 and blood sugar 195. Current medications reviewed. Objective - Vital Signs Vital signs: Vital Signs Temp 97.1 F L 08/24/21 11:33 Pulse 86 08/24/21 11:33 Resp 18 08/24/21 11:33 BP 140/60 08/24/21 11:33 Pulse Ox 97 08/24/21 11:33 FiO2 Intake & Output 08/23/21 08/24/21 08/24/21 18:59 06:59 18:59 Intake Total 2118 240 580 Output Total 1250 300 Balance 868 240 280 Weight 83 kg 83 kg Intake: IV 240 .9@20 240 Intake, IV Titration 100 Amount Piperacillin-Tazobactam 3 100 .375 gm In Sodium Chloride 0.9% 100 ml @ 25 mls/hr IVPB Q8H [facility] Rx#: [id number] Oral 2118 240 240 Output: Urine 1250 300 Other: Voiding Method External Catheter External Catheter External Catheter # Voids 1 2 # Bowel Movements 2 1 - Exam -GENERAL: The patient is alert and oriented x3, not in any acute distress. Well developed, well nourished. Generally weak HEENT: Pupils are round and equally reacting to light. EOMI. No scleral icterus. No conjunctival pallor. Normocephalic, atraumatic. No pharyngeal erythema. No thyromegaly. CARDIOVASCULAR: S1 and S2 present. No murmurs, rubs, or gallops. PULMONARY: Chest is clear to auscultation, no wheezing or crackles. ABDOMEN: Soft, nontender, nondistended, normoactive bowel sounds. No palpable organomegaly. MUSCULOSKELETAL: No joint swelling or deformity. EXTREMITIES: No cyanosis, clubbing, or pedal edema. NEUROLOGICAL: Gross neurological examination did not reveal any focal deficits. SKIN: No rashes. no petechiae. - Labs CBC & Chem 7: 08/25/21 07:19 08/24/21 10:33 Labs: Abnormal Lab Results - Last 24 Hours (Table) 08/23/21 08/23/21 08/24/21 Range/Units 16:21 20:50 06:08 MCHC (31.0-37.0) g/dL Glucose (74-99) mg/dL POC Glucose (mg/dL) 100 H 108 H 136 H (75-99) mg/dL 08/24/21 08/24/21 08/24/21 Range/Units 10:33 11:42 11:48 MCHC 30.9 L (31.0-37.0) g/dL Glucose 195 H (74-99) mg/dL POC Glucose (mg/dL) 166 H (75-99) mg/dL Microbiology - Last 24 Hours (Table) 08/19/21 12:07 Blood Culture - Preliminary Blood No Growth after 120 hours 08/19/21 12:07 Blood Culture - Preliminary Blood No Growth after 120 hours 08/21/21 11:00 Stool Culture - Final Stool Yeast species Yeast species#2 Assessment and Plan Assessment: Acute diverticulitis Possible regional jejunitis SVT status post adenosine and converted to sinus rhythm. Beta cullen changed to verapamil. Constipation rather than diarrhea over the last 2 days prior to admission. COPD with no acute exacerbation Diabetes mellitus History of GERD Hyperlipidemia Hypertension Osteoarthritis History of sleep apnea Hypothyroidism History of irritable bowel syndrome History of bilateral macular degeneration History of low back pain with right sciatic History of depression, not an active issue Plan: This is a pleasant 76 years old female who presents with gas GI symptoms possible acute diverticulitis/enteritis discontinue IV fluids and pain management. Continue with Zosyn Continue with low fiber diet Surgery team is following. DC'd metoprolol, continue verapamil. Loft Rigger on the case We recommend Neurology follow-up as an outpatient. Patient informed and she agrees Labs and medication were reviewed.. Monitor lytes and vitals. DVT and GI prophylaxis. Further recommendations as per clinical course of the patient DVT prophylaxis: Subcutaneous heparin GI Prophylaxis: Pepcid PT/OT: Pending Prognosis is guarded Time with Patient: Greater than 30
[2021-08-25 11:49] LABS: Glucose,Whole Blood 87 mg/dL (75-99)
--- NOTE | 2021-08-25 12:50 | P.PN ---
Subjective This is a 76-year-old female with a past medical history significant for hypertension, hyperlipidemia, and diabetes. Patient follows in the office with Dr. Borrero. We have been asked to see the patient in consultation for SVT. Patient is admitted to the hospital secondary to acute diverticulitis. She is being followed by general surgery. Yesterday evening, the patient went into SVT HR 150s and she was transferred to the cardiac stepdown unit. She received 6 mg IV adenosine with conversion to sinus mechanism. 08/25/2021 Patient seen and examined at bedside, no acute distress. She is maintaining sinus mechanism HR 70s-80s. No further episodes of SVT. Blood pressure 118/75, heart 89, afebrile, saturation 95% on room air. Echocardiogram revealed normal LV systolic function, mild mitral and tricuspid regurgitation. Patient denies constipation. Labs TSH within normal limits PHYSICAL EXAM: VITAL SIGNS: Reviewed. GENERAL: Well-developed in no acute distress. HEENT: Mucous membranes of the mouth are moist. Neck supple. No JVD LUNGS: Respirations even and unlabored. Lungs essentially clear to auscultation bilaterally. HEART: Regular rate and rhythm. S1 and S2 heard. ABDOMEN: Soft. Nondistended. Nontender. EXTREMITIES: Normal range of motion. No clubbing or cyanosis. Peripheral pulses intact. No lower extremity edema NEUROLOGIC: Awake and alert. Oriented x 3. ASSESSMENT: Abdominal pain Acute diverticulitis SVT, conversion to sinus mechanism with adenosine Hypertension Hyperlipidemia Diabetes PLAN: We will continue to hold beta cullen at this time Verapamil 240mg daily Continue telemetry monitoring Continue home statin, Lofibra, Lisinopril-hctz From a cardiology perspective, patient is stable on current medication regimen. Follow up in 1-[address] Borrero, further management as an outpatient Nurse practitioner note has been reviewed by physician. Signing provider agrees with the documented findings, assessment, and plan of care. Objective - Vital Signs Vital signs: Vital Signs Temp 98 F 08/25/21 08:00 Pulse 89 08/25/21 08:00 Resp 18 08/25/21 08:00 BP 118/75 08/25/21 08:00 Pulse Ox 95 08/25/21 08:00 FiO2 Intake & Output 08/24/21 08/25/21 08/25/21 18:59 06:59 18:59 Intake Total 680 200 Output Total 900 300 Balance -220 -100 Weight 83 kg Intake: IV 240 .9@20 240 Intake, IV Titration 200 100 Amount Piperacillin-Tazobactam 3 200 100 .375 gm In Sodium Chloride 0.9% 100 ml @ 25 mls/hr IVPB Q8H [facility] Rx#: [id number] Oral 240 100 Output: Urine 900 300 Other: Voiding Method External Catheter External Catheter # Voids 2 1 # Bowel Movements 1 1 - Labs CBC & Chem 7: 08/25/21 07:19 08/24/21 10:33 Labs: Abnormal Lab Results - Last 24 Hours (Table) 08/25/21 Range/Units 07:19 MCHC 29.7 L (31.0-37.0) g/dL Microbiology - Last 24 Hours (Table) 08/21/21 11:00 Stool Culture - Final Stool Yeast species Yeast species#2 08/19/21 12:07 Blood Culture - Preliminary Blood No Growth after 120 hours 08/19/21 12:07 Blood Culture - Preliminary Blood No Growth after 120 hours
--- NOTE | 2021-08-25 13:32 | P.PN ---
Subjective Progress Note Date: 08/25/21 CHIEF COMPLAINT: Diverticulitis HISTORY OF PRESENT ILLNESS: Patient sitting up at bedside chair. She denies any abdominal pain. Denies any nausea vomiting. She tolerated a full liquid diet. Afebrile. WBC 10.5. Patient did have a bowel movement. Patient seen and examined with Dr. brown PHYSICAL EXAM: VITAL SIGNS: Reviewed. GENERAL: Well-developed in no acute distress. HEENT: No sclera icterus. Extraocular movements grossly intact. Moist buccal mucosa. Head is atraumatic, normocephalic. ABDOMEN: Soft. Nondistended. Nontender NEUROLOGIC: Alert and oriented. Cranial nerves II through XII grossly intact. ASSESSMENT: 1. Acute sigmoid diverticulitis PLAN: -Advance diet to low fiber and then advanced to a regular diet at home -Continue oral antibiotics after discharge -Patient can be discharge from surgical standpoint Physician Psychology Intern note has been reviewed by physician. Signing provider agrees with the documented findings, assessment, and plan of care. Objective - Vital Signs Vital signs: Vital Signs Temp 98 F 08/25/21 08:00 Pulse 89 08/25/21 08:00 Resp 18 08/25/21 08:00 BP 118/75 08/25/21 08:00 Pulse Ox 95 08/25/21 08:00 FiO2 Intake & Output 08/24/21 08/25/21 08/25/21 18:59 06:59 18:59 Intake Total 680 200 118 Output Total 900 300 Balance -220 -100 118 Weight 83 kg Intake: IV 240 .9@20 240 Intake, IV Titration 200 100 Amount Piperacillin-Tazobactam 3 200 100 .375 gm In Sodium Chloride 0.9% 100 ml @ 25 mls/hr IVPB Q8H [facility] Rx#: [id number] Oral 240 100 118 Output: Urine 900 300 Other: Voiding Method External Catheter External Catheter # Voids 2 1 # Bowel Movements 1 1 - Labs CBC & Chem 7: 08/25/21 07:19 08/24/21 10:33 Labs: Abnormal Lab Results - Last 24 Hours (Table) 08/25/21 Range/Units 07:19 MCHC 29.7 L (31.0-37.0) g/dL Microbiology - Last 24 Hours (Table) 08/21/21 11:00 Stool Culture - Final Stool Yeast species Yeast species#2 08/19/21 12:07 Blood Culture - Preliminary Blood No Growth after 120 hours 08/19/21 12:07 Blood Culture - Preliminary Blood No Growth after 120 hours
== END 2021-08-25 16:11 | disposition home or self-care (01) | DRG 392 ==
LOC: EC 11:23 → 5NMEDONC 17:45 → 3SCARD 08-20 22:06
PROVIDERS: ADMIT Hospitalist; ATTEND Hospitalist
DX: K57.32 Diverticulitis of large intestine without perforation or abscess without bleeding (principal); E87.2 Acidosis; I47.1 Supraventricular tachycardia; E03.9 Hypothyroidism, unspecified; E78.5 Hyperlipidemia, unspecified; F32.A Depression, unspecified; F41.9 Anxiety disorder, unspecified; G40.909 Epilepsy, unspecified, not intractable, without status epilepticus; H91.90 Unspecified hearing loss, unspecified ear; I10 Essential (primary) hypertension; E11.42 Type 2 diabetes mellitus with diabetic polyneuropathy; J44.9 Chronic obstructive pulmonary disease, unspecified; K59.00 Constipation, unspecified; M19.90 Unspecified osteoarthritis, unspecified site; N28.1 Cyst of kidney, acquired; Z96.653 Presence of artificial knee joint, bilateral; G47.33 Obstructive sleep apnea (adult) (pediatric); M54.41 Lumbago with sciatica, right side; K58.9 Irritable bowel syndrome, unspecified; Z96.1 Presence of intraocular lens; Z20.822 Contact with and (suspected) exposure to COVID-19; Z79.4 Long term (current) use of insulin; Z79.82 Long term (current) use of aspirin; Z79.890 Hormone replacement therapy; Z79.899 Other long term (current) drug therapy; Z98.42 Cataract extraction status, left eye; Z98.41 Cataract extraction status, right eye; Z90.49 Acquired absence of other specified parts of digestive tract; Z91.041 Radiographic dye allergy status; Z90.710 Acquired absence of both cervix and uterus; Z87.891 Personal history of nicotine dependence; Z87.440 Personal history of urinary (tract) infections; Z87.11 Personal history of peptic ulcer disease; Z97.4 Presence of external hearing-aid; Z86.73 Personal history of transient ischemic attack (TIA), and cerebral infarction without residual deficits; Z91.040 Latex allergy status; Z88.5 Allergy status to narcotic agent; Z88.8 Allergy status to other drugs, medicaments and biological substances; Z91.018 Allergy to other foods; Z80.0 Family history of malignant neoplasm of digestive organs
CPT/HCPCS: 36415; 71045; 74177; 80048; 80053; 81001; 82150; 83605; 83630; 83690; 83735; 83993; 84145; 84443; 84484; 85025; 85610; 85730; 87040; 87045; 87046; 87324; 87502; 87635; 93005; 93306; 94640; 96361; 96365; 96375; 96376; 99285

== ENCOUNTER 2021-08-27 11:03 | Emergency (ER) | payer MEDICARE, BC ==
[2021-08-27] MEDS ORDERED: SODIUM CHLORIDE 0.9% 500 ML 500 ML IV STA (11:51)
[2021-08-27] MEDS ORDERED: ONDANSETRON 4 MG/2 ML VIAL IVP STA (11:51)
--- NOTE | 2021-08-27 11:57 | ED ---
General Adult HPI - General Chief complaint: Nausea/Vomiting/Diarrhea Stated complaint: N/V,Abd Pain Time Seen by Provider: 08/27/21 11:45 Source: patient, RN notes reviewed, old records reviewed Mode of arrival: wheelchair Limitations: no limitations - History of Present Illness Initial comments: 76-year-old female presents to the emergency room with family member complaining of lower abdominal pain. She states she was discharged with diverticulitis on Monday and has been taking the antibiotics as prescribed. She states that yesterday she had an episode of vomiting after taking her antibiotics and again today. She describes the vomitus as mucousy. She states that she does have chills but did not check her temperature. She denies any chest pain or shortness of breath. She states she did call her primary care doctor's office who recommended she come back to the emergency room for evaluation. -: days(s) (2) Location: abdomen (left and right lower abdominal pain) Radiation: non-radiation Severity scale (1-10): 4 Quality: constant Consistency: constant Worsens with: other (palpation) Associated Symptoms: fever/chills, nausea/vomiting Treatments Prior to Arrival: other (antibiotics) - Related Data Home Medications Medication Instructions Recorded Confirmed metFORMIN HCL [Glucophage] 1,000 mg PO BID 07/17/14 08/19/21 Montelukast [Singulair] 10 mg PO HS 11/06/17 08/19/21 Fluticasone Nasal [place] [Flonase 2 spray EA NOSTRIL DAILY PRN 09/16/18 08/19/21 Nasal [place]] Levothyroxine Sodium [Synthroid] 100 mcg PO DAILY 09/16/18 08/19/21 busPIRone HCl [Buspar] 5 mg PO BID 09/16/18 08/19/21 Baclofen 5 mg PO BID PRN 03/22/19 08/19/21 DULoxetine HCL [Cymbalta] 60 mg PO BID 03/22/19 08/19/21 Repaglinide [Prandin] 0.5 mg PO TID-W/MEALS 03/22/19 08/19/21 glyBURIDE [Diabeta] 5 mg PO DAILY 03/22/19 08/19/21 levETIRAcetam [Keppra] 750 mg PO BID 03/22/19 08/19/21 Atorvastatin [Lipitor] 80 mg PO HS 10/01/19 08/19/21 Biotin 10,000 mcg PO DAILY 10/01/19 08/19/21 Fenofibrate [Lofibra] 160 mg PO DAILY 10/01/19 08/19/21 Ferrous Sulfate [Iron (65 MG 325 mg PO DAILY 10/01/19 08/19/21 Elemental)] Lisinopril-Hctz 20-12.5 mg 1 tab PO DAILY 10/01/19 08/19/21 [Zestoretic 20-12.5] Aspirin 81 mg PO DAILY 09/03/20 08/19/21 Vit C/E/Zn/Coppr/Lutein/Zeaxan 1 tab PO BID 09/03/20 08/19/21 [Preservision Areds 2 Softgel] Ipratropium-Albuterol Nebulize 3 ml INHALATION RT-QID PRN 09/28/20 08/19/21 [Duoneb 0.5 mg-3 mg/3 ml Soln] Ergocalciferol (Vitamin D2) 1,250 mcg PO MO 09/29/20 08/19/21 [Drisdol (50,000 Iu)] Magnesium Oxide [Mag-Ox] 400 mg PO DAILY 12/21/20 08/19/21 Gabapentin 600 mg PO TID 01/10/21 08/19/21 Acetaminophen Tab [Tylenol] 650 mg PO Q6HR PRN 08/19/21 08/19/21 Clindamycin Topical Soln 1 applic TOPICAL BID 08/19/21 08/19/21 [Cleocin-T Topical Soln] Famotidine [Pepcid] 20 mg PO DAILY 08/19/21 08/19/21 Lidocaine 4% Patch 1 patch TOPICAL DAILY PRN 08/19/21 08/19/21 Multivitamins, Thera [Multivitamin 1 tab PO DAILY 08/19/21 08/19/21 (formulary)] Ondansetron Odt [Zofran ODT] 8 mg PO Q8H PRN 08/19/21 08/19/21 Pantoprazole Sodium [Protonix] 40 mg PO DAILY 08/19/21 08/19/21 Super B Complex 1 tab PO DAILY 08/19/21 08/19/21 Previous Rx's Medication Instructions Recorded Cefuroxime Axetil [Ceftin] 500 mg PO BID 2 Days #4 tab 08/25/21 Verapamil Sr [Isoptin Sr] 240 mg PO DAILY 90 Days #90 tab 08/25/21 metroNIDAZOLE [Flagyl] 500 mg PO TID 2 Days #6 tab 08/25/21 Allergies Allergy/AdvReac Type Severity Reaction Status Date / Time banana [Banana] Allergy Severe Anaphylaxis Verified 08/27/21 11:28 iodine Allergy Severe DYSPNEA, Verified 08/27/21 11:28 SKIN INFLAMED kiwi Allergy Severe Anaphylaxis Verified 08/27/21 11:28 grass pollen Allergy Unknown Verified 08/27/21 11:28 Iodinated Contrast Media Allergy Dyspnea Verified 08/27/21 11:28 latex Allergy Dyspnea, Verified 08/27/21 11:28 Itching morphine Allergy Rapid Verified 08/27/21 11:28 Heart Rate rubber Allergy Dyspnea Uncoded 08/27/21 11:28 smoke Allergy Dyspnea Uncoded 08/27/21 11:28 Review of Systems ROS Statement: Those systems with pertinent positive or pertinent negative responses have been documented in the HPI. ROS Other: All systems not noted in ROS Statement are negative. Past Medical History Past Medical History: Asthma, Chest Pain / Angina, COPD, CVA/TIA, Diabetes Mellitus, Eye Disorder, GERD/Reflux, Hearing Disorder / Deafness, Hyperlipidemia, Hypertension, Neurologic Disorder, Osteoarthritis (OA), Pneumonia, Skin Disorder, Sleep Apnea/CPAP/BIPAP, Thyroid Disorder Additional Past Medical History / Comment(s): hx. past UTIs, NIDDM type II, neuropathy bilateral feet, cardiac valve disease, murmur, TIA, seizure-last one 2017, neurodematitis with rash, bronchitis, JAGJIT but lost her Cpap, gastric ulcer, IBS, bilateral macular degeneration/diificulty with vision, very CACHIL DEHE bilaterally-normally uses aide in R ear, DDD, low back pain with R side sciatica , hypothyroid, sores on back and evon legs - open and weeping History of Any Multi-Drug Resistant Organisms: None Reported Past Surgical History: Adenoidectomy, Cholecystectomy, Hysterectomy, Joint Replacement, Orthopedic Surgery, Tonsillectomy Additional Past Surgical History / Comment(s): EGD, colonoscopy, hemorrhoidectom y, D&C, bilatearl knee scopes and then total knee arthroplasties, bilateral rotator cuff repairs, lumbar epidural injections-last one 2 weeks ago, bilateral eye cataract removals with lens implants, L lower eyelid "wart" removed Past Anesthesia/Blood Transfusion Reactions: No Reported Reaction Past Psychological History: Anxiety, Depression Smoking Status: Former smoker Past Alcohol Use History: None Reported Past Drug Use History: None Reported - Past Family History Father Family Medical History: Pneumonia Mother Family Medical History: Cancer Additional Family Medical History / Comment(s): PANCREAS CA General Exam Limitations: no limitations (CACHIL DEHE) General appearance: alert, in no apparent distress Head exam: Present: atraumatic Eye exam: Absent: scleral icterus, conjunctival injection ENT exam: Present: mucous membranes moist Neck exam: Absent: tenderness, meningismus Respiratory exam: Present: normal lung sounds bilaterally. Absent: respiratory distress, accessory muscle use Cardiovascular Exam: Present: regular rate GI/Abdominal exam: Present: soft, tenderness (Right and left lower quadrant pain). Absent: rigid Extremities exam: Present: normal capillary refill. Absent: pedal edema Back exam: Present: other (Multiple abrasions on back). Absent: tenderness, CVA tenderness (R), CVA tenderness (L) Neurological exam: Present: alert, oriented X3 Psychiatric exam: Present: normal affect, normal mood Skin exam: Present: warm, dry. Absent: cyanosis, diaphoretic Course Vital Signs 08/27/21 08/27/21 11:28 12:31 Temperature 98 F Pulse Rate 81 80 Respiratory 16 18 Rate Blood Pressure 131/76 128/63 O2 Sat by Pulse 97 95 Oximetry Medical Decision Making - Medical Decision Making 76-year-old female discharged 2 days ago with diverticulitis. She was p rescribed antibiotics to continue at home and has had one episode of vomiting yesterday and one episode of vomiting today after taking her antibiotics. On exam her abdomen is soft, vital signs are stable and she is afebrile. Repeat labs were drawn showing no evidence of leukocytosis and hemoglobin and hematocrit are stable. Electrolytes are unremarkable. She was directed to eat food or crackers prior to taking her antibiotics. She was given Zofran to take every 8 hours as needed for nausea. I did explain to her and her family member that she should return to the emergency room if any worsening pain, persistent nausea, vomiting or fevers. She is agreeable to this plan of care. Case discussed with Dr. Berry - Lab Data Result diagrams: 08/27/21 12:09 08/27/21 12:09 Lab Results 08/27/21 08/27/21 Range/Units 12:09 12:09 WBC 10.6 (3.8-10.6) k/uL RBC 4.43 (3.80-5.40) m/uL Hgb 13.2 (11.4-16.0) gm/dL Hct 40.7 (34.0-46.0) % MCV 92.1 (80.0-100.0) fL MCH 29.9 (25.0-35.0) pg MCHC 32.5 (31.0-37.0) g/dL RDW 13.4 (11.5-15.5) % Plt Count 339 (150-450) k/uL MPV 7.7 Neutrophils % 59 % Lymphocytes % 31 % Monocytes % 4 % Eosinophils % 2 % Basophils % 1 % Neutrophils # 6.2 (1.3-7.7) k/uL Lymphocytes # 3.3 (1.0-4.8) k/uL Monocytes # 0.5 (0-1.0) k/uL Eosinophils # 0.2 (0-0.7) k/uL Basophils # 0.1 (0-0.2) k/uL Sodium 138 (137-145) mmol/L Potassium 3.5 (3.5-5.1) mmol/L Chloride 102 (98-107) mmol/L Carbon Dioxide 27 (22-30) mmol/L Anion Gap 9 mmol/L BUN 14 (7-17) mg/dL Creatinine 0.95 (0.52-1.04) mg/dL Est GFR (CKD-EPI)AfAm 67 (>60 ml/min/1.73 sqM) Est GFR (CKD-EPI)NonAf 58 (>60 ml/min/1.73 sqM) Glucose 119 H (74-99) mg/dL Calcium 9.7 (8.4-10.2) mg/dL Total Bilirubin 0.4 (0.2-1.3) mg/dL AST 29 (14-36) U/L ALT 27 (4-34) U/L Alkaline Phosphatase 54 (38-126) U/L Total Protein 6.4 (6.3-8.2) g/dL Albumin 3.9 (3.5-5.0) g/dL Disposition Clinical Impression: Medication side effect, Nausea & vomiting Disposition: HOME SELF-CARE Condition: Good Instructions (If sedation given, give patient instructions): Acute Nausea and Vomiting (ED) Additional Instructions: Take Zofran every 8 hours as needed for nausea and vomiting. Some things that may help you include taking probiotics. Unless advised to take on an empty stomach, most antibiotics should be taken with food. Follow-up with your primary care doctor next week. Return to the emergency room with any new or concerning symptoms including increased pain, fever or persistent nausea vomiting.. Is patient prescribed a controlled substance at d/c from ED?: No Referrals: Mallorie Hudson DO [Primary Care Provider] - 1-2 days Time of Disposition: 13:41
[2021-08-27 12:19] LABS: Basophils # (A) 0.1 k/uL (0-0.2); Basophils % (A) 1 %; Eosinophils # (A) 0.2 k/uL (0-0.7); Eosinophils % (A) 2 %; HCT 40.7 % (34.0-46.0); HGB 13.2 gm/dL (11.4-16.0); Lymphocytes # (A) 3.3 k/uL (1.0-4.8); Lymphocytes % (A) 31 %; MCH 29.9 pg (25.0-35.0); MCHC 32.5 g/dL (31.0-37.0); MCV 92.1 fL (80.0-100.0); Mean Platelet Volume 7.7; Monocytes # (A) 0.5 k/uL (0-1.0); Monocytes % (A) 4 %; Neutrophils # (A) 6.2 k/uL (1.3-7.7); Neutrophils % (A) 59 %; Platelet Count 339 k/uL (150-450); RBC 4.43 m/uL (3.80-5.40); RDW 13.4 % (11.5-15.5); WBC 10.6 k/uL (3.8-10.6)
[2021-08-27 12:33] VITALS: RESP 18
[2021-08-27 12:58] LABS: Albumin 3.9 g/dL (3.5-5.0); Calcium 9.7 mg/dL (8.4-10.2); Potassium 3.5 mmol/L (3.5-5.1); Total Bilirubin 0.4 mg/dL (0.2-1.3); Total Protein 6.4 g/dL (6.3-8.2)
[2021-08-27] MEDS ORDERED: ONDANSETRON 4 MG ODT STARTER PACK 2 TAB BTL PO STA (13:42)
[2021-08-27 14:11] VITALS: BP 125/61; PULSE 89; TEMP 98.4
== END 2021-08-27 14:55 | disposition home or self-care (01) ==
LOC: EC 11:03
DX: R11.2 Nausea with vomiting, unspecified (principal); T36.95XA Adverse effect of unspecified systemic antibiotic, initial encounter; J44.9 Chronic obstructive pulmonary disease, unspecified; E11.9 Type 2 diabetes mellitus without complications; E07.9 Disorder of thyroid, unspecified; E78.5 Hyperlipidemia, unspecified; I10 Essential (primary) hypertension; K21.9 Gastro-esophageal reflux disease without esophagitis; Z79.83 Long term (current) use of bisphosphonates; Z79.899 Other long term (current) drug therapy; Z86.73 Personal history of transient ischemic attack (TIA), and cerebral infarction without residual deficits; Z87.891 Personal history of nicotine dependence; Z91.040 Latex allergy status; Z88.5 Allergy status to narcotic agent; Z91.09 Other allergy status, other than to drugs and biological substances; Z91.041 Radiographic dye allergy status
CPT/HCPCS: 36415; 80053; 85025; 99284; J2405; S0119

== ENCOUNTER 2022-06-14 08:05 | Day surgery (SDC) | payer MEDICARE, BC ==
[2022-06-13 10:36] VITALS: BMI 36.6
[2022-06-14 08:34] VITALS: TEMP 96.1
[2022-06-14] MEDS: LACTATED RINGERS 1,000 ML IV SCH ×2 (08:35→08:38)
[2022-06-14 08:36] LABS: Glucose,Whole Blood 144 mg/dL (70-110)
[2022-06-14] MEDS ORDERED: PROPOFOL 10 MG/ML 20 ML VIAL IV ONE (08:40)
[2022-06-14] MEDS ORDERED: LIDOCAINE 2% INJ 20 MG/ML (2 ML VIAL) ONE (08:40)
--- NOTE | 2022-06-14 08:56 | P.PCN ---
Date of Procedure: 06/14/22 Procedure(s) Performed: BRIEF HISTORY: Patient is a 77-year-old pleasant white female scheduled for an elective colonoscopy as a part of evaluation of recent episode of acute sigmoid diverticulitis. PROCEDURE PERFORMED: Colonoscopy. PREOPERATIVE DIAGNOSIS: Recent episode of acute sigmoid diverticulitis. IV sedation per Anesthesia. PROCEDURE: After informed consent was obtained, the patient, was brought into the endoscopy unit. IV sedation was administered by Anesthesia under continuous monitoring. Digital rectal examination was normal. Initially the Olympus CF-160 flexible video colonoscope was then inserted in the rectum, gradually advanced into the cecum without any difficulty. Careful examination was performed as the scope was gradually being withdrawn. Ileocecal valve and the appendiceal orifice were visualized and appeared normal. Prep was excellent. Mucosa of the cecum, ascending colon, transverse colon, descending colon, sigmoid colon, and rectum appeared normal. Scattered sigmoid diverticulosis. Retroflexion was performed in the rectum and no lesions were seen. The patient tolerated the procedure well. IMPRESSION: Normal-appearing colon from rectum to cecum no evidence of colorectal neoplasia. Scattered sigmoid diverticulosis RECOMMENDATIONS: Findings of this examination were discussed with the patient as well as her family. She was advised to be a high-fiber diet and fiber supplements a regular basis..
[2022-06-14 09:20] VITALS: BP 106/69; PULSE 81; RESP 18
== END 2022-06-14 09:46 | disposition home or self-care (01) ==
LOC: ORWHC2ENDO 08:05
PROVIDERS: ATTEND Internal Medicine Gastroenterology
DX: K57.30 Diverticulosis of large intestine without perforation or abscess without bleeding (principal); I10 Essential (primary) hypertension; E78.5 Hyperlipidemia, unspecified; J44.9 Chronic obstructive pulmonary disease, unspecified; G47.33 Obstructive sleep apnea (adult) (pediatric); K21.9 Gastro-esophageal reflux disease without esophagitis; E03.9 Hypothyroidism, unspecified; E11.40 Type 2 diabetes mellitus with diabetic neuropathy, unspecified; M19.90 Unspecified osteoarthritis, unspecified site; G40.909 Epilepsy, unspecified, not intractable, without status epilepticus; Z86.73 Personal history of transient ischemic attack (TIA), and cerebral infarction without residual deficits; Z99.89 Dependence on other enabling machines and devices; Z88.5 Allergy status to narcotic agent; Z91.041 Radiographic dye allergy status; Z88.8 Allergy status to other drugs, medicaments and biological substances; Z91.018 Allergy to other foods; Z79.4 Long term (current) use of insulin; Z79.899 Other long term (current) drug therapy; Z79.890 Hormone replacement therapy
CPT/HCPCS: 45378; J2704; J2001

== ENCOUNTER → 2022-08-08 | Outpatient (CLI) | payer MEDICARE, BC ==
--- NOTE | 2022-08-08 22:48 | BD ---
EXAMINATION TYPE: Axial Bone Density DATE OF EXAM: 08/08/2022 CLINICAL HISTORY: 77 years old Female. ICD-10 CODE: Z78.0 POST MENOPAUSAL WITHOUT HRT Height: 57 Weight: 172.5 FRAX RISK QUESTIONS: Alcohol (3 or more units per day): no Family History (Parent hip fracture): no Glucocorticoids (More than 3mos): no History of Fracture in Adulthood: no Secondary Osteoporosis: 1. Type 1 Diabetes: no 2. Hyperthyroidism: no 3. Menopause before 45: no 4. Malnutrition: no 5. Chronic liver disease: no Rheumatoid Arthritis: no Current Tobacco Use: no RISK FACTORS HISTORY OF: Hip Fracture (Right/Left): no Spine Fracture: no History of Wrist Fracture: no Surgery to Spine/Hip(right/left)/Wrist (right/left): no Family History of Osteoporosis:no Active: no Diet low in dairy products/other sources of calcium: yes Postmenopausal woman: yes Take estrogen and/or progesterone medications: no Lost more than 2 inches in height since high school: yes Frequent falls: yes Poor Health: yes Hyperparathyroidism: no Adrenal Insufficiency: no MEDICATIONS: Prednisone or other steroids: no Thyroid Medications: Yes past 10 years Osteoporosis Medications: no Additional Medications: Multi Vit., reflux meds, Metformin, BP Meds x2, Cholesterol Meds, Magnesium, Additional History: Best history possible, pt is very hard of hearing EXAM MEASUREMENTS: Bone mineral densitometry was performed using the [employer] System. Bone mineral density as measured about the Lumbar spine is: ----- L1-L4(G/cm2): 1.252 T Score Values are as follows: ----- L1: 0.3 ----- L2: 1.0 ----- L3: 0.1 ----- L4: 0.8 ----- L1-L4: 0.6 Z Score Values are as follows: ----- L1: 1.7 ----- L2: 2.3 ----- L3: 1.5 ----- L4: 2.2 ----- L1-L4: 2.0 Baseline Study 0.976 Bone mineral density about the R hip (g/cm2): 0.976 Bone mineral density about the L hip (g/cm2): 1.011 T Score values are as follows: -----R Neck: -1.2 -----L Neck: -1.2 -----R Total: -0.3 -----L Total: 0.0 Z Score values are as follows: -----R Neck: 0.6 -----L Neck: 0.6 -----R Total: 1.3 -----L Total: 1.6 Baseline Study FRAX%s: The graph provided illustrates a 10.6% chance for a major osteoporotic fx and a 2.0% chance f or the hips probability for fx in 10 years time. IMPRESSION: Osteopenia (T Score between -2.5 and -1). There is slightly increased risk of fracture and the patient may be considered for treatment. Re-Screen 2-5 years. NOTE: T-SCORE=SD OF THE YOUNG ADULT MEAN.
--- NOTE | 2022-08-09 19:54 | MM ---
Reason for Exam: Screening (asymptomatic). Last mammogram was performed 1 year(s) and 8 month(s) ago. Patient History: Menarche at age 9. First Full-Term at age 29. Late child-bearing (after 29). Left ovary removed at age 46. Right ovary removed at age 46. Hysterectomy at age 46. Postmenopausal. Estrogen for 1 year from age 46 until age 47. Progesterone for 1 year from age 46 until age 47. Hormonal Contraceptives for 1 year from age 29 until age 30. Maternal grandmother had breast cancer, age 56. Paternal aunt had breast cancer, age 70. Risk Values: Makenzie 5 year model risk: 2.6%. NCI Lifetime model risk: 4.7%. Prior Study Comparison: 07/19/2018 Bilateral Screening Mammogram, [facility]. 10/16/2019 Bilateral Screening Mammogram, [facility]. 12/08/2020 Bilateral Screening Mammogram, [facility]. Tissue Density: There are scattered fibroglandular densities. Findings: Analyzed By CAD. Bilateral benign oil cyst, vascular, and secretory calcifications are unchanged. A few groups of heterogeneous calcifications on the left are also unchanged. There is no suspicious group of microcalcifications or new suspicious mass in either breast. Overall Assessment: Benign, BI-RAD 2 Management: Screening Mammogram of both breasts in 1 year. . Patient should continue monthly self-breast exams. A clinical breast exam by your physician is recommended on an annual basis. This exam should not preclude additional follow-up of suspicious palpable abnormalities. Note on Makenzie scores and lifetime risk: 1. A Makenzie score greater than 3% is considered moderate risk. If this is the case, consider specialist referral to assess eligibility for a risk reducing agent. 2. If overall lifetime risk for the development of breast cancer is 20% or higher, the patient may qualify for future screening with alternating mammogram and breast MRI. Electronically signed and approved by: Su Martines M.D. Radiologist
== END | disposition home or self-care (01) ==
LOC: RADBDWWP 15:13
PROVIDERS: ATTEND Family Medicine
DX: Z12.31 Encounter for screening mammogram for malignant neoplasm of breast (principal); M85.89 Other specified disorders of bone density and structure, multiple sites; Z78.0 Asymptomatic menopausal state
CPT/HCPCS: 77063; 77067; 77080